=== PATIENT | female | born 1950 | race Caucasian/White ===

== ENCOUNTER 2016-02-27 16:57 | Inpatient (IN) | payer OTHER, MEDICAID ==
--- NOTE | 2016-02-27 16:53 | EDPHY ---
H & P HPI/ROS: CHIEF COMPLAINT: Arm pain. HISTORY OF PRESENT ILLNESS: The patient is a 65-year-old female with a history of Stage 4 Lymphoma and left humerus fracture 3 days ago who presents via EMS for worsening pain in her arm. After she was diagnosed on Thursday she tripped and fell, possibly reinjuring the arm (no other injuries). She visited her oncologist and had a "bone-strengthening" infusion yesterday. She visited Dr. Neff, orthopedics yesterday. She denies other complaints. EMS administered 100mcg IV Fentanyl en route. She is known to me from an emergency department visit last week. At that visit she was found to have an avulsion fracture off of the right anterior iliac spine. She presented because of right pelvic/hip pain and a large bruise involving her pelvic region. At that time she was able to walk, albeit with some difficulty. She says that that pain has persisted. That fracture, along with the left humerus fracture, has made it very difficult for her to walk or dress herself. She had a hip fracture in July of this year and after ORIF she went to [facility] for rehab. She feels that she will likely need to return to rehab setting, she is not able to adequately care for herself at home. She has been taking Percocet 10/325, 2 tablets, every 4 hours for pain. This has not provided adequate pain control. She denies new numbness or weakness. REVIEW OF SYSTEMS: A ten point review of systems was performed and is negative with the exception of the items mentioned in the HPI. Source: Patient Exam Limitations: No limitations - Medical/Surgical History PMH: 1. Stage IV lymphoma - Social History Additional Social History: She lives alone. She does not use tobacco products. She does not drink alcohol. - Physical Exam Exam: General Appearance: Alert. Vital signs reviewed. Eyes: Pupils equal and round, no conjunctival injection, no discharge. Anicteric. ENT, Mouth: Mucous membranes are moist, no oropharyngeal erythema or edema. Neck: Nontender over the cervical spine. No lymphadenopathy. Respiratory: Lungs are clear to auscultation; no wheezes, rales, or rhonchi. Cardiovascular: Regular rate and rhythm; no murmur, rub, or gallop. Gastrointestinal: Abdomen is soft and nontender, no masses or organomegaly, bowel sounds normal. Skin: Warm and dry, no rashes on exposed skin, normal color. Back: Nontender to palpation over the thoracolumbar spine. No CVAT. Extremities: Tender to palpation over the upper humerus. No lower extremity edema, no calf tenderness or swelling. Pulses: 2+ radial pulses bilaterally. Neurological: Alert and oriented. Moving both legs and her right armspontaneously. Sensation intact to light touch over all 4 extremities. Psychiatric: Normal affect. Constitutional: Initial Vital Signs Temperature (C) 36 C 02/27/16 17:10 Heart Rate 91 02/27/16 17:10 Respiratory Rate 16 02/27/16 17:10 Blood Pressure 114/81 H 02/27/16 17:10 O2 Sat (%) 95 02/27/16 17:10 O2 Delivery Mode Room Air Allergies/Adverse Reactions: melatonin Allergy (Mild, Verified 02/08/16 05:51) Other-Enter Comments gabapentin [Gabapentin] Allergy (Unknown, Verified 02/08/16 05:51) TREMORS pregabalin [Pregabalin] Allergy (Unknown, Verified 02/08/16 05:51) Rash solifenacin succinate [From Vesicare] Allergy (Unknown, Verified 02/08/16 05:51) topiramate [Topiramate] Allergy (Unknown, Verified 02/08/16 05:51) POORLY TOLERATED ziprasidone [Ziprasidone] Allergy (Unknown, Verified 02/08/16 05:51) ABNORMAL THINKING ziprasidone HCl [From Geodon] Allergy (Unknown, Verified 02/08/16 05:51) ziprasidone mesylate [From Geodon] Allergy (Unknown, Verified 02/08/16 05:51) zolpidem [Zolpidem] Allergy (Unknown, Verified 02/08/16 05:51) levofloxacin [From Levaquin] Allergy (Verified 02/08/16 05:51) Home Medications: Medication Instructions Recorded Carvedilol [Coreg (*)] 6.25 mg PO BIDMEAL 03/27/14 Levothyroxine [Synthroid 125 mcg 125 mcg PO DAILY06 03/27/14 (*)] Doxepin HCl [Sinequan 50 MG (*)] 100 mg PO HS 07/17/15 Ferrous Sulfate [Ferrous Sulf 325 150 mg PO DAILY 07/17/15 MG (*)] Acyclovir [Zovirax 400 mg (*)] 400 mg PO BID 02/08/16 Ibuprofen [Motrin (*)] 600 mg PO Q6 PRN 02/08/16 Lorazepam [Ativan 2 mg tab] 1 mg PO BID 02/08/16 Lorazepam [Ativan 2 mg tab] 2 mg PO DAILY@12 02/08/16 Multivitamins [Multivitamin (*)] 1 each PO DAILY 02/08/16 OLANZapine DISINTEGR [ZyPREXA 10 mg PO TID@05,12,17 02/08/16 ZYDIS (*)] OLANZapine DISINTEGR [ZyPREXA 20 mg PO HS 02/08/16 ZYDIS (*)] [place]-3 Fatty Acids [Fish Oil 1000 1,000 mg PO BID 02/08/16 mg (*)] Prochlorperazine Maleate 10 mg PO TID PRN 02/08/16 [Compazine 10mg (*)] Ranitidine HCl [Zantac] 300 mg PO DAILY 02/08/16 predniSONE 20 mg PO DAILY 02/08/16 rOPINIRole HCL [Requip 0.25mg (RX)] 0.25 mg PO HS 02/08/16 tiZANidine HCL [Zanaflex 2MG (*)] 2 mg PO DAILY PRN 02/08/16 traMADol [Ultram 50 mg (*)] 50 - 100 mg PO Q4-6PRN PRN 02/08/16 oxyCODONE HCL/ACETAMINOPHEN 1 - 2 each PO Q4 PRN #40 tablet 02/09/16 [Percocet 10-325 mg Tablet] Tiotropium Inhaler [Spiriva 18 mcg IH DAILY 02/27/16 Handihaler] Venlafaxine HCl [Venlafaxine HCl 450 mg PO DAILY 02/27/16 ER] Medical Decision Making - Diagnostics Imaging: Left arm x-ray. Viewed by myself in PACS system. My interpretation of the images is: displaced humeral head fracture, worse than 3 days ago. I have reviewed the radiologist's report. ED Course/Re-evaluation: Left humerus x-ray ordered. 185: Reassessed patient. Discussed results of x-rays. Today's x-ray shows 100 % displacement of her humeral head, markedly worse than the initial x-ray taken at the time of her injury. She is placed in a splint. I do not feel that she can adequately care for herself at home with this injury in conjunction with her iliac spine avulsion fracture and difficulty walking. I recommended admission and she agreed. I answered all of her questions. 1924: Consulted with Dr. Agee, hospitalist. She accepted admission. 2100: She continues with significant pain. She has received IV fentanyl. She will be given oxycodone, which is what she takes at home. She also takes Ativan will be given a dose of Ativan. Differential Diagnosis: I considered a differential diagnosis that includes but is not limited to new fracture, worsening of previous fracture, contusion, and drug-seeking. - Data Points Medications Given: Discontinued Medications Fentanyl (Sublimaze) 75 mcg IVP EDNOW ONE Stop: 02/27/16 18:35 Last Admin: 02/27/16 18:51 Dose: 75 mcg Oxycodone HCl (Oxycontin) 10 mg PO ONCE ONE Stop: 02/27/16 21:07 Last Admin: 02/27/16 21:37 Dose: 10 mg Departure - Departure Disposition: [facility] Inpatient Acute Clinical Impression: Arm fracture Qualifiers: Qualifier Code: (S42.302A) Unspecified fracture of shaft of humerus, left arm, initial encounter for closed fracture Lymphoma Qualifiers: Qualifier Code: (C85.90) Non-Hodgkin lymphoma, unspecified, unspecified site Condition: Fair Report Scribed for: Beth Riddle Report Scribed by: Vik Kirk Date of Report: 02/27/16 Time of Report: 17:17 Physician Review and Approval Statement: 02/27/16 16:53 Portions of this note were transcribed by the medical anthropologist. I, Dr. Beth Riddle, personally performed the history, physical exam, and medical decision- making; and confirmed the accuracy of the information in the transcribed note.
--- NOTE | 2016-02-27 18:14 | DX ---
Left Humerus, 2 Views on February 27, 2016 at 1752 hours Indication: Increasing pain. Comparison: February 24, 2016. Findings: Since prior examination, there is worsening alignment of the fracture of the humeral metaph ysis. The previous fracture was nondisplaced and now the fracture is significantly displaced, 100%. R emaining humerus is unremarkable. Visualized radius and ulnar are unremarkable. Impression: The previous nondisplaced humeral head fracture is now 100% displaced with no significant overlapping or alignment of the humeral head with the humeral neck fracture. Initial accurate prelim was provided by the emergency room physician.
[2016-02-27] MEDS ORDERED: fentaNYL 100 MCG/2 ML INJ IVP ONE (18:34)
[2016-02-27] MEDS ORDERED: LORazepam 1 MG TAB ONE (21:40)
[2016-02-27] MEDS ORDERED: LORazepam 1 MG TAB PO ONE (21:45)
[2016-02-27] MEDS ORDERED: HYDROmorphONE/DILAUDID 1 MG/ML SYR IVP ONE ×3 (21:54→23:28)
[2016-02-27] MEDS ORDERED: ACETAMINOPHEN 325 MG TAB ONE (22:37)
[2016-02-27] MEDS ORDERED: ACETAMINOPHEN 325 MG TAB PO ONE (22:46)
[2016-02-27 22:49] LABS: ADD DIFF? YES; ADD MORPH? NO; ATYPICAL LYMPHOCYTE FLAG 0 (0-99); FRAGMENT RBC FLAG 0 (0-99); HEMATOCRIT 27.2 % (38.0-47.0); LIPEMIA HEMOLYSIS FLAG 80 (0-99); MEAN CELL HEMOGLOBIN 26.9 pg (27.9-34.1); MEAN CELL HEMOGLOBIN CONCENTR. 33.1 g/dL (32.4-36.7); MEAN CELL VOLUME 81.4 fL (81.5-99.8); MEAN PLATELET VOLUME 7.9 fL (8.7-11.7); PLATELET CLUMPS FLAG 0 (0-99); PLATELET COUNT 162 10^3/uL (150-400); RED BLOOD CELL COUNT 3.34 10^6/uL (4.18-5.33); RED CELL DISTRIBUTION WIDTH 18.3 % (11.5-15.2)
[2016-02-27 22:55] LABS: ADD SCAN? NO; LEFT SHIFT FLG 270 (0-99)
[2016-02-27 23:00] LABS: INR 1.08 (0.83-1.16); PROTIME(PATIENT) 13.9 SEC (12.0-15.0)
[2016-02-27 23:01] LABS: APTT 33.1 SEC (23.0-38.0)
[2016-02-27 23:06] LABS: ALANINE AMINOTRANSFERASE 31 IU/L (9-52); ALBUMIN 3.2 g/dL (3.5-5.0); ALKALINE PHOSPHATASE 87 IU/L (38-126); ANION GAP 9 mEq/L (8-16); ASPARTATE AMINOTRANSFERASE 28 IU/L (14-46); BILIRUBIN,TOTAL 0.5 mg/dL (0.1-1.4); CALCIUM 7.9 mg/dL (8.5-10.4); CARBON DIOXIDE 21 mEq/l (22-31); CHLORIDE 101 mEq/L (97-110); CREATININE 0.6 mg/dL (0.6-1.0); GLOMERULAR FILTRATION RATE > 60; GLUCOSE 102 mg/dL (70-100); POTASSIUM 3.1 mEq/L (3.5-5.2); SODIUM 131 mEq/L (134-144); TOTAL PROTEIN 5.5 g/dL (6.3-8.2)
[2016-02-27] MEDS ORDERED: HYDROmorphONE/DILAUDID 1 MG/ML SYR ONE (23:31)
[2016-02-27] MEDS ORDERED: ONDANSETRON DISINTEGRATING 4 MG TAB PO PRN (23:45)
[2016-02-27] MEDS ORDERED: ONDANSETRON 4 MG/2 ML VIAL IVP PRN (23:45)
[2016-02-27] MEDS ORDERED: HYDROmorphONE/DILAUDID 1 MG/ML SYR IVP PRN (23:45)
[2016-02-27 23:52] LABS: MICROCYTES 1+; PLATELET ESTIMATE ADEQUATE (ADEQ)
[2016-02-27 23:53] LABS: LARGE PLATELETS PRESENT; TOXIC GRANULATION PRESENT; TOXIC VACUOLIZATION PRESENT
[2016-02-28] MEDS ORDERED: NALOXONE HCL 0.4 MG/ML INJ IVP PRN (00:02)
[2016-02-28] MEDS ORDERED: HYDROmorphONE/DILAUDID 6 MG/30 ML PCA IV PRN (00:02)
[2016-02-28] MEDS: NS 1,000 ML IV SCH (00:48)
[2016-02-28] MEDS: LORazepam 1 MG TAB PO SCH ×5 (00:48→16:44)
[2016-02-28] MEDS: OLANZapine DISINTEGR 10 MG TAB PO SCH ×5 (00:49→21:19)
--- NOTE | 2016-02-28 04:05 | PDGENHP ---
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 Patient was evaluated in the ED on 02/23 and was found to have a nondisplaced pathological fracture of her left proximal humerus. She was given pain control and discharged home. Patient reports after this ER visit she was home and tripped on protruding tiles in her kitchen falling forward and onto her left side. She denies head trauma or loss of consciousness, but immediately began having intense pain all over especially in her left arm. She was evaluated by her PMD office on day of presentation for routine visit and given the amount of pain she was describing she was sent to the ED for further evaluation. Patient denies any recent fevers, chills cough, cold, congestion, chest pain, shortness of breath, nausea, vomiting, diarrhea. Upon arrival to the ED patient afebrile and hemodynamically stable, but in significant amount of pain. She was given IV narcotics and imaging of left humerus was obtained. X-ray revealed 100% displaced humoral neck fracture, a significant change from her x-ray on 02/23. Patient was put in a sling and admitted to the hospitalist service for further management. Upon my evaluation patient was in still in considerable amount of pain. Orthopedics was consulted who recommended immobilization in a sling and will evaluate patient in a.m. for likely need of surgical correction. History Information - Allergies/Home Medication List Allergies/Adverse Reactions: melatonin Allergy (Mild, Verified 02/08/16 05:51) Other-Enter Comments gabapentin [Gabapentin] Allergy (Unknown, Verified 02/08/16 05:51) TREMORS pregabalin [Pregabalin] Allergy (Unknown, Verified 02/08/16 05:51) Rash solifenacin succinate [From Vesicare] Allergy (Unknown, Verified 02/08/16 05:51) topiramate [Topiramate] Allergy (Unknown, Verified 02/08/16 05:51) POORLY TOLERATED ziprasidone [Ziprasidone] Allergy (Unknown, Verified 02/08/16 05:51) ABNORMAL THINKING ziprasidone HCl [From Geodon] Allergy (Unknown, Verified 02/08/16 05:51) ziprasidone mesylate [From Geodon] Allergy (Unknown, Verified 02/08/16 05:51) zolpidem [Zolpidem] Allergy (Unknown, Verified 02/08/16 05:51) levofloxacin [From Levaquin] Allergy (Verified 02/08/16 05:51) Home Medications: Carvedilol [Coreg (*)] 6.25 mg PO BIDMEAL 03/27/14 [Last Taken 02/27/16] Levothyroxine [Synthroid 125 mcg (*)] 125 mcg PO DAILY06 03/27/14 [Last Taken ] Doxepin HCl [Sinequan 50 MG (*)] 100 mg PO HS 07/17/15 [Last Taken 02/26/16] Ferrous Sulfate [Ferrous Sulf 325 MG (*)] 150 mg PO DAILY 07/17/15 [Last Taken 02/27/16] Acyclovir [Zovirax 400 mg (*)] 400 mg PO BID 02/08/16 [Last Taken 02/27/16] Ibuprofen [Motrin (*)] 600 mg PO Q6 PRN 02/08/16 [Last Taken 02/07/16] Lorazepam [Ativan 2 mg tab] 1 mg PO BID 02/08/16 [Last Taken 02/27/16] Lorazepam [Ativan 2 mg tab] 2 mg PO DAILY@12 02/08/16 [Last Taken 02/27/16] Multivitamins [Multivitamin (*)] 1 each PO DAILY 02/08/16 [Last Taken 02/27/16] OLANZapine DISINTEGR [ZyPREXA ZYDIS (*)] 10 mg PO TID@05,12,17 02/08/16 [Last Taken 02/27/16] OLANZapine DISINTEGR [ZyPREXA ZYDIS (*)] 20 mg PO HS 02/08/16 [Last Taken ] [place]-3 Fatty Acids [Fish Oil 1000 mg (*)] 1,000 mg PO BID 02/08/16 [Last Taken 02/27/16] Prochlorperazine Maleate [Compazine 10mg (*)] 10 mg PO TID PRN 02/08/16 [Last Taken 02/07/16] Ranitidine HCl [Zantac] 300 mg PO DAILY 02/08/16 [Last Taken 02/27/16] predniSONE 20 mg PO DAILY 02/08/16 [Last Taken 02/27/16] rOPINIRole HCL [Requip 0.25mg (RX)] 0.25 mg PO HS 02/08/16 [Last Taken 02/26/16] tiZANidine HCL [Zanaflex 2MG (*)] 2 mg PO DAILY PRN 02/08/16 [Last Taken Unknown ] traMADol [Ultram 50 mg (*)] 50 - 100 mg PO Q4-6PRN PRN 02/08/16 [Last Taken 03/24] Tiotropium Inhaler [Spiriva Handihaler] 18 mcg IH DAILY 02/27/16 [Last Taken ] Venlafaxine HCl [Venlafaxine HCl ER] 225 mg PO DAILY 02/27/16 [Last Taken ] I have personally reviewed and updated: family history, medical history, social history, surgical history - Past Medical History Additional medical history: Follicular lymphoma, stage IV with bony Mets on chemotherapy via chest wall port. Bipolar disorder. Anxiety/panic disorder. Hypothyroidism. Chronic pain - Surgical History Additional surgical history: Right hip orif. Left ankle fracture repair. Rhinoplasty - Family History Additional family history: MGM: Lung cancer - Social History Smoking Status: Former smoker (Smoked 2 packs per day x 50 years, quit 3 years ago) Alcohol Use: None Drug Use: None Additional social history: Patient lives alone but has neighbors who apparently are involved in her care. 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 Review of Systems ROS: 10pt was reviewed & negative except for what was stated in HPI & below Physical Exam Temp Pulse Resp BP Pulse Ox 36.3 C 112 H 12 115/57 L 92 02/28/16 00:02 02/28/16 00:02 02/28/16 00:02 02/28/16 00:02 02/28/16 00:02 Constitutional: uncomfortable, other (In moderate to severe pain) Eyes: PERRL, anicteric sclera, EOMI Ears, Nose, Mouth, Throat: hearing normal, ears appear normal, no oral mucosal ulcers, dry mucous membranes Cardiovascular: no murmur, rub, or gallop, pulses symmetric bilaterally, tachycardia, No JVD, No edema Peripheral Pulses: 2+: dorsalis-pedis (R), dorsalis-pedis (L) Respiratory: no respiratory distress, no rales or rhonchi, clear to auscultation Gastrointestinal: normoactive bowel sounds, soft, non-tender abdomen, no palpable masses Genitourinary: no bladder fullness, no bladder tenderness Skin: warm, normal color, no rashes or abrasions, no fluctuance Musculoskeletal: full muscle strength, no muscle tenderness, joint tenderness, pain with ROM (Left shoulder) Neurologic: AAOx3, sensation intact bilaterally, CN II-XII Intact, No weakness, No numbness Psychiatric: interacting appropriately, not encephalopathic, thought process linear Lab Data & Imaging Review 02/27/16 22:40 02/27/16 22:40 WBC 1.37 10^3/uL (3.80-9.50) L 02/27/16 22:40 RBC 3.34 10^6/uL (4.18-5.33) L 02/27/16 22:40 Hgb 9.0 g/dL (12.6-16.3) L 02/27/16 22:40 Hct 27.2 % (38.0-47.0) L 02/27/16 22:40 MCV 81.4 fL (81.5-99.8) L 02/27/16 22:40 MCH 26.9 pg (27.9-34.1) L 02/27/16 22:40 MCHC 33.1 g/dL (32.4-36.7) 02/27/16 22:40 RDW 18.3 % (11.5-15.2) H 02/27/16 22:40 Plt Count 162 10^3/uL (150-400) 02/27/16 22:40 MPV 7.9 fL (8.7-11.7) L 02/27/16 22:40 Neut % (Auto) Not Reported 02/27/16 22:40 Lymph % (Auto) Not Reported 02/27/16 22:40 [place] % (Auto) Not Reported 02/27/16 22:40 Eos % (Auto) Not Reported 02/27/16 22:40 Baso % (Auto) Not Reported 02/27/16 22:40 Nucleat RBC Rel Count 0.0 % (0.0-0.2) 02/27/16 22:40 Absolute Neuts (auto) Not Reported 02/27/16 22:40 Absolute Lymphs (auto) Not Reported 02/27/16 22:40 Absolute Monos (auto) Not Reported 02/27/16 22:40 Absolute Eos (auto) Not Reported 02/27/16 22:40 Absolute Basos (auto) Not Reported 02/27/16 22:40 Absolute Nucleated RBC 0.00 10^3/uL (0-0.01) 02/27/16 22:40 Immature Gran % Not Reported 02/27/16 22:40 Seg Neutrophils % 30 % 02/27/16 22:40 Band Neutrophils % 48 % 02/27/16 22:40 Lymphocytes % 9 % 02/27/16 22:40 Monocytes % 4 % 02/27/16 22:40 Eosinophils % 6 % 02/27/16 22:40 Metamyelocytes % 3 % 02/27/16 22:40 Immature Gran # Not Reported 02/27/16 22:40 Absolute Seg Neuts 0.41 10^/uL (1.70-6.50) L 02/27/16 22:40 Absolute Band Neuts 0.66 10^3/uL (0.00-0.70) 02/27/16 22:40 Absolute Lymphocytes 0.12 10^3/uL (1.00-3.00) L 02/27/16 22:40 Absolute Monocytes 0.05 10^3/uL (0.30-0.80) L 02/27/16 22:40 Absolute Eosinophils 0.08 10^3/uL (0.03-0.40) 02/27/16 22:40 Absolute Metamyelocyte 0.04 10^3/mL (0.00-0.00) H 02/27/16 22:40 Toxic Granulation PRESENT H 02/27/16 22:40 Toxic Vacuolation PRESENT H 02/27/16 22:40 Platelet Estimate ADEQUATE (ADEQ) 02/27/16 22:40 Large Platelets PRESENT H 02/27/16 22:40 Microcytic Cells 1+ H 02/27/16 22:40 PT 13.9 SEC (12.0-15.0) 02/27/16 22:40 INR 1.08 (0.83-1.16) 02/27/16 22:40 APTT 33.1 SEC (23.0-38.0) 02/27/16 22:40 Sodium 131 mEq/L (134-144) L 02/27/16 22:40 Potassium 3.1 mEq/L (3.5-5.2) L 02/27/16 22:40 Chloride 101 mEq/L (97-110) 02/27/16 22:40 Carbon Dioxide 21 mEq/l (22-31) L 02/27/16 22:40 Anion Gap 9 mEq/L (8-16) 02/27/16 22:40 BUN 13 mg/dL (7-23) 02/27/16 22:40 Creatinine 0.6 mg/dL (0.6-1.0) 02/27/16 22:40 Estimated GFR > 60 02/27/16 22:40 Glucose 102 mg/dL (70-100) H 02/27/16 22:40 Calcium 7.9 mg/dL (8.5-10.4) L D 02/27/16 22:40 Total Bilirubin 0.5 mg/dL (0.1-1.4) 02/27/16 22:40 AST 28 IU/L (14-46) 02/27/16 22:40 ALT 31 IU/L (9-52) 02/27/16 22:40 Alkaline Phosphatase 87 IU/L (38-126) 02/27/16 22:40 Total Protein 5.5 g/dL (6.3-8.2) L 02/27/16 22:40 Albumin 3.2 g/dL (3.5-5.0) L 02/27/16 22:40 Visualized and Interpreted Chest x-ray results: Yes Chest X-Ray results: no infiltrate, normal Visualized and Interpreted imaging results: Yes Interpretation: L humerus x-ray: 100% displaced humeral head fracture Assessment & Plan Assessment: Patient is a 65-year-old female with history of bipolar disorder, hypothyroidism , stage IV follicular lymphoma with bony mets who sustained a pathological fracture of her left humerus on 02/23, subsequently fell which resulted in displacement of this fracture. Plan: # acute displaced humeral neck acute fracture Initial pathologic fracture was discovered on 02/23, then pt sustained a mechanical fall, which resulted in displacement of this pathologic fracture. Pt is in significant amount of pain, although neurovascularly intact. Orthopedics consulted and on their review of x-ray, pt may need surgical correction, will complete the full consult in AM. - pain control with dilaudid retail marketing specialist - immobilize L arm in sling - f/u ortho consult in AM # fever Pt with fever, leukopenia and no obvious source of infection. Given neutropenia , will treat as neutropenic fever. Will obtain blood cultures and start broad spectrum antibiotics. - blood and urine cultures - start cefepime 2 g q8h - start vanc 1 g q12h - consider ID consult # stage IV follicular lymphoma Diagnosed in 2014, pt unable to provide details of her treatment history/regimen , reportedly on chemotherapy. - obtain outpt onc records. # Bipolar/anxiety disorder MS stable on presentation. Will cont home med regimen. # Hypothyroidism Check TSH, cont home med. # dispo: admit to inpt service for > 2 MN stay # gen: Regular diet DVT ppx: lovenox Full code
[2016-02-28] MEDS: ACETAMINOPHEN 325 MG TAB PO PRN ×2 (04:21→11:59)
[2016-02-28] MEDS ORDERED: VANCOMYCIN 1.25 GM in D5W 250 ML IV SCH ×2 (05:00→05:30)
[2016-02-28] MEDS: CEFEPIME HCL 2 GM in D5W 100 ML IV SCH ×3 (05:19→22:20)
[2016-02-28] MEDS: LEVOTHYROXINE 125 MCG TAB PO SCH (05:20)
[2016-02-28 06:50] LABS: COLOR YELLOW; LEUKOCYTE ESTERASE,URINE NEGATIVE (NEGATIVE); NITRITE,URINE NEGATIVE (NEGATIVE)
[2016-02-28 06:56] LABS: ADD DIFF? YES; ADD MORPH? NO; ATYPICAL LYMPHOCYTE FLAG 0 (0-99); FRAGMENT RBC FLAG 0 (0-99); HEMATOCRIT 27.1 % (38.0-47.0); HEMOGLOBIN 9.1 g/dL (12.6-16.3); LIPEMIA HEMOLYSIS FLAG 80 (0-99); MEAN CELL HEMOGLOBIN 27.4 pg (27.9-34.1); MEAN CELL HEMOGLOBIN CONCENTR. 33.6 g/dL (32.4-36.7); MEAN CELL VOLUME 81.6 fL (81.5-99.8); MEAN PLATELET VOLUME 8.5 fL (8.7-11.7); PLATELET CLUMPS FLAG 10 (0-99); PLATELET COUNT 182 10^3/uL (150-400); RED BLOOD CELL COUNT 3.32 10^6/uL (4.18-5.33); RED CELL DISTRIBUTION WIDTH 18.6 % (11.5-15.2)
[2016-02-28 07:09] LABS: ADD SCAN? NO; LEFT SHIFT FLG 300 (0-99)
[2016-02-28 07:10] LABS: ANION GAP 9 mEq/L (8-16); CALCIUM 7.3 mg/dL (8.5-10.4); CARBON DIOXIDE 22 mEq/l (22-31); CHLORIDE 102 mEq/L (97-110); CREATININE 0.6 mg/dL (0.6-1.0); GLOMERULAR FILTRATION RATE > 60; GLUCOSE 121 mg/dL (70-100); MAGNESIUM 1.4 mg/dL (1.6-2.3); POTASSIUM 2.8 mEq/L (3.5-5.2); SODIUM 133 mEq/L (134-144)
[2016-02-28] MEDS: OMEGA-3 FATTY ACIDS 1,000 MG CAP PO SCH ×2 (07:34→21:17)
[2016-02-28] MEDS: VENLAFAXINE XR 75 MG CAP PO SCH (07:35)
[2016-02-28] MEDS: FAMOTIDINE 20 MG TAB PO SCH (07:36)
[2016-02-28] MEDS: FERROUS SULFATE 325 MG TAB PO SCH (07:36)
[2016-02-28] MEDS: predniSONE 20 MG TAB PO SCH (07:37)
[2016-02-28] MEDS: ACYCLOVIR 400 MG TAB PO SCH ×2 (07:37→21:19)
[2016-02-28] MEDS: MULTIVITAMINS 1 EACH TAB PO SCH (07:37)
[2016-02-28] MEDS: ENOXAPARIN 40 MG/0.4 ML SYR SC SCH (07:38)
[2016-02-28] MEDS: NICOTINE 21 MG/24 HR PATCH TD SCH (07:39)
[2016-02-28 07:53] LABS: PLATELET ESTIMATE ADEQUATE (ADEQ)
[2016-02-28] MEDS ORDERED: NS 1,000 ML IV ONE ×2 (07:54→11:53)
[2016-02-28] MEDS ORDERED: ALTEPLASE 2 MG VIAL IVP PRN (07:55)
[2016-02-28] MEDS ORDERED: PROTOCOL MAGNESIUM 1 DOSE IV PRN (07:58)
[2016-02-28] MEDS ORDERED: PROTOCOL POTASSIUM 1 DOSE MISC PRN (07:58)
[2016-02-28] MEDS ORDERED: PROTOCOL K PHOSPHATE 1 DOSE IV PRN (07:58)
[2016-02-28] MEDS ORDERED: CARVEDILOL 6.25 MG TAB PO SCH (08:00)
--- NOTE | 2016-02-28 08:14 | DX ---
PA and Lateral Chest February 28, 2016 0012 hours Clinical Indications: Sepsis. Findings: Port catheter is seen in the upper SVC. Heart size is normal. There are some very mild inc reased interstitial markings along the right heart border. A comminuted fracture of the left humeral head is noted with some subluxation. Impression: 1. Questionable mild early interstitial infiltrate in the right lower lobe. 2. There is a left humeral neck fracture. This is a known finding and was evaluated on x-rays from [facility] in the evening.
[2016-02-28] MEDS ORDERED: MAGNESIUM SULF 2 GM/WATER 50 ML IV ONE (08:50)
[2016-02-28] MEDS: TIOTROPIUM INHALER 18 MCG/DOSE 5 DOSE/MDI IH SCH (09:17)
[2016-02-28] MEDS ORDERED: morphINE PCA 30 MG/30 ML PCA IV PRN (10:28)
[2016-02-28] MEDS ORDERED: morphINE PCA 30 MG/30 ML PCA IV ONE (10:33)
[2016-02-28] MEDS: POTASSIUM Cl (KCl) 100 ML IV SCH ×4 (10:43→16:32)
[2016-02-28] MEDS ORDERED: K PHOS 10 MMOL in D5W 250 ML IV ONE (12:00)
--- NOTE | 2016-02-28 16:16 | HOSPPROG ---
Hospitalist Progress Note Assessment/Plan: 65 yo F with hx of stage 4 lymphoma with extensive bony mets and prior pathological fx presenting with acute displaced humeral neck fx and sepsis in setting of likely pna # acute displaced humeral neck fx: initial injury on 02/23 with a non displaced fx at that time, was immobilized and sent home, but on return fracture is now completely displaced with associated severe pain. Ortho consulted and recs are pending. Patient is being kept NPO in case of surgical intervention today. sling in place. # sepsis: patient with neutropenia, fever and tachycardia in setting of likely RLL PNA as next. Started on broad spectrum abx overnight and will continue for now pending culture data given immune compromised state. mildly hypotensive but fluid responsive currently. # RLL PNA: early infiltrate noted on personal review of chest xray in setting of above as well as chronic immune compromise. Abx for now include vanc/ cefepime for coverage of neutropenic fever/pna. Cultures pending. Repeat cxr in am. # stage 4 follicular lymphoma: with extensive bony mets and prior pathological fractures as above # electrolyte abnormalities: with low k, mg, phos all in need of repletion. Suspect poor nutrition at baseline. Will ask for dietary consult. # h/o anxiety/MDD/bipolar vs schizophrenia: continue op medications, behaviorally controlled # hypothyroid: with elevated tsh but ft4 wnl, recommend f/u TFT in 4-6 weeks # dispo: will need > 48 hours for evaluation and management of above Patient new to my care. Care plan reviewed with Dr. Raymundo. Subjective: fever this am, continued arm pain Objective: Vital Signs Temp Pulse Resp BP Pulse Ox 38.1 C 108 H 16 100/54 L 95 02/28/16 15:52 02/28/16 15:52 02/28/16 15:52 02/28/16 15:52 02/28/16 15:52 Laboratory Results 02/28/16 06:00 02/28/16 06:00 02/27/16 02/28/16 02/29/16 05:59 05:59 05:59 Intake Total 1350 Output Total 1200 Balance 150 PT 13.9 SEC (12.0-15.0) 02/27/16 22:40 INR 1.08 (0.83-1.16) 02/27/16 22:40 awake alert uncomfortable appearing anicteric op clear rrr tachycardic no mrg dec throughout right lower lobe rhonchi soft nt nd no cce warm dry well perfused - Time Spent With Patient Time Spent with Patient: greater than 35 minutes Time Spent with Patient: Greater than 35 minutes spent on this patients care, greater than 50% of time spent counseling, educating, and coordinating care regarding the above mentioned plan. ICD10 Worksheet Patient Problems: Problems Problem Status Diagnosed Arm fracture Acute Bipolar 1 disorder with moderate isaura Acute Lymphoma Acute Marijuana abuse Acute Altered mental status Acute Chest pain Acute Withdrawal from sedative drug Acute Bipolar disorder Chronic
[2016-02-28] MEDS ORDERED: POTASSIUM Cl (KCl) 100 ML IV ONE (16:30)
[2016-02-28 19:07] LABS: POTASSIUM 3.3 mEq/L (3.5-5.2)
[2016-02-28] MEDS: VANCOMYCIN 750 MG in D5W 150 ML IV SCH (19:51)
[2016-02-28] MEDS ORDERED: POTASSIUM CL 10 MEQ TAB PO ONE (21:01)
[2016-02-28] MEDS: DOXEPIN HCL 50 MG CAP PO SCH (21:18)
--- NOTE | 2016-02-28 21:53 | SOAPPROG ---
SOAP Progress Note Assessment/Plan: Assessment: Plan: Subjective: I saw the patient today at 10am and discussed my plan of care with the nurses on the floor. I reviewed the patient XR and NV and fracture status late last night when she was admitted during my call shift and discussed this with the ED. I examined the patient myself at 10am and found her in pain, but with no distress. NV intact and moving fingers well. She used ice over the shoulder. I explained to her that this fracture requires surgical fix. I inquired how did she move from undisplaced fracture 3 days ago to a displaced facture last night and she reported on a second fall at home after being discharged from ED with undisplaced fracture. I found out that her electrolytes are off and understood that she needs some drafting instructor care first. I made sure she will be seen by drafting instructor and asked nurse to stop NPO as surgery will not happen today. I told patient and nurse that I am now seeking the proper surgeon to do the surgery as I am not doing shoulder surgeries. I contacted several surgeons from the floor before I left but none had came back to me with a positive answer. I then left to clinic and kept on contacting local surgeons to try and get this sorted out. I managed to find a back up solution in [facility] with one of my partners for Thursday but kept on looking for a local solution as first choice. Eventually, at night, I verified with Dr Choudhary that he will be doing the surgery Thursday afternoon. Dr Miller Objective: Vital Signs Temp Pulse Resp BP Pulse Ox 38.1 C 110 H 20 94/56 L 95 02/28/16 19:16 02/28/16 19:16 02/28/16 19:16 02/28/16 19:16 02/28/16 19:16 Laboratory Results 02/28/16 06:00 02/28/16 18:40 02/27/16 02/28/16 02/29/16 05:59 05:59 05:59 Intake Total 1850 Output Total 2400 Balance -550 PT 13.9 SEC (12.0-15.0) 02/27/16 22:40 INR 1.08 (0.83-1.16) 02/27/16 22:40 ICD10 Worksheet Patient Problems: Problems Problem Status Diagnosed Arm fracture Acute Bipolar 1 disorder with moderate isaura Acute Lymphoma Acute Marijuana abuse Acute Altered mental status Acute Chest pain Acute Withdrawal from sedative drug Acute Bipolar disorder Chronic
--- NOTE | 2016-02-28 21:54 | GCON ---
[f rep st] CONSULTATION INPATIENT CONSULT REPORT DATE OF CONSULTATION: 02/28/2016 CURRENT COMPLAINT: Left arm pain. HISTORY OF PRESENT ILLNESS: This is a 65-year-old female with a history of stage IV lymphoma, with e xtensive bony metastases. She had been seen on 02/[address] Neff and noted to have an apparent nondi splaced proximal humerus fracture on the left side that was to be treated conservatively. She states that she fell again and was brought to the emergency room on 02/26 for further evaluation. X-rays a t 7 p.m., on 02/26, revealed 100% displacement of the humeral head relative to the shaft. She was th erefore admitted for pain control, for further evaluation. Orthopedics, Dr. Miller, had been called and apparently had said that she would be evaluated in the morning of 02/27. Was again called and h istory and physical was performed at 4:00 a.m., and Orthopedics was called via Dr. Raymundo, and Orth opedics again stated that they would finish a full consult in the morning. Subsequent to this, a gali iniguezt saw her later in the day on 02/27, at 4:30 in the afternoon, and noted there was no ortho co nsult. And, Dr. Herrera had been told that Dr. Choudhary would be assuming care of the patient. She, ere, called me, and it was the 1st that I heard that there was a patient who needed fracture care , that had been admitted while I was not on-call. A phone message was left while I was in the operat ing room by Dr. Miller, at 7:40 p.m., asking whether I could take care of this patient. I, therefor e, once done in the operating room, went to go see the patient for further evaluation. PHYSICAL EXAMINATION: Patient is grossly neurologically intact to the radial, median, and ulnar nerv es distally into the arm. She has swelling and the start of ecchymosis at the proximal portion of he r humerus. She has pain to any type of motion to the left upper extremity. IMAGING: X-ray exam reveals a complete fracture at the surgical neck of the left proximal humerus. ASSESSMENT AND PLAN: The patient is status post left proximal humerus fracture. Options that were d iscussed with the patient includes conservative versus operative treatment. Given the misalignment a nd the pain she is currently having, I have suggested that she consider operative treatment. She is enthusiastic about that. A special plate had to be ordered and will be available tomorrow. She will , therefore, be kept n.p.o. after midnight tonight in plans for doing open reduction, internal fixati on of the proximal humerus tomorrow. /[id number]/MODL
[2016-02-29] MEDS: NS 1,000 ML IV SCH ×2 (04:50→22:51)
[2016-02-29] MEDS: CEFEPIME HCL 2 GM in D5W 100 ML IV SCH ×2 (04:51→16:35)
[2016-02-29 05:13] LABS: ANION GAP 6 mEq/L (8-16); CALCIUM 6.1 mg/dL (8.5-10.4); CARBON DIOXIDE 20 mEq/l (22-31); CHLORIDE 104 mEq/L (97-110); CREATININE 0.5 mg/dL (0.6-1.0); GLOMERULAR FILTRATION RATE > 60; GLUCOSE 98 mg/dL (70-100); MAGNESIUM 1.8 mg/dL (1.6-2.3); POTASSIUM 3.2 mEq/L (3.5-5.2); SODIUM 130 mEq/L (134-144)
[2016-02-29] MEDS: LEVOTHYROXINE 125 MCG TAB PO SCH (05:32)
[2016-02-29] MEDS: VANCOMYCIN 750 MG in D5W 150 ML IV SCH ×3 (05:32→18:54)
[2016-02-29] MEDS: ACETAMINOPHEN 325 MG TAB PO PRN (05:32)
[2016-02-29] MEDS: OLANZapine DISINTEGR 10 MG TAB PO SCH ×4 (05:33→22:39)
[2016-02-29 06:28] LABS: ADD DIFF? YES; ADD MORPH? NO; ATYPICAL LYMPHOCYTE FLAG 50 (0-99); FRAGMENT RBC FLAG 0 (0-99); HEMATOCRIT 24.1 % (38.0-47.0); HEMOGLOBIN 8.2 g/dL (12.6-16.3); LIPEMIA HEMOLYSIS FLAG 90 (0-99); MEAN CELL HEMOGLOBIN 27.2 pg (27.9-34.1); MEAN CELL VOLUME 79.8 fL (81.5-99.8); MEAN PLATELET VOLUME 8.3 fL (8.7-11.7); PLATELET CLUMPS FLAG 10 (0-99); PLATELET COUNT 150 10^3/uL (150-400); RED BLOOD CELL COUNT 3.02 10^6/uL (4.18-5.33)
[2016-02-29 06:31] LABS: ADD SCAN? NO; LEFT SHIFT FLG 300 (0-99)
[2016-02-29] MEDS: FERROUS SULFATE 325 MG TAB PO SCH (07:21)
[2016-02-29] MEDS: ACYCLOVIR 400 MG TAB PO SCH ×2 (07:21→22:39)
[2016-02-29] MEDS: ENOXAPARIN 40 MG/0.4 ML SYR SC SCH (07:21)
[2016-02-29] MEDS: LORazepam 1 MG TAB PO SCH ×4 (07:22→22:39)
[2016-02-29] MEDS: OMEGA-3 FATTY ACIDS 1,000 MG CAP PO SCH ×2 (07:22→22:39)
[2016-02-29] MEDS: MULTIVITAMINS 1 EACH TAB PO SCH (07:22)
[2016-02-29] MEDS: NICOTINE 21 MG/24 HR PATCH TD SCH (07:23)
[2016-02-29] MEDS: predniSONE 20 MG TAB PO SCH (07:29)
[2016-02-29] MEDS: VENLAFAXINE XR 75 MG CAP PO SCH (07:29)
[2016-02-29] MEDS: FAMOTIDINE 20 MG TAB PO SCH (07:29)
[2016-02-29] MEDS ORDERED: MAGNESIUM SULF 1 GM/DEXTROSE 100 ML IV ONE (07:49)
[2016-02-29 07:52] LABS: GIANT PLATELETS PRESENT
[2016-02-29 07:53] LABS: PLATELET ESTIMATE ADEQUATE (ADEQ)
[2016-02-29] MEDS: TIOTROPIUM INHALER 18 MCG/DOSE 5 DOSE/MDI IH SCH (08:31)
[2016-02-29] MEDS: POTASSIUM Cl (KCl) 50 ML IV SCH ×2 (09:24→12:15)
--- NOTE | 2016-02-29 10:20 | GCON ---
[f rep st] CONSULTATION HEMATOLOGY-ONCOLOGY CONSULTATION. The patient is a 65-year-old female who was diagnosed with a stage IV grade 1 follicular lymphoma in the summer of 2015. She was diagnosed after she presented with a right hip fracture that was found to be pathologic. Staging showed a mediastinal mass, as well as adenopathy in the neck, left axilla, left hilum and pelvis, and a PET scan showed widespread osseous metastatic disease throughout the axial and appendicular skeleton. She was treated with 5 cycles of bendamustine and Rituxan. A followup CT scan performed 01/17/2016, showed interval resolution of the anterior superior mediastinal mass and decrease in previously noted adenopathy. Sclerosis was noted in previous areas of bone involvement. There was a pathologic fracture in the posterior right 10th rib with a soft tissue component. She recently has had issues with an avulsion fracture of the right anterior superior iliac spine and was noted to have a hairline fracture of her left proximal humerus. Unfortunately, after that was diagnosed she fell and presented again with increased left arm pain and was noted to have 100% displaced fracture of the humeral head. She has been seen by Orthopedics and is scheduled to go to surgery for an operative fixation today. She now complains of pain in her left shoulder area and right hip. PAST MEDICAL HISTORY: Includes bipolar disorder, anxiety, panic disorder, hypothyroidism, chronic pain. PAST SURGICAL HISTORY: Surgeries include ORIF of the right hip and left ankle and a rhinoplasty. She is a former smoker with 100 pack-year history, quit 3 years ago. 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 REVIEW OF SYSTEMS: A 10-point review of systems is negative except for what was discussed in the HPI. PHYSICAL EXAMINATION: GENERAL: She is a pleasant alert female. VITAL SIGNS: Stable. HEENT: She is not icteric. I detect no obvious adenopathy. CHEST: Lungs are clear. CARDIAC: Exam is unremarkable. ABDOMEN: Benign. EXTREMITIES: No edema. She has pain in her left shoulder. LABORATORY: Evaluation shows a white count of 1.26, hemoglobin of 8.2, hematocrit 24.1, and a platelet count of a 150,000. Sodium 130, potassium 3.2, calcium 6.1, phosphorus 1.4, albumin 3.2. TSH 8.2 2. IMPRESSION: 1. Pathologic fracture, left femoral neck. This is related to her underlying lymphoma. Agree with plans for surgical fixation. 2. Non-Hodgkin's lymphoma, follicular type. She has had a good response in terms of her soft tissue disease. It is less clear what is happening in terms of her bony disease, i.e., does she have progressive bony disease or are fractures just related to previous weakening. Dr. Koo has plans for an outpatient PET scan and repeat bone marrow biopsy and plans to institute Zometa. 3. Neutropenia and anemia, both are probably related to previous chemotherapy. It may also be related to bone marrow involvement. Although her neutrophils are low, I think they are adequate for upcoming surgery. She will probably require blood transfusion post surgery. 4. Electrolyte abnormalities will be addressed by the hospitalist service. 5. Hypothyroidism. Probably bears repeating down the road. I would like to thank Dr. Soto for the opportunity to see this very pleasant patient in consultation. Our service will follow with you. /[id number]/MODL MTDD
--- NOTE | 2016-02-29 13:31 | DX ---
AP and lateral chest x-ray 1233 hours. History: Possible pneumonia. Presurgical evaluation. Findings: Comparison to February 28, 2016. Heart size remains upper limits of normal. Pulmonary vasculature is mildly prominent centrally increa sed since the prior study. There are some prominent interstitial markings at the lung bases probably representing subsegmental atelectasis versus dependent edema. Consolidation/pneumonia is felt to be l ess likely. Central vascular catheter remains in place. Proximal left humeral subcapital fracture is once again noted. Impression: 1. Mild fluid overload suspected. Bibasilar infiltrate/consolidation is felt to be less likely. 2. Subcapital left proximal humeral fracture.
[2016-02-29] MEDS ORDERED: POLYMYXIN B SULFATE 500,000 UNIT/10 ML SYR IRR ONE (13:46)
--- NOTE | 2016-02-29 14:39 | HOSPPROG ---
Hospitalist Progress Note Assessment/Plan: 65 yo F with hx of stage 4 lymphoma with extensive bony mets and prior pathological fx presenting with acute displaced humeral neck fx and sepsis in setting of likely pna # acute displaced pathological humeral neck fx: initial injury on 02/23 with a non displaced fx at that time, was immobilized and sent home, but on return fracture is now completely displaced with associated severe pain. Patient to go to OR today likely. 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 Continued on vanc/cefepime for now. # RLL PNA: early infiltrate noted on personal review of chest xray in setting of above as well as chronic immune compromise.Repeat cxr more c/w volume overload on personal review, continue abx for now. # gpc bacteremia versus contaminant: 1/2 blood cultures showing gpc's with final s/s pending, likely contaminant but continue vanco for now # pancytopenia: in setting of lymphoma and chemotherapy for same, likely bone marrow involvement, counts stable # stage 4 follicular lymphoma: with extensive bony mets and prior pathological fractures as above, appreciate onc consultation # electrolyte abnormalities: with low k, mg, phos all in need of repletion. Suspect poor nutrition at baseline. Will ask for dietary consult. # h/o anxiety/MDD/bipolar vs schizophrenia: continue op medications, behaviorally controlled # hypothyroid: with elevated tsh but ft4 wnl, recommend f/u TFT in 4-6 weeks # dispo: will need > 48 hours for evaluation and management of above Subjective: patient feeling a bit better this am, excited for surgery to occur Objective: Vital Signs Temp Pulse Resp BP Pulse Ox 37.3 C 87 16 83/56 L 93 02/29/16 13:35 02/29/16 13:35 02/29/16 13:35 02/29/16 13:35 02/29/16 13:35 Laboratory Results 02/29/16 06:20 02/29/16 04:45 02/28/16 02/29/16 03/01/16 05:59 05:59 05:59 Intake Total 1850 Output Total 3300 750 Balance -1450 -750 PT 13.9 SEC (12.0-15.0) 02/27/16 22:40 INR 1.08 (0.83-1.16) 02/27/16 22:40 awake alert uncomfortable appearing anicteric op clear rrr tachycardic no mrg dec throughout right lower lobe rhonchi soft nt nd no cce warm dry well perfused - Time Spent With Patient Time Spent with Patient: greater than 35 minutes Time Spent with Patient: Greater than 35 minutes spent on this patients care, greater than 50% of time spent counseling, educating, and coordinating care regarding the above mentioned plan. ICD10 Worksheet Patient Problems: Problems Problem Status Diagnosed Arm fracture Acute Bipolar 1 disorder with moderate isaura Acute Lymphoma Acute Marijuana abuse Acute Altered mental status Acute Chest pain Acute Withdrawal from sedative drug Acute Bipolar disorder Chronic
[2016-02-29] MEDS ORDERED: KETAMINE 100 MG/10 ML SYR IVP ONE (15:05)
[2016-02-29] MEDS ORDERED: PROPOFOL/EMULSION 500 MG/50 ML BOTTLE IV ONE (15:05)
[2016-02-29] MEDS ORDERED: ROCURONIUM 100 MG/10 ML VIAL ONE (15:05)
[2016-02-29] MEDS ORDERED: morphINE *ANESTHESIA ONLY* 10 MG/ML VIAL ONE (15:05)
[2016-02-29] MEDS ORDERED: LIDOCAINE 2% 5 ML SDV ONE (15:05)
[2016-02-29] MEDS ORDERED: DEXAMETHASONE 4 MG/ML VIAL ONE (15:06)
[2016-02-29] MEDS ORDERED: ONDANSETRON 4 MG/2 ML VIAL ONE (15:06)
[2016-02-29] MEDS ORDERED: KETOROLAC 30 MG/1 ML SDV ONE (15:06)
[2016-02-29] MEDS ORDERED: BALANCED SALT IRRIG SOLN 15 ML OPHT.BTL ONE (15:41)
[2016-02-29] MEDS ORDERED: PHENYLEPHRINE HCL 100 MCG/ML SYR ONE (15:56)
[2016-02-29] MEDS ORDERED: VASOPRESSIN 20 UNIT/ML VIAL ONE (16:04)
[2016-02-29] MEDS ORDERED: NEOSTIGMINE METHYLSULFATE 5 MG/5 ML SYR ONE (17:08)
[2016-02-29] MEDS ORDERED: GLYCOPYRROLATE 0.2 MG/1 ML VIAL ONE (17:09)
--- NOTE | 2016-02-29 17:26 | POSTOPPROG ---
Post Op Note Date of Operation: 02/29/16 Surgeon: Reva Choudhary Credentialing Specialist: coltrachristina Anesthesiologist: dulce Anesthesia: LMA Pre-op Diagnosis: l prox hum pathologic/infected fx Procedure: orif left prox hum fx Inf/Abcess present in the surg proc area at time of surgery?: Yes Depth: Deep Incisional (Fascial) EBL: 100-500
[2016-02-29] MEDS ORDERED: TAPENTADOL HCL 50 MG TAB PO PRN (17:34)
[2016-02-29] MEDS: ACETAMINOPHEN 325 MG TAB PO SCH ×2 (18:29→22:43)
--- NOTE | 2016-02-29 19:37 | GOP ---
[f rep st] OPERATIVE REPORT DATE OF OPERATION: 02/29/2016 SURGEON: Reva Choudhary MD SAFETY ADMINISTRATOR: DIONISIO BrunsonA, LSA, whose presence was medically necessary. ANESTHESIA: LMA. PREOPERATIVE DIAGNOSIS: Left proximal humerus pathologic fracture. POSTOPERATIVE DIAGNOSIS: Left proximal humerus pathologic fracture with infection. PROCEDURE PERFORMED: Open reduction, internal fixation of left proximal humerus with fluoroscopy. FINDINGS: DESCRIPTION OF PROCEDURE: Patient brought to the operating room after the left side had been identif ied as the correct side by the patient, nurse and physician. Once in the operating room, she was anaid tevin under anesthesia using LMA. Once asleep, she was placed in the beach chair position with the lef t upper extremity sterilely prepped and draped in the usual fashion using GSI solution. Once prepped was draped, a linear incision was made, starting just lateral to the coracoid process and extending distally along the deltopectoral interval and along the lateral portion of the biceps. Sharp dissect ion was carried down through the skin and subcutaneous layers. The cephalic vein was carried with th e pectoralis. The deltoid was retracted. She had a great deal of soft tissue stripping due to the f racture site. She was also noted to have suspicious fluid from the area around the fracture that see med more than simple hematoma. Therefore, cultures were taken and were sent off for further evaluati on. The wound was thoroughly irrigated with antibiotic solution. Further dissection revealed that t he humeral head had twisted and was internally rotated relative to the rest of the humeral shaft. Th erefore, after the wound had been thoroughly irrigated, the bone was lined up such that the proximal end of the fracture's biceps groove was lined up with the distal fracture's biceps groove. Once the position, it was found that she had almost no bone on the medial portion of the humerus that would li ne up at all if the bone was left at its normal length. Therefore, it was decided to telescope the b one and dock the distal fracture onto the proximal fracture, maintaining the alignment of the biceps groove as a guide. Once in place, a 4-hole proximal humeral plate was put into place and pinned into place. Its position was checked under fluoroscopy and noted to be in adequate position with again a great deal of telescoping of the proximal fragment on the distal fragment. Once in place, multiple locking screws were placed into the remainder of the humeral head along with the shaft of the superio r portion of the distal fragment. Bicortical screws had been placed in the distal portion to hold th e plate in place. Once completed, fluoroscopy was used to ensure proper positioning of the screws, a dequate lengthening without violating the humeral head and cortex. Once this was ensured, another li ter of antibiotic fluid was irrigated through the wound. Once completed, the rotator cuff that had b een torn and was able to be salvaged was sewn back together along with tacking the deltopectoral inte rval back together. The wound was then closed in the subcutaneous layers with 2-0 Vicryl suture for the subcutaneous tissues. The wound was then dressed with Steri-Strips, Xeroform, 4 x 4, and Tegader m. She was completely undraped in the operating room, had a sling placed on the left upper extremity . She was then woken up, extubated, transferred onto a stretcher, and sent to recovery room in good condition. INDICATION FOR PROCEDURE: This is a 65-year-old female with stage IV metastatic lymphoma with a know n tumor to her proximal humerus. She was found to have a crack in the cortex of her proximal humerus several days ago. She subsequently fell after this, was seen emergency room, completed the fracture . It was decided to bring her to the operating room in order to fix the fracture, give her some pain relief, and also get the bones in a closer apposition. /[id number]/MODL
[2016-02-29 21:25] LABS: POTASSIUM 3.7 mEq/L (3.5-5.2)
[2016-02-29] MEDS: ceFAZolin 2 GM/DEXTROSE 100 ML IV SCH (22:34)
[2016-02-29] MEDS: DOXEPIN HCL 50 MG CAP PO SCH (22:39)
[2016-02-29] MEDS: oxyCODONE IR 5 MG TAB PO PRN (22:44)
--- NOTE | 2016-02-29 23:28 | GCON ---
[f rep st] CONSULTATION INPATIENT INFECTIOUS DISEASE CONSULTATION DATE OF CONSULTATION: 02/29/2016 REFERRING PHYSICIAN: Ruy Soto MD REASON FOR REFERRAL: Bacteremia, immunocompromised patient. HISTORY OF PRESENT ILLNESS: The patient is a 65-year-old female who was admitted to [facility] on 02/27/2016, through the emergency room secondary to left-shoulder pain. The patient has an extensive past medical history with bipolar disorder with anxiety disorder, hypothyroidism, and a stage IV follicular lymphoma with osseous metastases. The patient was initially evaluated by our tracy ency room on February 23 and found to have a nondisplaced pathologic fracture in her left proxima l humerus. The patient suffered another fall in the interim and completed that fracture, and when e came in on the , it was found to be significantly displaced. She was admitted and prepared for orthopedic reduction and fixation of that fracture surgically. The patient also presented with feve r and leukopenia. She was treated as if this was neutropenic fever, and vancomycin as well as cefepi me were begun. Blood cultures taken early in her stay are both growing Staphylococcus aureus. It ap pears to be a methicillin-sensitive Staph aureus by the plate. The patient went to [facility] today for fixation of the left humeral fracture. Of interest, intraoperatively significant infecti on and purulence was found around the displaced fracture. Samples taken of that fluid revealed gram- positive cocci at the fracture site. The patient currently is recovering in her hospital room after returning from postsurgical care. She is quite sleepy. She is difficult to arouse. PAST MEDICAL HISTORY: 1. 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 2. Bipolar disorder. 3. Anxiety/panic disorder. 4. Hypothyroidism. 5. Chronic pain. PAST SURGICAL HISTORY: 1. Status post right-hip open reduction and internal fixation. 2. Status post left-ankle fracture repair. 3. Status post rhinoplasty. ANTIBIOTICS: 1. Vancomycin. 2. Cefepime. ALLERGIES: The patient is allergic to melatonin, gabapentin, pregabalin, solifenacin succinate, topi ramate, ziprasidone, zolpidem, and Levaquin. SOCIAL HISTORY: The patient is a former smoker. She has 100-pack year history. She quit 3 years ag o. No alcohol use. No drug use. The patient lives alone and independently, but has good involvemen t from neighbors. 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 FAMILY HISTORY: Reviewed but noncontributory. REVIEW OF SYSTEMS: Unable to obtain secondary to patient's somnolence postoperatively. PHYSICAL EXAMINATION: VITAL SIGNS: Temperature maximum is 38.3, temperature current is 36.8, heart rate is 93, respiratory rate is 20, blood pressure is 103/66. GENERAL: The patient is a well-formed , well-nourished older female, in no acute distress. She is not alert. She is somnolent. Orientati on unable to be ascertained. HEENT: Normocephalic for age. Atraumatic. No scleral icterus. No or al lesion or drainage from the nares. Eyes: Lids and conjunctivae are within normal limits. Pupils are equal, round, and reactive. NECK: Supple without meningismus. LUNGS: Clear to auscultation b ilaterally with good effort. HEART: Regular rate and rhythm. No murmur, rub, or gallop noted. No significant peripheral edema. ABDOMEN: Soft, nontender. No masses noted. SKIN: Warm and dry to t he touch. No rash noted. The patient has a postoperative incision that is well dressed on the left upper extremity. No surrounding erythema or strikethrough of dressing. MUSCULOSKELETAL: No muscle belly tenderness is noted. No joint line effusion or arthritis is seen. NEURO: Cranial nerves 2-12 appear intact. Peripheral sensation seems intact in extremities as well. LABORATORY DATA: The patient has a CBC dated 02/29/2016, which shows a white blood cell count of 1.2 6, hemoglobin of 8.2, hematocrit 24.1, and a platelet count of 150. Differential shows left shift wi th 39% band forms and 41% mature segmented neutrophils. Serum chemistries on 02/29/2016, show sodium of 130, potassium of 3.2, chloride of 104, bicarbonate of 20, BUN of 9 and creatinine of 0.5. The p atient has a vancomycin trough drawn 02/29/2016, at 1750, which shows less than 5.0. MICROBIOLOGIC DATA: The patient has blood cultures dated 02/28/2016, which are growing Staph aureus in 2/2 sets. This is methicillin-sensitive Staph aureus by . The patient also has a urin e culture dated 02/28/2016, which is growing multiple bacteria, including Staphylococcus aureus as we ll as enterococcus species. The patient has an operative shoulder swab dated February 29, 2016. Gra m stain shows GPCs. ASSESSMENT: 1. Pathologic left humeral fracture. Secondarily infected with apparent staphylococci. This must c orrespond to her bacteremia. I do not believe that this is the primary site of infection, however, stacey gomezen that this was a closed fracture with no communication to the skin surface. I think instead that the patient had a coincident Staph aureus bacteremia, which secondarily infected the fracture site. We will continue with antibiotic coverage; however, we will likely amend this secondary to MSSA isol ation. 2. Staphylococcus aureus bacteremia: MSSA by . We will discontinue the vancomycin and i nstead start cefazolin 2 g IV q.8 hours, question as to primary source. I suspect that, given the daina alarcon's indwelling tunneled catheter, this is the most likely primary site of inoculation. The kali ter site in her anterior chest does not appear red or inflamed. However, the catheter itself will li lucius need to be removed, given the bacteremia that she presented with. We will discontinue cefepime, as this adds nothing to coverage of her primary infection. 3. Concern about [id number] pneumonia. Repeat x-ray earlier today is read by Radiology as hav ing much less concern for this being infiltrate. PLAN: 1. Discontinue vancomycin and cefepime. 2. Start cefazolin 2 g IV q.8 hours. 3. Query General Surgery regarding port removal. 4. Repeat blood cultures. 5. 2-D echocardiogram tomorrow to evaluate for cardiac valvular lesions. 6. Follow clinical course and temp curve. /[id number]/MODL
[2016-03-01] MEDS ORDERED: POTASSIUM CL 10 MEQ TAB PO ONE ×5 (00:27→22:06)
[2016-03-01] MEDS ORDERED: MAGNESIUM SULF 1 GM/DEXTROSE 100 ML IV ONE ×2 (01:00→07:59)
[2016-03-01] MEDS ORDERED: K PHOS 15 MMOL in D5W 250 ML IV ONE (01:00)
[2016-03-01] MEDS: ACETAMINOPHEN 325 MG TAB PO SCH ×6 (02:43→20:35)
[2016-03-01] MEDS: OLANZapine DISINTEGR 10 MG TAB PO SCH ×4 (05:35→20:24)
[2016-03-01] MEDS: LEVOTHYROXINE 125 MCG TAB PO SCH (05:35)
[2016-03-01] MEDS: ceFAZolin 2 GM/DEXTROSE 100 ML IV SCH ×3 (05:36→22:16)
[2016-03-01] MEDS: oxyCODONE IR 5 MG TAB PO PRN ×4 (06:12→20:15)
--- NOTE | 2016-03-01 07:39 | PCMIDPN ---
Assessment/Plan: Assessment/Plan: 1. Sepsis secondary to MSSA bacteremia: -source of bacteremia likely related to port and #2 - Currently on Ancef -Initial blood cx positive from 02/28/16. f/u blood cx for this AM to further evaluate --TTE ordered, pending -Will need to have surgery get involved for port removal given Staph bacteremia. Dr. Sánchez placed this initially 09/21/15. Will coordinate with hospitalist team. 2. Infected left humeral fracture: - s/p wash out and ORIF 02/29/16 -Operative note reviewed -Cultures from surgery showing 3+ GPC in both GS. Cultures are pending but will likely be MSSA -Given newly placed hardware while likely still bacteremic and active infection at humerus, will likely require life long suppression of atbx after an initial course of atbx addressing both #1, #2. 3. Leukopenia: - likely related to above sepsis. No labs available this AM as of yet. - check labs in AM. Meds Ancef 2g q8- 02/29/16 s/p vanco, cefepime. Subjective: Afebrile. Feeling better overall. Denies shortness of breath, cough, phlegm. Denies abd pain or diarrhea. Denies right hip pain. Objective: Vital Signs Temp Pulse Resp BP Pulse Ox 36.6 C 103 H 16 106/70 98 03/01/16 07:10 03/01/16 07:10 03/01/16 07:10 03/01/16 07:10 03/01/16 07:10 Microbiology 02/29/16 15:59 Gram Stain - Final Shoulder - Swab 02/29/16 15:59 Gram Stain - Final Shoulder - Swab Laboratory Results 02/29/16 06:20 02/29/16 17:50 02/29/16 03/01/16 03/02/16 05:59 05:59 05:59 Intake Total 1850 3065 Output Total 3300 2600 Balance -1450 465 - Physical Exam General Appearance: alert, no apparent distress Respiratory: lungs clear Cardiac/Chest: regular rate, rhythm, systolic murmur Extremities: other (LE in compression device) Abdomen: normal bowel sounds, non-tender, soft, No distended Skin: No erythema (left upper chest port without surrounding erythema. nontender. LUE: in post op dressing/splint) ICD10 Worksheet Patient Problems: Problems Problem Status Diagnosed Arm fracture Acute Bipolar 1 disorder with moderate isaura Acute Lymphoma Acute Marijuana abuse Acute Altered mental status Acute Chest pain Acute Withdrawal from sedative drug Acute Bipolar disorder Chronic
[2016-03-01] MEDS: LORazepam 1 MG TAB PO SCH ×3 (07:52→16:37)
[2016-03-01] MEDS: VENLAFAXINE XR 75 MG CAP PO SCH (07:53)
[2016-03-01] MEDS: FAMOTIDINE 20 MG TAB PO SCH (07:53)
[2016-03-01] MEDS: ACYCLOVIR 400 MG TAB PO SCH ×2 (07:53→20:26)
[2016-03-01] MEDS: OMEGA-3 FATTY ACIDS 1,000 MG CAP PO SCH ×2 (07:53→20:28)
[2016-03-01] MEDS: FERROUS SULFATE 325 MG TAB PO SCH (07:54)
[2016-03-01] MEDS: ENOXAPARIN 40 MG/0.4 ML SYR SC SCH (07:54)
[2016-03-01] MEDS: predniSONE 20 MG TAB PO SCH (07:54)
[2016-03-01] MEDS: MULTIVITAMINS 1 EACH TAB PO SCH (07:54)
[2016-03-01] MEDS: NICOTINE 21 MG/24 HR PATCH TD SCH (07:55)
[2016-03-01] MEDS: TIOTROPIUM INHALER 18 MCG/DOSE 5 DOSE/MDI IH SCH (10:03)
[2016-03-01] MEDS ORDERED: LORazepam 0.5 MG TAB PO PRN (10:19)
--- NOTE | 2016-03-01 10:29 | SOAPPROG ---
SOAP Progress Note Assessment/Plan: Assessment: 1.) Stage IV Grade 1 Follicular Lymphoma, having completed 5-6 cycles of Bendamustine + Rituxan chemotherapy, last cycle finishing recently. Pt. with a pattern of extensive bone involvement with additonal path. Fractures, as occurring to L humerus, despite successful response to recent Tx. 2.) Anemia/Leukopenia related to underlying disease and its Tx. 3.) Anxiety disorder 4.) Antimicrobial management Plan: Clinical course noted. Low threshold for G-CSF to treat degree of neutropenia adama. to prevent osteomyelitis . Transfuse PRBCS for Hgb less than 7.0 or for symptomatic anemia at a higher lab value. Our service will follow. 03/01/16 10:25 Subjective: Stable as of this AM, and requests her standard lorazepam home dose- 1 mg at 7 AM, 2 mg at noon and 1 mg at 5 PM. No other c/o Objective: Afebrile, VSS, HEENT- no oral lesions, no facial assymetry Neck- supple Chest clear bilaterally, CVS- RSR, no extra HS ABD- BS+, Soft, NT, no mass or HSM EXT- LE are wrapped in SCDs, warm, well perfused Vital Signs Temp Pulse Resp BP Pulse Ox 36.6 C 102 H 18 106/70 98 03/01/16 07:10 03/01/16 10:10 03/01/16 10:10 03/01/16 07:10 03/01/16 10:10 Microbiology 02/29/16 15:59 Gram Stain - Final Shoulder - Swab 02/29/16 15:59 Gram Stain - Final Shoulder - Swab Laboratory Results 03/01/16 08:20 03/01/16 08:20 02/29/16 03/01/16 03/02/16 05:59 05:59 05:59 Intake Total 1850 3065 Output Total 3300 2600 Balance -1450 465 PT 13.9 SEC (12.0-15.0) 02/27/16 22:40 INR 1.08 (0.83-1.16) 02/27/16 22:40 ICD10 Worksheet Patient Problems: Problems Problem Status Diagnosed Arm fracture Acute Bipolar 1 disorder with moderate isaura Acute Lymphoma Acute Marijuana abuse Acute Altered mental status Acute Chest pain Acute Withdrawal from sedative drug Acute Bipolar disorder Chronic
--- NOTE | 2016-03-01 10:37 | SOAPPROG ---
SOAP Progress Note Assessment/Plan: Assessment: 65 female on chemo for lymphoma/ bacteremic for staph wbc 1.26 port site looks ok but will need removal Plan: port removal today 03/01/16 10:35 Objective: Vital Signs Temp Pulse Resp BP Pulse Ox 36.6 C 102 H 18 106/70 98 03/01/16 07:10 03/01/16 10:10 03/01/16 10:10 03/01/16 07:10 03/01/16 10:10 Microbiology 02/29/16 15:59 Gram Stain - Final Shoulder - Swab 02/29/16 15:59 Gram Stain - Final Shoulder - Swab Laboratory Results 03/01/16 08:20 03/01/16 08:20 02/29/16 03/01/16 03/02/16 05:59 05:59 05:59 Intake Total 1850 3065 Output Total 3300 2600 Balance -1450 465 PT 13.9 SEC (12.0-15.0) 02/27/16 22:40 INR 1.08 (0.83-1.16) 02/27/16 22:40 ICD10 Worksheet Patient Problems: Problems Problem Status Diagnosed Arm fracture Acute Bipolar 1 disorder with moderate isaura Acute Lymphoma Acute Marijuana abuse Acute Altered mental status Acute Chest pain Acute Withdrawal from sedative drug Acute Bipolar disorder Chronic
[2016-03-01 11:15] LABS: ADD DIFF? YES; ADD MORPH? NO; ADD SCAN? YES; ATYPICAL LYMPHOCYTE FLAG 60 (0-99); FRAGMENT RBC FLAG 20 (0-99); HEMATOCRIT 24.2 % (38.0-47.0); HEMOGLOBIN 8.3 g/dL (12.6-16.3); LIPEMIA HEMOLYSIS FLAG 90 (0-99); MEAN CELL HEMOGLOBIN 27.4 pg (27.9-34.1); MEAN CELL HEMOGLOBIN CONCENTR. 34.3 g/dL (32.4-36.7); MEAN CELL VOLUME 79.9 fL (81.5-99.8); MEAN PLATELET VOLUME 8.8 fL (8.7-11.7); PLATELET CLUMPS FLAG 0 (0-99); PLATELET COUNT 189 10^3/uL (150-400); RED BLOOD CELL COUNT 3.03 10^6/uL (4.18-5.33)
[2016-03-01 11:26] LABS: LEFT SHIFT FLG 300 (0-99)
[2016-03-01] MEDS ORDERED: LIDOCAINE 1% 30 ML SDV MISC ONE (11:30)
[2016-03-01 11:46] LABS: ANION GAP 10 mEq/L (8-16); CALCIUM 6.5 mg/dL (8.5-10.4); CARBON DIOXIDE 22 mEq/l (22-31); CHLORIDE 105 mEq/L (97-110); CREATININE 0.5 mg/dL (0.6-1.0); GLOMERULAR FILTRATION RATE > 60; GLUCOSE 149 mg/dL (70-100); POTASSIUM 3.9 mEq/L (3.5-5.2); SODIUM 137 mEq/L (134-144)
[2016-03-01 12:26] LABS: MAGNESIUM 2.2 mg/dL (1.6-2.3)
[2016-03-01] MEDS: tiZANidine HCL 2 MG TAB PO PRN (13:02)
[2016-03-01 13:06] LABS: MICROCYTES 1+
[2016-03-01 13:07] LABS: ELLIPTOCYTES 1+; PLATELET ESTIMATE ADEQUATE (ADEQ); POLYCHROMASIA 1+; SCHISTOCYTES 1+; TOXIC GRANULATION PRESENT
[2016-03-01 13:08] LABS: KERATOCYTES 2+; LARGE PLATELETS PRESENT
--- NOTE | 2016-03-01 13:22 | HOSPPROG ---
Hospitalist Progress Note Assessment/Plan: 65 yo F with hx of stage 4 lymphoma with extensive bony mets and prior pathological fx presenting with acute displaced humeral neck fx and sepsis in setting of likely pna # acute displaced and infected pathological humeral neck fx: initial injury on 02/23 with a non displaced fx at that time, was immobilized and sent home, but on return fracture is now completely displaced with associated severe pain. Patient s/p surgical repair, appreciate Dr. Choudhary. Cultures from fracture site growing staph # sepsis: patient with neutropenia, fever and tachycardia 2/2 bacteremia as next # staph bacteremia: MSSA, on ancef, likely from infected humeral fracture as well as possibly from port which will be removed today, repeat cultures pending # rll pna: questionable from first cxr, now with better explanation for sepsis as above. Initially treated with vanc/cefepime now only on ancef and monitoring respiratory status. # pancytopenia: in setting of lymphoma and chemotherapy for same, likely bone marrow involvement, counts stable # stage 4 follicular lymphoma: with extensive bony mets and prior pathological fractures as above, appreciate onc consultation # electrolyte abnormalities: with low k, mg, phos all in need of repletion. Suspect poor nutrition at baseline. Will ask for dietary consult. # h/o anxiety/MDD/bipolar vs schizophrenia: continue op medications, behaviorally controlled # hypothyroid: with elevated tsh but ft4 wnl, recommend f/u TFT in 4-6 weeks # dispo: will need > 48 hours for evaluation and management of above Subjective: no significant overnight events, patient is currently improved in terms of her pain etc Objective: Vital Signs Temp Pulse Resp BP Pulse Ox 36.6 C 107 H 16 101/70 97 03/01/16 11:22 03/01/16 11:22 03/01/16 11:22 03/01/16 11:22 03/01/16 11:22 Microbiology 02/28/16 05:40 Blood Culture - Final Blood Staphylococcus Aureus 02/29/16 15:59 Gram Stain - Final Shoulder - Swab 02/29/16 15:59 Gram Stain - Final Shoulder - Swab Laboratory Results 03/01/16 11:10 03/01/16 11:10 02/29/16 03/01/16 03/02/16 05:59 05:59 05:59 Intake Total 1850 3065 Output Total 3300 2600 Balance -1450 465 PT 13.9 SEC (12.0-15.0) 02/27/16 22:40 INR 1.08 (0.83-1.16) 02/27/16 22:40 awake alert uncomfortable appearing anicteric op clear rrr tachycardic no mrg dec throughout by anterior exam soft nt nd no cce warm dry well perfused ICD10 Worksheet Patient Problems: Problems Problem Status Diagnosed Arm fracture Acute Bipolar 1 disorder with moderate isaura Acute Lymphoma Acute Marijuana abuse Acute Altered mental status Acute Chest pain Acute Withdrawal from sedative drug Acute Bipolar disorder Chronic
[2016-03-01] MEDS ORDERED: K PHOS 20 MMOL in D5W 250 ML IV ONE (14:00)
--- NOTE | 2016-03-01 14:06 | SOAPPROG ---
SOAP Progress Note Assessment/Plan: Assessment: Plan: Subjective: states she still has pain but different dressing with min serosang drainage NVI will need suppressive antibiotics for the rest of her life cont sling Objective: Vital Signs Temp Pulse Resp BP Pulse Ox 36.6 C 107 H 16 101/70 97 03/01/16 11:22 03/01/16 11:22 03/01/16 11:22 03/01/16 11:22 03/01/16 11:22 Microbiology 02/28/16 05:40 Blood Culture - Final Blood Staphylococcus Aureus 02/29/16 15:59 Gram Stain - Final Shoulder - Swab 02/29/16 15:59 Gram Stain - Final Shoulder - Swab Laboratory Results 03/01/16 11:10 03/01/16 11:10 02/29/16 03/01/16 03/02/16 05:59 05:59 05:59 Intake Total 1850 3065 Output Total 3300 2600 Balance -1450 465 PT 13.9 SEC (12.0-15.0) 02/27/16 22:40 INR 1.08 (0.83-1.16) 02/27/16 22:40 ICD10 Worksheet Patient Problems: Problems Problem Status Diagnosed Arm fracture Acute Bipolar 1 disorder with moderate isaura Acute Lymphoma Acute Marijuana abuse Acute Altered mental status Acute Chest pain Acute Withdrawal from sedative drug Acute Bipolar disorder Chronic
--- NOTE | 2016-03-01 14:41 | ECHO ---
[id number] + + [address] : : [place] [address] : : [phone] + + Adult Echocardiographic Report + -------+ :Name: BOWEN ALVAREZ MStudy Date: 03/01/2016 01:57 PM : : Hospital Admission Number: [id number] Locati on: 355: :: 1950 Gender: Female Height: 65 in : :Age: 65 yrs Race: WH Weight: 128 lb : :Reason For Study: MSSA Bacteremia : : BSA: 1.6 meter s2 : :History: No previous : + -------+ MMode/2D Measurements & Calculations IVSd: 1.1 cm LVIDd: 3.9 cm FS: 30.5 % LVOT diam: 1.9 cm LVPWd: 1.1 cm LVIDs: 2.7 cm EDV(Teich): LVOT area: 64.8 ml 2.8 cm2 ESV(Teich): 26.8 ml EF(Teich): 58.7 % LVLd ap4: 7.7 cm SV(MOD-sp4): EDV(MOD-sp4): 47.0 ml 65.0 ml LVLs ap4: 5.8 cm ESV(MOD-sp4): 18.0 ml EF(MOD-sp4): 72.3 % Normal Measurement Values: + + :LVIDd (3.5-5.7cm) IVSd (0.6-1.1cm) LVPWd (0.6-1.1cm) Aortic Root (2.0-3.7cm)Left Atrium (1.5-4.0cm): :LV Vol(d) (76-115ml) LV Vol(s) (29-48ml) Ejec Fraction (50-65%)PV Luis (0.6- 1.2m/s) TV Luis (0.4-1.0m/s) : :MV E Luis (0.8-1.0m/s)MV A Luis (0.3-1.0m/s)LVOT Luis (0.7-1.2m/s) Asc Ao Luis ( 0.9-1.8m/s) : + + Doppler Measurements & Calculations MV E max luis: MV V2 max: Ao mean PG: LV V1 mean P.3 cm/sec 122.2 cm/sec 2.4 mmHg 2.1 mmHg MV A max luis: MV max PG: Ao V2 mean: LV V1 mean: 104.6 cm/sec 6.0 mmHg 70.6 cm/sec 68.6 cm/sec MV E/A: 0.88 MV V2 mean: Ao V2 VTI: 18.9 cm LV V1 VTI: 17.6 cm MV dec time: 85.6 cm/sec JESSICA(I,D): 2.6 cm2 0.21 sec MV mean P.3 mmHg MV V2 VTI: 25.3 cm MVA(VTI): 1.9 cm2 SV(LVOT): 48.7 ml PA V2 max: TR max luis: 96.2 cm/sec 205.6 cm/sec PA max PG: TR max P.7 mmHg 16.9 mmHg RAP systole: 10.0 mmHg RVSP(TR): 26.9 mmHg Left Ventricle The left ventricle is normal in size. Left ventricular systolic function is normal. The left ventricular wall motion is normal. Right Ventricle The right ventricle is not well visualized. The right ventricular systolic function is normal. Atria The left atrial size is normal. Right atrial size is normal. Mitral Valve Mild MAC noted. No MV prolapse. Valve pretty well visualized and no obvious vegetation. There is no mitral valve stenosis. Trivial MR noted. Tricuspid Valve Mild TR noted. Aortic Valve Aortic sclerosis (mild) noted. There is no aortic stenosis. Mild AI noted. Pulmonic Valve The pulmonic valve is not well visualized. There is no pulmonic valvular regurgitation. Great Vessels The aortic root is normal size. Pericardium/Pleural There is no pericardial effusion. Conclusion A complete two-dimensional transthoracic echocardiogram was performed (2D, M-mode, Doppler and color flow Doppler). The study was technically difficult. Limited acoustic windows due to chemo port dressings. 1)Technically limited echo secondary to body habitus and port catheter. 2)Normal LV size and systolic function with a LVEF of 57% and normal wall motions. 3)Mild concentric LVH noted. 4)Aortic valve sclerosis with no . Mild AI noted. 5)Mild MAC with no MV prolapse and trivial MR. 6)Mild TR with estimated normal PA pressures. 7)The mitral valve is visaulized reasonable well and has no vegetation. The Aortic, Tricuspid and pulmonic valves are not visualized well enough to evaluate for vegetations. Consider JESUS if clinically indicated and suspect endocarditis. Final Reading Physician: Travis Li electronically signed on 03/01/2016 02:39 PM Ordering Physician: Saturnino Sagastume Performed By: Mackenzie Mccormick
--- NOTE | 2016-03-01 14:52 | POSTOPPROG ---
Post Op Note Date of Operation: 03/01/16 Surgeon: Alan Townsend Anesthesia: Local (Specify) Pre-op Diagnosis: bacterremia/ lymphoma Post-op Diagnosis: same Procedure: port removal Findings: no obvious infection Inf/Abcess present in the surg proc area at time of surgery?: Yes Depth: Superfical (Skin SQ) EBL: Minimal Complications: 0 Specimen(s): cultures
[2016-03-01] MEDS: FILGRASTIM-SNDZ 300 MCG/0.5 ML SYR SC SCH (15:27)
[2016-03-01] MEDS: DOXEPIN HCL 50 MG CAP PO SCH (20:27)
[2016-03-01 20:57] LABS: POTASSIUM 3.9 mEq/L (3.5-5.2)
[2016-03-02] MEDS: oxyCODONE IR 5 MG TAB PO PRN ×6 (00:37→21:51)
[2016-03-02] MEDS: ACETAMINOPHEN 325 MG TAB PO SCH ×6 (01:57→21:51)
[2016-03-02 04:50] LABS: ADD DIFF? YES; ADD MORPH? YES; ATYPICAL LYMPHOCYTE FLAG 0 (0-99); FRAGMENT RBC FLAG 20 (0-99); HEMATOCRIT 20.2 % (38.0-47.0); LIPEMIA HEMOLYSIS FLAG 90 (0-99); MEAN CELL HEMOGLOBIN CONCENTR. 34.2 g/dL (32.4-36.7); MEAN CELL VOLUME 78.9 fL (81.5-99.8); MEAN PLATELET VOLUME 8.7 fL (8.7-11.7); PLATELET CLUMPS FLAG 0 (0-99); PLATELET COUNT 172 10^3/uL (150-400); RED BLOOD CELL COUNT 2.56 10^6/uL (4.18-5.33); RED CELL DISTRIBUTION WIDTH 18.9 % (11.5-15.2)
[2016-03-02] MEDS: LEVOTHYROXINE 125 MCG TAB PO SCH (04:54)
[2016-03-02] MEDS: OLANZapine DISINTEGR 10 MG TAB PO SCH ×4 (04:55→20:02)
[2016-03-02] MEDS: ceFAZolin 2 GM/DEXTROSE 100 ML IV SCH ×3 (04:56→21:51)
[2016-03-02 05:08] LABS: ADD SCAN? NO; HEMOGLOBIN 6.9 g/dL (12.6-16.3); LEFT SHIFT FLG 300 (0-99)
[2016-03-02 05:18] LABS: ANION GAP 8 mEq/L (8-16); CALCIUM 6.5 mg/dL (8.5-10.4); CARBON DIOXIDE 24 mEq/l (22-31); CHLORIDE 106 mEq/L (97-110); CREATININE 0.5 mg/dL (0.6-1.0); GLOMERULAR FILTRATION RATE > 60; GLUCOSE 84 mg/dL (70-100); MAGNESIUM 2.1 mg/dL (1.6-2.3); POTASSIUM 3.6 mEq/L (3.5-5.2); SODIUM 138 mEq/L (134-144)
[2016-03-02 06:15] LABS: ELLIPTOCYTES 1+; HYPOCHROMIA 2+; PLATELET ESTIMATE ADEQUATE (ADEQ)
[2016-03-02] MEDS: LORazepam 1 MG TAB PO SCH ×3 (07:03→16:42)
[2016-03-02] MEDS: predniSONE 20 MG TAB PO SCH (09:00)
[2016-03-02] MEDS: ACYCLOVIR 400 MG TAB PO SCH ×2 (09:00→20:01)
[2016-03-02] MEDS: OMEGA-3 FATTY ACIDS 1,000 MG CAP PO SCH ×2 (09:00→20:01)
[2016-03-02] MEDS: FAMOTIDINE 20 MG TAB PO SCH (09:00)
[2016-03-02] MEDS: VENLAFAXINE XR 75 MG CAP PO SCH (09:02)
[2016-03-02] MEDS: ENOXAPARIN 40 MG/0.4 ML SYR SC SCH (09:03)
[2016-03-02] MEDS: FERROUS SULFATE 325 MG TAB PO SCH (09:05)
[2016-03-02] MEDS: NICOTINE 21 MG/24 HR PATCH TD SCH (09:05)
[2016-03-02] MEDS: MULTIVITAMINS 1 EACH TAB PO SCH (09:09)
[2016-03-02] MEDS: TIOTROPIUM INHALER 18 MCG/DOSE 5 DOSE/MDI IH SCH (09:10)
--- NOTE | 2016-03-02 09:24 | SOAPPROG ---
SOAP Progress Note Assessment/Plan: Assessment: 1.) Stage IV Grade 1 Follicular Lymphoma, having completed 5-6 cycles of Bendamustine + Rituxan chemotherapy, last cycle finishing recently. Pt. with a pattern of extensive bone involvement with additonal path. Fractures, as occurring to L humerus, despite successful response to recent Tx. 2.) Anemia/Leukopenia related to underlying disease and its Tx. 3.) Anxiety disorder 4.) Antimicrobial management Plan: Clinical course noted. Transfuse PRBCS for Hgb less than 7.0 or for symptomatic anemia at a higher lab value. Transfusion infusion this AM. Our service will follow. Will eventually need new mediport access when bacteremia cleared. D/W patient this AM. 03/02/16 09:24 Subjective: Pt in good spirits, upright in bed with visitor at bedside. No new sx. Objective: VSS, afebrile as noted here HEENT- anicteric, no oral lesions, pale Neck- supple Chest- site of mediport removal on Left chest - NT Lungs clear ant. bilat. CVS- RSR, no extra HS ABD- soft, NT, BS+, nondistended EXT- LUE in sling. SCD in place on LE, bilaterally Lab data noted. Hgb 6.9 this AM, before transfusion. WBC up to 2.23, with G- CSF started 03/01/16. PLT 172. Vital Signs Temp Pulse Resp BP Pulse Ox 37.2 C 101 H 16 93/67 L 94 03/02/16 04:13 03/02/16 04:13 03/02/16 04:13 03/02/16 04:13 03/02/16 04:13 Microbiology 02/29/16 15:59 Gram Stain - Final Shoulder - Swab 02/28/16 06:30 Urine Culture - Final Urine,Clean Catch Staphylococcus Aureus Enterococcus Faecalis Three [place] Types 03/01/16 15:40 Gram Stain - Final Chest - Other 03/01/16 15:40 Gram Stain - Final Chest - Swab 02/29/16 15:59 Gram Stain - Final Shoulder - Swab 02/28/16 05:40 Blood Culture - Final Blood Staphylococcus Aureus Laboratory Results 03/02/16 04:42 03/02/16 04:42 03/01/16 03/02/16 03/03/16 05:59 05:59 05:59 Intake Total 3065 575 Output Total 2023 9824 Balance 465 -1075 PT 13.9 SEC (12.0-15.0) 02/27/16 22:40 INR 1.08 (0.83-1.16) 02/27/16 22:40 ICD10 Worksheet Patient Problems: Problems Problem Status Diagnosed Arm fracture Acute Bipolar 1 disorder with moderate isaura Acute Lymphoma Acute Marijuana abuse Acute Altered mental status Acute Chest pain Acute Withdrawal from sedative drug Acute Bipolar disorder Chronic
[2016-03-02] MEDS ORDERED: POTASSIUM CL 10 MEQ TAB PO ONE ×2 (10:14→22:45)
--- NOTE | 2016-03-02 10:19 | PCMIDPN ---
Assessment/Plan: Assessment/Plan: 1. Sepsis secondary to MSSA bacteremia: -source of bacteremia likely related to port and #2 - Currently on Ancef -Initial blood cx positive from 02/28/16. f/u blood cx from 03/01 pending --TTE with no MV vegetations. Limited study due to presence of port. Will likely repeat in 1-2 days. -Port removed. GS no org, cultures pending. Will plan to replace once f/u blood cx negative x at least 48 hours. 2. Infected left humeral fracture: - s/p wash out and ORIF 02/29/16 -Operative note reviewed -Cultures from surgery showing 3+ GPC in both GS. Cultures with MSSA. -Given newly placed hardware while likely still bacteremic and active infection at humerus, will likely require life long suppression of atbx after an initial course of atbx addressing both #1, #2. 3. Leukopenia: - likely related to above sepsis. total wbc improved. - follow. Meds Ancef 2g q8- 02/29/16--- s/p vanco, cefepime. Subjective: Afebrile. c/o left arm pain. dressing saturated in areas. swelling. Port removed. Denies sob, abd pain or diarrhea. Eating breakfast. Objective: Vital Signs Temp Pulse Resp BP Pulse Ox 37.2 C 101 H 16 93/67 L 94 03/02/16 04:13 03/02/16 04:13 03/02/16 04:13 03/02/16 04:13 03/02/16 04:13 Microbiology 02/29/16 15:59 Gram Stain - Final Shoulder - Swab 02/28/16 06:30 Urine Culture - Final Urine,Clean Catch Staphylococcus Aureus Enterococcus Faecalis Three [place] Types 03/01/16 15:40 Gram Stain - Final Chest - Other 03/01/16 15:40 Gram Stain - Final Chest - Swab 02/29/16 15:59 Gram Stain - Final Shoulder - Swab 02/28/16 05:40 Blood Culture - Final Blood Staphylococcus Aureus Laboratory Results 03/02/16 04:42 03/02/16 04:42 03/01/16 03/02/16 03/03/16 05:59 05:59 05:59 Intake Total 3065 575 Output Total 2600 1650 850 Balance 465 -2995 -850 - Physical Exam General Appearance: alert, no apparent distress Respiratory: lungs clear Cardiac/Chest: regular rate, rhythm, systolic murmur Extremities: swelling Abdomen: normal bowel sounds, non-tender, soft, No distended Skin: erythema (mild erythema on left arm.) ICD10 Worksheet Patient Problems: Problems Problem Status Diagnosed Arm fracture Acute Bipolar 1 disorder with moderate isaura Acute Lymphoma Acute Marijuana abuse Acute Altered mental status Acute Chest pain Acute Withdrawal from sedative drug Acute Bipolar disorder Chronic
--- NOTE | 2016-03-02 10:24 | HOSPPROG ---
Hospitalist Progress Note Assessment/Plan: 65 yo F with hx of stage 4 lymphoma with extensive bony mets and prior pathological fx presenting with acute displaced humeral neck fx and sepsis in setting of likely pna # acute displaced and infected pathological humeral neck fx: initial injury on 02/23 with a non displaced fx at that time, was immobilized and sent home, but on return fracture is now completely displaced with associated severe pain. Patient s/p surgical repair, appreciate Dr. Choudhary. Cultures from fracture site growing staph # sepsis: patient with neutropenia, fever and tachycardia 2/2 bacteremia as next # staph bacteremia: MSSA, on ancef, likely from infected humeral fracture as well as possibly from port which is now removed, repeat cultures pending # rll pna: questionable from first cxr, now with better explanation for sepsis as above. Initially treated with vanc/cefepime now only on ancef and monitoring respiratory status. 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 Suspect poor nutrition at baseline and now with refeeding syndrome. # h/o anxiety/MDD/bipolar vs schizophrenia: continue op medications, behaviorally controlled # hypothyroid: with elevated tsh but ft4 wnl, recommend f/u TFT in 4-6 weeks # dispo: will need > 48 hours for evaluation and management of above Subjective: no significant overnight events, patient feeling better this am, port out Objective: Vital Signs Temp Pulse Resp BP Pulse Ox 37.2 C 101 H 16 93/67 L 94 03/02/16 04:13 03/02/16 04:13 03/02/16 04:13 03/02/16 04:13 03/02/16 04:13 Microbiology 02/29/16 15:59 Gram Stain - Final Shoulder - Swab 02/28/16 06:30 Urine Culture - Final Urine,Clean Catch Staphylococcus Aureus Enterococcus Faecalis Three [place] Types 03/01/16 15:40 Gram Stain - Final Chest - Other 03/01/16 15:40 Gram Stain - Final Chest - Swab 02/29/16 15:59 Gram Stain - Final Shoulder - Swab 02/28/16 05:40 Blood Culture - Final Blood Staphylococcus Aureus Laboratory Results 03/02/16 04:42 03/02/16 04:42 03/01/16 03/02/16 03/03/16 05:59 05:59 05:59 Intake Total 3065 575 Output Total 2600 1650 850 Balance 465 -1075 -850 PT 13.9 SEC (12.0-15.0) 02/27/16 22:40 INR 1.08 (0.83-1.16) 02/27/16 22:40 awake alert uncomfortable appearing anicteric op clear rrr tachycardic no mrg dec throughout by anterior exam soft nt nd no cce warm dry well perfused ICD10 Worksheet Patient Problems: Problems Problem Status Diagnosed Arm fracture Acute Bipolar 1 disorder with moderate isaura Acute Lymphoma Acute Marijuana abuse Acute Altered mental status Acute Chest pain Acute Withdrawal from sedative drug Acute Bipolar disorder Chronic
[2016-03-02] MEDS ORDERED: K PHOS 15 MMOL in D5W 250 ML IV ONE (12:00)
[2016-03-02] MEDS: tiZANidine HCL 2 MG TAB PO PRN (12:39)
[2016-03-02] MEDS: FILGRASTIM-SNDZ 300 MCG/0.5 ML SYR SC SCH (15:43)
[2016-03-02 18:47] LABS: POTASSIUM 3.9 mEq/L (3.5-5.2)
[2016-03-02] MEDS: DOXEPIN HCL 50 MG CAP PO SCH (20:00)
[2016-03-03] MEDS ORDERED: POTASSIUM CL 10 MEQ TAB PO ONE ×3 (02:00→20:06)
[2016-03-03] MEDS: oxyCODONE IR 5 MG TAB PO PRN ×6 (02:08→21:19)
[2016-03-03] MEDS: ACETAMINOPHEN 325 MG TAB PO SCH ×6 (02:08→21:19)
[2016-03-03] MEDS: OLANZapine DISINTEGR 10 MG TAB PO SCH ×4 (04:42→21:18)
[2016-03-03 05:11] LABS: ABSOLUTE NRBC COUNT 0.04 10^3/uL (0-0.01); ADD DIFF? YES; ADD MORPH? YES; ATYPICAL LYMPHOCYTE FLAG 0 (0-99); FRAGMENT RBC FLAG 0 (0-99); HEMATOCRIT 24.1 % (38.0-47.0); HEMOGLOBIN 8.3 g/dL (12.6-16.3); LIPEMIA HEMOLYSIS FLAG 90 (0-99); MEAN CELL HEMOGLOBIN 27.8 pg (27.9-34.1); MEAN CELL HEMOGLOBIN CONCENTR. 34.4 g/dL (32.4-36.7); MEAN CELL VOLUME 80.6 fL (81.5-99.8); PLATELET CLUMPS FLAG 0 (0-99); PLATELET COUNT 219 10^3/uL (150-400); RED BLOOD CELL COUNT 2.99 10^6/uL (4.18-5.33); RED CELL DISTRIBUTION WIDTH 18.2 % (11.5-15.2)
[2016-03-03 05:17] LABS: LEFT SHIFT FLG 300 (0-99); NRBC-AUTO% 1.3 % (0.0-0.2)
[2016-03-03 05:19] LABS: ADD SCAN? NO
[2016-03-03] MEDS: ceFAZolin 2 GM/DEXTROSE 100 ML IV SCH ×3 (05:21→21:18)
[2016-03-03] MEDS: LEVOTHYROXINE 125 MCG TAB PO SCH (05:22)
[2016-03-03 05:51] LABS: PLATELET ESTIMATE ADEQUATE (ADEQ)
[2016-03-03 05:53] LABS: HYPOCHROMIA 1+
[2016-03-03 06:10] LABS: ANION GAP 7 mEq/L (8-16); CARBON DIOXIDE 23 mEq/l (22-31); CHLORIDE 108 mEq/L (97-110); CREATININE 0.5 mg/dL (0.6-1.0); GLOMERULAR FILTRATION RATE > 60; GLUCOSE 82 mg/dL (70-100); MAGNESIUM 1.8 mg/dL (1.6-2.3); POTASSIUM 3.4 mEq/L (3.5-5.2); SODIUM 138 mEq/L (134-144)
--- NOTE | 2016-03-03 08:02 | PCMIDPN ---
Assessment/Plan: Assessment/Plan: 1. Sepsis secondary to MSSA bacteremia: -source of bacteremia likely related to port and #2 - Currently on Ancef -Initial blood cx positive from 02/28/16. f/u blood cx from 03/01 still pending --TTE with no MV vegetations. Limited study due to presence of port. Will likely repeat today. -Port removed. GS no org, cultures pending. Will plan to replace once f/u blood cx negative x at least 48 hours. f/u blood cx still pending. 2. Infected left humeral fracture: - s/p wash out and ORIF 02/29/16 -Operative note reviewed -Cultures from surgery showing 3+ GPC in both GS. Cultures with MSSA. -Given newly placed hardware while likely still bacteremic and active infection at humerus, will likely require life long suppression of atbx after an initial course of atbx addressing both #1, #2. -increased swelling of Left arm--USG pending. -care coordinated with RN. 3. Leukopenia: - likely related to above sepsis. total wbc improved. - follow. Meds Ancef 2g q8- 02/29/16--- s/p vanco, cefepime. Subjective: low grade temp this AM. c/o pain involving left arm. more swollen this Am. Denies numbness/tingling of finger tips. Denies sob, cough, abd pain or diarrhea. Objective: Vital Signs Temp Pulse Resp BP Pulse Ox 37.4 C 99 20 122/77 H 92 03/03/16 03:53 03/03/16 03:53 03/03/16 03:53 03/03/16 03:53 03/03/16 03:53 Microbiology 02/29/16 15:59 Gram Stain - Final Shoulder - Swab 02/29/16 15:59 Gram Stain - Final Shoulder - Swab 03/01/16 15:40 Gram Stain - Final Chest - Swab 03/01/16 15:40 Gram Stain - Final Chest - Other 02/28/16 06:30 Urine Culture - Final Urine,Clean Catch Staphylococcus Aureus Enterococcus Faecalis Three [place] Types Laboratory Results 03/03/16 04:55 03/03/16 06:00 03/02/16 03/03/16 03/04/16 05:59 05:59 05:59 Intake Total 575 400 100 Output Total 1650 850 300 Balance -1075 -450 -200 - Physical Exam General Appearance: alert, no apparent distress Respiratory: lungs clear Cardiac/Chest: regular rate, rhythm, systolic murmur, other (left upper chest- dressing. nontender. port out.) Extremities: swelling (left am swollen. no numbness at finger tips. peripheral pulses well appreciated. some warmth.) Abdomen: normal bowel sounds, non-tender, soft, No distended Skin: erythema (mild over left arm. left arm dressing noted. ) ICD10 Worksheet Patient Problems: Problems Problem Status Diagnosed Arm fracture Acute Bipolar 1 disorder with moderate isaura Acute Lymphoma Acute Marijuana abuse Acute Altered mental status Acute Chest pain Acute Withdrawal from sedative drug Acute Bipolar disorder Chronic
[2016-03-03] MEDS: LORazepam 1 MG TAB PO SCH ×3 (08:42→17:48)
[2016-03-03] MEDS: ACYCLOVIR 400 MG TAB PO SCH ×2 (08:44→21:18)
[2016-03-03] MEDS: FERROUS SULFATE 325 MG TAB PO SCH (08:44)
[2016-03-03] MEDS: predniSONE 20 MG TAB PO SCH (08:44)
[2016-03-03] MEDS: FAMOTIDINE 20 MG TAB PO SCH (08:44)
[2016-03-03] MEDS: VENLAFAXINE XR 75 MG CAP PO SCH (08:44)
[2016-03-03] MEDS: OMEGA-3 FATTY ACIDS 1,000 MG CAP PO SCH ×2 (08:44→21:18)
[2016-03-03] MEDS: ENOXAPARIN 40 MG/0.4 ML SYR SC SCH (08:48)
[2016-03-03] MEDS: TIOTROPIUM INHALER 18 MCG/DOSE 5 DOSE/MDI IH SCH (08:59)
[2016-03-03] MEDS ORDERED: MAGNESIUM SULF 1 GM/DEXTROSE 100 ML IV ONE (09:52)
[2016-03-03] MEDS ORDERED: MAGNESIUM SULF 2 GM/WATER 50 ML IV ONE (09:53)
[2016-03-03] MEDS: NICOTINE 21 MG/24 HR PATCH TD SCH (10:52)
[2016-03-03] MEDS ORDERED: K PHOS 15 MMOL in D5W 250 ML IV ONE (12:00)
--- NOTE | 2016-03-03 12:03 | SOAPPROG ---
SOAP Progress Note Assessment/Plan: Assessment: 65 female on chemo for lymphoma/ bacteremic for staph wbc 1.26 port site looks ok but will need removal Plan: port removal today 03/01/16 10:35 03/03/16 12:02 afebrile/ wound ok/ will need new port later this week Objective: Vital Signs Temp Pulse Resp BP Pulse Ox 37.4 C 99 20 122/77 H 92 03/03/16 03:53 03/03/16 03:53 03/03/16 03:53 03/03/16 03:53 03/03/16 03:53 Microbiology 02/29/16 15:59 Gram Stain - Final Shoulder - Swab 02/29/16 15:59 Gram Stain - Final Shoulder - Swab 03/01/16 15:40 Gram Stain - Final Chest - Swab 03/01/16 15:40 Gram Stain - Final Chest - Other 02/28/16 06:30 Urine Culture - Final Urine,Clean Catch Staphylococcus Aureus Enterococcus Faecalis Three [place] Types Laboratory Results 03/03/16 04:55 03/03/16 06:00 03/02/16 03/03/16 03/04/16 05:59 05:59 05:59 Intake Total 575 400 100 Output Total 1650 850 300 Balance -1075 -450 -200 PT 13.9 SEC (12.0-15.0) 02/27/16 22:40 INR 1.08 (0.83-1.16) 02/27/16 22:40 ICD10 Worksheet Patient Problems: Problems Problem Status Diagnosed Arm fracture Acute Bipolar 1 disorder with moderate isaura Acute Lymphoma Acute Marijuana abuse Acute Altered mental status Acute Chest pain Acute Withdrawal from sedative drug Acute Bipolar disorder Chronic
--- NOTE | 2016-03-03 12:22 | ECHO ---
[id number] + + [id number] : : [place] [address] : : [phone] + + Adult Echocardiographic Report + -------+ :Name: BOWEN ALVAREZ MStudy Date: 03/03/2016 10:50 AM : : Hospital Admission Number: [id number] Ronda on: 355: :: 1950 Gender: Female : :Age: 65 yrs Race: WH : :Reason For Study: Evaluate valves/bacteremia : + -------+ MMode/2D Measurements & Calculations LVOT diam: 1.9 cm LVOT area: 2.7 cm2 Normal Measurement Values: + + :LVIDd (3.5-5.7cm) IVSd (0.6-1.1cm) LVPWd (0.6-1.1cm) Aortic Root (2.0-3.7cm)Left Atrium (1.5-4.0cm): :LV Vol(d) (76-115ml) LV Vol(s) (29-48ml) Ejec Fraction (50-65%)PV Luis (0.6- 1.2m/s) TV Luis (0.4-1.0m/s) : :MV E Luis (0.8-1.0m/s)MV A Luis (0.3-1.0m/s)LVOT Luis (0.7-1.2m/s) Asc Ao Luis ( 0.9-1.8m/s) : + + Mitral Valve The mitral valve is normal in structure and function. There is no vegetation seen on the mitral valve. Tricuspid Valve The tricuspid valve is normal in structure and function. A tricuspid valve vegetation cannot be excluded. Aortic Valve There is mild aortic valve calcification. Cannot exclude aortic valvular vegetation. Pulmonic Valve The pulmonic valve is not well visualized. Conclusion This is a limited echo to evaluate valves after removal of chemo port. 1)Limited quality echo 2)Normal LV size and systolic function with a LVEF of 65% and normal wall motions. 3)Moderate aortic valve sclerosis 4)No MV prolapse. 5)As per echo two days ago, no vegetations noted but valves not visualized well. Consider JESUS if clinically indicated. Final Reading Physician: Travis Li electronically signed on 03/03/2016 12:22 PM Ordering Physician: Kota Peña Performed By: Mackenzie Mccormick
--- NOTE | 2016-03-03 12:58 | US ---
Left Upper Extremity Ultrasound with Duplex Doppler History: Edema and erythema. Comparison: None available. Technique: The veins of the left neck and upper extremity are assessed with grayscale and Doppler ult rasound with compression of accessible vein segments. Findings: The left internal jugular, subclavian, axillary, cephalic, basilic, and paired brachial vei ns are patent, with normal color Doppler appearance and waveforms. Accessible vein segments are compr essible. Impression: No evidence of DVT. Findings discussed with Paul Cisneros today at 316 hours.
[2016-03-03] MEDS: FILGRASTIM-SNDZ 300 MCG/0.5 ML SYR SC SCH (15:58)
--- NOTE | 2016-03-03 16:00 | HOSPPROG ---
Hospitalist Progress Note Assessment/Plan: 65 yo F with hx of stage 4 lymphoma with extensive bony mets and prior pathological fx presenting with acute displaced humeral neck fx and sepsis in setting of likely pna # acute displaced and infected pathological humeral neck fx: sp surgical repair , cultures from surgery with staph. Today, distal to surgical incision arm is more edematous and erythematous. US obtained w/o DVT. Monitoring. # sepsis: patient with neutropenia, fever and tachycardia 2/2 bacteremia as next # staph bacteremia: MSSA, on ancef, likely from infected humeral fracture as well as possibly from port which is now removed, repeat cultures pending # rll pna: questionable from first cxr, now with better explanation for sepsis as above. Initially treated with vanc/cefepime now only on ancef and monitoring respiratory status. 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 Suspect poor nutrition at baseline and now with refeeding syndrome. # h/o anxiety/MDD/bipolar vs schizophrenia: continue op medications, behaviorally controlled # hypothyroid: with elevated tsh but ft4 wnl, recommend f/u TFT in 4-6 weeks # dispo: will need > 48 hours for evaluation and management of above Subjective: no significant overnight events, patient is currently feeling well other than increased swelling in her arm that was repaired Objective: Vital Signs Temp Pulse Resp BP Pulse Ox 37.4 C 99 20 122/77 H 92 03/03/16 03:53 03/03/16 03:53 03/03/16 03:53 03/03/16 03:53 03/03/16 03:53 Microbiology 03/01/16 15:40 Gram Stain - Final Chest - Other 03/01/16 15:40 Gram Stain - Final Chest - Swab 02/29/16 15:59 Gram Stain - Final Shoulder - Swab 02/29/16 15:59 Gram Stain - Final Shoulder - Swab Laboratory Results 03/03/16 04:55 03/03/16 06:00 03/02/16 03/03/16 03/04/16 05:59 05:59 05:59 Intake Total 575 400 100 Output Total 1650 850 300 Balance -1075 -450 -200 PT 13.9 SEC (12.0-15.0) 02/27/16 22:40 INR 1.08 (0.83-1.16) 02/27/16 22:40 awake alert uncomfortable appearing anicteric op clear rrr tachycardic no mrg dec throughout by anterior exam soft nt nd no cce right arm in sling, incision cdi, distal to incision arm is erythematous/ edematous warm dry well perfused ICD10 Worksheet Patient Problems: Problems Problem Status Diagnosed Arm fracture Acute Bipolar 1 disorder with moderate isaura Acute Lymphoma Acute Marijuana abuse Acute Altered mental status Acute Chest pain Acute Withdrawal from sedative drug Acute Bipolar disorder Chronic
[2016-03-03] MEDS: MULTIVITAMINS 1 EACH TAB PO SCH (17:47)
[2016-03-03 18:35] LABS: POTASSIUM 3.8 mEq/L (3.5-5.2)
[2016-03-03] MEDS: DOXEPIN HCL 50 MG CAP PO SCH (21:18)
--- NOTE | 2016-03-03 21:30 | GOP ---
[f rep st] OPERATIVE REPORT DATE OF OPERATION: 03/01/2016 SURGEON: Alan Townsend MD PILLAR WORKER: None. ANESTHESIA: None. PREOPERATIVE DIAGNOSIS: Bacteremia, history of lymphoma on chemotherapy. POSTOPERATIVE DIAGNOSIS: Bacteremia, history of lymphoma on chemotherapy. PROCEDURE PERFORMED: Port removal. FINDINGS: There was no obvious infection, although the port tubing and port housing were sent for cu lture. INDICATIONS: The patient has positive blood cultures. She has had a pathologic fracture of her left humerus, which is infected. It is thought that her port is a possible source. DESCRIPTION OF PROCEDURE: Patient was prepped and draped in the usual sterile fashion, using 1% Xylo pili local infiltration. Incision was made through the previous old scar. Dissection extended down to the port, which was freed up from its pocket and removed. The specimen was sent sterilely for cu lture, and the pocket was packed with some iodoform gauze. She tolerated the procedure quite well. Blood loss was 0. No complications. Wound was then dressed. /[id number]/MODL
[2016-03-04] MEDS: ACETAMINOPHEN 325 MG TAB PO SCH ×6 (02:15→22:42)
[2016-03-04] MEDS: oxyCODONE IR 5 MG TAB PO PRN ×6 (02:15→22:41)
[2016-03-04 05:49] LABS: ALANINE AMINOTRANSFERASE 33 IU/L (9-52); ALBUMIN 2.5 g/dL (3.5-5.0); ALKALINE PHOSPHATASE 106 IU/L (38-126); ASPARTATE AMINOTRANSFERASE 21 IU/L (14-46); BILIRUBIN,TOTAL 0.4 mg/dL (0.1-1.4); BILIRUBIN-CONJUGATED 0.4 mg/dL (0.0-0.5); MAGNESIUM 1.7 mg/dL (1.6-2.3); POTASSIUM 3.6 mEq/L (3.5-5.2); TOTAL PROTEIN 4.8 g/dL (6.3-8.2)
[2016-03-04] MEDS: ceFAZolin 2 GM/DEXTROSE 100 ML IV SCH ×3 (06:02→21:26)
[2016-03-04] MEDS: OLANZapine DISINTEGR 10 MG TAB PO SCH ×4 (06:03→21:26)
[2016-03-04] MEDS: LORazepam 1 MG TAB PO SCH ×4 (06:03→21:27)
[2016-03-04] MEDS: LEVOTHYROXINE 125 MCG TAB PO SCH (06:03)
[2016-03-04] MEDS: ENOXAPARIN 40 MG/0.4 ML SYR SC SCH (08:03)
[2016-03-04] MEDS: predniSONE 20 MG TAB PO SCH (08:03)
[2016-03-04] MEDS: MULTIVITAMINS 1 EACH TAB PO SCH (08:03)
[2016-03-04] MEDS: ACYCLOVIR 400 MG TAB PO SCH ×2 (08:03→21:26)
[2016-03-04] MEDS: VENLAFAXINE XR 75 MG CAP PO SCH (08:04)
[2016-03-04] MEDS: FERROUS SULFATE 325 MG TAB PO SCH (08:04)
[2016-03-04] MEDS: FAMOTIDINE 20 MG TAB PO SCH (08:04)
[2016-03-04] MEDS: OMEGA-3 FATTY ACIDS 1,000 MG CAP PO SCH ×2 (08:05→21:26)
[2016-03-04] MEDS: NICOTINE 21 MG/24 HR PATCH TD SCH (08:05)
[2016-03-04 08:40] LABS: ADD DIFF? YES; ADD MORPH? YES; ADD SCAN? YES; ATYPICAL LYMPHOCYTE FLAG 0 (0-99); FRAGMENT RBC FLAG 20 (0-99); HEMATOCRIT 25.9 % (38.0-47.0); HEMOGLOBIN 8.4 g/dL (12.6-16.3); LIPEMIA HEMOLYSIS FLAG 80 (0-99); MEAN CELL HEMOGLOBIN 26.8 pg (27.9-34.1); MEAN CELL HEMOGLOBIN CONCENTR. 32.4 g/dL (32.4-36.7); MEAN CELL VOLUME 82.7 fL (81.5-99.8); MEAN PLATELET VOLUME 9.4 fL (8.7-11.7); PLATELET CLUMPS FLAG 0 (0-99); PLATELET COUNT 261 10^3/uL (150-400); RED BLOOD CELL COUNT 3.13 10^6/uL (4.18-5.33); RED CELL DISTRIBUTION WIDTH 18.7 % (11.5-15.2)
[2016-03-04 08:44] LABS: LEFT SHIFT FLG 300 (0-99); NRBC-AUTO% 1.3 % (0.0-0.2)
--- NOTE | 2016-03-04 08:44 | PCMIDPN ---
Assessment/Plan: Assessment/Plan: 1. Sepsis secondary to MSSA bacteremia: -source of bacteremia likely related to port and #2 - Currently on Ancef -Initial blood cx positive from 02/28/16. f/u blood cx from 03/01 ngtd --TTE with no MV vegetations. Limited study due to presence of port. Repeat TTE still limited. -Port removed. GS no org, cultures ngtd -Plan to place port this week now that f/u blood cx ngtd -She will need at least 6 weeks of IV ancef for #2 followed by chronic oral suppression -Given that she has been able to clear bacteremia quickly and need for prolonged course of antibotics anyways, JESUS likely would not global climate change researcher at this point. 2. Infected left humeral fracture: - s/p wash out and ORIF 02/29/16 -Operative note reviewed -Cultures from surgery showing 3+ GPC in both GS. Cultures with MSSA. -Given newly placed hardware while likely still bacteremic and active infection at humerus, will likely require life long suppression of atbx after an initial course of atbx addressing both #1, #2. -increased swelling of Left arm--USG -no DVT -await f/u by Dr. Choudhary -care coordinated with RN. 3. oral candidiasis:-new - start oral nystatin s/s. Meds Ancef 2g q8- 02/29/16--- s/p vanco, cefepime. Subjective: afebrile. swelling of left arm. denies sob, cough sputum production. denies abd pain or diarrhea. Objective: Vital Signs Temp Pulse Resp BP Pulse Ox 37.1 C 97 16 107/71 98 03/04/16 07:00 03/04/16 07:00 03/04/16 07:00 03/04/16 07:00 03/04/16 07:00 Microbiology 02/28/16 05:40 Blood Culture - Final Blood Staphylococcus Aureus 02/28/16 04:44 Blood Culture - Final Blood Staphylococcus Aureus 03/01/16 15:40 Gram Stain - Final Chest - Other 03/01/16 15:40 Gram Stain - Final Chest - Swab 02/29/16 15:59 Gram Stain - Final Shoulder - Swab 02/29/16 15:59 Gram Stain - Final Shoulder - Swab Laboratory Results 03/03/16 04:55 03/04/16 04:45 03/03/16 03/04/16 03/05/16 05:59 05:59 05:59 Intake Total 400 1550 Output Total 850 875 Balance -450 675 - Physical Exam General Appearance: alert, no apparent distress EENT: thrush Respiratory: lungs clear Cardiac/Chest: regular rate, rhythm, systolic murmur Extremities: swelling, other (no numbness on left finger tips. peripheral pulses well appreciated.) Abdomen: normal bowel sounds, non-tender, soft, No distended Skin: erythema (mild erythema of left arm. surgical site in post op dressing.) ICD10 Worksheet Patient Problems: Problems Problem Status Diagnosed Arm fracture Acute Bipolar 1 disorder with moderate isaura Acute Lymphoma Acute Marijuana abuse Acute Altered mental status Acute Chest pain Acute Withdrawal from sedative drug Acute Bipolar disorder Chronic
[2016-03-04] MEDS ORDERED: MAGNESIUM SULF 1 GM/DEXTROSE 100 ML IV ONE (08:51)
[2016-03-04] MEDS: TIOTROPIUM INHALER 18 MCG/DOSE 5 DOSE/MDI IH SCH (09:12)
[2016-03-04 09:51] LABS: HYPOCHROMIA 1+; MICROCYTES 1+; POLYCHROMASIA 1+
[2016-03-04 09:52] LABS: PLATELET ESTIMATE ADEQUATE (ADEQ)
--- NOTE | 2016-03-04 09:55 | GPROG ---
[f rep st] PROGRESS NOTE INTERVAL SUMMARY. CURRENT DIAGNOSES: 1. Acute displaced and infected humeral fracture. 2. MSSA (methicillin-susceptible Staphylococcus aureus) bacteremia. 3. Stage IV follicular lymphoma. 4. Pancytopenia. 5. Sepsis. 6. Anxiety and depression, as well as bipolar versus schizophrenia. CONSULTATIONS: Have included: 1. Orthopedic Surgery. 2. Oncology. 3. Infectious Disease. 4. General Surgery. PROCEDURES PERFORMED: Include: 1. Echocardiogram x2. 2. ORIF of left proximal humerus fracture. 3. Port removal. HOSPITAL COURSE BY PROBLEM: 1. Acute displaced humeral fracture. This was shown to be infected by cultures taken perioperatively growing MSSA. She has also had MSSA bacteremia. This was a pathological fracture in the setting of h er known lymphoma with bony metastases. 2. Staph bacteremia; again, with MSSA. Currently on Ancef. Source was thought to be either infected fracture versus possible contribution of port, which is now removed. ID following. 3. Sepsis, now resolved. 4. Pancytopenia in the setting of lymphoma, on chemotherapy. 5. Stage IV follicular lymphoma. Appreciate Oncology consult. 6. Chronic medical problems including anxiety, depression, bipolar versus schizophrenia, hypothyroid ism. DISPOSITION: This is pending. The patient's arm is more erythematous and edematous today, though ultrasound negative for DVT. This will need to be monitored. She will likely need discharge to SNF. Case management, PT, OT involved. /[id number]/MODL
[2016-03-04] MEDS ORDERED: POTASSIUM CL 10 MEQ TAB PO ONE ×3 (11:50→19:48)
[2016-03-04] MEDS ORDERED: K PHOS 10 MMOL in D5W 250 ML IV ONE (12:00)
--- NOTE | 2016-03-04 12:00 | HOSPPROG ---
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 RUE persists erythematous and edematous. U/ S neg for DVT. Will check ext CT. # sepsis due to staph bacteremia: MSSA, on ancef, likely from infected humeral fracture as well as possibly from port which is now removed, repeat cultures ngtd. # rll pna: questionable from first cxr, Initially treated with vanc/cefepime now only on ancef and monitoring respiratory status, no hypoxemia or respiratory symptoms. # pancytopenia: improving. in setting of lymphoma and chemotherapy for same, likely bone marrow involvement, s/p 1 u prbc's. 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 Suspect poor nutrition at baseline and now with refeeding syndrome. # h/o anxiety/MDD/bipolar vs schizophrenia: continue op medications, behaviorally controlled # hypothyroid: with elevated tsh but ft4 wnl, recommend f/u TFT in 4-6 weeks # dispo: will need > 48 hours for evaluation and management of above Subjective: Pt is quiet, taking some bites of apple sauce, but overall poor intake. No fevers/chills. Daughter and son at bedside. Objective: Vital Signs Temp Pulse Resp BP Pulse Ox 37.1 C 97 16 107/71 98 03/04/16 07:00 03/04/16 07:00 03/04/16 07:00 03/04/16 07:00 03/04/16 07:00 Microbiology 03/01/16 15:40 Gram Stain - Final Chest - Other 03/01/16 15:40 Gram Stain - Final Chest - Swab 02/29/16 15:59 Gram Stain - Final Shoulder - Swab 02/29/16 15:59 Gram Stain - Final Shoulder - Swab 02/28/16 05:40 Blood Culture - Final Blood Staphylococcus Aureus 02/28/16 04:44 Blood Culture - Final Blood Staphylococcus Aureus Laboratory Results 03/04/16 04:55 03/04/16 04:45 03/03/16 03/04/16 03/05/16 05:59 05:59 05:59 Intake Total 400 1550 Output Total 850 875 Balance -450 675 PT 13.9 SEC (12.0-15.0) 02/27/16 22:40 INR 1.08 (0.83-1.16) 02/27/16 22:40 - Physical Exam Constitutional: no apparent distress Eyes: PERRL Ears, Nose, Mouth, Throat: dry mucous membranes Cardiovascular: regular rate and rhythym Respiratory: no respiratory distress Gastrointestinal: normoactive bowel sounds Skin: warm Musculoskeletal: other (LUE with edema and proximal erythema) Psychiatric: poor memory ICD10 Worksheet Patient Problems: Problems Problem Status Diagnosed Arm fracture Acute Bipolar 1 disorder with moderate isaura Acute Lymphoma Acute Marijuana abuse Acute Altered mental status Acute Chest pain Acute Withdrawal from sedative drug Acute Bipolar disorder Chronic
[2016-03-04] MEDS: NYSTATIN SUSP 500000 UNIT/5 ML UDCUP PO SCH ×3 (12:12→21:26)
--- NOTE | 2016-03-04 13:06 | SOAPPROG ---
SOAP Progress Note Assessment/Plan: Assessment: Plan: 03/04/16 13:05 POD# 4 ORIF rt prox humerus with infection swelling most likely normal post op will check xray today US neg for DVT Cont IVabx per ID Subjective: not much pain in the arm just swollen Objective: post op dressing in place no drainage mild errythema distally upper and lower arm compartments swollen but soft 2+ radial pulse Vital Signs Temp Pulse Resp BP Pulse Ox 37.1 C 97 16 107/71 98 03/04/16 07:00 03/04/16 07:00 03/04/16 07:00 03/04/16 07:00 03/04/16 07:00 Microbiology 03/01/16 15:40 Gram Stain - Final Chest - Other 03/01/16 15:40 Gram Stain - Final Chest - Swab 02/29/16 15:59 Gram Stain - Final Shoulder - Swab 02/29/16 15:59 Gram Stain - Final Shoulder - Swab 02/28/16 05:40 Blood Culture - Final Blood Staphylococcus Aureus 02/28/16 04:44 Blood Culture - Final Blood Staphylococcus Aureus Laboratory Results 03/04/16 04:55 03/04/16 04:45 03/03/16 03/04/16 03/05/16 05:59 05:59 05:59 Intake Total 400 1550 Output Total 850 875 Balance -450 675 PT 13.9 SEC (12.0-15.0) 02/27/16 22:40 INR 1.08 (0.83-1.16) 02/27/16 22:40 ICD10 Worksheet Patient Problems: Problems Problem Status Diagnosed Arm fracture Acute Bipolar 1 disorder with moderate isaura Acute Lymphoma Acute Marijuana abuse Acute Altered mental status Acute Chest pain Acute Withdrawal from sedative drug Acute Bipolar disorder Chronic
--- NOTE | 2016-03-04 13:34 | SOAPPROG ---
SOAP Progress Note Assessment/Plan: Assessment: 65yo F c follicular lymphoma admitted with pathologic L humerus fracture Port suspected source of bacteremia. S/p removal by Dr. Townsend Will need new port placed when clinically improved - likely later this week Packing change daily by nurses. Change outer dressing PRN Discussed with Dr. Townsend Feeling well. No complaints overnight Sitting upright in chair, comfortable, eating breakfast No increased WOB L chest port removal dressing intact without erythema 03/04/16 13:36 Objective: Vital Signs Temp Pulse Resp BP Pulse Ox 37.1 C 97 16 107/71 98 03/04/16 07:00 03/04/16 07:00 03/04/16 07:00 03/04/16 07:00 03/04/16 07:00 Microbiology 03/01/16 15:40 Gram Stain - Final Chest - Other 03/01/16 15:40 Gram Stain - Final Chest - Swab 02/29/16 15:59 Gram Stain - Final Shoulder - Swab 02/29/16 15:59 Gram Stain - Final Shoulder - Swab 02/28/16 05:40 Blood Culture - Final Blood Staphylococcus Aureus 02/28/16 04:44 Blood Culture - Final Blood Staphylococcus Aureus Laboratory Results 03/04/16 04:55 03/04/16 04:45 03/03/16 03/04/16 03/05/16 05:59 05:59 05:59 Intake Total 400 1550 Output Total 850 875 Balance -450 675 PT 13.9 SEC (12.0-15.0) 02/27/16 22:40 INR 1.08 (0.83-1.16) 02/27/16 22:40 ICD10 Worksheet Patient Problems: Problems Problem Status Diagnosed Arm fracture Acute Bipolar 1 disorder with moderate isaura Acute Lymphoma Acute Marijuana abuse Acute Altered mental status Acute Chest pain Acute Withdrawal from sedative drug Acute Bipolar disorder Chronic
--- NOTE | 2016-03-04 14:28 | CT ---
CT Left Arm Without Contrast History: Left upper extremity swelling. Status post humeral fracture with infection. Ultrasound negat tarun for DVT. Comparison: Ultrasound March 03, 2016. Technique: 0.625 mm helical images were obtained of the left upper extremity. Multiplanar reformation was performed. Radiation dose reduction technique was utilized. Findings: Postsurgical changes are seen of open reduction internal fixation of a comminuted proximal humeral fracture with foreshortening of the fracture. No evidence for hardware fracture or lucency th rough the hardware. A couple of the proximal screws extend to the humeral articular surface. Osseous debris is seen medial to the fracture and along the proximal humeral diaphysis. Radiopaque densities are seen in the subscapularis muscle and region of the subcoracoid recess. There also appear to be ra diopaque densities in the latissimus dorsi muscle medial to the proximal diaphysis. Mild joint effusi on. There are a few foci of air in the joint effusion. There is a subacromial fluid collection with f oci of air within it. Air is seen in the deltoid muscle anteriorly and in the subcutaneous fat with s kin irregularity. Diffuse edema is seen in the subcutaneous fat and along the muscle and fascial plan es of the distal humerus and forearm. Impression: Postsurgical changes of open reduction internal fixation of a proximal humeral fracture, as above. Osseous debris and/or heterotopic ossification medial to the fracture and in the latissimus dorsi and subscapularis muscle. Osseous debris in the subcoracoid recess. Mild joint effusion with a few foci of air and a subdeltoid fluid collection with foci of air. Foci of air could be secondary t o a gas-producing organism or recent surgery. Diffuse edema or cellulitis and myositis in the left ar m.
--- NOTE | 2016-03-04 14:52 | SOAPPROG ---
SOAP Progress Note Assessment/Plan: Assessment: 1. Follicular lymphoma, s/p 5 cycles BR 2. Multiple fractures due to lytic lesions from lymphoma 3. s/p ORIF L humerus 4. S aureus bacteremia Plan: - will d/c granix as ANC>5000 - abx per ID - futher post-op care and evaluation of arm per ortho - pt due for PET-CT on 03/06 to evaluate status of lymphoma. if she is still in the hospital at that point we will reschedule for after d/c. 03/04/16 14:50 Subjective: pain in L arm. Objective: Exam; Gen NAD Lungs CTAB CV RRR no mGR Abd: +BS NT ND Ext: 3+ edema L arm. no erythema. Vital Signs Temp Pulse Resp BP Pulse Ox 37.1 C 97 16 107/71 98 03/04/16 07:00 03/04/16 07:00 03/04/16 07:00 03/04/16 07:00 03/04/16 07:00 Microbiology 03/01/16 15:40 Gram Stain - Final Chest - Swab 03/01/16 15:40 Gram Stain - Final Chest - Other 02/29/16 15:59 Gram Stain - Final Shoulder - Swab 02/29/16 15:59 Gram Stain - Final Shoulder - Swab 02/28/16 05:40 Blood Culture - Final Blood Staphylococcus Aureus 02/28/16 04:44 Blood Culture - Final Blood Staphylococcus Aureus Laboratory Results 03/04/16 04:55 03/04/16 04:45 03/03/16 03/04/16 03/05/16 05:59 05:59 05:59 Intake Total 400 1550 Output Total 850 875 Balance -450 675 PT 13.9 SEC (12.0-15.0) 02/27/16 22:40 INR 1.08 (0.83-1.16) 02/27/16 22:40 ICD10 Worksheet Patient Problems: Problems Problem Status Diagnosed Arm fracture Acute Bipolar 1 disorder with moderate isaura Acute Lymphoma Acute Marijuana abuse Acute Altered mental status Acute Chest pain Acute Withdrawal from sedative drug Acute Bipolar disorder Chronic
[2016-03-04] MEDS: FILGRASTIM-SNDZ 300 MCG/0.5 ML SYR SC SCH (16:16)
--- NOTE | 2016-03-04 16:49 | DX ---
Left Shoulder, Three Views History: Recent humeral fracture with infection. Comparison: CT upper extremity same day at 1338 hours. Humerus February 27, 2016. Findings: Plate and screw fixation of the lateral aspect of the proximal humerus is again noted, adri lar in appearance to the recent CT. Hardware is intact. Alignment at the fracture is near-anatomic. I nferior subluxation of the glenohumeral joint is likely related to fluid in the joint seen on CT. Num erous small osseous fragments are present in the region of the fracture and in the shoulder joint. S oft tissue swelling overlies the left shoulder. Impression: Stable-appearing humeral fixation with inferior subluxation likely related to a joint eff usion, with soft tissue calcifications and bone fragments adjacent to the fracture, better seen on CT .
[2016-03-04 18:12] LABS: LACTATE DEHYDROGENASE 1297 IU/L (313-618); POTASSIUM 3.8 mEq/L (3.5-5.2)
[2016-03-04] MEDS: DOXEPIN HCL 50 MG CAP PO SCH (21:27)
[2016-03-05] MEDS: OLANZapine DISINTEGR 10 MG TAB PO SCH ×4 (03:59→20:14)
[2016-03-05] MEDS: oxyCODONE IR 5 MG TAB PO PRN ×5 (03:59→20:15)
[2016-03-05] MEDS: LEVOTHYROXINE 125 MCG TAB PO SCH (05:11)
[2016-03-05] MEDS: ACETAMINOPHEN 325 MG TAB PO SCH ×4 (05:11→23:18)
[2016-03-05] MEDS: LORazepam 1 MG TAB PO SCH ×5 (05:11→20:15)
[2016-03-05] MEDS: ceFAZolin 2 GM/DEXTROSE 100 ML IV SCH ×3 (05:11→23:14)
[2016-03-05] MEDS: NYSTATIN SUSP 500000 UNIT/5 ML UDCUP PO SCH ×4 (05:12→20:13)
[2016-03-05 05:40] LABS: ABSOLUTE NRBC COUNT 0.04 10^3/uL (0-0.01); ADD DIFF? YES; ADD MORPH? NO; ATYPICAL LYMPHOCYTE FLAG 0 (0-99); FRAGMENT RBC FLAG 20 (0-99); HEMATOCRIT 26.7 % (38.0-47.0); LIPEMIA HEMOLYSIS FLAG 80 (0-99); MEAN CELL HEMOGLOBIN 27.4 pg (27.9-34.1); MEAN CELL HEMOGLOBIN CONCENTR. 33.7 g/dL (32.4-36.7); MEAN CELL VOLUME 81.4 fL (81.5-99.8); MEAN PLATELET VOLUME 9.2 fL (8.7-11.7); NRBC-AUTO% 0.5 % (0.0-0.2); PLATELET CLUMPS FLAG 0 (0-99); PLATELET COUNT 287 10^3/uL (150-400); RED BLOOD CELL COUNT 3.28 10^6/uL (4.18-5.33); RED CELL DISTRIBUTION WIDTH 18.9 % (11.5-15.2)
[2016-03-05 05:42] LABS: ADD SCAN? NO; LEFT SHIFT FLG 300 (0-99)
[2016-03-05 06:24] LABS: HYPOCHROMIA 1+; LARGE PLATELETS PRESENT; MICROCYTES 1+; PLATELET ESTIMATE ADEQUATE (ADEQ); TOXIC GRANULATION PRESENT
[2016-03-05 06:50] LABS: ANION GAP 13 mEq/L (8-16); CALCIUM 7.8 mg/dL (8.5-10.4); CARBON DIOXIDE 22 mEq/l (22-31); CHLORIDE 107 mEq/L (97-110); CREATININE 0.5 mg/dL (0.6-1.0); GLOMERULAR FILTRATION RATE > 60; GLUCOSE 95 mg/dL (70-100); MAGNESIUM 1.8 mg/dL (1.6-2.3); POTASSIUM 3.9 mEq/L (3.5-5.2); SODIUM 142 mEq/L (134-144)
[2016-03-05] MEDS ORDERED: MAGNESIUM SULF 1 GM/DEXTROSE 100 ML IV ONE (07:39)
[2016-03-05] MEDS ORDERED: POTASSIUM CL 10 MEQ TAB PO ONE (07:39)
[2016-03-05] MEDS: NICOTINE 21 MG/24 HR PATCH TD SCH (07:50)
[2016-03-05] MEDS: OMEGA-3 FATTY ACIDS 1,000 MG CAP PO SCH ×2 (07:51→20:14)
[2016-03-05] MEDS: FERROUS SULFATE 325 MG TAB PO SCH (07:52)
[2016-03-05] MEDS: predniSONE 20 MG TAB PO SCH (07:52)
[2016-03-05] MEDS: FAMOTIDINE 20 MG TAB PO SCH (07:53)
[2016-03-05] MEDS: ACYCLOVIR 400 MG TAB PO SCH ×2 (07:53→20:16)
[2016-03-05] MEDS: MULTIVITAMINS 1 EACH TAB PO SCH (07:54)
[2016-03-05] MEDS: VENLAFAXINE XR 75 MG CAP PO SCH (07:54)
[2016-03-05] MEDS: ENOXAPARIN 40 MG/0.4 ML SYR SC SCH (07:56)
--- NOTE | 2016-03-05 09:18 | SOAPPROG ---
SOAP Progress Note Assessment/Plan: Assessment: 65yo F c follicular lymphoma admitted with pathologic L humerus fracture Port suspected source of bacteremia. S/p removal by Dr. Townsend Packing change daily by nurses. Change outer dressing PRN Right port placement tomorrow or thursday if cultures remain negative. Consent signed in chart Objective: Vital Signs Temp Pulse Resp BP Pulse Ox 37.1 C 94 16 135/74 H 93 03/05/16 07:15 03/05/16 07:15 03/05/16 07:15 03/05/16 07:15 03/05/16 07:15 Microbiology 03/01/16 15:40 Gram Stain - Final Chest - Swab 03/01/16 15:40 Gram Stain - Final Chest - Other 02/29/16 15:59 Gram Stain - Final Shoulder - Swab 02/29/16 15:59 Gram Stain - Final Shoulder - Swab 02/28/16 05:40 Blood Culture - Final Blood Staphylococcus Aureus 02/28/16 04:44 Blood Culture - Final Blood Staphylococcus Aureus Laboratory Results 03/05/16 04:47 03/05/16 04:47 03/04/16 03/05/16 03/06/16 05:59 05:59 05:59 Intake Total 1550 720 Output Total 875 350 450 Balance 675 370 -450 PT 13.9 SEC (12.0-15.0) 02/27/16 22:40 INR 1.08 (0.83-1.16) 02/27/16 22:40 ICD10 Worksheet Patient Problems: Problems Problem Status Diagnosed Arm fracture Acute Bipolar 1 disorder with moderate isaura Acute Lymphoma Acute Marijuana abuse Acute Altered mental status Acute Chest pain Acute Withdrawal from sedative drug Acute Bipolar disorder Chronic
[2016-03-05] MEDS: TIOTROPIUM INHALER 18 MCG/DOSE 5 DOSE/MDI IH SCH (09:56)
[2016-03-05] MEDS ORDERED: ALTEPLASE 2 MG VIAL IVP PRN (10:54)
--- NOTE | 2016-03-05 12:29 | HOSPPROG ---
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 RUE persists erythematous and edematous, likley post-op changes. U/S neg for DVT. Ext CT neg for fluid collection, shows post-op changes. # sepsis due to staph bacteremia: MSSA, on ancef, likely from infected humeral fracture vs port which is now removed, repeat cultures ngtd. plan to replace PORT for chemo access end of the week per surgery. will place PICC today as BCx 's neg since 03/01 and her IV has infiltrated, RN unable to replace IV. discussed case with ID today. # rll pna: questionable from first cxr, Initially treated with vanc/cefepime now only on ancef and monitoring respiratory status, no hypoxemia or respiratory symptoms. # pancytopenia: improving. in setting of lymphoma and chemotherapy for same, likely bone marrow involvement, s/p 1 u prbc's. 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 # h/o anxiety/MDD/bipolar vs schizophrenia: continue op medications, behaviorally controlled # hypothyroid: with elevated tsh but ft4 wnl, recommend f/u TFT in 4-6 weeks # dvt pplx: lovenox # full code # dispo: will need > 48 hours for evaluation and management of above Subjective: Pt feels well. No pain. No fevers. Objective: Vital Signs Temp Pulse Resp BP Pulse Ox 37.1 C 80 16 135/74 H 93 03/05/16 07:15 03/05/16 10:01 03/05/16 10:01 03/05/16 07:15 03/05/16 10:01 Microbiology 03/01/16 15:40 Gram Stain - Final Chest - Other 03/01/16 15:40 Gram Stain - Final Chest - Swab 02/29/16 15:59 Gram Stain - Final Shoulder - Swab 02/29/16 15:59 Gram Stain - Final Shoulder - Swab 02/28/16 05:40 Blood Culture - Final Blood Staphylococcus Aureus 02/28/16 04:44 Blood Culture - Final Blood Staphylococcus Aureus Laboratory Results 03/05/16 04:47 03/05/16 04:47 03/04/16 03/05/16 03/06/16 05:59 05:59 05:59 Intake Total 1550 720 360 Output Total 875 350 450 Balance 675 370 -90 PT 13.9 SEC (12.0-15.0) 02/27/16 22:40 INR 1.08 (0.83-1.16) 02/27/16 22:40 - Physical Exam Constitutional: no apparent distress Eyes: PERRL Ears, Nose, Mouth, Throat: moist mucous membranes Cardiovascular: regular rate and rhythym Respiratory: no respiratory distress, clear to auscultation Gastrointestinal: normoactive bowel sounds, soft, non-tender abdomen Skin: warm Musculoskeletal: other (LUE with decreased erythema and edema) Neurologic: AAOx3 Psychiatric: interacting appropriately ICD10 Worksheet Patient Problems: Problems Problem Status Diagnosed Arm fracture Acute Bipolar 1 disorder with moderate isaura Acute Lymphoma Acute Marijuana abuse Acute Altered mental status Acute Chest pain Acute Withdrawal from sedative drug Acute Bipolar disorder Chronic
--- NOTE | 2016-03-05 16:22 | PCMIDPN ---
Assessment/Plan: Assessment: MSSA bacteremia from unclear source. Secondary seeding of pathologic left humeral fracture. Status post debridement and fixation. Patient is continuing on 6 weeks total of intravenous cefazolin. Start date at time of surgery. Given retained hardware she will likely need oral suppression following completion. Continue to monitor progress and laboratories. Plan: 1. Continue cefazolin. 2. Plan for 6 week total duration. 3. Follow clinical course and laboratory values. 03/05/16 17:15 03/05/16 17:15 Subjective: Patient resting comfortably in her hospital bed. She was on the phone during my visit. Per her nurse and aide there is no new issue. Objective: Cefazolin # 5 Vital Signs Temp Pulse Resp BP Pulse Ox 37.1 C 88 16 125/81 H 98 03/05/16 15:03 03/05/16 15:03 03/05/16 15:03 03/05/16 15:03 03/05/16 15:03 Microbiology 03/01/16 15:40 Gram Stain - Final Chest - Other 03/01/16 15:40 Gram Stain - Final Chest - Swab 02/29/16 15:59 Gram Stain - Final Shoulder - Swab 02/29/16 15:59 Gram Stain - Final Shoulder - Swab Laboratory Results 03/05/16 04:47 03/05/16 04:47 03/04/16 03/05/16 03/06/16 05:59 05:59 05:59 Intake Total 1550 720 860 Output Total 875 350 450 Balance 675 370 410 - Physical Exam General Appearance: WD/WN, alert, no apparent distress, non-toxic Extremities: non-tender, No normal inspection Neuro/Psych: alert, normal mood/affect, oriented x 3 ICD10 Worksheet Patient Problems: Problems Problem Status Diagnosed Arm fracture Acute Bipolar 1 disorder with moderate isaura Acute Lymphoma Acute Marijuana abuse Acute Altered mental status Acute Chest pain Acute Withdrawal from sedative drug Acute Bipolar disorder Chronic
--- NOTE | 2016-03-05 18:53 | IR ---
Imaging-Guided Peripherally Inserted Central Catheter History: Long-term antibiotics. Prophylactic Antibiotic: Cefazolin was not ordered and administered for antimicrobial prophylaxis be cause it was not medically necessary for this procedure. VTE Prophylaxis: There is not an order for VTE prophylaxis to be given within 24 hours after procedu re end time because it was not medically necessary for this procedure. Crosscutting Measure: Patient's current list of medications including all known prescriptions, over- the-counters, herbals, and vitamin/mineral/dietary supplements are reviewed. Medications' name, dosa ge, frequency, and route of administration are confirmed. Technique: Following informed consent, the right arm was prepped and draped in sterile fashion. 1% Xy locaine was used for local anesthetic. All elements of maximal sterile barrier technique including cap, mask, sterile gown, sterile gloves, large sterile sheet, hand hygiene, and 2% chlorhexidine for cutaneous antisepsis, followed. Ultrasound evaluation of potential access site was performed. After successfully identifying a patent vessel, ultrasound guidance was used to puncture the vein. A permanent recording was created for the patient's record. Ultrasound transducer was placed in sterile sleeve and used for real-time imaging guidance over steri le gel to enter the basilic vein. 0.018 measuring wire was passed centrally under fluoroscopic contro l. A skin noelle with scalpel blade was followed by removing the access needle. A 5 [place] peel-away sh eath was followed by a 5 [place] double-lumen central catheter, trimmed to 42 cm length. The tip of t he catheter was positioned centrally and the guidewire removed. A single fluoroscopic spot image was obtained in inspiration. The hub of the catheter was fixed to the skin using a sterile StatLock adhes tarun device, and a sterile dressing was applied. The catheter was irrigated. Findings: The tip of the central catheter terminates at the junction of the superior vena cava and th e right atrium. Fluoroscopy: 0.1 minutes, one images Impression: 5 [place] double lumen peripherally inserted central catheter is ready to use.
[2016-03-05] MEDS: DOXEPIN HCL 50 MG CAP PO SCH (20:14)
[2016-03-06] MEDS: oxyCODONE IR 5 MG TAB PO PRN ×6 (00:09→22:09)
[2016-03-06] MEDS: OLANZapine DISINTEGR 10 MG TAB PO SCH ×4 (04:58→22:10)
[2016-03-06] MEDS: ACETAMINOPHEN 325 MG TAB PO SCH ×4 (04:58→23:53)
[2016-03-06] MEDS: LEVOTHYROXINE 125 MCG TAB PO SCH (04:59)
[2016-03-06] MEDS: NYSTATIN SUSP 500000 UNIT/5 ML UDCUP PO SCH ×4 (04:59→22:08)
[2016-03-06] MEDS: LORazepam 1 MG TAB PO SCH ×4 (05:01→16:30)
[2016-03-06] MEDS: ceFAZolin 2 GM/DEXTROSE 100 ML IV SCH ×3 (05:04→22:15)
[2016-03-06 06:03] LABS: MAGNESIUM 1.6 mg/dL (1.6-2.3); POTASSIUM 3.5 mEq/L (3.5-5.2)
[2016-03-06] MEDS ORDERED: POTASSIUM CL 10 MEQ TAB PO ONE ×2 (07:47→23:51)
[2016-03-06] MEDS ORDERED: MAGNESIUM SULF 1 GM/DEXTROSE 100 ML IV ONE (07:47)
[2016-03-06] MEDS: ENOXAPARIN 40 MG/0.4 ML SYR SC SCH (07:56)
[2016-03-06] MEDS: FERROUS SULFATE 325 MG TAB PO SCH ×2 (07:56→08:22)
[2016-03-06] MEDS: VENLAFAXINE XR 75 MG CAP PO SCH (07:57)
[2016-03-06] MEDS: MULTIVITAMINS 1 EACH TAB PO SCH ×2 (07:57→08:22)
[2016-03-06] MEDS: OMEGA-3 FATTY ACIDS 1,000 MG CAP PO SCH ×2 (07:57→08:21)
[2016-03-06] MEDS: predniSONE 20 MG TAB PO SCH (07:58)
[2016-03-06] MEDS: ACYCLOVIR 400 MG TAB PO SCH ×4 (07:59→22:10)
[2016-03-06] MEDS ORDERED: POTASSIUM CL 10 MEQ TAB ONE (08:04)
[2016-03-06] MEDS: NICOTINE 21 MG/24 HR PATCH TD SCH (09:30)
[2016-03-06] MEDS: TIOTROPIUM INHALER 18 MCG/DOSE 5 DOSE/MDI IH SCH (09:34)
--- NOTE | 2016-03-06 10:55 | SOAPPROG ---
SOAP Progress Note Assessment/Plan: Assessment: Plan: on schedule for Thursday mid-morning Port Placement, NPO after midnight saw pt with Dr Townsend 03/06/16 10:54 Objective: Vital Signs Temp Pulse Resp BP Pulse Ox 36.4 C 97 18 133/85 H 96 03/06/16 07:51 03/06/16 07:51 03/06/16 07:51 03/06/16 07:51 03/06/16 07:51 Microbiology 03/01/16 15:40 Gram Stain - Final Chest - Other 03/01/16 15:40 Gram Stain - Final Chest - Swab 02/29/16 15:59 Gram Stain - Final Shoulder - Swab 02/29/16 15:59 Gram Stain - Final Shoulder - Swab Laboratory Results 03/05/16 04:47 03/06/16 05:20 03/05/16 03/06/16 03/07/16 05:59 05:59 05:59 Intake Total 720 1560 Output Total 350 450 Balance 370 1110 PT 13.9 SEC (12.0-15.0) 02/27/16 22:40 INR 1.08 (0.83-1.16) 02/27/16 22:40 ICD10 Worksheet Patient Problems: Problems Problem Status Diagnosed Arm fracture Acute Bipolar 1 disorder with moderate isaura Acute Lymphoma Acute Marijuana abuse Acute Altered mental status Acute Chest pain Acute Withdrawal from sedative drug Acute Bipolar disorder Chronic
--- NOTE | 2016-03-06 11:18 | SOAPPROG ---
SOAP Progress Note Assessment/Plan: Assessment: 1. Follicular lymphoma, s/p 5 cycles BR 2. Multiple fractures due to lytic lesions from lymphoma 3. s/p ORIF L humerus 4. S aureus bacteremia She has a history of R hip ORIF. Unclear why the pain is flaring up. Plan: - pain medication for R hip pain. consider repeat imaging if persistent. - will need BMBx (either on this admission or after discharge) plus PET-CT to evaluate the status of her lymphoma Subjective: L arm pain and swelling better, but now has R hip pain. Objective: exam: uncomfortable Lungs CTAB CV RRR no MGR Abd: +BS NT ND Ext: R hip - no deformity or erythema. Vital Signs Temp Pulse Resp BP Pulse Ox 36.4 C 97 18 133/85 H 96 03/06/16 07:51 03/06/16 07:51 03/06/16 07:51 03/06/16 07:51 03/06/16 07:51 Microbiology 03/01/16 15:40 Gram Stain - Final Chest - Other 03/01/16 15:40 Gram Stain - Final Chest - Swab 02/29/16 15:59 Gram Stain - Final Shoulder - Swab 02/29/16 15:59 Gram Stain - Final Shoulder - Swab Laboratory Results 03/05/16 04:47 03/06/16 05:20 03/05/16 03/06/16 03/07/16 05:59 05:59 05:59 Intake Total 720 1560 Output Total 350 450 Balance 370 1110 PT 13.9 SEC (12.0-15.0) 02/27/16 22:40 INR 1.08 (0.83-1.16) 02/27/16 22:40 ICD10 Worksheet Patient Problems: Problems Problem Status Diagnosed Arm fracture Acute Bipolar 1 disorder with moderate isaura Acute Lymphoma Acute Marijuana abuse Acute Altered mental status Acute Chest pain Acute Withdrawal from sedative drug Acute Bipolar disorder Chronic
[2016-03-06] MEDS: FAMOTIDINE 20 MG TAB PO SCH (12:06)
--- NOTE | 2016-03-06 17:06 | HOSPPROG ---
Hospitalist Progress Note Assessment/Plan: 65 yo F with hx of stage 4 lymphoma with extensive bony mets and prior pathological fx's presenting with acute displaced humeral neck fx and sepsis # acute displaced and infected pathological humeral neck fx: sp surgical repair , cultures from surgery grew staph. RUE persists erythematous and edematous, likley post-op changes. U/S neg for DVT. Ext CT neg for fluid collection, shows post-op changes. # sepsis due to staph bacteremia: MSSA, on ancef, likely from infected humeral fracture vs port which is now removed, repeat cultures ngtd. Currently has PICC line, plan to replace PORT tomorrow. Discussed case with ID. # right hip pain: she has h/o fracture and now with increasing pain, difficulty with ambulation. turns out she was taking 20 mg oxycodone q4h and only receiving 10 mg q4h since admission. may just need increased pain meds, but will repeat MRI given inability to ambulate and complicating factors. # rll pna: questionable from first cxr, Initially treated with vanc/cefepime now only on ancef and monitoring respiratory status, no hypoxemia or respiratory symptoms. # pancytopenia: improving. in setting of lymphoma and chemotherapy for same, likely bone marrow involvement, s/p 1 u prbc's. 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 PORT placement tomorrow. # electrolyte abnormalities: resolved with replacement, cont to monitor. # h/o anxiety/MDD/bipolar vs schizophrenia: continue op medications, behaviorally controlled # hypothyroid: with elevated tsh but ft4 wnl, recommend f/u TFT in 4-6 weeks # dvt pplx: lovenox # full code # dispo: will need > 48 hours for evaluation and management of above Subjective: Pt complains of increased right hip pain. Notes she was taking higher dose of oxycodone at home, only receiving half that dose here. She is having a difficult time ambulating. No fevers. RUE is improving, less swelling. Appetite fair. Objective: Vital Signs Temp Pulse Resp BP Pulse Ox 37.0 C 91 16 142/77 H 94 03/06/16 15:56 03/06/16 15:56 03/06/16 15:56 03/06/16 15:56 03/06/16 15:56 Microbiology 03/01/16 15:40 Gram Stain - Final Chest - Other 03/01/16 15:40 Gram Stain - Final Chest - Swab 02/29/16 15:59 Gram Stain - Final Shoulder - Swab 02/29/16 15:59 Gram Stain - Final Shoulder - Swab 03/01/16 09:00 Blood Culture - Final Blood 03/01/16 08:20 Blood Culture - Final Blood Laboratory Results 03/05/16 04:47 03/06/16 05:20 03/05/16 03/06/16 03/07/16 05:59 05:59 05:59 Intake Total 720 1560 Output Total 704 455 1989 Balance 370 1110 -1150 PT 13.9 SEC (12.0-15.0) 02/27/16 22:40 INR 1.08 (0.83-1.16) 02/27/16 22:40 - Physical Exam Constitutional: no apparent distress Eyes: PERRL Ears, Nose, Mouth, Throat: moist mucous membranes Cardiovascular: regular rate and rhythym Respiratory: no respiratory distress Gastrointestinal: normoactive bowel sounds, soft, non-tender abdomen Skin: warm Musculoskeletal: other (RUE with decreasing edema and erythema, improving every day. Right hip pain with ROM) Neurologic: AAOx3 Psychiatric: interacting appropriately ICD10 Worksheet Patient Problems: Problems Problem Status Diagnosed Arm fracture Acute Bipolar 1 disorder with moderate isaura Acute Lymphoma Acute Marijuana abuse Acute Altered mental status Acute Chest pain Acute Withdrawal from sedative drug Acute Bipolar disorder Chronic
--- NOTE | 2016-03-06 17:11 | PCMIDPN ---
Assessment/Plan: # MSSA bacteremia complicated by R humerous OM requiring ORIF . Blood cultures negative since 03/01/2016. Source of bacteremia not entirely clear. Port was removed on March 01 and cultures were negative but patient had been on antibiotics for 2 days. Still could consider a skin source from 1 of her falls recently. --planning 6 weeks of IV cefazolin followed by suppressive therapy due to laying down hardware at the site of a bone infection. # R Hip fracture s/p nail 07/2015 and also found to have an avulsion fracture of her right pelvis on 02/20/2016. Generally it is felt that these fractures are a result of metastatic bone disease from lymphoma but also a contributor could be low bone density. Pain remains very severe in this right hip and she is unable to bear weight. With known bacteremia concern that this could be another site of infection, although clearance of blood cultures is less suggestive of another nidus of infection. Discussed with Dr. Way would recommend ultrasound and aspiration of joint IF fluid present. If fluid present recommend cell count and culture. # Lymphoma status post chemotherapy. Oncology Suspects that she has had some response but awaiting bone marrow biopsy and repeat pet scan to definitively assess her response. Before communicating radiologic results that suggest metastasis would recommend discussing with Oncology before communicating with patient Time 45 minutes with greater than 50% time spent with education and counseling. Specifically discussion with Renee chiang [phone] who is acts as patient's medical coordinator. In detail discussed all above points with Renee as well as the pathogenesis of bacteremia and likely skin source as well as the type of Staphylococcus and warranted antibiotic therapy patient has. In addition coordinated care with Dr. Agee, Dr. Way and Dr. Macario Medications Cefazolin 2 g IV Q 8, # 6 Subjective: Patient reports that her left arm feels significantly improved. She reports that her right hip continues to bother her. She is constipated and without diarrhea Objective: Vital Signs Temp Pulse Resp BP Pulse Ox 37.0 C 91 16 142/77 H 94 03/06/16 15:56 03/06/16 15:56 03/06/16 15:56 03/06/16 15:56 03/06/16 15:56 Microbiology 03/01/16 15:40 Gram Stain - Final Chest - Other 03/01/16 15:40 Gram Stain - Final Chest - Swab 02/29/16 15:59 Gram Stain - Final Shoulder - Swab 02/29/16 15:59 Gram Stain - Final Shoulder - Swab 03/01/16 09:00 Blood Culture - Final Blood 03/01/16 08:20 Blood Culture - Final Blood Laboratory Results 03/05/16 04:47 03/06/16 05:20 03/05/16 03/06/16 03/07/16 05:59 05:59 05:59 Intake Total 720 1560 Output Total 696 232 9423 Balance 370 1110 -1650 C-Reactive Protein 51.9 mg/L (<10.0) H 03/06/16 05:20 - Physical Exam General Appearance: alert, no apparent distress EENT: No scleral icterus Respiratory: lungs clear Cardiac/Chest: regular rate, rhythm, systolic murmur Extremities: pedal edema, swelling (Left arm swelling and mild pinkness of the upper arm. Minimal tenderness to palpation, dressing in place over surgical site) Abdomen: non-tender, soft Skin: No rash Neuro/Psych: alert, normal mood/affect, oriented x 3 - Line/s RUE PICC Lines: No drainage, No erythema ICD10 Worksheet Patient Problems: Problems Problem Status Diagnosed Arm fracture Acute Bipolar 1 disorder with moderate isaura Acute Lymphoma Acute Marijuana abuse Acute Altered mental status Acute Chest pain Acute Withdrawal from sedative drug Acute Bipolar disorder Chronic
[2016-03-06 20:50] LABS: POTASSIUM 3.8 mEq/L (3.5-5.2)
[2016-03-06] MEDS: DOXEPIN HCL 50 MG CAP PO SCH (22:10)
[2016-03-07] MEDS: oxyCODONE IR 5 MG TAB PO PRN ×5 (04:22→21:13)
[2016-03-07] MEDS: LEVOTHYROXINE 125 MCG TAB PO SCH (05:01)
[2016-03-07] MEDS: LORazepam 1 MG TAB PO SCH ×4 (05:02→17:40)
[2016-03-07] MEDS: ceFAZolin 2 GM/DEXTROSE 100 ML IV SCH ×3 (05:05→21:03)
[2016-03-07 05:11] LABS: MAGNESIUM 1.7 mg/dL (1.6-2.3); POTASSIUM 3.8 mEq/L (3.5-5.2)
[2016-03-07] MEDS: OLANZapine DISINTEGR 10 MG TAB PO SCH ×4 (05:55→21:04)
[2016-03-07] MEDS: ACETAMINOPHEN 325 MG TAB PO SCH ×5 (06:36→23:50)
[2016-03-07] MEDS: NYSTATIN SUSP 500000 UNIT/5 ML UDCUP PO SCH ×4 (06:45→21:04)
[2016-03-07] MEDS ORDERED: POTASSIUM CL 10 MEQ TAB PO ONE (07:34)
[2016-03-07] MEDS ORDERED: SODIUM BICARBONATE 10 MEQ/10 ML SYR IVP ONE (07:42)
[2016-03-07] MEDS ORDERED: BUPIVACAINE 0.5% 30 ML SDV ONE (07:43)
[2016-03-07] MEDS ORDERED: LIDOCAINE 1% 30 ML SDV ONE ×2 (07:44→13:24)
[2016-03-07] MEDS: FAMOTIDINE 20 MG TAB PO SCH (07:52)
[2016-03-07] MEDS: OMEGA-3 FATTY ACIDS 1,000 MG CAP PO SCH ×2 (07:52→21:04)
[2016-03-07] MEDS: ACYCLOVIR 400 MG TAB PO SCH ×2 (07:56→21:03)
[2016-03-07] MEDS: predniSONE 20 MG TAB PO SCH (07:56)
[2016-03-07] MEDS: NICOTINE 21 MG/24 HR PATCH TD SCH (08:07)
[2016-03-07] MEDS: ENOXAPARIN 40 MG/0.4 ML SYR SC SCH (08:10)
[2016-03-07] MEDS: MAGNESIUM SULF 1 GM/DEXTROSE 100 ML IV ONE ×2 (08:10→12:08)
[2016-03-07] MEDS: TIOTROPIUM INHALER 18 MCG/DOSE 5 DOSE/MDI IH SCH (08:53)
[2016-03-07] MEDS ORDERED: fentaNYL 100 MCG/2 ML INJ ONE ×2 (09:36→10:35)
[2016-03-07] MEDS ORDERED: PROPOFOL 200 MG/20 ML VIAL ONE ×2 (09:36)
[2016-03-07] MEDS ORDERED: MIDAZOLAM 2 MG/2 ML VIAL ONE (09:40)
[2016-03-07] MEDS ORDERED: LIDOCAINE 2% 5 ML SDV ONE (09:52)
[2016-03-07] MEDS ORDERED: ONDANSETRON 4 MG/2 ML VIAL ONE (09:52)
--- NOTE | 2016-03-07 11:11 | DX ---
AP Upright Chest March 07, 2016 Indication: Port placement. Comparison: February 29, 2016. Findings: The left chest port has been removed. There is a new right chest port. Tip of the port is a t the SVC right atrial junction. A PICC is seen in the distal upper SVC. There has been surgical repa ir of a humeral fracture. The humeral head appears subluxed which is similar in position to prior exa minations. This is most likely related to a joint effusion. Impression: 1. No pneumothorax post right port placement. 2. Right PICC in adequate position. 3. Stable left humeral head post repair.
--- NOTE | 2016-03-07 12:01 | DX ---
Intraoperative fluoroscopy History: Port placement. Comparison: AP and lateral chest February 29, 2016 Findings: A single spot image shows placement of a right subclavian chest port Fluoro time: 16.0 seconds. Dose: 1.7 mGy. Impression: Intraoperative fluoroscopy as above.
--- NOTE | 2016-03-07 12:16 | WOCRNPDOC ---
[facility] Advanced Assessment Note - Skin Integrity Problem, Advanced Assess Sacrum Dressing Type: Allevyn Life Dressing Description: Clean/Dry, Intact Exudate Amount: None Exudate Characteristic(s): None Integumentary Issue Intervention: Dressing Applied Rosette Wound Tissue: Blanching, Scarred Rosette Wound Swelling: Mild Site Odor: None Skin Integrity Problem Comment: Darkened scar tissue noted across coccyx and sacrum. According to patient, she has a h/o wounds to her coccyx/sacrum as the result of sitting for prolonged periods of time, and sits on a "donut" pillow at home. Presently, this discoloration does not appear to be the result of an active pressure injury, but given her history I advise application of a padded, protective dressing, along with applying an air pump to her Accu-max mattress. Right Medial Buttock Dressing Type: Open to Air Exudate Amount: None Exudate Characteristic(s): None Integumentary Issue Intervention: Dressing Applied Rosette Wound Tissue: Blanching Rosette Wound Swelling: None Wound Bed Color: Red Site Odor Comment: [id number] Skin Integrity Problem Comment: Small area of blanching erythema noted to R medial buttock. Patient reports mild tenderness when site is palpated. She has a history of pressure injuries to her sacrum/coccyx, so dressing was placed prophylactically.
--- NOTE | 2016-03-07 12:26 | POSTOPPROG ---
Post Op Note Date of Operation: 03/07/16 Surgeon: Alan Townsend Anesthesiologist: KAROL Anesthesia: GET(General Endotracheal) Pre-op Diagnosis: LYMPHOMA Post-op Diagnosis: SAME Indication: CHEMO Procedure: RT SUBCLAVIAN PORT WITH FLOURO Findings: GOOD POSITION AND FLOW Inf/Abcess present in the surg proc area at time of surgery?: No Depth: Organ Space EBL: Minimal Complications: 0
--- NOTE | 2016-03-07 13:00 | GOP ---
[f rep st] OPERATIVE REPORT DATE OF OPERATION: 03/07/2016 SURGEON: Alan Townsend MD PREOPERATIVE DIAGNOSIS: Lymphoma. POSTOPERATIVE DIAGNOSIS: Lymphoma. PROCEDURE PERFORMED: Right subclavian port placement with fluoroscopic guidance. FINDINGS: Good flow and position DESCRIPTION OF PROCEDURE: The patient was taken to the operating room, where she received satisfactory general endotracheal anesthesia by Dr. Brooks. She was placed in supine position, prepped and draped in usual sterile fashion. She was then placed in Trendelenburg. A single stick was made in the left subclavian vein. A guidewire was introduced. Position confirmed with fluoroscopy. A subcu pocket was made in the 2nd intercostal space. Port tubing was passed from that pocket to the subclavian insertion site, trimmed to the appropriate length using fluoroscopic guidance, and introduced through the introducer sheath and dilator system into the right atrium. Good backflow was achieved. The catheter was flushed with heparin and saline. The port was secured to the fascia with 3-0 Vicryl. The pocket was closed with 3 Vicryl for the subcu, and 4-0 Prolene subcuticular stitch for the skin. The entrance site was closed with a Prolene mattress suture. The wounds were dressed. She tolerated procedure well and taken to recovery room in good condition. No complications. Copy requested to: Sadaf Montiel NP /[id number]/MODL MTDD
--- NOTE | 2016-03-07 13:13 | HOSPPROG ---
Hospitalist Progress Note Assessment/Plan: 65 yo F with hx of stage 4 lymphoma with extensive bony mets and prior pathological fx's presenting with acute displaced humeral neck fx and sepsis # acute displaced and infected pathological humeral neck fx: sp surgical repair , cultures from surgery grew staph. RUE erythema and edema much improved. U/S neg for DVT. Ext CT neg for fluid collection, shows post-op changes. # sepsis due to staph bacteremia: MSSA, on ancef, likely from infected humeral fracture vs port which is now removed, repeat cultures ngtd. New PORT placed this am. # right hip pain: she has h/o avulsion fracture 02/22/2016 and now with increasing pain, difficulty with ambulation. turns out she was taking 20 mg oxycodone q4h and only receiving 10 mg q4h since admission. have increased oxy dose. ID discussed with ortho and u/s with aspiration if fluid present was recommended. pt receiving u/s now. If fluid collection identified, will go to IR for aspiration. Cell count and GS/Cx ordered. # rll pna: questionable from first cxr, Initially treated with vanc/cefepime now only on ancef and monitoring respiratory status, no hypoxemia or respiratory symptoms. # pancytopenia: improving. in setting of lymphoma and chemotherapy, likely bone marrow involvement, s/p 1 u prbc's. 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 PORT placed today. # electrolyte abnormalities: resolved with replacement, cont to monitor. # h/o anxiety/MDD/bipolar vs schizophrenia: continue op medications, behaviorally controlled # hypothyroid: with elevated tsh but ft4 wnl, recommend f/u TFT in 4-6 weeks # dvt pplx: lovenox # full code # dispo: will need > 48 hours for evaluation and management of above updated AUSTIN Mcbride, who feels pt cannot consent to any procedures herself due to her use of pain medication. Rae would like to be notified of any changes or any possible interventions / procedures before they occur. Rae consents to hip joint aspiration if present. She has requested hip u/s report be email' d to her at [email or web address]. in addition, ethics consult requested to determine decisional capacity. if patient is deemed decisional, then she may make her own decisions. DPOA would be decision maker if patient loses decisional capacity. Subjective: Pt doing ok. STill having quite a bit of hip pain. Does not complain of arm pain today, swelling improved. No fevers. Objective: Vital Signs Temp Pulse Resp BP Pulse Ox 36.9 C 103 H 18 112/80 99 03/07/16 10:56 03/07/16 12:32 03/07/16 12:32 03/07/16 12:32 03/07/16 12:32 Microbiology 03/01/16 15:40 Gram Stain - Final Chest - Other 03/01/16 15:40 Gram Stain - Final Chest - Swab 02/29/16 15:59 Gram Stain - Final Shoulder - Swab 02/29/16 15:59 Gram Stain - Final Shoulder - Swab 03/01/16 09:00 Blood Culture - Final Blood 03/01/16 08:20 Blood Culture - Final Blood Laboratory Results 03/05/16 04:47 03/07/16 04:30 03/06/16 03/07/16 03/08/16 05:59 05:59 05:59 Intake Total 1560 800 Output Total 450 1650 5 Balance 1110 -1650 795 PT 13.9 SEC (12.0-15.0) 02/27/16 22:40 INR 1.08 (0.83-1.16) 02/27/16 22:40 - Physical Exam Constitutional: no apparent distress Eyes: PERRL Ears, Nose, Mouth, Throat: moist mucous membranes Cardiovascular: regular rate and rhythym Respiratory: no respiratory distress Skin: warm Neurologic: AAOx3 Psychiatric: interacting appropriately ICD10 Worksheet Patient Problems: Problems Problem Status Diagnosed Arm fracture Acute Bipolar 1 disorder with moderate isaura Acute Lymphoma Acute Marijuana abuse Acute Altered mental status Acute Chest pain Acute Withdrawal from sedative drug Acute Bipolar disorder Chronic
[2016-03-07] MEDS ORDERED: NA BICARBONATE 50 MEQ/50 ML VIAL ONE (13:24)
[2016-03-07] MEDS ORDERED: IOPAMIDOL (ISOVUE 370) 100 ML BTL IV ONE (13:24)
[2016-03-07] MEDS: VENLAFAXINE XR 75 MG CAP PO SCH (14:54)
--- NOTE | 2016-03-07 15:20 | PCMIDPN ---
Assessment/Plan: Assessment: MSSA bacteremia from unclear source. Secondary seeding of pathologic left humeral fracture. Status post debridement and fixation. Possible secondary site of infection at the right hip as well. S/P aspiration today. Patient is continuing on 6 weeks total of intravenous cefazolin. Start date at time of surgery. Given retained hardware she will likely need oral suppression following completion. Continue to monitor progress and laboratories. Plan: 1. Continue cefazolin. 2. Plan for 6 week total duration. May extend if further infected sites are found. 3. Follow clinical course and laboratory values. Subjective: Patient is sittin gup in bed. Complains of weakness and pain when she attempts to stand or ambulate. No fevers. Complains mostly of R hip pain. s/p aspiration. Objective: cefazolin #7 Vital Signs Temp Pulse Resp BP Pulse Ox 36.9 C 103 H 18 112/80 99 03/07/16 10:56 03/07/16 12:32 03/07/16 12:32 03/07/16 12:32 03/07/16 12:32 Microbiology 03/01/16 15:40 Gram Stain - Final Chest - Other 03/01/16 15:40 Gram Stain - Final Chest - Swab 02/29/16 15:59 Gram Stain - Final Shoulder - Swab 02/29/16 15:59 Gram Stain - Final Shoulder - Swab 03/01/16 09:00 Blood Culture - Final Blood 03/01/16 08:20 Blood Culture - Final Blood Laboratory Results 03/05/16 04:47 03/07/16 04:30 03/06/16 03/07/16 03/08/16 05:59 05:59 05:59 Intake Total 1560 800 Output Total 450 1650 5 Balance 1110 -1650 795 C-Reactive Protein 51.9 mg/L (<10.0) H 03/06/16 05:20 - Physical Exam General Appearance: WD/WN, alert, no apparent distress, non-toxic Respiratory: lungs clear, normal breath sounds, No respiratory distress Cardiac/Chest: regular rate, rhythm, No tachycardia Extremities: non-tender, normal inspection Abdomen: non-tender, soft Skin: normal color, warm/dry, No rash Neuro/Psych: alert, normal mood/affect, oriented x 3 ICD10 Worksheet Patient Problems: Problems Problem Status Diagnosed Arm fracture Acute Bipolar 1 disorder with moderate isaura Acute Lymphoma Acute Marijuana abuse Acute Altered mental status Acute Chest pain Acute Withdrawal from sedative drug Acute Bipolar disorder Chronic
--- NOTE | 2016-03-07 16:30 | PDCONSULT ---
[facility] [employer] Note: Decisional Capacity Evaluation ETHICS CONSULTATION Reason for consult: an Ethics Consultation was ordered for Michelle Sanchez by hospitalist Manju Agee for assistance with determining decisional capacity. Patient's MDPOA, long-time friend Rae, has apparently asserted that Michelle lacks capacity to consent for proposed procedures including R hip aspiration because she is on chronic opioid use (OxyCodone 20 mg Q 4 hrs PRN). Additionally, patient has a mental health history including bipolar disorder vs. major depressive disorder vs. schizophrenia which may affect her decision making capacity. Recommendation: Michelle was able to demonstrate intact decisional capacity and has already consented to R hip aspiration which occurred earlier this afternoon. Her consent was appropriate and she would be expected to maintain decisional capacity for future decisions occurring during this hospitalization even though she continues to take daily opioids which were recently increased back to her prior home dose (dosing had been reduced to OxyCodone 10 mg Q 4 hrs PRN, then OxyCodone 20 mg Q 4 hrs PRN resumed yesterday). The patient should be consulted regarding the future plan of care and if she wants to then share that information with her MDPOA, she may certainly do so. Patient's MDPOA need not be consulted to speak on the patient's behalf unless she (Michelle) were to become incapacitated. Summary of Assessment: Met with patient and her personal Dry Mill Operator, Devin, who has been working closely with Michelle since October 2015. Michelle remained alert and articulate during my interview. She appeared "put together" with styled hair and apparent make-up ( was not disheveled). Patient's Dry Mill Operator noted Michelle is routinely put together. Michelle conveyed her understanding of why she's in the hospital, recent procedures which have occurred and why (that she has both a PICC line and a port as one is for chemotherapy and one is for IV antibiotics which she will receive over the next 6 weeks for an infection in her bone). She reasoned that her long-time friend and MDPOA, Rae was likely worried about her being confused and/or over-medicated because if Rae took the same amount of OxyCodone, she (Rae) would be clouded, but that she (Michelle) has been on this dose for a long time and is quite use to it. When asked what it would look like is she (Michelle) were over-medicated with opioids, she offered that she would likely be slurring her words, falling asleep, and not making sense. Michelle explained she has panic attacks, not schizophrenia and that her psychiatrist has said she has bi-polar disorder. She takes Zyprexa, Effexor, doxepin and lorazepam (which is correct). She feels the Effexor has really controlled her panic attacks and that her mental health issues are currently well controlled. I then asked Michelle about her lymphoma and how she has been tolerating chemotherapy. This came up because she mentioned she was dying. She said that she was being "treated" but that there was no cure. I asked her to explain this and she said, she could stay the way she is, but that she is going to from this condition. I asked her how she would know when it's time to not have further treatment and she said when the treatment is causing her pain and suffering, then it would be time to stop. There are four elements related to decisional capacity first described by Pedrito and Bailee in a landmark article in the NEJM in 1987:3 a. The ability to communicate a choice. b. The ability to understand the relevant information. c. The ability to appreciate a situation and its consequences. d. The ability to reason rationally. Michelle conveyed these abilities during our assessment and thus demonstrates decision capacity. Follow up: spoke with requesting hospitalist, Manju Agee, by phone to clarify the above recommendation of the Ethics Consultation service. We appreciate the opportunity to participate in the care of this patient. Please do not hesitate to contact us with questions or for further assistance.
[2016-03-07 16:33] LABS: WBC, SYNOVIAL FLUID 821 /mm3 (0-150)
--- NOTE | 2016-03-07 17:25 | SOAPPROG ---
[facility] Progress Note Assessment/Plan: Assessment: Plan: 03/04/16 13:05 POD# 4 ORIF rt prox humerus with infection swelling most likely normal post op will check xray today US neg for DVT Cont IVabx per ID 03/07/16 17:24 S/p ORIF RT prox humeral fx with infection s/p IMN RT hip for path fx aspiration 800 WBC infection unlikely Cont Abx per ID Subjective: Feeling better Today a little less hip pain aspirated hip Today left arm about the same Objective: still with redness distal to incision FA swollen compartmens soft moving fingers RT hip withourt warmth or redness minimal discomfort with PROM Vital Signs Temp Pulse Resp BP Pulse Ox 37.4 C 104 H 18 118/67 91 L 03/07/16 16:00 03/07/16 16:00 03/07/16 16:00 03/07/16 16:00 03/07/16 16:00 Microbiology 03/01/16 15:40 Gram Stain - Final Chest - Other 03/01/16 15:40 Gram Stain - Final Chest - Swab 02/29/16 15:59 Gram Stain - Final Shoulder - Swab 02/29/16 15:59 Gram Stain - Final Shoulder - Swab 03/01/16 09:00 Blood Culture - Final Blood 03/01/16 08:20 Blood Culture - Final Blood Laboratory Results 03/05/16 04:47 03/07/16 04:30 03/06/16 03/07/16 03/08/16 05:59 05:59 05:59 Intake Total 1560 800 Output Total 450 1650 5 Balance 1110 -1650 795 PT 13.9 SEC (12.0-15.0) 02/27/16 22:40 INR 1.08 (0.83-1.16) 02/27/16 22:40 ICD10 Worksheet Patient Problems: Problems Problem Status Diagnosed Arm fracture Acute Bipolar 1 disorder with moderate isaura Acute Lymphoma Acute Marijuana abuse Acute Altered mental status Acute Chest pain Acute Withdrawal from sedative drug Acute Bipolar disorder Chronic
[2016-03-07 18:00] LABS: ADD DIFF? YES; ADD MORPH? NO; ATYPICAL LYMPHOCYTE FLAG 20 (0-99); FRAGMENT RBC FLAG 20 (0-99); HEMATOCRIT 27.7 % (38.0-47.0); HEMOGLOBIN 8.9 g/dL (12.6-16.3); LIPEMIA HEMOLYSIS FLAG 80 (0-99); MEAN CELL HEMOGLOBIN 26.7 pg (27.9-34.1); MEAN CELL HEMOGLOBIN CONCENTR. 32.1 g/dL (32.4-36.7); MEAN CELL VOLUME 83.2 fL (81.5-99.8); MEAN PLATELET VOLUME 8.8 fL (8.7-11.7); PLATELET CLUMPS FLAG 0 (0-99); PLATELET COUNT 275 10^3/uL (150-400); RED BLOOD CELL COUNT 3.33 10^6/uL (4.18-5.33); RED CELL DISTRIBUTION WIDTH 19.2 % (11.5-15.2)
[2016-03-07 18:03] LABS: ADD SCAN? NO; LEFT SHIFT FLG 170 (0-99)
--- NOTE | 2016-03-07 18:06 | US ---
Ultrasound Lower Extremity, Right Hip History: Right hip pain. Evaluate for effusion. Technique: Ultrasound was performed of the right hip. Findings: There is a moderate to large right hip joint effusion, with synovial proliferation. Impression: Moderate right hip joint effusion, with synovial proliferation.
[2016-03-07 18:11] LABS: ANION GAP 10 mEq/L (8-16); CALCIUM 7.5 mg/dL (8.5-10.4); CARBON DIOXIDE 27 mEq/l (22-31); CHLORIDE 101 mEq/L (97-110); CREATININE 0.5 mg/dL (0.6-1.0); GLOMERULAR FILTRATION RATE > 60; GLUCOSE 153 mg/dL (70-100); POTASSIUM 3.7 mEq/L (3.5-5.2); SODIUM 138 mEq/L (134-144)
[2016-03-07 18:43] LABS: PLATELET ESTIMATE ADEQUATE (ADEQ)
[2016-03-07 18:44] LABS: HYPOCHROMIA 1+; MACROCYTES 1+; MICROCYTES 1+; POLYCHROMASIA 1+
--- NOTE | 2016-03-07 19:14 | DX ---
Right Hip Fluoroscopic-Guided Aspiration History: Right hip joint effusion. Pain. Fluoroscopy time: 0.2 minutes. Accumulative dose: 1 mGy. Crosscutting measure #226, nonsmoker. Informed consent: Informed written and oral consent was obtained. Technique: After the usual sterile preparation and local anesthesia with lidocaine, 1%, a 22-gauge s charlie needle was directed toward the right hip joint using an anterior approach, with fluoroscopic gu idance. The fluoroscopic images demonstrated an intertrochanteric fracture fixated with an intramedu llary beth and nail. Intraarticular placement of the needle tip was confirmed with 1 mL of iodinated contrast. The hip was then aspirated with straw-colored fluid of 4 to 5 mL. This was sent to the la b for analysis, as requested. The needle was removed and the patient tolerated the procedure well. Impression: Successful uneventful right hip aspiration.
[2016-03-07] MEDS: DOXEPIN HCL 50 MG CAP PO SCH (21:03)
[2016-03-08] MEDS ORDERED: POTASSIUM CL 10 MEQ TAB PO ONE (00:01)
[2016-03-08] MEDS: ACETAMINOPHEN 325 MG TAB PO SCH ×3 (01:47→19:13)
[2016-03-08] MEDS: oxyCODONE IR 5 MG TAB PO PRN ×5 (01:58→21:37)
[2016-03-08 05:17] LABS: MAGNESIUM 1.9 mg/dL (1.6-2.3)
[2016-03-08] MEDS: NYSTATIN SUSP 500000 UNIT/5 ML UDCUP PO SCH ×4 (05:59→21:28)
[2016-03-08] MEDS: LEVOTHYROXINE 125 MCG TAB PO SCH (05:59)
[2016-03-08] MEDS: LORazepam 1 MG TAB PO SCH ×3 (05:59→16:49)
[2016-03-08] MEDS: ceFAZolin 2 GM/DEXTROSE 100 ML IV SCH ×3 (05:59→21:27)
[2016-03-08] MEDS: OLANZapine DISINTEGR 10 MG TAB PO SCH ×5 (06:00→21:28)
[2016-03-08] MEDS: VENLAFAXINE XR 75 MG CAP PO SCH (08:21)
[2016-03-08] MEDS: OMEGA-3 FATTY ACIDS 1,000 MG CAP PO SCH ×2 (08:22→21:31)
[2016-03-08] MEDS: predniSONE 20 MG TAB PO SCH (08:22)
[2016-03-08] MEDS: FAMOTIDINE 20 MG TAB PO SCH (08:22)
[2016-03-08] MEDS: ACYCLOVIR 400 MG TAB PO SCH ×2 (08:22→21:27)
[2016-03-08] MEDS: MULTIVITAMINS 1 EACH TAB PO SCH (08:23)
[2016-03-08] MEDS: FERROUS SULFATE 325 MG TAB PO SCH (08:23)
[2016-03-08] MEDS: ENOXAPARIN 40 MG/0.4 ML SYR SC SCH (08:28)
[2016-03-08] MEDS: NICOTINE 21 MG/24 HR PATCH TD SCH (08:41)
[2016-03-08] MEDS: TIOTROPIUM INHALER 18 MCG/DOSE 5 DOSE/MDI IH SCH (08:45)
--- NOTE | 2016-03-08 14:41 | SOAPPROG ---
SO[facility] Progress Note Assessment/Plan: Assessment: 1. Follicular lymphoma, s/p 5 cycles BR 2. Multiple fractures due to lytic lesions from lymphoma 3. s/p ORIF L humerus 4. S aureus bacteremia She has a history of R hip ORIF. Unclear why the pain is flaring up. Plan: - pain medication for R hip pain. consider repeat imaging if persistent. - will need BMBx (either on this admission or after discharge) plus PET-CT to evaluate the status of her lymphoma Plan: 03/08/16 14:41 Objective: Vital Signs Temp Pulse Resp BP Pulse Ox 37.2 C 105 H 12 132/75 H 95 03/08/16 08:02 03/08/16 08:48 03/08/16 08:48 03/08/16 08:02 03/08/16 08:48 Microbiology 03/07/16 14:25 Gram Stain - Final Hip - Aspirate 03/01/16 15:40 Gram Stain - Final Chest - Other 03/01/16 15:40 Gram Stain - Final Chest - Swab 02/29/16 15:59 Gram Stain - Final Shoulder - Swab 02/29/16 15:59 Gram Stain - Final Shoulder - Swab Laboratory Results 03/07/16 17:55 03/08/16 04:40 03/07/16 03/08/16 03/09/16 05:59 05:59 05:59 Intake Total 1825 Output Total 0751 109 8485 Balance -1650 1120 -1650 PT 13.9 SEC (12.0-15.0) 02/27/16 22:40 INR 1.08 (0.83-1.16) 02/27/16 22:40 ICD10 Worksheet Patient Problems: Problems Problem Status Diagnosed Arm fracture Acute Bipolar 1 disorder with moderate isaura Acute Lymphoma Acute Marijuana abuse Acute Altered mental status Acute Chest pain Acute Withdrawal from sedative drug Acute Bipolar disorder Chronic
--- NOTE | 2016-03-08 14:50 | SOAPPROG ---
SOAP Progress Note Assessment/Plan: Assessment: 1. Follicular lymphoma, s/p 5 cycles BR 2. Multiple fractures due to lytic lesions from lymphoma 3. s/p ORIF L humerus 4. S aureus bacteremia 5. R hip pain with joint effusion. S/P joint replacement The question is whether she has an infection in the right hip. Plan: - pain medication for R hip pain. consider repeat imaging if persistent. - will need BMBx (either on this admission or after discharge) plus PET-CT to evaluate the status of her lymphoma. PET is set up for next . 03/08/16 14:41 03/08/16 14:47 Subjective: Maryellen is a 65 yo woman with a G1 follicular lymphoma with pathologic bone fractures in a CA on BR. Objective: Vital Signs Temp Pulse Resp BP Pulse Ox 37.2 C 105 H 12 132/75 H 95 03/08/16 08:02 03/08/16 08:48 03/08/16 08:48 03/08/16 08:02 03/08/16 08:48 Microbiology 03/07/16 14:25 Gram Stain - Final Hip - Aspirate 03/01/16 15:40 Gram Stain - Final Chest - Other 03/01/16 15:40 Gram Stain - Final Chest - Swab 02/29/16 15:59 Gram Stain - Final Shoulder - Swab 02/29/16 15:59 Gram Stain - Final Shoulder - Swab Laboratory Results 03/07/16 17:55 03/08/16 04:40 03/07/16 03/08/16 03/09/16 05:59 05:59 05:59 Intake Total 1825 Output Total 5753 586 3571 Balance -1650 1120 -1650 PT 13.9 SEC (12.0-15.0) 02/27/16 22:40 INR 1.08 (0.83-1.16) 02/27/16 22:40 Alert. Non septic Lungs clear CVS no Murmur - Time Spent With Patient Time Spent With Patient: 20 min ICD10 Worksheet Patient Problems: Problems Problem Status Diagnosed Arm fracture Acute Bipolar 1 disorder with moderate isaura Acute Lymphoma Acute Marijuana abuse Acute Altered mental status Acute Chest pain Acute Withdrawal from sedative drug Acute Bipolar disorder Chronic
--- NOTE | 2016-03-08 14:58 | PCMIDPN ---
Assessment/Plan: Assessment: MSSA bacteremia from unclear source. Secondary seeding of pathologic left humeral fracture. Status post debridement and fixation. Possible secondary site of infection at the right hip/inguinal area as well. S/P aspiration yesterday-the cell count values reflect a small degree of inflammation. However this inflammation is not neutrophil predominant. Patient is continuing on 6 weeks total of intravenous cefazolin. Start date at time of surgery. Given retained hardware she will likely need oral suppression following completion. Discussed case with Dr. Manju riggs. We will pursue imaging of the right hip and inguinal area. Continue to monitor progress and laboratories. Plan: 1. Continue cefazolin. 2. Plan for 6 week total duration. May extend if further infected sites are found. 3. Follow clinical course and laboratory values. 03/08/16 14:56 Subjective: Patient is sitting up in her chair in the hospital room. She denies any new complaint. Pain is still 6/10 when she is sitting or lying down. She states she is unable to bear any weight on her right foot. She reiterates that she was walking 3 weeks prior to admission. Objective: Cefazolin #8 Vital Signs Temp Pulse Resp BP Pulse Ox 37.2 C 105 H 12 132/75 H 95 03/08/16 08:02 03/08/16 08:48 03/08/16 08:48 03/08/16 08:02 03/08/16 08:48 Microbiology 03/07/16 14:25 Gram Stain - Final Hip - Aspirate 03/01/16 15:40 Gram Stain - Final Chest - Other 03/01/16 15:40 Gram Stain - Final Chest - Swab 02/29/16 15:59 Gram Stain - Final Shoulder - Swab 02/29/16 15:59 Gram Stain - Final Shoulder - Swab Laboratory Results 03/07/16 17:55 03/08/16 04:40 03/07/16 03/08/16 03/09/16 05:59 05:59 05:59 Intake Total 1825 Output Total 5697 091 1956 Balance -1650 1120 -1650 C-Reactive Protein 51.9 mg/L (<10.0) H 03/06/16 05:20 - Physical Exam General Appearance: WD/WN, alert, no apparent distress, non-toxic Respiratory: lungs clear, normal breath sounds Cardiac/Chest: regular rate, rhythm, No tachycardia Extremities: non-tender, No normal inspection Skin: normal color, warm/dry, No rash Neuro/Psych: alert, normal mood/affect, oriented x 3 ICD10 Worksheet Patient Problems: Problems Problem Status Diagnosed Arm fracture Acute Bipolar 1 disorder with moderate isaura Acute Lymphoma Acute Marijuana abuse Acute Altered mental status Acute Chest pain Acute Withdrawal from sedative drug Acute Bipolar disorder Chronic
--- NOTE | 2016-03-08 15:22 | HOSPPROG ---
Hospitalist Progress Note Assessment/Plan: 65 yo F with hx of stage 4 lymphoma with extensive bony mets and prior pathological fx's presenting with acute displaced humeral neck fx and sepsis # acute displaced and infected pathological humeral neck fx: sp surgical repair , cultures from surgery grew staph. RUE erythema and edema much improved. U/S neg for DVT. Ext CT neg for fluid collection, shows post-op changes. # sepsis due to MSSA bacteremia: Sepsis physiology resolved. Source presumed from infected humeral fracture vs port which is now removed, repeat cultures ngtd. New PORT placed 03/07. Continue Ancef for total of 6 week DOT per ID. # right hip pain: she has h/o avulsion fracture 02/22/2016 and now with increasing pain, difficulty with ambulation. turns out she was taking 20 mg oxycodone q4h and only receiving 10 mg q4h since admission. have increased oxy dose. U/S with aspiration done yesterday, fluid not convincing for infection. Still concerned about occult fracture, will check MRI. # rll pna: questionable from first cxr, Initially treated with vanc/cefepime now only on ancef and monitoring respiratory status, no hypoxemia or respiratory symptoms. # pancytopenia: improving. in setting of lymphoma and chemotherapy, likely bone marrow involvement, s/p 1 u prbc's. # stage 4 follicular lymphoma: with extensive bony mets and prio pathological fractures as above, appreciate onc consultation. PORT placed yesterday. # electrolyte abnormalities: resolved with replacement, cont to monitor. # h/o anxiety/MDD/bipolar vs schizophrenia: continue op medications, behaviorally controlled # hypothyroid: with elevated tsh but ft4 wnl, f/u TFT in 4-6 weeks # dvt pplx: lovenox # full code # dispo: will need > 48 hours for evaluation and management of above. Plan for SNF rehab when ready for dc. Regarding health care decision making - ethics consult obtained yesterday and pt deemed decisional. In addition, pt wishes to make her own health care decisions and will be her own point person. She can update DPOA as needed, but DPOA does not need to be primary decision maker for each and every event that occurs during the hospitalization. DPOA is Veronica, in [place], and will become primary decision maker if Michelle's condition changes and she is no longer able to make decisions for herself. Veronica's phone # is [phone]. I spoke with Veronica again by phone today and she agrees with above. Subjective: Pt continues to complain of right hip pain. Unable to ambulate. Pain is mostly in groin region. No fevers/chills. Objective: Vital Signs Temp Pulse Resp BP Pulse Ox 37.2 C 105 H 12 132/75 H 95 03/08/16 08:02 03/08/16 08:48 03/08/16 08:48 03/08/16 08:02 03/08/16 08:48 Microbiology 03/07/16 14:25 Gram Stain - Final Hip - Aspirate 03/01/16 15:40 Gram Stain - Final Chest - Other 03/01/16 15:40 Gram Stain - Final Chest - Swab 02/29/16 15:59 Gram Stain - Final Shoulder - Swab 02/29/16 15:59 Gram Stain - Final Shoulder - Swab Laboratory Results 03/07/16 17:55 03/08/16 04:40 03/07/16 03/08/16 03/09/16 05:59 05:59 05:59 Intake Total 1825 Output Total 9946 341 5822 Balance -1650 1120 -1650 PT 13.9 SEC (12.0-15.0) 02/27/16 22:40 INR 1.08 (0.83-1.16) 02/27/16 22:40 - Physical Exam Constitutional: no apparent distress Eyes: PERRL Ears, Nose, Mouth, Throat: moist mucous membranes Cardiovascular: regular rate and rhythym Respiratory: no respiratory distress Skin: warm Neurologic: AAOx3 Psychiatric: interacting appropriately ICD10 Worksheet Patient Problems: Problems Problem Status Diagnosed Arm fracture Acute Bipolar 1 disorder with moderate isaura Acute Lymphoma Acute Marijuana abuse Acute Altered mental status Acute Chest pain Acute Withdrawal from sedative drug Acute Bipolar disorder Chronic
[2016-03-08 16:33] LABS: LACTATE DEHYDROGENASE 2345 IU/L (313-618)
[2016-03-08 17:55] LABS: POTASSIUM 4.2 mEq/L (3.5-5.2)
[2016-03-08] MEDS: DOXEPIN HCL 50 MG CAP PO SCH (21:27)
--- NOTE | 2016-03-08 21:37 | HOSPPROG ---
Hospitalist Progress Note Assessment/Plan: called by dr baugh (radiology) regarding R hip MRI- diffuse metastatic bony disease and possible phlegmon just above screw. apparently this was the region sampled by IR and that was negative. await final read Objective: Vital Signs Temp Pulse Resp BP Pulse Ox 36.6 C 101 H 16 112/69 96 03/08/16 16:22 03/08/16 16:22 03/08/16 16:22 03/08/16 16:22 03/08/16 16:22 Microbiology 03/07/16 14:25 Gram Stain - Final Hip - Aspirate Laboratory Results 03/07/16 17:55 03/08/16 17:30 03/07/16 03/08/16 03/09/16 05:59 05:59 05:59 Intake Total 1825 300 Output Total 7019 073 6946 Balance -1650 1120 -3450 PT 13.9 SEC (12.0-15.0) 02/27/16 22:40 INR 1.08 (0.83-1.16) 02/27/16 22:40 ICD10 Worksheet Patient Problems: Problems Problem Status Diagnosed Arm fracture Acute Bipolar 1 disorder with moderate isaura Acute Lymphoma Acute Marijuana abuse Acute Altered mental status Acute Chest pain Acute Withdrawal from sedative drug Acute Bipolar disorder Chronic
[2016-03-09] MEDS: ACETAMINOPHEN 325 MG TAB PO SCH ×4 (00:24→17:40)
[2016-03-09] MEDS: oxyCODONE IR 5 MG TAB PO PRN ×6 (01:23→21:47)
[2016-03-09 04:59] LABS: MAGNESIUM 1.9 mg/dL (1.6-2.3); POTASSIUM 3.7 mEq/L (3.5-5.2)
[2016-03-09] MEDS: NYSTATIN SUSP 500000 UNIT/5 ML UDCUP PO SCH ×4 (05:34→21:44)
[2016-03-09] MEDS: ceFAZolin 2 GM/DEXTROSE 100 ML IV SCH ×3 (05:34→21:43)
[2016-03-09] MEDS: LORazepam 1 MG TAB PO SCH ×4 (05:34→17:39)
[2016-03-09] MEDS: LEVOTHYROXINE 125 MCG TAB PO SCH (05:34)
[2016-03-09] MEDS: OLANZapine DISINTEGR 10 MG TAB PO SCH ×4 (05:35→21:44)
[2016-03-09] MEDS ORDERED: POTASSIUM CL 10 MEQ TAB PO ONE (07:42)
[2016-03-09] MEDS: TIOTROPIUM INHALER 18 MCG/DOSE 5 DOSE/MDI IH SCH ×2 (08:20→14:14)
[2016-03-09] MEDS: VENLAFAXINE XR 75 MG CAP PO SCH (09:02)
[2016-03-09] MEDS: OMEGA-3 FATTY ACIDS 1,000 MG CAP PO SCH ×2 (09:02→21:44)
[2016-03-09] MEDS: FERROUS SULFATE 325 MG TAB PO SCH (09:03)
[2016-03-09] MEDS: predniSONE 20 MG TAB PO SCH (09:03)
[2016-03-09] MEDS: NICOTINE 21 MG/24 HR PATCH TD SCH (09:04)
[2016-03-09] MEDS: FAMOTIDINE 20 MG TAB PO SCH (09:04)
[2016-03-09] MEDS: ACYCLOVIR 400 MG TAB PO SCH ×2 (09:04→21:43)
[2016-03-09] MEDS: ENOXAPARIN 40 MG/0.4 ML SYR SC SCH (09:06)
[2016-03-09] MEDS: MULTIVITAMINS 1 EACH TAB PO SCH (09:11)
--- NOTE | 2016-03-09 11:57 | PCMIDPN ---
Assessment/Plan: Assessment: MSSA bacteremia from unclear source. Secondary seeding of pathologic left humeral fracture. Status post debridement and fixation. MRI from yesterday reviewed -- concerning amount of fluid and edema of the tissue surrounding the pinning of the avulsion fracture. I am concerned that this may not only be infected with MSSA, but may be the primary source of the bacteremia. Discussed case with Dr. Manju Agee. Continue to monitor progress and laboratories. Plan: 1. Continue cefazolin. 2. Plan for 6 week total duration. May extend if further infected sites are found. 3. Follow clinical course and laboratory values. 4. Discuss with orthopedic surgery about the fluid surrounding the R hip pinning. 03/08/16 14:56 03/09/16 21:27 Subjective: Patient remains in good spirits and is resting in bed. Pain level is 6/10 and steady as long as she does not try to move or put weight on the R foot. No fevers. Objective: cefazolin #9 Vital Signs Temp Pulse Resp BP Pulse Ox 36.9 C 103 H 14 114/78 90 L 03/09/16 07:10 03/09/16 07:10 03/09/16 07:10 03/09/16 07:10 03/09/16 07:10 Microbiology 03/07/16 14:25 Gram Stain - Final Hip - Aspirate Laboratory Results 03/07/16 17:55 03/09/16 04:35 03/08/16 03/09/16 03/10/16 05:59 05:59 05:59 Intake Total 1825 800 Output Total 705 5900 Balance 1120 -5100 C-Reactive Protein 51.9 mg/L (<10.0) H 03/06/16 05:20 - Physical Exam General Appearance: WD/WN, alert, no apparent distress, non-toxic Respiratory: lungs clear, normal breath sounds, No respiratory distress Cardiac/Chest: regular rate, rhythm, No tachycardia Extremities: normal inspection, No non-tender Skin: normal color, warm/dry, No rash Neuro/Psych: alert, normal mood/affect, oriented x 3 ICD10 Worksheet Patient Problems: Problems Problem Status Diagnosed Arm fracture Acute Bipolar 1 disorder with moderate isaura Acute Lymphoma Acute Marijuana abuse Acute Altered mental status Acute Chest pain Acute Withdrawal from sedative drug Acute Bipolar disorder Chronic
--- NOTE | 2016-03-09 13:55 | SOAPPROG ---
[facility] Progress Note Assessment/Plan: Assessment: 1. Follicular lymphoma, s/p 5 cycles BR 2. Multiple fractures due to lytic lesions from lymphoma 3. s/p ORIF L humerus 4. S aureus bacteremia 5. R hip pain with joint effusion. S/P joint replacement The question is whether she has an infection in the right hip. Cultures are neg. MR is pending. Plan: - pain medication for R hip pain. - will need BMBx (either on this admission or after discharge) plus PET-CT to evaluate the status of her lymphoma. PET is set up for next . 03/08/16 14:41 03/08/16 14:47 03/09/16 14:13 Subjective: Maryellen is a 65 yo woman with a G1 follicular lymphoma with pathologic bone fractures in a [place] on BR. Objective: Vital Signs Temp Pulse Resp BP Pulse Ox 36.9 C 103 H 14 114/78 90 L 03/09/16 07:10 03/09/16 07:10 03/09/16 07:10 03/09/16 07:10 03/09/16 07:10 Microbiology 03/07/16 14:25 Gram Stain - Final Hip - Aspirate 03/01/16 15:40 Gram Stain - Final Chest - Other Anaerobic Culture - Final 03/01/16 15:40 Gram Stain - Final Chest - Swab Anaerobic Culture - Final 02/29/16 15:59 Gram Stain - Final Shoulder - Swab 02/29/16 15:59 Gram Stain - Final Shoulder - Swab Laboratory Results 03/07/16 17:55 03/09/16 04:35 03/08/16 03/09/16 03/10/16 05:59 05:59 05:59 Intake Total 1825 800 500 Output Total 705 5900 200 Balance 1120 -5100 300 PT 13.9 SEC (12.0-15.0) 02/27/16 22:40 INR 1.08 (0.83-1.16) 02/27/16 22:40 ICD10 Worksheet Patient Problems: Problems Problem Status Diagnosed Arm fracture Acute Bipolar 1 disorder with moderate isaura Acute Lymphoma Acute Marijuana abuse Acute Altered mental status Acute Chest pain Acute Withdrawal from sedative drug Acute Bipolar disorder Chronic
[2016-03-09] MEDS ORDERED: LACTULOSE 20 GM/30 ML UDCUP PO PRN (15:40)
[2016-03-09] MEDS ORDERED: BISACODYL 10 MG SUPP PR PRN (15:40)
[2016-03-09] MEDS ORDERED: MAGNESIUM HYDROXIDE 30 ML UDCUP PO PRN (15:40)
[2016-03-09] MEDS ORDERED: POLYETHYLENE GLYCOL 3350 17 GM PKT PO PRN (15:40)
--- NOTE | 2016-03-09 15:44 | HOSPPROG ---
Hospitalist Progress Note Assessment/Plan: * Humeral neck pathological fracture s/p ORIF * Follicular lymphoma with lytic bony mets and pathological fractures -outpatient BMBx and PET-CT post discharge -prednisone * MSSA bacteremia with sepsis -humeral fracture seeded, secondary infection -port changed by Dr. Townsend -IV ancef x 6 weeks * Right hip pain r/o infection -phlegmon at hardware from previous fracture -will need chronic suppressive oral abx when IV complete * Bipolar -Zyprexa, scheduled Ativan -patient has decisional capacity Subjective: Still with leg pain unchanged Objective: Vital Signs Temp Pulse Resp BP Pulse Ox 36.9 C 103 H 14 114/78 90 L 03/09/16 07:10 03/09/16 07:10 03/09/16 07:10 03/09/16 07:10 03/09/16 07:10 Microbiology 03/07/16 14:25 Gram Stain - Final Hip - Aspirate 03/01/16 15:40 Gram Stain - Final Chest - Other Anaerobic Culture - Final 03/01/16 15:40 Gram Stain - Final Chest - Swab Anaerobic Culture - Final 02/29/16 15:59 Gram Stain - Final Shoulder - Swab 02/29/16 15:59 Gram Stain - Final Shoulder - Swab Laboratory Results 03/07/16 17:55 03/09/16 04:35 03/08/16 03/09/16 03/10/16 05:59 05:59 05:59 Intake Total 1825 800 500 Output Total 705 5900 200 Balance 1120 -5100 300 PT 13.9 SEC (12.0-15.0) 02/27/16 22:40 INR 1.08 (0.83-1.16) 02/27/16 22:40 - Physical Exam Constitutional: no apparent distress, appears nourished, not in pain Cardiovascular: regular rate and rhythym, no murmur, rub, or gallop Respiratory: no respiratory distress, no rales or rhonchi, clear to auscultation Gastrointestinal: normoactive bowel sounds, soft, non-tender abdomen, no palpable masses Skin: no rashes or abrasions, no fluctuance, no induration Neurologic: AAOx3, sensation intact bilaterally Psychiatric: interacting appropriately, not anxious, not encephalopathic, thought process linear ICD10 Worksheet Patient Problems: Problems Problem Status Diagnosed Arm fracture Acute Bipolar 1 disorder with moderate isaura Acute Lymphoma Acute Marijuana abuse Acute Altered mental status Acute Chest pain Acute Withdrawal from sedative drug Acute Bipolar disorder Chronic
[2016-03-09 20:44] LABS: POTASSIUM 4.6 mEq/L (3.5-5.2)
[2016-03-09] MEDS: DOXEPIN HCL 50 MG CAP PO SCH (21:43)
[2016-03-09] MEDS: SENNOSIDES/DOCUSATE SODIUM TAB PO SCH (21:45)
[2016-03-10] MEDS: ACETAMINOPHEN 325 MG TAB PO SCH ×5 (01:58→23:29)
[2016-03-10] MEDS: oxyCODONE IR 5 MG TAB PO PRN ×5 (04:08→20:37)
[2016-03-10 05:05] LABS: ADD DIFF? YES; ADD MORPH? NO; ADD SCAN? NO; ATYPICAL LYMPHOCYTE FLAG 20 (0-99); FRAGMENT RBC FLAG 20 (0-99); HEMATOCRIT 26.3 % (38.0-47.0); HEMOGLOBIN 8.4 g/dL (12.6-16.3); LEFT SHIFT FLG 80 (0-99); LIPEMIA HEMOLYSIS FLAG 80 (0-99); MEAN CELL HEMOGLOBIN 26.8 pg (27.9-34.1); MEAN CELL HEMOGLOBIN CONCENTR. 31.9 g/dL (32.4-36.7); MEAN CELL VOLUME 83.8 fL (81.5-99.8); MEAN PLATELET VOLUME 9.4 fL (8.7-11.7); PLATELET CLUMPS FLAG 0 (0-99); PLATELET COUNT 321 10^3/uL (150-400); RED BLOOD CELL COUNT 3.14 10^6/uL (4.18-5.33); RED CELL DISTRIBUTION WIDTH 18.4 % (11.5-15.2)
[2016-03-10] MEDS: LEVOTHYROXINE 125 MCG TAB PO SCH (05:12)
[2016-03-10] MEDS: ceFAZolin 2 GM/DEXTROSE 100 ML IV SCH ×3 (05:12→23:29)
[2016-03-10] MEDS: LORazepam 1 MG TAB PO SCH ×4 (05:13→16:08)
[2016-03-10] MEDS: OLANZapine DISINTEGR 10 MG TAB PO SCH ×4 (05:13→20:37)
[2016-03-10] MEDS: NYSTATIN SUSP 500000 UNIT/5 ML UDCUP PO SCH ×4 (05:13→20:37)
[2016-03-10 05:14] LABS: ANION GAP 11 mEq/L (8-16); CALCIUM 8.3 mg/dL (8.5-10.4); CARBON DIOXIDE 28 mEq/l (22-31); CHLORIDE 102 mEq/L (97-110); CREATININE 0.5 mg/dL (0.6-1.0); GLOMERULAR FILTRATION RATE > 60; GLUCOSE 89 mg/dL (70-100); SODIUM 141 mEq/L (134-144)
[2016-03-10 05:59] LABS: MICROCYTES 1+; PLATELET ESTIMATE ADEQUATE (ADEQ)
[2016-03-10 06:00] LABS: HYPOCHROMIA 1+; KERATOCYTES 1+; LARGE PLATELETS PRESENT; POLYCHROMASIA 1+
[2016-03-10] MEDS: TIOTROPIUM INHALER 18 MCG/DOSE 5 DOSE/MDI IH SCH (08:56)
--- NOTE | 2016-03-10 09:13 | MR ---
MRI Right Hip Without Contrast History: Right hip pain. Fracture fixation with worsening pain. Inability to ambulate. Right hip join t effusion with hip aspiration 07 March 2016. Comparison: 07 March 2016 and radiograph 20 February 2016. Technique: MRI was performed of the pelvis and right hip using a 1.5 [employer] MRI system. Large field-of -view axial and coronal imaging was obtained of the pelvis. Small [id number] oblique coronal and s agittal imaging was obtained of the right hip. Imaging sequences were optimized to help diminish meta l susceptibility artifact. Findings: Diffuse bone marrow abnormality is seen indicating diffuse osseous metastatic disease. [place] l susceptibility artifact is seen from hardware of open reduction internal fixation of an intertrocha nteric fracture of the right hip. Moderate right hip joint effusion. Displaced avulsion fracture is s een at the right iliac crest adjacent to the anterior superior iliac spine with adjacent edema in the gluteus muscle. An irregular 3 x 3.5 cm fluid collection is seen posterior lateral aspect of the gre ater trochanter adjacent to the intramedullary beth. Just superior to this is a smooth oval fluid matteo ection measuring 2.5 x 5.5 cm with a smooth wall. This is in the subcutaneous fat just lateral to the gluteus musculature. Edema is seen in the gluteus musculature and in the subcutaneous fat of the rig ht buttocks region and proximal thigh. Milder edema is seen in the subcutaneous fat on the left. Dege nerative disk and degenerative joint disease is seen in the lumbar spine. Impression: 1. Diffuse osseous metastatic disease. Status post open reduction internal fixation of an intertrocha nteric fracture of the right femur. Avulsion fracture of the iliac spine as above. 2. Moderate joint effusion of the right hip. This was aspirated 07 March 2016, please see those la b results. There is another nonspecific irregular fluid collection posterior lateral to the greater t rochanter on the right. Another smooth oval fluid collection is seen in the subcutaneous fat which co uld represent postoperative hematoma or seroma with the smooth encapsulated margins. Results discussed with Dr. Eliot Haider by Dr. You Payne on 08 March 2016 at 1915 hours.
[2016-03-10] MEDS: VENLAFAXINE XR 75 MG CAP PO SCH (09:17)
[2016-03-10] MEDS: ENOXAPARIN 40 MG/0.4 ML SYR SC SCH (09:18)
[2016-03-10] MEDS: FAMOTIDINE 20 MG TAB PO SCH (09:19)
[2016-03-10] MEDS: MULTIVITAMINS 1 EACH TAB PO SCH (09:19)
[2016-03-10] MEDS: ACYCLOVIR 400 MG TAB PO SCH ×2 (09:19→20:37)
[2016-03-10] MEDS: FERROUS SULFATE 325 MG TAB PO SCH (09:19)
[2016-03-10] MEDS: NICOTINE 21 MG/24 HR PATCH TD SCH (09:23)
--- NOTE | 2016-03-10 09:25 | PCMIDPN ---
Assessment/Plan: Assessment/Plan: 1. Sepsis secondary to MSSA bacteremia: -source of bacteremia not entirely clear - Currently on Ancef -Initial blood cx positive from 02/28/16. f/u blood cx from 03/01 ngtd --TTE with no MV vegetations. Limited study due to presence of port. Repeat TTE still limited. -Port removed. GS no org, cultures ngtd -She will need at least 6 weeks of IV ancef for #2 followed by chronic oral suppression -Given that she has been able to clear bacteremia quickly and need for prolonged course of antibiotics any ways, JESUS likely would not spinning frame changer at this point. 2. Infected left humeral fracture: - s/p wash out and ORIF 02/29/16 -Operative note reviewed -Cultures from surgery showing 3+ GPC in both GS. Cultures with MSSA. -Given newly placed hardware while likely still bacteremic and active infection at humerus, will likely require life long suppression of atbx after an initial course of atbx addressing both #1, #2. -increased swelling of Left arm--USG -no DVT -care coordinated with RN. 3. oral candidiasis: - start oral nystatin s/s. 4. Right hip pain: - Hx of recent avulsion fracture. -MRI done. awaiting official report. Prelim suggests fluid collection - Awaiting Ortho input. If significant fluid collection then given above, patient would likely benefit with wash out prior to discharge. -If no washout planned for then will help work on prolonged antibiotics orders etc. Meds Ancef 2g q8- 02/29/16--- s/p vanco, cefepime. Subjective: Afebrile. Denies sob, abd pain or diarrhea. Able to stand and pivot but apparently difficulty with walking. Less arm swelling but having some forearm swelling on left. Objective: Vital Signs Temp Pulse Resp BP Pulse Ox 36.6 C 107 H 16 105/69 92 03/10/16 07:23 03/10/16 07:23 03/10/16 07:23 03/10/16 07:23 03/10/16 07:23 Microbiology 03/07/16 14:25 Gram Stain - Final Hip - Aspirate 03/01/16 15:40 Gram Stain - Final Chest - Other Anaerobic Culture - Final 03/01/16 15:40 Gram Stain - Final Chest - Swab Anaerobic Culture - Final 02/29/16 15:59 Gram Stain - Final Shoulder - Swab 02/29/16 15:59 Gram Stain - Final Shoulder - Swab Laboratory Results 03/10/16 04:50 03/10/16 04:50 03/09/16 03/10/16 03/11/16 05:59 05:59 05:59 Intake Total 800 2925 Output Total 5900 3375 Balance -5100 -450 C-Reactive Protein 51.9 mg/L (<10.0) H 03/06/16 05:20 - Physical Exam General Appearance: alert, no apparent distress Respiratory: lungs clear Cardiac/Chest: regular rate, rhythm, systolic murmur, other (right chest sc port ) Extremities: swelling (left forearm and arm), other (peripheral pulses on left well appreciated. ) Abdomen: normal bowel sounds, non-tender, soft, No distended Skin: No erythema Neuro/Psych: No sensory deficit ICD10 Worksheet Patient Problems: Problems Problem Status Diagnosed Arm fracture Acute Bipolar 1 disorder with moderate isaura Acute Lymphoma Acute Marijuana abuse Acute Altered mental status Acute Chest pain Acute Withdrawal from sedative drug Acute Bipolar disorder Chronic
[2016-03-10] MEDS: OMEGA-3 FATTY ACIDS 1,000 MG CAP PO SCH ×2 (09:26→20:37)
[2016-03-10] MEDS: SENNOSIDES/DOCUSATE SODIUM TAB PO SCH ×2 (09:26→20:37)
[2016-03-10] MEDS: predniSONE 20 MG TAB PO SCH (09:26)
--- NOTE | 2016-03-10 13:52 | SOAPPROG ---
[facility] Progress Note Assessment/Plan: Assessment: 1. Follicular lymphoma, s/p 5 cycles BR 2. Multiple fractures due to lytic lesions from lymphoma 3. s/p ORIF L humerus 4. S aureus bacteremia 5. R hip pain with joint effusion. S/P joint replacement The MR of the RLE reveals diffuse metastatic disease. The issues are whether to rebx with a BM to see if the disease has evolved. One big problem is to find a safe disposition. Plan: - pain medication for R hip pain. - will need BMBx (either on this admission or after discharge) plus PET-CT to evaluate the status of her lymphoma. PET is set up for next . 03/08/16 14:41 03/08/16 14:47 03/09/16 14:13 03/10/16 13:58 Subjective: Maryellen is a 65 yo woman with a G1 follicular lymphoma with pathologic bone fractures in a [place] on BR. She is still in quite a bit of pain in the RLE Objective: Vital Signs Temp Pulse Resp BP Pulse Ox 36.6 C 107 H 16 105/69 92 03/10/16 07:23 03/10/16 08:30 03/10/16 07:23 03/10/16 07:23 03/10/16 08:30 Microbiology 03/07/16 14:25 Gram Stain - Final Hip - Aspirate 02/29/16 15:59 Gram Stain - Final Shoulder - Swab 02/29/16 15:59 Gram Stain - Final Shoulder - Swab 03/01/16 15:40 Gram Stain - Final Chest - Other Anaerobic Culture - Final 03/01/16 15:40 Gram Stain - Final Chest - Swab Anaerobic Culture - Final Laboratory Results 03/10/16 04:50 03/10/16 04:50 03/09/16 03/10/16 03/11/16 05:59 05:59 05:59 Intake Total 800 2925 Output Total 0168 2493 750 Balance -5100 -450 -750 PT 13.9 SEC (12.0-15.0) 02/27/16 22:40 INR 1.08 (0.83-1.16) 02/27/16 22:40 ICD10 Worksheet Patient Problems: Problems Problem Status Diagnosed Arm fracture Acute Bipolar 1 disorder with moderate isaura Acute Lymphoma Acute Marijuana abuse Acute Altered mental status Acute Chest pain Acute Withdrawal from sedative drug Acute Bipolar disorder Chronic
--- NOTE | 2016-03-10 15:19 | HOSPPROG ---
Hospitalist Progress Note Assessment/Plan: * Humeral neck pathological fracture s/p ORIF * Follicular lymphoma with lytic bony mets and pathological fractures -outpatient BMBx and PET-CT post discharge -prednisone * MSSA bacteremia with sepsis -humeral fracture seeded, secondary infection -port changed by Dr. Townsend -IV ancef x 6 weeks, then chronic suppressive PO abx * Right hip pain r/o infection -joint effusion s/p tap - culture negative to date -phlegmon/fluid at hardware from previous fracture - will need chronic PO abx -await ortho opinion regarding possible wash-out vs. abx alone * Bipolar -Zyprexa, scheduled Ativan -patient has decisional capacity Subjective: No new complaints. Objective: Vital Signs Temp Pulse Resp BP Pulse Ox 36.6 C 107 H 16 105/69 92 03/10/16 07:23 03/10/16 08:30 03/10/16 07:23 03/10/16 07:23 03/10/16 08:30 Microbiology 03/07/16 14:25 Gram Stain - Final Hip - Aspirate 02/29/16 15:59 Gram Stain - Final Shoulder - Swab 02/29/16 15:59 Gram Stain - Final Shoulder - Swab 03/01/16 15:40 Gram Stain - Final Chest - Other Anaerobic Culture - Final 03/01/16 15:40 Gram Stain - Final Chest - Swab Anaerobic Culture - Final Laboratory Results 03/10/16 04:50 03/10/16 04:50 03/09/16 03/10/16 03/11/16 05:59 05:59 05:59 Intake Total 800 2925 Output Total 5900 3375 750 Balance -5100 -450 -750 PT 13.9 SEC (12.0-15.0) 02/27/16 22:40 INR 1.08 (0.83-1.16) 02/27/16 22:40 - Physical Exam Constitutional: no apparent distress, appears nourished, not in pain Cardiovascular: regular rate and rhythym, no murmur, rub, or gallop Respiratory: no respiratory distress, no rales or rhonchi, clear to auscultation Gastrointestinal: normoactive bowel sounds, soft, non-tender abdomen, no palpable masses Skin: no rashes or abrasions, no fluctuance, no induration Neurologic: AAOx3, sensation intact bilaterally Psychiatric: interacting appropriately, not anxious, not encephalopathic, thought process linear ICD10 Worksheet Patient Problems: Problems Problem Status Diagnosed Arm fracture Acute Bipolar 1 disorder with moderate isaura Acute Lymphoma Acute Marijuana abuse Acute Altered mental status Acute Chest pain Acute Withdrawal from sedative drug Acute Bipolar disorder Chronic
[2016-03-10] MEDS: DOXEPIN HCL 50 MG CAP PO SCH (20:37)
[2016-03-11] MEDS: oxyCODONE IR 5 MG TAB PO PRN ×5 (01:41→22:57)
[2016-03-11] MEDS: NYSTATIN SUSP 500000 UNIT/5 ML UDCUP PO SCH ×4 (05:39→22:47)
[2016-03-11] MEDS: ceFAZolin 2 GM/DEXTROSE 100 ML IV SCH ×3 (05:39→22:48)
[2016-03-11] MEDS: ACETAMINOPHEN 325 MG TAB PO SCH ×4 (05:40→22:57)
[2016-03-11] MEDS: LEVOTHYROXINE 125 MCG TAB PO SCH (05:40)
[2016-03-11] MEDS: OLANZapine DISINTEGR 10 MG TAB PO SCH ×4 (05:40→22:47)
[2016-03-11] MEDS: LORazepam 1 MG TAB PO SCH ×4 (05:40→17:18)
[2016-03-11] MEDS: TIOTROPIUM INHALER 18 MCG/DOSE 5 DOSE/MDI IH SCH (08:51)
[2016-03-11] MEDS: ENOXAPARIN 40 MG/0.4 ML SYR SC SCH (09:24)
[2016-03-11] MEDS: FERROUS SULFATE 325 MG TAB PO SCH (09:25)
[2016-03-11] MEDS: NICOTINE 21 MG/24 HR PATCH TD SCH (09:25)
[2016-03-11] MEDS: MULTIVITAMINS 1 EACH TAB PO SCH (09:26)
[2016-03-11] MEDS: ACYCLOVIR 400 MG TAB PO SCH ×2 (09:26→22:47)
[2016-03-11] MEDS: FAMOTIDINE 20 MG TAB PO SCH (09:26)
[2016-03-11] MEDS: VENLAFAXINE XR 75 MG CAP PO SCH (09:26)
[2016-03-11] MEDS: OMEGA-3 FATTY ACIDS 1,000 MG CAP PO SCH ×2 (09:42→22:47)
[2016-03-11] MEDS: predniSONE 20 MG TAB PO SCH (09:42)
[2016-03-11] MEDS: SENNOSIDES/DOCUSATE SODIUM TAB PO SCH ×2 (09:42→22:48)
[2016-03-11] MEDS ORDERED: traMADol 50 MG TAB PO PRN (10:09)
[2016-03-11] MEDS ORDERED: IBUPROFEN 600 MG TAB PO PRN (10:09)
--- NOTE | 2016-03-11 10:16 | PCMIDPN ---
Assessment/Plan: Assessment/Plan: 1. Sepsis secondary to MSSA bacteremia: -source of bacteremia not entirely clear - Currently on Ancef -Initial blood cx positive from 02/28/16. f/u blood cx from 03/01 ngtd --TTE with no MV vegetations. Limited study due to presence of port. Repeat TTE still limited. -Port removed. GS no org, cultures ngtd -She will need at least 6 weeks of IV ancef for #2 followed by chronic oral suppression -Given that she has been able to clear bacteremia quickly and need for prolonged course of antibiotics any ways, JESUS likely would not change control specialist at this point. -Tentative transfer summary completed with follow up to help with discharge planning. 2. Infected left humeral fracture: - s/p wash out and ORIF 02/29/16 -Operative note reviewed -Cultures from surgery showing 3+ GPC in both GS. Cultures with MSSA. -Given newly placed hardware while likely still bacteremic and active infection at humerus, will likely require life long suppression of atbx after an initial course of atbx addressing both #1, #2. -increased swelling of Left arm--USG -no DVT -care coordinated with RN. 3. oral candidiasis: - on oral nystatin s/s. -improving but still present 4. Right hip pain: - Hx of recent avulsion fracture. -MRI done. two fluid collections noted that per report appear more like post op hematomas or seromas. MOderate joint effusion noted. - Awaiting Ortho input. I left a message for Dr. Way. -If no washout planned for then will help work on prolonged antibiotics orders etc. Meds Ancef 2g q8- 02/29/16--- s/p vanco, cefepime. Subjective: Afebrile. c/o more pain involving her left arm today. Some pain in her right thigh. Denies sob, abd pain or diarrhea. still with thrush. Objective: Vital Signs Temp Pulse Resp BP Pulse Ox 36.9 C 85 12 123/70 H 97 03/11/16 07:22 03/11/16 08:54 03/11/16 08:54 03/11/16 07:22 03/11/16 08:54 Microbiology 03/07/16 14:25 Gram Stain - Final Hip - Aspirate 02/29/16 15:59 Gram Stain - Final Shoulder - Swab 02/29/16 15:59 Gram Stain - Final Shoulder - Swab Laboratory Results 03/10/16 04:50 03/10/16 04:50 03/10/16 03/11/16 03/12/16 05:59 05:59 05:59 Intake Total 2925 1270 Output Total 8041 8880 Balance -450 -780 C-Reactive Protein 51.9 mg/L (<10.0) H 03/06/16 05:20 - Physical Exam General Appearance: alert, other (some discomfort due to pain) EENT: thrush (improved from last week but still present involving buccal mucosa. ) Respiratory: lungs clear Cardiac/Chest: regular rate, rhythm, other (right chest sc port) Extremities: swelling (left arm/forearm.) Abdomen: normal bowel sounds, non-tender, soft, No distended ICD10 Worksheet Patient Problems: Problems Problem Status Diagnosed Arm fracture Acute Bipolar 1 disorder with moderate isaura Acute Lymphoma Acute Marijuana abuse Acute Altered mental status Acute Chest pain Acute Withdrawal from sedative drug Acute Bipolar disorder Chronic
--- NOTE | 2016-03-11 10:19 | PDIAF ---
- Diagnosis Diagnosis: mssa bacteremia with infected left humeral fracture s/p ORIF Code Status: Full Code - Medication Management Discharge Medications: Medications to Continue on Transfer Carvedilol [Coreg (*)] 6.25 mg PO BIDMEAL 03/27/14 [Last Taken 02/27/16] Levothyroxine [Synthroid 125 mcg (*)] 125 mcg PO DAILY06 03/27/14 [Last Taken ] Doxepin HCl [[place] 50 MG (*)] 100 mg PO HS 07/17/15 [Last Taken 02/26/16] Ferrous Sulfate [Ferrous Sulf 325 MG (*)] 150 mg PO DAILY 07/17/15 [Last Taken 02/27/16] Acyclovir [Zovirax 400 mg (*)] 400 mg PO BID 02/08/16 [Last Taken 02/27/16] Ibuprofen [Motrin (*)] 600 mg PO Q6 PRN 02/08/16 [Last Taken 02/07/16] Lorazepam [Ativan 2 mg tab] 1 mg PO BID 02/08/16 [Last Taken 02/27/16] Lorazepam [Ativan 2 mg tab] 2 mg PO DAILY@12 02/08/16 [Last Taken 02/27/16] Multivitamins [Multivitamin (*)] 1 each PO DAILY 02/08/16 [Last Taken 02/27/16] OLANZapine DISINTEGR [ZyPREXA ZYDIS (*)] 10 mg PO TID@05,12,17 02/08/16 [Last Taken 02/27/16] OLANZapine DISINTEGR [ZyPREXA ZYDIS (*)] 20 mg PO HS 02/08/16 [Last Taken ] [place]-3 Fatty Acids [Fish Oil 1000 mg (*)] 1,000 mg PO BID 02/08/16 [Last Taken 02/27/16] Prochlorperazine Maleate [Compazine 10mg (*)] 10 mg PO TID PRN 02/08/16 [Last Taken 02/07/16] Ranitidine HCl [Zantac] 300 mg PO DAILY 02/08/16 [Last Taken 02/27/16] predniSONE 20 mg PO DAILY 02/08/16 [Last Taken 02/27/16] rOPINIRole HCL [Requip 0.25mg (RX)] 0.25 mg PO HS 02/08/16 [Last Taken 02/26/16] tiZANidine HCL [Zanaflex 2MG (*)] 2 mg PO DAILY PRN 02/08/16 [Last Taken Unknown ] traMADol [Ultram 50 mg (*)] 50 - 100 mg PO Q4-6PRN PRN 02/08/16 [Last Taken 03/24] oxyCODONE HCL/ACETAMINOPHEN [Percocet 10-325 mg Tablet] 1 - 2 each PO Q4 PRN # 40 tablet 02/09/16 [Last Taken Unknown] Tiotropium Inhaler [Spiriva Handihaler] 18 mcg IH DAILY 02/27/16 [Last Taken ] Venlafaxine HCl [Venlafaxine HCl ER] 225 mg PO DAILY 02/27/16 [Last Taken ] Detention Antibiotics: ancef 2g iV q8 Detention Antibiotic Stop Date: 04/16/16 Discharge Medications: Refer to the Discharge Home Medication list for PRN reason. PICC Care - Routine: Yes - Labs/Radiology CBC Date: 03/17/16 (q mondays) CMP Date: 03/17/16 (q mondays) CRP Date: 03/17/16 (q mondays) Call or Fax Lab and Imaging Results to: Dr. Peña- [phone] - Follow Up Care Current Providers and Referrals: Patient,NotPresent [Unknown] - As per Instructions Kota Peña MD [Medical Doctor] - 03/19/16 10:30 am (f/u DR. Peña, infectiious disease. CHeck in time is at 10:10AM. )
--- NOTE | 2016-03-11 13:28 | HOSPPROG ---
Hospitalist Progress Note Assessment/Plan: * Humeral neck pathological fracture s/p ORIF * Follicular lymphoma with lytic bony mets and pathological fractures -outpatient BMBx and PET-CT post discharge -prednisone * MSSA bacteremia with sepsis -humeral fracture seeded, secondary infection -port changed by Dr. Townsend -IV ancef x 6 weeks, then chronic suppressive PO abx * Right hip pain r/o infection -joint effusion s/p tap - culture negative to date -phlegmon/fluid at hardware from previous fracture - will need chronic PO abx -await ortho opinion regarding possible wash-out vs. abx alone * Bipolar -Zyprexa, scheduled Ativan -patient has decisional capacity Subjective: Pain poorly controlled. 3 hours after oxycodone dose pain is back and last hour is miserable Objective: Vital Signs Temp Pulse Resp BP Pulse Ox 36.9 C 85 12 123/70 H 97 03/11/16 07:22 03/11/16 08:54 03/11/16 08:54 03/11/16 07:22 03/11/16 08:54 Microbiology 02/29/16 15:59 Gram Stain - Final Shoulder - Swab 03/07/16 14:25 Gram Stain - Final Hip - Aspirate 02/29/16 15:59 Gram Stain - Final Shoulder - Swab Laboratory Results 03/10/16 04:50 03/10/16 04:50 03/10/16 03/11/16 03/12/16 05:59 05:59 05:59 Intake Total 2925 1270 Output Total 3375 2050 Balance -450 -780 PT 13.9 SEC (12.0-15.0) 02/27/16 22:40 INR 1.08 (0.83-1.16) 02/27/16 22:40 - Physical Exam Constitutional: no apparent distress, appears nourished, not in pain Cardiovascular: regular rate and rhythym, no murmur, rub, or gallop Respiratory: no respiratory distress, no rales or rhonchi, clear to auscultation Gastrointestinal: normoactive bowel sounds, soft, non-tender abdomen, no palpable masses Skin: no rashes or abrasions, no fluctuance, no induration Neurologic: AAOx3, sensation intact bilaterally Psychiatric: interacting appropriately, not anxious, not encephalopathic, thought process linear ICD10 Worksheet Patient Problems: Problems Problem Status Diagnosed Arm fracture Acute Bipolar 1 disorder with moderate isaura Acute Lymphoma Acute Marijuana abuse Acute Altered mental status Acute Chest pain Acute Withdrawal from sedative drug Acute Bipolar disorder Chronic
--- NOTE | 2016-03-11 15:53 | SOAPPROG ---
[facility] Progress Note Assessment/Plan: E&M for lymphoma * Follicular NHL s/p BR x5: Good response with regard to lymph nodes but I am concerned about skeletal findings, fractures, and high LDH. Plan is once discharged and stable to get bone marrow biopsy and PET/CT. If she gets PET this week, will review prior to scheduling bone marrow. * Humeral neck pathological fracture s/p ORIF * MSSA bacteremia and humeral fracture seeding: port changed by Dr. Townsend. IV ancef x 6 weeks, then chronic suppressive PO abx per ID * Chronic Right hip pain s/p joint replacement 08/22: no infection found Subjective: Pain better controlled with adding oxycontin. Hoping to go to [facility] tomorrow for rehab. She reports she is scheduled for PET this . Objective: Vital Signs Temp Pulse Resp BP Pulse Ox 36.9 C 85 12 123/70 H 97 03/11/16 07:22 03/11/16 08:54 03/11/16 08:54 03/11/16 07:22 03/11/16 08:54 Microbiology 02/29/16 15:59 Gram Stain - Final Shoulder - Swab 03/07/16 14:25 Gram Stain - Final Hip - Aspirate 02/29/16 15:59 Gram Stain - Final Shoulder - Swab Laboratory Results 03/10/16 04:50 03/10/16 04:50 03/10/16 03/11/16 03/12/16 05:59 05:59 05:59 Intake Total 2925 1270 Output Total 3375 2050 Balance -450 -780 PT 13.9 SEC (12.0-15.0) 02/27/16 22:40 INR 1.08 (0.83-1.16) 02/27/16 22:40 Physical Exam - Physical Exam General Appearance: no apparent distress Respiratory: lungs clear Cardiac/Chest: regular rate, rhythm ICD10 Worksheet Patient Problems: Problems Problem Status Diagnosed Arm fracture Acute Bipolar 1 disorder with moderate isaura Acute Lymphoma Acute Marijuana abuse Acute Altered mental status Acute Chest pain Acute Withdrawal from sedative drug Acute Bipolar disorder Chronic
[2016-03-11 18:56] LABS: POTASSIUM 4.2 mEq/L (3.5-5.2)
[2016-03-11] MEDS: DOXEPIN HCL 50 MG CAP PO SCH (22:47)
[2016-03-12 04:43] LABS: % IMMATURE GRANULYOCYTES 2.6 % (0.0-1.1); ABSOLUTE IMMATURE GRANULOCYTES 0.19 10^3/uL (0.00-0.10); ADD DIFF? NO; ADD MORPH? NO; ADD SCAN? NO; ATYPICAL LYMPHOCYTE FLAG 20 (0-99); FRAGMENT RBC FLAG 0 (0-99); HEMATOCRIT 22.9 % (38.0-47.0); HEMOGLOBIN 7.4 g/dL (12.6-16.3); LEFT SHIFT FLG 20 (0-99); LIPEMIA HEMOLYSIS FLAG 80 (0-99); MEAN CELL HEMOGLOBIN 27.2 pg (27.9-34.1); MEAN CELL HEMOGLOBIN CONCENTR. 32.3 g/dL (32.4-36.7); MEAN CELL VOLUME 84.2 fL (81.5-99.8); MEAN PLATELET VOLUME 8.4 fL (8.7-11.7); PLATELET CLUMPS FLAG 0 (0-99); PLATELET COUNT 290 10^3/uL (150-400); RED BLOOD CELL COUNT 2.72 10^6/uL (4.18-5.33); RED CELL DISTRIBUTION WIDTH 18.2 % (11.5-15.2)
[2016-03-12] MEDS: OLANZapine DISINTEGR 10 MG TAB PO SCH ×4 (04:56→21:37)
[2016-03-12] MEDS: LORazepam 1 MG TAB PO SCH ×4 (04:58→17:17)
[2016-03-12] MEDS: LEVOTHYROXINE 125 MCG TAB PO SCH (04:59)
[2016-03-12] MEDS: ACETAMINOPHEN 325 MG TAB PO SCH ×3 (04:59→17:16)
[2016-03-12] MEDS: NYSTATIN SUSP 500000 UNIT/5 ML UDCUP PO SCH ×4 (05:00→21:38)
[2016-03-12] MEDS: oxyCODONE IR 5 MG TAB PO PRN ×5 (05:01→21:35)
[2016-03-12] MEDS: ceFAZolin 2 GM/DEXTROSE 100 ML IV SCH ×3 (05:03→21:39)
[2016-03-12] MEDS: ACYCLOVIR 400 MG TAB PO SCH ×2 (08:23→21:38)
[2016-03-12] MEDS: predniSONE 20 MG TAB PO SCH (08:23)
[2016-03-12] MEDS: FERROUS SULFATE 325 MG TAB PO SCH (08:23)
[2016-03-12] MEDS: SENNOSIDES/DOCUSATE SODIUM TAB PO SCH ×2 (08:24→21:38)
[2016-03-12] MEDS: VENLAFAXINE XR 75 MG CAP PO SCH (08:28)
[2016-03-12] MEDS: MULTIVITAMINS 1 EACH TAB PO SCH (08:28)
[2016-03-12] MEDS: NICOTINE 21 MG/24 HR PATCH TD SCH (08:29)
[2016-03-12] MEDS: OMEGA-3 FATTY ACIDS 1,000 MG CAP PO SCH ×2 (08:29→21:37)
[2016-03-12] MEDS: FAMOTIDINE 20 MG TAB PO SCH (08:29)
[2016-03-12] MEDS: ENOXAPARIN 40 MG/0.4 ML SYR SC SCH (08:30)
[2016-03-12] MEDS: TIOTROPIUM INHALER 18 MCG/DOSE 5 DOSE/MDI IH SCH (08:52)
--- NOTE | 2016-03-12 14:44 | SOAPPROG ---
[facility] Progress Note Assessment/Plan: E&M for lymphoma * Follicular NHL s/p BR x5: Good response with regard to lymph nodes but skeletal findings, fractures, and high LDH are concerning. She is scheduled for PET tomorrow, which I canceled until she can be d/c to [facility]. Will review PET prior to scheduling bone marrow. * Humeral neck pathological fracture s/p ORIF * MSSA bacteremia and humeral fracture seeding: port changed by Dr. Townsend. IV ancef x 6 weeks, then chronic suppressive PO abx per ID * Chronic Right hip pain s/p joint replacement 08/22: no infection found Subjective: Pain is under much better control with oxycontin. Objective: Vital Signs Temp Pulse Resp BP Pulse Ox 36.4 C 103 H 12 118/73 94 03/12/16 07:33 03/12/16 08:53 03/12/16 08:53 03/12/16 07:33 03/12/16 08:53 Microbiology 03/07/16 14:25 Gram Stain - Final Hip - Aspirate 02/29/16 15:59 Gram Stain - Final Shoulder - Swab 02/29/16 15:59 Gram Stain - Final Shoulder - Swab Laboratory Results 03/12/16 04:30 03/11/16 18:25 03/11/16 03/12/16 03/13/16 05:59 05:59 05:59 Intake Total 1270 1324 Output Total 2050 Balance -780 1324 PT 13.9 SEC (12.0-15.0) 02/27/16 22:40 INR 1.08 (0.83-1.16) 02/27/16 22:40 Physical Exam - Physical Exam General Appearance: no apparent distress Respiratory: lungs clear Cardiac/Chest: regular rate, rhythm, systolic murmur Abdomen: non-tender, soft ICD10 Worksheet Patient Problems: Problems Problem Status Diagnosed Arm fracture Acute Bipolar 1 disorder with moderate isaura Acute Lymphoma Acute Marijuana abuse Acute Altered mental status Acute Chest pain Acute Withdrawal from sedative drug Acute Bipolar disorder Chronic
--- NOTE | 2016-03-12 15:07 | HOSPPROG ---
Hospitalist Progress Note Assessment/Plan: * Humeral neck pathological fracture s/p ORIF * Follicular lymphoma with lytic bony mets and pathological fractures -outpatient BMBx and PET-CT post discharge -prednisone * MSSA bacteremia with sepsis, humeral fracture seeded -port changed by Dr. Townsend -IV ancef x 6 weeks, then chronic suppressive PO abx (hardware involved) * Right hip effusion -joint previously tapped - but not into area of fluid collection seen on MRI -ortho recommends repeat tap of hip -back to OR for washout if appears infected * Bipolar -Zyprexa, scheduled Ativan -patient has decisional capacity Subjective: Pain with better control after increase in meds yesterday Objective: Vital Signs Temp Pulse Resp BP Pulse Ox 36.4 C 103 H 12 118/73 94 03/12/16 07:33 03/12/16 08:53 03/12/16 08:53 03/12/16 07:33 03/12/16 08:53 Microbiology 03/07/16 14:25 Gram Stain - Final Hip - Aspirate 02/29/16 15:59 Gram Stain - Final Shoulder - Swab 02/29/16 15:59 Gram Stain - Final Shoulder - Swab Laboratory Results 03/12/16 04:30 03/11/16 18:25 03/11/16 03/12/16 03/13/16 05:59 05:59 05:59 Intake Total 1270 1324 Output Total 2050 Balance -780 1324 PT 13.9 SEC (12.0-15.0) 02/27/16 22:40 INR 1.08 (0.83-1.16) 02/27/16 22:40 - Physical Exam Constitutional: no apparent distress, appears nourished, not in pain Cardiovascular: regular rate and rhythym, no murmur, rub, or gallop Respiratory: no respiratory distress, no rales or rhonchi, clear to auscultation Gastrointestinal: normoactive bowel sounds, soft, non-tender abdomen, no palpable masses Skin: no rashes or abrasions, no fluctuance, no induration Neurologic: AAOx3, sensation intact bilaterally Psychiatric: interacting appropriately, not anxious, not encephalopathic, thought process linear ICD10 Worksheet Patient Problems: Problems Problem Status Diagnosed Arm fracture Acute Bipolar 1 disorder with moderate isaura Acute Lymphoma Acute Marijuana abuse Acute Altered mental status Acute Chest pain Acute Withdrawal from sedative drug Acute Bipolar disorder Chronic
--- NOTE | 2016-03-12 18:07 | PCMIDPN ---
Assessment/Plan: Assessment: MSSA bacteremia from unclear source. Secondary seeding of pathologic left humeral fracture. Status post debridement and fixation. MRI reviewed and is concerning for the amount of fluid and edema of the tissue surrounding the pinning of the avulsion fracture. I am concerned that this may not only be infected with MSSA, but may be the primary source of the bacteremia. Discussed case with Dr. Manju Agee. Will try to have interventional Radiology access the fluid collection seen on MRI closer to the neck of the femur. Plan: 1. Continue cefazolin. 2. Plan for 6 week total duration. May extend if further infected sites are found. 3. Follow clinical course and laboratory values. 4. Follow up with interventional Radiology about the fluid surrounding the R hip pinning. Subjective: Patient is resting comfortably in her hospital bed. She notes no new complaints. Denies fevers or chills. Tolerating Ancef without problem. Still notes right hip pain. Objective: Cefazolin # 12 Vital Signs Temp Pulse Resp BP Pulse Ox 37.0 C 98 16 134/78 H 90 L 03/12/16 16:00 03/12/16 16:00 03/12/16 16:00 03/12/16 16:00 03/12/16 16:00 Microbiology 03/07/16 14:25 Gram Stain - Final Hip - Aspirate 02/29/16 15:59 Gram Stain - Final Shoulder - Swab 02/29/16 15:59 Gram Stain - Final Shoulder - Swab Laboratory Results 03/12/16 04:30 03/11/16 18:25 03/11/16 03/12/16 03/13/16 05:59 05:59 05:59 Intake Total 1270 1324 750 Output Total 2050 950 Balance -780 1324 -200 C-Reactive Protein 51.9 mg/L (<10.0) H 03/06/16 05:20 - Physical Exam General Appearance: WD/WN, alert, no apparent distress, non-toxic Respiratory: lungs clear, normal breath sounds, No respiratory distress Cardiac/Chest: regular rate, rhythm, No tachycardia Skin: normal color, warm/dry, No rash Neuro/Psych: alert, normal mood/affect, oriented x 3 ICD10 Worksheet Patient Problems: Problems Problem Status Diagnosed Arm fracture Acute Bipolar 1 disorder with moderate isaura Acute Lymphoma Acute Marijuana abuse Acute Altered mental status Acute Chest pain Acute Withdrawal from sedative drug Acute Bipolar disorder Chronic
[2016-03-12] MEDS: DOXEPIN HCL 50 MG CAP PO SCH (21:37)
[2016-03-13] MEDS: ACETAMINOPHEN 325 MG TAB PO SCH ×4 (01:11→16:52)
[2016-03-13] MEDS: oxyCODONE IR 5 MG TAB PO PRN ×5 (01:11→20:27)
[2016-03-13 03:29] LABS: ANION GAP 8 mEq/L (8-16); CALCIUM 8.1 mg/dL (8.5-10.4); CARBON DIOXIDE 29 mEq/l (22-31); CHLORIDE 102 mEq/L (97-110); CREATININE 0.4 mg/dL (0.6-1.0); GLOMERULAR FILTRATION RATE > 60; GLUCOSE 85 mg/dL (70-100); POTASSIUM 3.6 mEq/L (3.5-5.2); SODIUM 139 mEq/L (134-144)
[2016-03-13 03:37] LABS: ADD DIFF? YES; ADD MORPH? NO; ADD SCAN? NO; ATYPICAL LYMPHOCYTE FLAG 0 (0-99); FRAGMENT RBC FLAG 0 (0-99); HEMATOCRIT 22.7 % (38.0-47.0); LEFT SHIFT FLG 20 (0-99); LIPEMIA HEMOLYSIS FLAG 80 (0-99); MEAN CELL HEMOGLOBIN 26.5 pg (27.9-34.1); MEAN CELL HEMOGLOBIN CONCENTR. 30.8 g/dL (32.4-36.7); MEAN PLATELET VOLUME 8.7 fL (8.7-11.7); PLATELET CLUMPS FLAG 10 (0-99); PLATELET COUNT 308 10^3/uL (150-400); RED BLOOD CELL COUNT 2.64 10^6/uL (4.18-5.33); RED CELL DISTRIBUTION WIDTH 17.9 % (11.5-15.2)
[2016-03-13 04:55] LABS: HYPOCHROMIA 1+; MACROCYTES 1+; MICROCYTES 2+; PLATELET ESTIMATE ADEQUATE (ADEQ); POLYCHROMASIA 1+
[2016-03-13] MEDS: ceFAZolin 2 GM/DEXTROSE 100 ML IV SCH ×3 (05:04→21:12)
[2016-03-13] MEDS: OLANZapine DISINTEGR 10 MG TAB PO SCH ×4 (05:04→20:26)
[2016-03-13] MEDS: NYSTATIN SUSP 500000 UNIT/5 ML UDCUP PO SCH ×4 (05:04→20:26)
[2016-03-13] MEDS: LORazepam 1 MG TAB PO SCH ×4 (05:05→16:51)
[2016-03-13] MEDS: LEVOTHYROXINE 125 MCG TAB PO SCH (05:05)
[2016-03-13] MEDS: FERROUS SULFATE 325 MG TAB PO SCH (08:08)
[2016-03-13] MEDS: VENLAFAXINE XR 75 MG CAP PO SCH (08:08)
[2016-03-13] MEDS: MULTIVITAMINS 1 EACH TAB PO SCH (08:08)
[2016-03-13] MEDS: NICOTINE 21 MG/24 HR PATCH TD SCH (08:08)
[2016-03-13] MEDS: ACYCLOVIR 400 MG TAB PO SCH ×2 (08:08→20:27)
[2016-03-13] MEDS: OMEGA-3 FATTY ACIDS 1,000 MG CAP PO SCH ×2 (08:09→20:27)
[2016-03-13] MEDS: FAMOTIDINE 20 MG TAB PO SCH (08:09)
[2016-03-13] MEDS: predniSONE 20 MG TAB PO SCH (08:14)
[2016-03-13] MEDS: SENNOSIDES/DOCUSATE SODIUM TAB PO SCH ×2 (08:14→20:26)
[2016-03-13] MEDS ORDERED: fentaNYL 100 MCG/2 ML INJ ONE (08:50)
[2016-03-13 08:58] LABS: INR 1.15 (0.83-1.16); PROTIME(PATIENT) 14.6 SEC (12.0-15.0)
[2016-03-13 08:59] LABS: APTT 36.5 SEC (23.0-38.0)
[2016-03-13] MEDS: TIOTROPIUM INHALER 18 MCG/DOSE 5 DOSE/MDI IH SCH (09:25)
--- NOTE | 2016-03-13 11:09 | CT ---
CT-Guided Abscess Drainage Clinical Indication: Periarticular fluid collection in right hip. Music Journalist: Zeke Sultana M.D., [facility]. Procedures performed: 1. CT localization of the hip based on the prior MRI. Dose reduction technique was performed. 2. The overlying skin was prepped and draped. 3. 1% lidocaine local field block with a CT to check the lidocaine needle approach. 4. An 18-gauge needle was advanced into the periarticular fluid collection. 5. 3 mL of yellow, slightly cloudy fluid were aspirated. 6. Post procedural scanning after needle removal. Medications: 1. 1% lidocaine local field block. 2. Fentanyl 150 mcg. Informed consent: Obtained from the patient. Risks and benefits were discussed. Crosscutting Measure: Patient's current list of medications including all known prescriptions, over- the-counters, herbals, and vitamin/mineral/dietary supplements are reviewed. Medications' name, dosa ge, frequency, and route of administration are confirmed. Prophylactic Antibiotic: Cefazolin was not ordered and administered for antimicrobial prophylaxis be cause it was not medically necessary. VTE Prophylaxis: There is not an order for VTE prophylaxis to be given within 24 hours of the proced ure end time. VTE prophylaxis was not given because it was not medically necessary. Technique: Patient is placed in supine position. A "timeout" procedure was performed to identify th e correct patient and the correct procedure. 1% Xylocaine was used for local anesthetic. All eleme nts of maximal sterile barrier technique including cap, mask, sterile gown, sterile gloves, large gogo rile sheet, hand hygiene, and 2% chlorhexidine for cutaneous antisepsis, followed. Operative Report: After obtaining informed consent and performing a formal timeout, CT was used to l ocalize the area of fluid. Dose reduction technique was performed. The overlying skin was prepped and draped. 1% lidocaine local field block was achieved. The lidocaine needle approach was checked under CT guidance. This was exchanged for an 18-gauge needle which was advanced into the fluid collection. 3 mL of yellow, slightly cloudy fluid was aspirated. It did not appear frankly infected, but was sen t to the lab for Gram stain and culture. The needle was removed. Completion imaging was performed. Radiographic Impression: Uncomplicated aspiration of a periarticular fluid collection of the right hi p. 3 mL of yellow, slightly cloudy fluid was sent to the Laboratory for Gram stain and culture. It di d not appear frankly infected. Zeke Sultana M.D., [facility] Vascular [facility] Interventional Radiology [facility]
--- NOTE | 2016-03-13 13:44 | HOSPPROG ---
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 and pathologic fractures - port removed and replaced - prednisone - outpatient PET-CT and bone marrow biopsy # anemia - no transfusion today # sepsis due to bacteremia - resolved # bipolar/anxiety/depr - has decisional capacity - zyprexa, ativan # FCFT # lovenox SUBJECTIVE: Feels well, no complaints OBJECTIVE: Vitals reviewed Comfortable, no acute distress Regular rate and rhythm, II/ systolic murmur, no rubs or gallops No respiratory distress, lungs clear to auscultation bilaterally; no wheezes rales or rhonchi Abdomen with normal bowel sounds, soft, nontender, nondistended Left arm in sling LABORATORY DATA: Hemoglobin 7 IMAGING: CT scans reviewed MICROBIOLOGY: MSSA bacteremia Chart reviewed Objective: Vital Signs Temp Pulse Resp BP Pulse Ox 36.4 C 104 H 16 111/61 93 03/13/16 10:19 03/13/16 10:19 03/13/16 10:19 03/13/16 10:19 03/13/16 10:19 Microbiology 03/07/16 14:25 Gram Stain - Final Hip - Aspirate 02/29/16 15:59 Gram Stain - Final Shoulder - Swab 02/29/16 15:59 Gram Stain - Final Shoulder - Swab Laboratory Results 03/13/16 03:00 03/13/16 03:00 03/12/16 03/13/16 03/14/16 05:59 05:59 05:59 Intake Total 1324 1495 Output Total 1450 Balance 1324 45 PT 14.6 SEC (12.0-15.0) 03/13/16 08:30 INR 1.15 (0.83-1.16) 03/13/16 08:30 ICD10 Worksheet Patient Problems: Problems Problem Status Diagnosed Arm fracture Acute Bipolar 1 disorder with moderate isaura Acute Lymphoma Acute Marijuana abuse Acute Altered mental status Acute Chest pain Acute Withdrawal from sedative drug Acute Bipolar disorder Chronic
--- NOTE | 2016-03-13 13:52 | SOAPPROG ---
SOAP Progress Note Assessment/Plan: E&M for lymphoma * Follicular NHL s/p BR x5: Good response with regard to lymph nodes but skeletal findings, fractures, and high LDH are concerning. She is scheduled for PET tomorrow, which I canceled until she can be d/c to [facility]. Will review PET prior to scheduling bone marrow. Prednisone was started only as an anti-inflammatory. Will start to taper off with dropping to 10mg daily. Would like her off over the next couple of weeks. * Pathological Humeral neck fracture s/p ORIF * MSSA bacteremia and humeral fracture seeding: port changed by Dr. Townsend. IV ancef x 6 weeks (minimum), then chronic suppressive PO abx per ID * Chronic Right hip pain s/p joint replacement 08/22: fluid aspirated today again ; ortho and ID following Subjective: Up and walking with PT. Had aspiration of fluid this am without trouble. Objective: Vital Signs Temp Pulse Resp BP Pulse Ox 36.4 C 104 H 16 111/61 93 03/13/16 10:19 03/13/16 10:19 03/13/16 10:19 03/13/16 10:19 03/13/16 10:19 Microbiology 03/07/16 14:25 Gram Stain - Final Hip - Aspirate 02/29/16 15:59 Gram Stain - Final Shoulder - Swab 02/29/16 15:59 Gram Stain - Final Shoulder - Swab Laboratory Results 03/13/16 03:00 03/13/16 03:00 03/12/16 03/13/16 03/14/16 05:59 05:59 05:59 Intake Total 1324 1495 Output Total 1450 Balance 1324 45 PT 14.6 SEC (12.0-15.0) 03/13/16 08:30 INR 1.15 (0.83-1.16) 03/13/16 08:30 Physical Exam - Physical Exam General Appearance: no apparent distress EENT: pharynx normal Respiratory: lungs clear Cardiac/Chest: regular rate, rhythm ICD10 Worksheet Patient Problems: Problems Problem Status Diagnosed Arm fracture Acute Bipolar 1 disorder with moderate isaura Acute Lymphoma Acute Marijuana abuse Acute Altered mental status Acute Chest pain Acute Withdrawal from sedative drug Acute Bipolar disorder Chronic
--- NOTE | 2016-03-13 14:57 | PCMIDPN ---
Assessment/Plan: Assessment: MSSA bacteremia from unclear source. Secondary seeding of pathologic left humeral fracture. Status post debridement and fixation. Femoral neck fluid collection on the right side aspirated by interventional Radiology. Only 3 cc of thin yellow fluid obtained. Will await Gram stain and culture although the fact that this is not purulent is reassuring. Plan: 1. Continue cefazolin. 2. Plan for 6 week total duration. May extend if further infected sites are found. 3. Follow clinical course and laboratory values. 03/13/16 14:52 Subjective: Patient is sitting up comfortably in her hospital room. She denies any new complaint. Notes that the interventional radiology was able to get a few mL of fluid from her right hip area earlier this morning. She has no fevers or chills. Tolerating cefazolin without problem. Objective: Cefazolin # 13 Vital Signs Temp Pulse Resp BP Pulse Ox 36.4 C 104 H 16 111/61 93 03/13/16 10:19 03/13/16 10:19 03/13/16 10:19 03/13/16 10:19 03/13/16 10:19 Microbiology 03/07/16 14:25 Gram Stain - Final Hip - Aspirate 02/29/16 15:59 Gram Stain - Final Shoulder - Swab 02/29/16 15:59 Gram Stain - Final Shoulder - Swab Laboratory Results 03/13/16 03:00 03/13/16 03:00 03/12/16 03/13/16 03/14/16 05:59 05:59 05:59 Intake Total 1324 1495 Output Total 1450 Balance 1324 45 C-Reactive Protein 51.9 mg/L (<10.0) H 03/06/16 05:20 - Physical Exam General Appearance: WD/WN, alert, no apparent distress, non-toxic EENT: poor dentition Respiratory: lungs clear, normal breath sounds, No respiratory distress Cardiac/Chest: regular rate, rhythm, No tachycardia Extremities: non-tender, normal inspection Skin: normal color, warm/dry, rash Neuro/Psych: alert, normal mood/affect, oriented x 3 ICD10 Worksheet Patient Problems: Problems Problem Status Diagnosed Arm fracture Acute Bipolar 1 disorder with moderate isaura Acute Lymphoma Acute Marijuana abuse Acute Altered mental status Acute Chest pain Acute Withdrawal from sedative drug Acute Bipolar disorder Chronic
[2016-03-13] MEDS: DOXEPIN HCL 50 MG CAP PO SCH (20:26)
[2016-03-14] MEDS: ACETAMINOPHEN 325 MG TAB PO SCH ×4 (00:29→18:39)
[2016-03-14] MEDS: oxyCODONE IR 5 MG TAB PO PRN ×5 (00:29→22:35)
[2016-03-14] MEDS: NYSTATIN SUSP 500000 UNIT/5 ML UDCUP PO SCH ×4 (05:01→20:46)
[2016-03-14] MEDS: LEVOTHYROXINE 125 MCG TAB PO SCH (05:01)
[2016-03-14] MEDS: ceFAZolin 2 GM/DEXTROSE 100 ML IV SCH ×3 (05:02→22:30)
[2016-03-14] MEDS: OLANZapine DISINTEGR 10 MG TAB PO SCH ×4 (05:02→20:47)
[2016-03-14] MEDS: LORazepam 1 MG TAB PO SCH ×4 (05:02→18:39)
[2016-03-14 05:31] LABS: ADD DIFF? YES; ADD MORPH? NO; ADD SCAN? NO; ATYPICAL LYMPHOCYTE FLAG 0 (0-99); FRAGMENT RBC FLAG 20 (0-99); HEMATOCRIT 25.9 % (38.0-47.0); HEMOGLOBIN 8.2 g/dL (12.6-16.3); LEFT SHIFT FLG 20 (0-99); LIPEMIA HEMOLYSIS FLAG 80 (0-99); MEAN CELL HEMOGLOBIN 26.9 pg (27.9-34.1); MEAN CELL HEMOGLOBIN CONCENTR. 31.7 g/dL (32.4-36.7); MEAN CELL VOLUME 84.9 fL (81.5-99.8); MEAN PLATELET VOLUME 8.5 fL (8.7-11.7); PLATELET CLUMPS FLAG 0 (0-99); PLATELET COUNT 352 10^3/uL (150-400); RED BLOOD CELL COUNT 3.05 10^6/uL (4.18-5.33); RED CELL DISTRIBUTION WIDTH 17.6 % (11.5-15.2)
[2016-03-14 06:45] LABS: LARGE PLATELETS PRESENT; MICROCYTES 2+; PLATELET ESTIMATE ADEQUATE (ADEQ); POLYCHROMASIA 1+
[2016-03-14 06:47] LABS: TOXIC GRANULATION PRESENT
[2016-03-14] MEDS: TIOTROPIUM INHALER 18 MCG/DOSE 5 DOSE/MDI IH SCH (08:57)
[2016-03-14] MEDS: FERROUS SULFATE 325 MG TAB PO SCH (09:42)
[2016-03-14] MEDS: FAMOTIDINE 20 MG TAB PO SCH (09:42)
[2016-03-14] MEDS: OMEGA-3 FATTY ACIDS 1,000 MG CAP PO SCH ×2 (09:42→20:48)
[2016-03-14] MEDS: ACYCLOVIR 400 MG TAB PO SCH ×2 (09:42→20:46)
[2016-03-14] MEDS: predniSONE 10 MG TAB PO SCH (09:42)
[2016-03-14] MEDS: MULTIVITAMINS 1 EACH TAB PO SCH (09:42)
[2016-03-14] MEDS: ENOXAPARIN 40 MG/0.4 ML SYR SC SCH (09:42)
[2016-03-14] MEDS: NICOTINE 21 MG/24 HR PATCH TD SCH (09:43)
[2016-03-14] MEDS: VENLAFAXINE XR 75 MG CAP PO SCH (09:45)
[2016-03-14] MEDS: SENNOSIDES/DOCUSATE SODIUM TAB PO SCH ×2 (09:45→20:47)
--- NOTE | 2016-03-14 10:11 | PCMIDPN ---
Assessment/Plan: # MSSA bacteremia complicated by R humerus OM requiring ORIF . Blood cultures negative since 03/01/2016. --planning 6 weeks of IV cefazolin , stop date 04/16/16 --suppressive tx after IV abx with retained hardware --increasing pain left arm, plan x-ray # R Hip fracture s/p nail 07/2015 and also found to have an avulsion fracture of her right pelvis on 02/20/2016. So far no clear evidence of infection based on : 1) Femoral neck fluid collection on the right side aspirated by interventional Radiology on 03/13 with 3 cc of thin yellow fluid obtained and Gram stain was negative. 2) 03/07 right hip aspirate also no growth to date. Low joint fluid WBC = 800s # Lymphoma status post chemotherapy. awaiting PET/Bone marrow Medications Cefazolin 2 g IV Q 8, # 14 Subjective: Patient still has significant hesitation about returning to [facility]. Pain of right hip is improved. Pain in left upper arm slightly increased starting approximately 2 days ago when she felt a crunch Objective: Vital Signs Temp Pulse Resp BP Pulse Ox 37 C 101 H 16 130/70 H 90 L 03/14/16 07:59 03/14/16 07:59 03/14/16 07:59 03/14/16 07:59 03/14/16 07:59 Microbiology 03/13/16 09:50 Gram Stain - Final Hip - Aspirate 03/07/16 14:25 Gram Stain - Final Hip - Aspirate 02/29/16 15:59 Gram Stain - Final Shoulder - Swab 02/29/16 15:59 Gram Stain - Final Shoulder - Swab Laboratory Results 03/14/16 05:15 03/13/16 03:00 03/13/16 03/14/16 03/15/16 05:59 05:59 05:59 Intake Total 1495 2660 Output Total 1450 350 Balance 45 2310 C-Reactive Protein 51.9 mg/L (<10.0) H 03/06/16 05:20 - Physical Exam General Appearance: alert, no apparent distress EENT: No scleral icterus Respiratory: lungs clear Cardiac/Chest: regular rate, rhythm Extremities: swelling (Left upper extremity, mild associated tenderness) Skin: No rash Neuro/Psych: alert, normal mood/affect, oriented x 3 ICD10 Worksheet Patient Problems: Problems Problem Status Diagnosed Arm fracture Acute Bipolar 1 disorder with moderate isaura Acute Lymphoma Acute Marijuana abuse Acute Altered mental status Acute Chest pain Acute Withdrawal from sedative drug Acute Bipolar disorder Chronic
[2016-03-14] MEDS ORDERED: DIAZEPAM 5 MG TAB PO ONE (12:41)
--- NOTE | 2016-03-14 14:37 | SOAPPROG ---
SOAP Progress Note Assessment/Plan: E&M for lymphoma * Follicular NHL s/p BR x5: Good response with regard to lymph nodes but skeletal findings, fractures, and high LDH are concerning. She is scheduled for PET tomorrow, which I canceled until [facility] Will review PET prior to scheduling bone marrow. Prednisone was started only as an anti-inflammatory. Will start to taper off with dropping to 10mg daily. Would like her off over the next couple of weeks. * Pathological Humeral neck fracture s/p ORIF: pain may be due to decreasing prednisone. continue oxycontin with breakthrough prn * MSSA bacteremia and humeral fracture seeding: port changed by Dr. Townsend. IV ancef x 6 weeks (minimum), then chronic suppressive PO abx per ID * Chronic Right hip pain s/p joint replacement 08/22: fluid aspirate showed no malignant cells; ortho and ID following Subjective: Having a little more pain adama. in left arm but right hip is better. Objective: Vital Signs Temp Pulse Resp BP Pulse Ox 37 C 101 H 16 130/70 H 90 L 03/14/16 07:59 03/14/16 07:59 03/14/16 07:59 03/14/16 07:59 03/14/16 07:59 Microbiology 03/07/16 14:25 Gram Stain - Final Hip - Aspirate 02/29/16 15:59 Gram Stain - Final Shoulder - Swab Anaerobic Culture - Final Staphylococcus Aureus 02/29/16 15:59 Gram Stain - Final Shoulder - Swab Anaerobic Culture - Final Staphylococcus Aureus 03/13/16 09:50 Gram Stain - Final Hip - Aspirate Laboratory Results 03/14/16 05:15 03/13/16 03:00 03/13/16 03/14/16 03/15/16 05:59 05:59 05:59 Intake Total 1495 2660 Output Total 1450 350 500 Balance 45 2310 -500 PT 14.6 SEC (12.0-15.0) 03/13/16 08:30 INR 1.15 (0.83-1.16) 03/13/16 08:30 Laboratory Tests 03/12/16 03/13/16 03/14/16 04:30 03:00 05:15 WBC 7.17 5.31 5.33 Hgb 7.4 L 7.0 L 8.2 L Plt Count 290 Physical Exam - Physical Exam General Appearance: no apparent distress Cardiac/Chest: regular rate, rhythm Extremities: other (non-tender over left humerus) ICD10 Worksheet Patient Problems: Problems Problem Status Diagnosed Arm fracture Acute Bipolar 1 disorder with moderate isaura Acute Lymphoma Acute Marijuana abuse Acute Altered mental status Acute Chest pain Acute Withdrawal from sedative drug Acute Bipolar disorder Chronic
--- NOTE | 2016-03-14 15:29 | HOSPPROG ---
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 and pathologic fractures - port removed and replaced - prednisone - outpatient PET-CT and bone marrow biopsy # anemia - no transfusion today # sepsis due to bacteremia - resolved # bipolar/anxiety/depr - has decisional capacity - zyprexa, ativan # FCFT # lovenox SUBJECTIVE: turned on L shoulder, felt/heard a crunch, then had worsening pain OBJECTIVE: Vitals reviewed Comfortable, no acute distress Regular rate and rhythm, II/ systolic murmur, no rubs or gallops No respiratory distress, lungs clear to auscultation bilaterally; no wheezes rales or rhonchi Abdomen with normal bowel sounds, soft, nontender, nondistended Left arm in sling, gauze over shoulder CDI LABORATORY DATA: Hemoglobin 8.2 IMAGING: CT scans reviewed MICROBIOLOGY: MSSA bacteremia Objective: Vital Signs Temp Pulse Resp BP Pulse Ox 36.9 C 102 H 16 144/89 H 93 03/14/16 15:24 03/14/16 15:24 03/14/16 15:24 03/14/16 15:24 03/14/16 15:24 Microbiology 03/07/16 14:25 Gram Stain - Final Hip - Aspirate 02/29/16 15:59 Gram Stain - Final Shoulder - Swab Anaerobic Culture - Final Staphylococcus Aureus 02/29/16 15:59 Gram Stain - Final Shoulder - Swab Anaerobic Culture - Final Staphylococcus Aureus 03/13/16 09:50 Gram Stain - Final Hip - Aspirate Laboratory Results 03/14/16 05:15 03/13/16 03:00 03/13/16 03/14/16 03/15/16 05:59 05:59 05:59 Intake Total 1495 2660 1000 Output Total 7144 923 8039 Balance 45 2310 -100 PT 14.6 SEC (12.0-15.0) 03/13/16 08:30 INR 1.15 (0.83-1.16) 03/13/16 08:30 ICD10 Worksheet Patient Problems: Problems Problem Status Diagnosed Arm fracture Acute Bipolar 1 disorder with moderate isaura Acute Lymphoma Acute Marijuana abuse Acute Altered mental status Acute Chest pain Acute Withdrawal from sedative drug Acute Bipolar disorder Chronic
--- NOTE | 2016-03-14 16:45 | DX ---
Left shoulder series 2 views 1556 hours. History: Increased pain to previous fracture with ORIF. Findings: Comparison to March 04, 2016. Internal fixation plate is once again seen associated with complex proximal left humeral fracture. Th ere are fracture fragments once again seen adjacent to the humeral neck. The humeral head is subluxed along the anterior/inferior aspect of the glenoid fossa. Soft tissue swelling is suspected about the humerus. There is no gas in the soft tissues appreciated. The visualized left hemithorax appears to be normal. Impression: 1. Anterior/inferior subluxation of the left humeral head with respect to the glenoid fossa. Of note, on the prior x-ray study from March 04, 2015 the humeral head is subluxed inferiorly at that time . CT performed just prior to prior study showed the humeral head to be in good position. Shoulder jules nt effusion is suspected. The left humeral head may sublux easily. 2. Stable ORIF proximal left humeral fracture with fracture fragments evident. A secured text was sent to Dr. Paul Cisneros regarding this study.
--- NOTE | 2016-03-14 17:33 | SOAPPROG ---
SOAP Progress Note Assessment/Plan: Assessment: Plan: Subjective: states she has increased pain in left shoulder remains NVI but pain to torsion xray with well-placed HW - head will tend to sublux inferiorly because of decreased muscle tension associated with shortening the bone to gain fixation cont to limit use of LUE encourage calcium intake Objective: Vital Signs Temp Pulse Resp BP Pulse Ox 36.9 C 102 H 16 144/89 H 93 03/14/16 15:24 03/14/16 15:24 03/14/16 15:24 03/14/16 15:24 03/14/16 15:24 Microbiology 03/07/16 14:25 Gram Stain - Final Hip - Aspirate 02/29/16 15:59 Gram Stain - Final Shoulder - Swab Anaerobic Culture - Final Staphylococcus Aureus 02/29/16 15:59 Gram Stain - Final Shoulder - Swab Anaerobic Culture - Final Staphylococcus Aureus 03/13/16 09:50 Gram Stain - Final Hip - Aspirate Laboratory Results 03/14/16 05:15 03/13/16 03:00 03/13/16 03/14/16 03/15/16 05:59 05:59 05:59 Intake Total 1495 2660 1000 Output Total 0793 394 6203 Balance 45 2310 -100 PT 14.6 SEC (12.0-15.0) 03/13/16 08:30 INR 1.15 (0.83-1.16) 03/13/16 08:30 ICD10 Worksheet Patient Problems: Problems Problem Status Diagnosed Arm fracture Acute Bipolar 1 disorder with moderate isaura Acute Lymphoma Acute Marijuana abuse Acute Altered mental status Acute Chest pain Acute Withdrawal from sedative drug Acute Bipolar disorder Chronic
[2016-03-14] MEDS: DOXEPIN HCL 50 MG CAP PO SCH (20:47)
[2016-03-15] MEDS: ACETAMINOPHEN 325 MG TAB PO SCH ×3 (00:39→12:07)
[2016-03-15] MEDS: oxyCODONE IR 5 MG TAB PO PRN ×4 (02:54→14:45)
[2016-03-15 04:20] VITALS: TEMP 98.5
[2016-03-15] MEDS: OLANZapine DISINTEGR 10 MG TAB PO SCH ×2 (05:14→12:07)
[2016-03-15] MEDS: LEVOTHYROXINE 125 MCG TAB PO SCH (05:14)
[2016-03-15] MEDS: LORazepam 1 MG TAB PO SCH ×3 (05:14→13:04)
[2016-03-15] MEDS: ceFAZolin 2 GM/DEXTROSE 100 ML IV SCH ×2 (05:14→14:01)
[2016-03-15] MEDS: NYSTATIN SUSP 500000 UNIT/5 ML UDCUP PO SCH ×2 (05:26→12:08)
[2016-03-15 08:10] VITALS: BP 106/83; PULSE 105; RESP 16; O2SAT 90
[2016-03-15] MEDS: predniSONE 10 MG TAB PO SCH (09:08)
[2016-03-15] MEDS: MULTIVITAMINS 1 EACH TAB PO SCH (09:10)
[2016-03-15] MEDS: FERROUS SULFATE 325 MG TAB PO SCH (09:10)
[2016-03-15] MEDS: ACYCLOVIR 400 MG TAB PO SCH (09:10)
[2016-03-15] MEDS: VENLAFAXINE XR 75 MG CAP PO SCH (09:10)
[2016-03-15] MEDS: FAMOTIDINE 20 MG TAB PO SCH (09:11)
[2016-03-15] MEDS: OMEGA-3 FATTY ACIDS 1,000 MG CAP PO SCH (09:11)
[2016-03-15] MEDS: SENNOSIDES/DOCUSATE SODIUM TAB PO SCH (09:11)
[2016-03-15] MEDS: TIOTROPIUM INHALER 18 MCG/DOSE 5 DOSE/MDI IH SCH (09:21)
[2016-03-15] MEDS: NICOTINE 21 MG/24 HR PATCH TD SCH (09:24)
[2016-03-15] MEDS: ENOXAPARIN 40 MG/0.4 ML SYR SC SCH (09:31)
--- NOTE | 2016-03-15 10:51 | PDIAF ---
- Diagnosis Diagnosis: mssa bacteremia with infected left humeral fracture s/p ORIF Code Status: Full Code - Medication Management Discharge Medications: Medications to Continue on Transfer Levothyroxine [Synthroid 125 mcg (*)] 125 mcg PO DAILY06 03/27/14 [Last Taken ] Doxepin HCl [Sinequan 50 MG (*)] 100 mg PO HS 07/17/15 [Last Taken 02/26/16] Ferrous Sulfate [Ferrous Sulf 325 MG (*)] 150 mg PO DAILY 07/17/15 [Last Taken 02/27/16] Acyclovir [Zovirax 400 mg (*)] 400 mg PO BID 02/08/16 [Last Taken 02/27/16] Ibuprofen [Motrin (*)] 600 mg PO Q6 PRN 02/08/16 [Last Taken 02/07/16] Multivitamins [Multivitamin (*)] 1 each PO DAILY 02/08/16 [Last Taken 02/27/16] OLANZapine DISINTEGR [ZyPREXA ZYDIS (*)] 10 mg PO TID@05,12,17 02/08/16 [Last Taken 02/27/16] OLANZapine DISINTEGR [ZyPREXA ZYDIS (*)] 20 mg PO HS 02/08/16 [Last Taken ] [place]-3 Fatty Acids [Fish Oil 1000 mg (*)] 1,000 mg PO BID 02/08/16 [Last Taken 02/27/16] Prochlorperazine Maleate [Compazine 10mg (*)] 10 mg PO TID PRN 02/08/16 [Last Taken 02/07/16] Ranitidine HCl [Zantac] 300 mg PO DAILY 02/08/16 [Last Taken 02/27/16] rOPINIRole HCL [Requip 0.25mg (RX)] 0.25 mg PO HS 02/08/16 [Last Taken 02/26/16] tiZANidine HCL [Zanaflex 2MG (*)] 2 mg PO DAILY PRN 02/08/16 [Last Taken Unknown ] traMADol [Ultram 50 mg (*)] 50 - 100 mg PO Q4-6PRN PRN 02/08/16 [Last Taken 03/24] Tiotropium Inhaler [Spiriva Handihaler] 18 mcg IH DAILY 02/27/16 [Last Taken ] Venlafaxine HCl [Venlafaxine HCl ER] 225 mg PO DAILY 02/27/16 [Last Taken ] Alteplase [Cathflo Activase 2 mg (*)] 2 mg IVP PRN PRN #0 vial 03/15/16 [Last Taken Unknown] LORazepam [Ativan (*)] 1 mg PO 0500,0900,1300,1700 #0 tab 03/15/16 [Last Taken Unknown] Polyethylene Glycol 3350 [Miralax 17 gm (*)] 17 gm PO DAILY PRN #0 pkt 03/15/16 [Last Taken Unknown] ceFAZolin 2 GM/DEXTROSE [Ancef 2 gm (Premix)] 100 ml IV Q8HRS #0 bag 03/15/16 [ Last Taken Unknown] fentaNYL [Duragesic 12 MCG Patch (*)] 12 mcg TD Q72H #0 patch 03/15/16 [Last Taken Unknown] oxyCODONE CR [Oxycontin] 20 mg PO BID #0 tab 03/15/16 [Last Taken Unknown] oxyCODONE IR [Oxycodone Ir (*)] 10 - 20 mg PO Q4HRS PRN #0 tab 03/15/16 [Last Taken Unknown] predniSONE 10 mg PO DAILY #0 tab 03/15/16 [Last Taken Unknown] Nursing Home Antibiotics: ancef 2g iV q8 Choreography Director Antibiotic Stop Date: 04/16/16 Discharge Medications: Refer to the Discharge Home Medication list for PRN reason. PICC Care - Routine: Yes - Orders Services needed: Registered Nurse, Certified Alcohol Still Operator, Physical Therapy, Occupational Therapy Activity/Weight Bearing Restrictions: -May take arm out of sling to bend/ straighten elbow. -If in Abduction Pillow, keep arm in position of abduction. - Labs/Radiology CBC Date: 03/17/16 (q mondays) CMP Date: 03/17/16 (q mondays) CRP Date: 03/17/16 (q mondays) Call or Fax Lab and Imaging Results to: Dr. Peña- [phone] - Follow Up Care Current Providers and Referrals: Patient,NotPresent [Unknown] - As per Instructions Kota Peña MD [Medical Doctor] - 03/19/16 10:30 am (f/u DR. Peña, infectiious disease. CHeck in time is at 10:10AM. )
--- NOTE | 2016-03-15 11:14 | GDS ---
[f rep st] DISCHARGE SUMMARY ALL DIAGNOSES: 1. Methicillin-sensitive Staphylococcus aureus bacteremia. 2. Left humeral head fracture with secondary infection. 3. Right hip effusion, likely due to osteoarthritis; status post aspiration times 2. 4. 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 5. Anemia. 6. Sepsis due to bacteremia. 7. Bipolar. 8. Anxiety. 9. Depression. ALL PROCEDURES PERFORMED: 1. ORIF of left proximal humerus fracture by Dr. Choudhary on 02/29/2016. 2. Port removal by Dr. Townsend on 03/01/2016. 3. Right subclavian port placement by Dr. Townsend on 03/07/2016. HOSPITAL COURSE: This is a 65-year-old female who was admitted through the emergency department with left shoulder pain. She had previously been evaluated on 02/23 and found to have a nondisplaced pat hologic fracture. She was discharged after that. She then had a subsequent fall causing a displaced fracture. This was fixed operatively by Dr. Choudhary. Intraoperatively, he noted that the fracture jose eared infected. Notably, blood cultures grew out Staph aureus, MSSA. Swab from her shoulder intraop eratively also grew out MSSA. She has seen been seen by Infectious Disease. Likely, this started as a line infection from her port, causing the subsequent bacteremia with seeding of her left shoulder fracture. True etiology of her bacteremia is not 100% certain, however. Regardless, her port was re moved and then replaced after repeat cultures were no growth to date. They have been negative. Plan is to treat her with IV Ancef until 04/16/2016. She has followup as written with Infectious Disease . She has stage IV follicular lymphoma. She has pain from pathologic fractures. She has been given pa in meds. She has been started on fentanyl patch the day of discharge. She is getting prednisone for pain, this has been titrated down. She is currently getting 10 mg p.o. daily. Plan would be to hav e her completely off prednisone in about 2-3 weeks. She additionally had a right hip effusion and fluid pocket, which were tapped 2 times. Cell count fr om this showed 821 white cells, not consistent with a septic joint. Cultures did not grow; however, she had been on antibiotics at the time. It is felt that she did not need further I and D. In terms of her right humeral head fracture, she should follow up with Dr. Choudhary in 2-3 weeks. Extrem ity restrictions are written in her discharge orders. BILLING: I spent more than 30 minutes on the day of discharge coordinating care. /[id number]/MODL
[2016-03-15] MEDS ORDERED: fentaNYL 12 MCG PATCH TD SCH (12:30)
[2016-03-18] MEDS ORDERED: predniSONE 10 MG TAB PO SCH (09:00)
== END 2016-03-15 15:35 | DRG 981 ==
LOC: EDUNIT# → F3N 23:05
PROVIDERS: ADMIT Hospitalist; ATTEND Hospitalist
PROC: 0PSD04Z Reposition Left Humeral Head with Internal Fixation Device, Open Approach (ICD-10-PCS; principal; 2016-02-29 12:30)
PROC: 02PY33Z Removal of Infusion Device from Great Vessel, Percutaneous Approach (ICD-10-PCS; 2016-03-01)
PROC: 30233N1 Transfusion of Nonautologous Red Blood Cells into Peripheral Vein, Percutaneous Approach (ICD-10-PCS; 2016-03-02)
PROC: 02HV33Z Insertion of Infusion Device into Superior Vena Cava, Percutaneous Approach (ICD-10-PCS; 2016-03-05)
PROC: 0S993ZX Drainage of Right Hip Joint, Percutaneous Approach, Diagnostic (ICD-10-PCS; 2016-03-07)
PROC: 02HV33Z Insertion of Infusion Device into Superior Vena Cava, Percutaneous Approach (ICD-10-PCS; 2016-03-07)
PROC: 0S993ZX Drainage of Right Hip Joint, Percutaneous Approach, Diagnostic (ICD-10-PCS; 2016-03-13)
DX: T82.7XXA Infection and inflammatory reaction due to other cardiac and vascular devices, implants and grafts, initial encounter (principal); A41.01 Sepsis due to Methicillin susceptible Staphylococcus aureus; M84.422A Pathological fracture, left humerus, initial encounter for fracture; C79.51 Secondary malignant neoplasm of bone; M86.9 Osteomyelitis, unspecified; B95.61 Methicillin susceptible Staphylococcus aureus infection as the cause of diseases classified elsewhere; C82.08 Follicular lymphoma grade I, lymph nodes of multiple sites; D61.818 Other pancytopenia; B37.0 Candidal stomatitis; D64.9 Anemia, unspecified; F31.9 Bipolar disorder, unspecified; F41.9 Anxiety disorder, unspecified; E03.9 Hypothyroidism, unspecified; G89.29 Other chronic pain; Z87.891 Personal history of nicotine dependence; S32.9XXD Fracture of unspecified parts of lumbosacral spine and pelvis, subsequent encounter for fracture with routine healing; M16.11 Unilateral primary osteoarthritis, right hip; M25.451 Effusion, right hip
CPT/HCPCS: 96374; 97003-GO; 97110-GO; 97110-GP; 97116-GP; 97162-GP; 97530-GO; 97530-GP; 97535-GO; A4565; C1713; C1751; C1769; C1788; G8978-GP-CJ; G8979-GP-CI; G8987-GO-CL; G8987-GO-CM; G8988-GO-CI; J0690; J0692; J1100; J1170; J1650; J1885; J2250; J2270; J2370; J2405; J2704; J2710; J2997; J3010; J3370; J3475; P9016; Q5101-ZA; Q9967

== ENCOUNTER 2016-03-22 02:45 | Emergency (ER) | payer OTHER, MEDICAID ==
--- NOTE | 2016-03-22 03:18 | EDPHY ---
H & P Stated Complaint: PICC line accidentally DC'd, needs to be replaced Source: Patient, EMS - Personal History Current Tetanus/Diphtheria Vaccine: Yes Tetanus Vaccine Date: 2009 - Medical/Surgical History Hx Asthma: No Hx Chronic Respiratory Disease: Yes Hx Diabetes: No Hx Cardiac Disease: No Hx Renal Disease: No Hx Cirrhosis: No Hx Alcoholism: Yes Hx HIV/AIDS: No Hx Splenectomy or Spleen Trauma: No Other PMH: PMHx: chronic pain, hypothyroid, depression, anxiety, degenerative disc disease, COPD, sleep apnea, angina, bipolar, stage 4 NH lymphona. PSHx: L femur fx repair - Social History Smoking Status: Former smoker Time Seen by Provider: 03/22/16 03:08 HPI/ROS: HPI The patient presents brought in by ambulance after her PICC line fell out this morning. She was sleeping with many blankets and an iPad hooked up to ear buds and the blankets or the cord caught her PICC line and caused it to come out completely. She resides currently at [facility]. The PICC line is in place because she is receiving Ancef IV for MSSA a related to pathologic fracture. She was admitted to the hospital earlier this month. She does not have any fevers or chills currently. REVIEW OF SYSTEMS Constitutional: No fever, no chills. Eyes: No discharge. ENT: No sore throat. Cardiovascular: No chest pain, no palpitations. Respiratory: No cough, no shortness of breath. Gastrointestinal: No abdominal pain, no vomiting. Genitourinary: No hematuria. Musculoskeletal: No back pain. Skin: No rashes. Neurological: No headache. PHYSICAL General Appearance: Alert, no distress Eyes: Pupils equal and round no pallor or injection ENT, Mouth: Mucous membranes moist Respiratory: There are no retractions, lungs are clear to auscultation Cardiovascular: Regular rate and rhythm Gastrointestinal: Abdomen is soft and non-tender, no masses, bowel sounds normal Neurological: A&O, moves all extremities Skin: Warm and dry, no rashes Musculoskeletal: Neck is supple non tender Extremities: symmetrical, full range of motion Psychiatric: Patient is oriented X 3, there is no agitation (Riguzzi,Selene) Constitutional: Initial Vital Signs Temperature (C) 38 C 03/22/16 02:47 Heart Rate 97 03/22/16 02:47 Respiratory Rate 16 03/22/16 02:47 Blood Pressure 107/68 03/22/16 02:47 O2 Sat (%) 97 03/22/16 02:47 O2 Delivery Mode Room Air O2 (L/minute) 2 Allergies/Adverse Reactions: melatonin Allergy (Mild, Verified 02/08/16 05:51) Other-Enter Comments gabapentin [Gabapentin] Allergy (Unknown, Verified 02/08/16 05:51) TREMORS pregabalin [Pregabalin] Allergy (Unknown, Verified 02/08/16 05:51) Rash solifenacin succinate [From Vesicare] Allergy (Unknown, Verified 02/08/16 05:51) topiramate [Topiramate] Allergy (Unknown, Verified 02/08/16 05:51) POORLY TOLERATED ziprasidone [Ziprasidone] Allergy (Unknown, Verified 02/08/16 05:51) ABNORMAL THINKING ziprasidone HCl [From Geodon] Allergy (Unknown, Verified 02/08/16 05:51) ziprasidone mesylate [From Geodon] Allergy (Unknown, Verified 02/08/16 05:51) zolpidem [Zolpidem] Allergy (Unknown, Verified 02/08/16 05:51) levofloxacin [From Levaquin] Allergy (Verified 02/08/16 05:51) Home Medications: Medication Instructions Recorded Levothyroxine [Synthroid 125 mcg 125 mcg PO DAILY06 03/27/14 (*)] Doxepin HCl [Sinequan 50 MG (*)] 100 mg PO HS 07/17/15 Ferrous Sulfate [Ferrous Sulf 325 150 mg PO DAILY 07/17/15 MG (*)] Acyclovir [Zovirax 400 mg (*)] 400 mg PO BID 02/08/16 Ibuprofen [Motrin (*)] 600 mg PO Q6 PRN 02/08/16 Multivitamins [Multivitamin (*)] 1 each PO DAILY 02/08/16 OLANZapine DISINTEGR [ZyPREXA 10 mg PO TID@,,02/08/16 ZYDIS (*)] OLANZapine DISINTEGR [ZyPREXA 20 mg PO HS 02/08/16 ZYDIS (*)] [place]-3 Fatty Acids [Fish Oil 1000 1,000 mg PO BID 02/08/16 mg (*)] Prochlorperazine Maleate 10 mg PO TID PRN 02/08/16 [Compazine 10mg (*)] Ranitidine HCl [Zantac] 300 mg PO DAILY 02/08/16 rOPINIRole HCL [Requip 0.25mg (RX)] 0.25 mg PO HS 02/08/16 tiZANidine HCL [Zanaflex 2MG (*)] 2 mg PO DAILY PRN 02/08/16 traMADol [Ultram 50 mg (*)] 50 - 100 mg PO Q4-6PRN PRN 02/08/16 Tiotropium Inhaler [Spiriva 18 mcg IH DAILY 02/27/16 Handihaler] Venlafaxine HCl [Venlafaxine HCl 225 mg PO DAILY 02/27/16 ER] Alteplase [Cathflo Activase 2 mg 2 mg IVP PRN PRN #0 vial 03/15/16 (*)] LORazepam [Ativan (*)] 1 mg PO 0500,0900,1300,1700 #0 tab 03/15/16 Polyethylene Glycol 3350 [Miralax 17 gm PO DAILY PRN #0 pkt 03/15/16 17 gm (*)] ceFAZolin 2 GM/DEXTROSE [Ancef 2 100 ml IV Q8HRS #0 bag 03/15/16 gm (Premix)] fentaNYL [Duragesic 12 MCG Patch 12 mcg TD Q72H #0 patch 03/15/16 (*)] oxyCODONE CR [Oxycontin] 20 mg PO BID #0 tab 03/15/16 oxyCODONE IR [Oxycodone Ir (*)] 10 - 20 mg PO Q4HRS PRN #0 tab 03/15/16 predniSONE 10 mg PO DAILY #0 tab 03/15/16 Medical Decision Making ED Course/Re-evaluation: Patient had a PICC line placed and was discharged back to her living facility. I did not personally examine her or participate directly in her care. (Fabricio Gunn) Differential Diagnosis: This is a 65-year-old female with past medical history of lymphoma, currently receiving Ancef for MSSA bacteremia discovered on recent admission. Here today because her PICC line has come out and she does not have IV access. Plan to replace PICC line in the morning VIR. (Selene Weller) - Data Points Medications Given: Discontinued Medications Lorazepam (Ativan) 1 mg PO EDNOW ONE Stop: 03/22/16 04:29 Last Admin: 03/22/16 04:56 Dose: 1 mg Lorazepam (Ativan) 1 mg PO EDNOW ONE Stop: 03/22/16 09:16 Last Admin: 03/22/16 09:16 Dose: 1 mg Oxycodone HCl (Oxycontin) 20 mg PO EDNOW ONE Stop: 03/22/16 04:29 Last Admin: 03/22/16 04:57 Dose: 20 mg Oxycodone HCl (Oxycodone Ir) 20 mg PO EDNOW ONE Stop: 03/22/16 08:53 Last Admin: 03/22/16 09:48 Dose: 20 mg Departure - Departure Disposition: Home, Routine, Self-Care Clinical Impression: S/P PICC central line placement Condition: Good Instructions: Peripherally Inserted Central Catheters and Midline Catheters (ED ) Referrals: ARDEN QUINN [Primary Care Provider] - As per Instructions
[2016-03-22] MEDS ORDERED: LORazepam 1 MG TAB PO ONE ×2 (04:28→09:15)
[2016-03-22 06:23] VITALS: O2SAT 92
[2016-03-22] MEDS ORDERED: ALTEPLASE 2 MG VIAL IVP PRN (06:27)
[2016-03-22] MEDS ORDERED: oxyCODONE IR 5 MG TAB PO ONE (08:52)
[2016-03-22] MEDS ORDERED: LORazepam 1 MG TAB ONE (09:13)
--- NOTE | 2016-03-22 10:01 | IR ---
PICC March 22, 2016 0855 Clinical Indication: Bacteremia Procedures Performed: 1. Ultrasound-guided puncture of the basilic vein. 2. Microwire was passed under fluoroscopic guidance and serially exchanged for the peel-away. 3. Measuring wire was used to estimate the length of the PICC, and it was trimmed at the 38 cm edwardo. 4. The PICC was advanced to the SVC/right atrial junction over the measuring wire. The measuring wire and dilator were removed. EBL less than 10 mL. Specimens: None. Fluoroscopy Time: 0.2 minutes. 1.9 mGy Operative Report: After obtaining informed consent and performing a formal timeout, the right arm was prepped and draped. 1% lidocaine local field block was achieved. The basilic vein was punctured unde r direct ultrasound visualization after deeming the vessel patent. Microwire was passed under fluoros copic guidance and serially exchanged for the peel-away dilator. The measuring wire was used to estim ate the length of the PICC. The PICC was trimmed to 38 cm. The PICC was advanced over the measuring w benson to the SVC/right atrial junction. The measuring wire and peel-away were removed. The PICC was sec ured and dressed with sterile gauze dressing. Plan: Double lumen PICC ready for use. Informed consent: Obtained from the patient. Risks and benefits were discussed. Crosscutting Measure: Patient's current list of medications including all known prescriptions, over- the-counters, herbals, and vitamin/mineral/dietary supplements are reviewed. Medications' name, dosa ge, frequency, and route of administration are confirmed. Prophylactic Antibiotic: Cefazolin was not ordered and administered for antimicrobial prophylaxis be cause it was not medically necessary. VTE Prophylaxis: There is not an order for VTE prophylaxis to be given within 24 hours of the proced ure end time. VTE prophylaxis was not given because it was not medically necessary. Technique: Patient is placed in supine position. A "timeout" procedure was performed to identify th e correct patient and the correct procedure. 1% Xylocaine was used for local anesthetic. All eleme nts of maximal sterile barrier technique including cap, mask, sterile gown, sterile gloves, large gogo rile sheet, hand hygiene, and 2% chlorhexidine for cutaneous antisepsis, followed. Ultrasound evaluation of potential access site was performed. After successfully identifying a patent vessel, ultrasound guidance was used to puncture the vein. A permanent recording was created for the patient's record. When ultrasound is used, sterile gel and probe covers are used. Zeke Sultana M.D., [facility], [facility].
[2016-03-22 10:10] VITALS: BP 98/72; PULSE 96; RESP 14; TEMP 98.6
== END 2016-03-22 10:28 | disposition home or self-care (01) ==
LOC: EDUNIT#
PROC: 05HB33Z Insertion of Infusion Device into Right Basilic Vein, Percutaneous Approach (ICD-10-PCS; principal; 2016-03-22)
DX: Z45.2 Encounter for adjustment and management of vascular access device (principal); J44.9 Chronic obstructive pulmonary disease, unspecified; Z87.891 Personal history of nicotine dependence
CPT/HCPCS: 36569; 77001; 99283; C1751

== ENCOUNTER 2016-03-28 09:17 | Inpatient (IN) | payer OTHER, MEDICAID ==
--- NOTE | 2016-03-28 09:48 | EDPHY ---
H & P Stated Complaint: possible infection L shoulder, known fracture 2.5 weeks [employer] - Personal History Current Tetanus/Diphtheria Vaccine: Yes Current Tetanus Diphtheria and Acellular Pertussis (TDAP): Yes Tetanus Vaccine Date: 2009 - Medical/Surgical History Hx Asthma: No Hx Chronic Respiratory Disease: Yes Hx Diabetes: No Hx Cardiac Disease: No Hx Renal Disease: No Hx Cirrhosis: No Hx Alcoholism: Yes Hx HIV/AIDS: No Hx Splenectomy or Spleen Trauma: No Other PMH: PMHx: chronic pain, hypothyroid, depression, anxiety, degenerative disc disease, COPD, sleep apnea, angina, bipolar, stage 4 non hodgkins lymphona , L humrus surgical neck fracture,. PSHx: L femur fx repair - Social History Smoking Status: Former smoker Time Seen by Provider: 03/28/16 09:18 HPI/ROS: CHIEF COMPLAINT: possible infection left humerus HISTORY OF PRESENT ILLNESS: 65-year-old female history of lymphoma, bony metastases, history of pathologic fracture to the left humerus in late February 2016 which point she had ORIF by Dr. Reva Choudhary. She also had MSSA bacteremia and was started on Ancef which she continues take at her assisted facility. She comes from a assisted facility via ambulance as nursing staff have noted erythema in the incision site, pain to the proximal humerus at her incision site. She also has ongoing anemia. The patient states that she is feeling well. She denies: Fever, chills, nausea, vomiting, chest pain, back pain, abdominal pain. REVIEW OF SYSTEMS: A ten point review of systems was performed and is negative with the exception of the items mentioned in the HPI PAST MEDICAL & SURGICAL HISTORY: Left humerus ORIF 02/29/2016 Dr. Reva Choudhary. Lymphoma. Metastases SOCIAL HISTORY: nonsmoker lives at a assisted facility PHYSICAL EXAM (Prior to examination, patient consented to physical exam, hands were washed and my usual and customary physical exam procedures followed) 1) GENERAL: Well-developed, well-nourished, alert and oriented. Appears to be in no acute distress. 2) HEAD: Normocephalic, atraumatic 3) HEENT: Pupils equal, round, reactive to light bilaterally. Sclera anicteric. 4) NECK: Full range of motion, no meningeal signs. 5) LUNGS: Clear auscultation bilaterally, no wheezes, no rhonchi, no retractions. 6) HEART: Regular rate and rhythm, no murmur, no heave, no gallop. 7) ABDOMEN: No guarding, no rebound, no focal tenderness,, 8) MUSCULOSKELETAL:left upper extremity: Surgical incision with no dehiscence. The distal portion incision is edematous, tender with associated erythema and induration. She has reproducible pain at same location with range of motion of the shoulder. Distal neurovascular status is normal. 9) BACK: No CVA tenderness. 10) SKIN: No rash, no petechiae. 11) Psychiatric: Patient is oriented X 3, there is no agitation. DIFFERENTIAL DIAGNOSIS: in no particular include but not limited to septic arthritis, infection of orthopedic hardware, cellulitis (Jadyn,Bonny Diane) Constitutional: Initial Vital Signs Temperature (C) 37 C 03/28/16 09:25 Heart Rate 109 H 03/28/16 09:25 Respiratory Rate 17 03/28/16 09:25 Blood Pressure 137/76 H 03/28/16 09:25 O2 Sat (%) 90 L 03/28/16 09:25 O2 Delivery Mode Room Air Allergies/Adverse Reactions: melatonin Allergy (Mild, Verified 03/28/16 09:25) Other-Enter Comments gabapentin [Gabapentin] Allergy (Unknown, Verified 03/28/16:25) TREMORS pregabalin [Pregabalin] Allergy (Unknown, Verified 03/28/16 09:25) Rash solifenacin succinate [From Vesicare] Allergy (Unknown, Verified 03/28/16:25) topiramate [Topiramate] Allergy (Unknown, Verified 03/28/16:25) POORLY TOLERATED ziprasidone [Ziprasidone] Allergy (Unknown, Verified 03/28/16:25) ABNORMAL THINKING ziprasidone HCl [From Geodon] Allergy (Unknown, Verified 03/28/16:25) ziprasidone mesylate [From Geodon] Allergy (Unknown, Verified 03/28/16:25) zolpidem [Zolpidem] Allergy (Unknown, Verified 03/28/16 09:25) levofloxacin [From Levaquin] Allergy (Verified 03/28/16:25) Home Medications: Medication Instructions Recorded Levothyroxine [Synthroid 125 mcg 125 mcg PO DAILY06 03/27/14 (*)] Doxepin HCl [Sinequan 50 MG (*)] 100 mg PO HS 07/17/15 Ferrous Sulfate [Ferrous Sulf 325 325 mg PO DAILY 07/17/15 MG (*)] Acyclovir [Zovirax 400 mg (*)] 400 mg PO BID 02/08/16 Ibuprofen [Motrin (*)] 600 mg PO Q6 PRN 02/08/16 Multivitamins [Multivitamin (*)] 1 each PO DAILY 02/08/16 OLANZapine DISINTEGR [ZyPREXA 10 mg PO TID@,,17 02/08/16 ZYDIS (*)] OLANZapine DISINTEGR [ZyPREXA 20 mg PO HS 02/08/16 ZYDIS (*)] [place]-3 Fatty Acids [Fish Oil 1000 1,000 mg PO BID 02/08/16 mg (*)] Prochlorperazine Maleate 10 mg PO TID PRN 02/08/16 [Compazine 10mg (*)] Ranitidine HCl [Zantac] 300 mg PO DAILY 02/08/16 rOPINIRole HCL [Requip 0.25mg (RX)] 0.25 mg PO HS 02/08/16 tiZANidine HCL [Zanaflex 2MG (*)] 2 mg PO DAILY PRN 02/08/16 traMADol [Ultram 50 mg (*)] 50 mg PO Q4 PRN 02/08/16 Tiotropium Inhaler [Spiriva 18 mcg IH DAILY 02/27/16 Handihaler] Venlafaxine HCl [Venlafaxine HCl 225 mg PO DAILY 02/27/16 ER] LORazepam [Ativan (*)] 1 mg PO 0500,0900,1300,1700 #0 tab 03/15/16 Polyethylene Glycol 3350 [Miralax 17 gm PO DAILY PRN #0 pkt 03/15/16 17 gm (*)] ceFAZolin 2 GM/DEXTROSE [Ancef 2 100 ml IV Q8HRS #0 bag 03/15/16 gm (Premix)] oxyCODONE CR [Oxycontin] 20 mg PO BID #0 tab 03/15/16 predniSONE 10 mg PO DAILY #0 tab 03/15/16 Heparin Sodium,Porcine/Pf [Heparin 30 unit IV Q8 03/28/16 100 Unit/10 ml (10/ml)] Nystatin Susp [Mycostatin Oral 4 ml PO Q6 03/28/16 Liquid] Oxycodone HCl 20 mg PO Q4 PRN 03/28/16 fentaNYL [Duragesic 25 MCG Patch 25 mcg TD Q72H 03/28/16 (*)] oxyCODONE IR [Oxycodone Ir (*)] 10 mg PO Q4HRS PRN 03/28/16 traMADol [Ultram 50 mg (*)] 100 mg PO Q6 PRN 03/28/16 Medical Decision Making - Diagnostics Imaging: Left Shoulder, Two Views HISTORY: History of left shoulder surgery. Pain. COMPARISON: MARCH 14, 2016. FINDINGS: Postsurgical changes are seen of open reduction internal fixation of a comminuted proximal left humerus fracture with stable alignment. No evidence for hardware fracture. No new fracture is visualized. There is inferior subluxation of the humeral head in relation to the glenoid slightly improved from the prior examination. This could be secondary to glenohumeral joint effusion. No other significant interval change. IMPRESSION: Stable postsurgical changes of open reduction internal fixation of a comminuted proximal left humerus fracture. Probable glenohumeral joint effusion. Dictated By: Anthony Cosby MD Images reviewed by myself (Bonny Salamanca) ED Course/Re-evaluation: 9:53 a.m.: Patient was also seen exam by Dr. Fabricio Gunn in the ER. Phone consultation with Dr. Terrell Felipe who will come to the ER to evaluate patient 10:30 a.m.: Dr. Terrell Felipe recommends patient be admitted for evaluation of possible orthopedic hardware infection. Dr. Terrell Felipe has left a voice mail for consultation with Dr. Reva Choudhary. Recommends continue Ancef 10:38 a.m.: Phone consultation with hospitalist, admit to Dr. Lara 11:40 a.m.: Courtesy consultation with Dr. Michelle Sánchez's [facility] to advise her of the patient's admission status 12:01 p.m.: Courtesy consultation with the patient's oncologist Dr. Koo to alert him of the patient's admission status (Bonny Salamanca) Other Provider: PHYSICIAN DOCUMENTATION: The patient was evaluated and managed by the Physician [employer] and myself. I have reviewed the chart and agree with the findings and plan of care as documented. In addition, I examined the patient myself at 1129. History confirmed as long history of left upper extremity infection currently on antibiotics through PICC line, has persistent redness today. Physical findings as follows: Incision does not show evidence of dehiscence. The inferior portion is red and mildly indurated, extends distally towards the elbow; tender to palpation. There is no lymphangitis or drainage or blisters or eschar or crepitus. 1cm area fluctuance inferiorly at incision site. Skin flaking and desquamation present, mild. PMH also includes COPD and bipolar. Discussed with Dr. Terrell Felipe at 10:30 a.m. who personally examined the patient in the ED; he recommends admission with orthopedic consultation, no change in ED in current IV antibiotic therapy. Hemoglobin and hematocrit reviewed which are low but stable compared to previous values. Dr. Choudhary orthopedics was contacted by Dr. Felipe personally. I am the secondary supervising physician. (Fabricio Gunn) - Data Points Laboratory Results: Laboratory Results 03/28/16 09:50 03/28/16 09:50 03/28/16 09:50 WBC 7.06 10^3/uL (3.80-9.50) RBC 2.84 L 10^6/uL (4.18-5.33) Hgb 7.4 L g/dL (12.6-16.3) Hct 24.1 L % (38.0-47.0) MCV 84.9 fL (81.5-99.8) MCH 26.1 L pg (27.9-34.1) MCHC 30.7 L g/dL (32.4-36.7) RDW 16.3 H % (11.5-15.2) Plt Count 310 10^3/uL (150-400) MPV 8.4 L fL (8.7-11.7) Neut % (Auto) 84.6 H % (39.3-74.2) Lymph % (Auto) 4.1 L % (15.0-45.0) [place] % (Auto) 5.8 % (4.5-13.0) Eos % (Auto) 2.7 % (0.6-7.6) Baso % (Auto) 0.7 % (0.3-1.7) Nucleat RBC Rel Count 0.0 % (0.0-0.2) Absolute Neuts (auto) 5.97 10^3/uL (1.70-6.50) Absolute Lymphs (auto) 0.29 L 10^3/uL (1.00-3.00) Absolute Monos (auto) 0.41 10^3/uL (0.30-0.80) Absolute Eos (auto) 0.19 10^3/uL (0.03-0.40) Absolute Basos (auto) 0.05 10^3/uL (0.02-0.10) Absolute Nucleated RBC 0.00 10^3/uL (0-0.01) Immature Gran % 2.1 H % (0.0-1.1) Immature Gran # 0.15 H 10^3/uL (0.00-0.10) ESR 99 H MM/HR (0-30) Sodium 138 mEq/L (134-144) Potassium 3.3 L mEq/L (3.5-5.2) Chloride 99 mEq/L (97-110) Carbon Dioxide 28 mEq/l (22-31) Anion Gap 11 mEq/L (8-16) BUN 3 L mg/dL (7-23) Creatinine 0.5 L mg/dL (0.6-1.0) Estimated GFR > 60 Glucose 117 H mg/dL (70-100) Calcium 8.2 L mg/dL (8.5-10.4) C-Reactive Protein 86.4 H mg/L (<10.0) Medications Given: Discontinued Medications Furosemide (Lasix Injection) 20 mg IVP ONCE ONE Stop: 03/28/16 13:22 Last Admin: 03/28/16 14:07 Dose: 20 mg Hydromorphone HCl (Dilaudid) 1 mg IVP EDNOW ONE Stop: 03/28/16 10:09 Last Admin: 03/28/16 10:15 Dose: 1 mg Potassium Chloride (Klor-Con) 30 meq PO ONCE ONE PRN Reason: Protocol Stop: 03/28/16 13:58 Last Admin: 03/28/16 14:12 Dose: 30 meq Departure - Departure Disposition: [facility] Clinical Impression: Left arm cellulitis Condition: Fair
[2016-03-28 10:04] LABS: % IMMATURE GRANULYOCYTES 2.1 % (0.0-1.1); ABSOLUTE IMMATURE GRANULOCYTES 0.15 10^3/uL (0.00-0.10); ADD DIFF? NO; ADD MORPH? NO; ADD SCAN? NO; ATYPICAL LYMPHOCYTE FLAG 10 (0-99); FRAGMENT RBC FLAG 0 (0-99); HEMATOCRIT 24.1 % (38.0-47.0); HEMOGLOBIN 7.4 g/dL (12.6-16.3); LEFT SHIFT FLG 20 (0-99); LIPEMIA HEMOLYSIS FLAG 80 (0-99); MEAN CELL HEMOGLOBIN 26.1 pg (27.9-34.1); MEAN CELL HEMOGLOBIN CONCENTR. 30.7 g/dL (32.4-36.7); MEAN CELL VOLUME 84.9 fL (81.5-99.8); MEAN PLATELET VOLUME 8.4 fL (8.7-11.7); PLATELET CLUMPS FLAG 0 (0-99); PLATELET COUNT 310 10^3/uL (150-400); RED BLOOD CELL COUNT 2.84 10^6/uL (4.18-5.33); RED CELL DISTRIBUTION WIDTH 16.3 % (11.5-15.2)
[2016-03-28] MEDS ORDERED: HYDROmorphONE/DILAUDID 1 MG/ML SYR IVP ONE (10:08)
[2016-03-28 10:21] LABS: ANION GAP 11 mEq/L (8-16); C-REACTIVE PROTEIN 86.4 mg/L (<10.0); CALCIUM 8.2 mg/dL (8.5-10.4); CARBON DIOXIDE 28 mEq/l (22-31); CHLORIDE 99 mEq/L (97-110); CREATININE 0.5 mg/dL (0.6-1.0); GLOMERULAR FILTRATION RATE > 60; GLUCOSE 117 mg/dL (70-100); POTASSIUM 3.3 mEq/L (3.5-5.2); SODIUM 138 mEq/L (134-144)
[2016-03-28 10:24] LABS: SEDIMENTATION RATE 99 MM/HR (0-30)
--- NOTE | 2016-03-28 11:12 | DX ---
Left Shoulder, Two Views HISTORY: History of left shoulder surgery. Pain. COMPARISON: MARCH 14, 2016. FINDINGS: Postsurgical changes are seen of open reduction internal fixation of a comminuted proximal left humerus fracture with stable alignment. No evidence for hardware fracture. No new fracture is vi sualized. There is inferior subluxation of the humeral head in relation to the glenoid slightly impro maycol from the prior examination. This could be secondary to glenohumeral joint effusion. No other sign ificant interval change. IMPRESSION: Stable postsurgical changes of open reduction internal fixation of a comminuted proximal left humerus fracture. Probable glenohumeral joint effusion.
--- NOTE | 2016-03-28 12:07 | PCMIDPN ---
Assessment/Plan: Assessment/Plan: * Left upper extremity erythema with ongoing low-grade temperatures status post ORIF of left humeral fracture with MSSA infection of fracture at time of ORIF undergoing 6 weeks of IV cefazolin: Persistent erythema with low-grade temperatures, elevated inflammatory markers and small fluctuant area along incision line all concerning for persistent infection of humeral fracture as patient was bacteremic with active infection noted intraoperatively at time of hardware placement. Initial plans included 6 weeks of IV antibiotics with plans for lifelong suppression. Given active inflammatory findings, have concern will require repeat incision and drainage in order to reduce bacterial burden. Do not think this represents a failure of antibiotics but more likely is natural history of her disease process; therefore, will continue cefazolin. Call placed to orthopedic surgery to further review. Will obtain plain films as nasal radiographic evaluation although may need more advanced imaging to further define. * History of MSSA bacteremia: Currently under therapy with cefazolin. Will repeat blood cultures to ensure no evidence of recurrent bacteremia although suspect this should be unlikely. Time spent, 40 minutes, of which greater than half was spent in education/ counseling and coordination of care related to MSSA bacteremia and infected pathologic fracture. 03/28/16 12:03 03/28/16 12:09 Subjective: Patient sent to emergency department by snf facility with concerns of persistent cellulitis around left humeral surgical site. Hospitalization in February reviewed and notable for MSSA bacteremia as well as infected pathologic fracture of left humerus with MSSA. Stabilization of fracture was necessary by ORIF while active infection was present. Patient has been receiving IV cefazolin with plans for 6 week course followed by lifelong suppression given above findings. She notes she has low-grade temperatures in the 100 degree range every other day. No associated chills. Prior hip pain has resolved. She continues to have pain in the left humeral region. I was contacted by the emergency department to evaluate for infectious diseases. Please see initial consult by Dr. Sagastume on 02/29/2016 and infectious disease progress note by Dr. Hernandez on 03/14/2016 for full details. Objective: Vital Signs Temp Pulse Resp BP Pulse Ox 37.4 C 67 17 106/66 94 03/28/16 11:12 03/28/16 11:12 03/28/16 11:12 03/28/16 11:12 03/28/16 11:12 03/27/16 03/28/16 03/29/16 05:59 05:59 05:59 Intake Total 20 Balance 20 ESR 99 MM/HR (0-30) H 03/28/16 09:50 C-Reactive Protein 86.4 mg/L (<10.0) H 03/28/16 09:50 Cefazolin 1 g IV q.8 hours with anticipated stop date of 04/16/2016 Laboratory Tests 03/28/16 09:50 WBC 7.06 Neut % (Auto) 84.6 H Creatinine 0.5 L - Physical Exam General Appearance: alert, no apparent distress EENT: pharynx normal, No conjunctival petechiae Respiratory: lungs clear, No respiratory distress Cardiac/Chest: regular rate, rhythm, systolic murmur (2/6 throughout) Extremities: inflammation (Left medial upper extremity along incision line with erythema, warmth and mild edema +tenderness for several cm around incision; small fluctuant area at inferior portion of incision along incision line; some desquamation of skin present) Abdomen: non-tender, No distended Skin: No embolic lesions - Line/s RUE PICC Lines: No drainage, No erythema ICD10 Worksheet Patient Problems: Problems Problem Status Diagnosed Bipolar 1 disorder with moderate isaura Acute Marijuana abuse Acute Altered mental status Acute Arm fracture Acute Chest pain Acute Lymphoma Acute Withdrawal from sedative drug Acute Bipolar disorder Chronic
[2016-03-28] MEDS: LORazepam 1 MG TAB PO SCH ×2 (12:49→17:15)
[2016-03-28] MEDS ORDERED: PROCHLORPERAZINE MALEATE 10 MG TAB PO PRN (13:01)
[2016-03-28] MEDS ORDERED: POLYETHYLENE GLYCOL 3350 17 GM PKT PO PRN (13:01)
[2016-03-28] MEDS ORDERED: traMADol 50 MG TAB PO PRN ×2 (13:01)
[2016-03-28] MEDS ORDERED: NON-FORMULARY NEW DRUG (Oxycodone Hcl [Oxycodone Hcl] 20 MG) PO PRN (13:01)
[2016-03-28] MEDS ORDERED: PROTOCOL POTASSIUM 1 DOSE MISC PRN (13:17)
[2016-03-28] MEDS ORDERED: FUROSEMIDE 20 MG/2 ML VIAL IVP ONE (13:21)
--- NOTE | 2016-03-28 13:54 | CPEKG ---
Heart Rate: 93 RR Interval: 645 P-R Interval: 160 QRSD Interval: 78 QT Interval: 364 QTC Interval: 453 P [place]: 70 QRS [place]: 61 T Wave [place]: -11 EKG Severity - BORDERLINE ECG - EKG Impression: SINUS RHYTHM EKG Impression: BORDERLINE T ABNORMALITIES, INFERIOR LEADS Electronically Signed By: Fabricio Gunn 28-Mar-2016 14:53:44
[2016-03-28] MEDS ORDERED: POTASSIUM CL 10 MEQ TAB PO ONE ×2 (13:57→19:51)
[2016-03-28] MEDS ORDERED: [UNRECOGNIZED DRUG - REMARK] IVP SCH (14:00)
[2016-03-28] MEDS: ceFAZolin 2 GM/DEXTROSE 100 ML IV SCH ×2 (14:06→20:20)
[2016-03-28] MEDS: HYDROmorphONE/DILAUDID 1 MG/ML SYR IVP PRN ×3 (14:07→18:29)
--- NOTE | 2016-03-28 14:45 | GHP ---
[f rep st] HISTORY AND PHYSICAL DATE OF ADMISSION: 03/28/2016 CHIEF COMPLAINT: Left shoulder pain. HISTORY: Michelle Sanchez is a 65-year-old female with a history of metastatic follicular lymphoma, wi th extensive bony metastases and pathological fractures. She was just discharged from [facility] 2 weeks ago and during that admission, she had a pathological fracture of the left shoul chaim with a coinciding methicillin sensitive Staph aureus bacteremia from her port. Unfortunately, t he left shoulder became superinfected with the staff with intraoperative cultures becoming positive. The hardware for the ORIF was put into the infected shoulder, therefore it was aware that long-term infection control would be difficult. 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 She discharged to [facility]. She now re-presents to the emergency room with 3 days of increasing left shoulder pain and erythema. She is having low-grade fevers to 100.0. She has severe, intense pain with any movement of the left shoulder. She previously did also complain of right hip pain which was tapped and was concern for p ossible infection, however, right hip pain has completely resolved. She did not notice her lower ext remity edema until they put on the Yellow socks here and she noticed their indentation. She denies any chest pain or shortness of breath. PAST MEDICAL HISTORY: 1. Stage IV follicular lymphoma, with extensive bony metastases and pathological fractures. 2. Bipolar disorder. 3. COPD. PAST SURGICAL HISTORY: Right hip ORIF, left ankle fracture. MEDICATIONS: Please see computer record for full detailed list. ALLERGIES: Are extensive please refer to Bday. BODY AFTER ALLERGIES: SOCIAL HISTORY: She smoked 2 packs per day for 50 years. She quit 3 years ago. No alcohol. She li ves alone with support of some neighbors. She has been at [facility], [facility], Since her last hospital discharge. 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 REVIEW OF SYSTEMS: Complete review of systems obtained. Review of systems negative on constitutiona l, HEENT, GI, pulmonary, cardiovascular, , hematology, skin, musculoskeletal, endocrine, psych exce pt for positives which were listed as in HPI. FAMILY HISTORY: Reviewed, noncontributory to presenting complaint. PHYSICAL EXAMINATION: GENERAL: Well-developed, well-nourished female in no acute distress. VITAL S IGNS: Temperature is 37.2, pulse 98, blood pressure 133/65, saturating 91% on room air. EYES: Barb l conjunctiva, pupils reactive to light. ENT: Normal ears and nose. Hearing intact. Normal teeth. Oropharynx moist. NECK: Trachea midline. No thyromegaly. CHEST: Normal effort. LUNGS: Clear to auscultation and percussion bilaterally. CARDIOVASCULAR: Regular rate and rhythm. Positive syst olic murmur heard best at the right upper sternal border. EXTREMITIES: 1 TO 2+ bilateral lower extr emity edema. ABDOMEN: Soft, nontender. No hepatosplenomegaly. SKIN: Warm, dry, intact. No rash except for left upper extremity which shows extensive erythema extending from the lower part of her p revious incision. It is extremely tender to any type of palpation, it is warm, but the overlying sk in is dry and scaling. MUSCULOSKELETAL: No cyanosis or clubbing. Strength 5/5 in upper and lower ex tremities. NEUROLOGIC: Cranial nerves intact. Normal sensation to light touch. PSYCH: Alert and oriented x3. Normal affect. Normal judgment and insight. Normal memory. LABS: White count 7.06, hematocrit 24.1, platelets 310. Sodium 138, potassium 3.3, chloride 99, bica rb 28. BUN 3, creatinine 0.5, glucose 117. ESR is 99, CRP is 86.4. Medical records have been reviewed. She was just discharged from here 2 weeks ago. Summary is as di scussed above. Plan was IV Ancef through April 16 with long-term chronic suppressive antibiotics . ASSESSMENT/PLAN: 1. Left upper extremity cellulitis. Overlying an infected pathological fracture. Unfortunately, he r ORIF was done with hardware placement while she was having an active infection of this pathological fracture, and is therefore known to be a high risk situation and Infectious Disease does not feel th at there is a failure of IV Ancef, but that more surgical local control of infection is required. Or thopedic Surgery has been consulted, Dr. Choudhary. We will keep her n.p.o. until we hear from them wheth er or not surgery may be today. She is having severe pain and we will prescribe IV Dilaudid. 2. Methicillin sensitive Staph aureus bacteremia. The plan was initially IV Ancef through April 16, but this will need to be reconsidered now that we have a complication. 3. Stage IV follicular lymphoma, with extensive bony metastases and pathological fractures. She is on prednisone per Oncology, she requires long-acting narcotics, currently OxyContin, for pain control . Oncology has been consulted and will see her here in the hospital. 4. Lower extremity edema. This is new, will check bilateral lower extremity ultrasounds for DVT iss ues, very high risk given her extensive malignancy. We will give a dose of Lasix x 1. We will check a BNP and urinalysis for protein. She does have a significant murmur on her echo, however, reviewed o ld chart, and it appears that a systolic murmur has been present in the past with echo showing aortic sclerosis. We will check an EKG and a chest x-ray. 5. Chronic obstructive pulmonary disease. This appears stable, we will continue her Spiriva. 6. Bipolar disorder. We will continue her usual psychiatric medications, including her chronic Ativ an. 7. Anemia of chronic disease. This will be followed. CODE STATUS: She requests full. ADMISSION STATUS: 1. Will admit to inpatient as she is medically complex, anticipate greater than 2 midnights required . 2. DVT prophylaxis. She should get subcu Lovenox initiated after surgical procedure. /[id number]/MODL
[2016-03-28 15:27] LABS: COLOR PALE YELLOW; LEUKOCYTE ESTERASE,URINE NEGATIVE (NEGATIVE); NITRITE,URINE NEGATIVE (NEGATIVE)
[2016-03-28] MEDS: tiZANidine HCL 2 MG TAB PO PRN (16:28)
--- NOTE | 2016-03-28 16:43 | DX ---
Chest, PA and Lateral March 28, 2016 HISTORY: Edema. COMPARISON: February 2016. FINDINGS: The heart size is within normal limits. The pulmonary vascularity is minimally prominent. Mild atelectasis is seen at both lung bases. Minimal bilateral pleural effusion seen at the psychologist personnel ior sulcus. Mild degenerative change is seen in the thoracic spine. Postsurgical changes are seen o f open reduction internal fixation of a proximal left humerus fracture. A right PIC line is seen in good position as well as a right [id number] catheter. IMPRESSION: Question minimal pulmonary vascular congestion. Mild atelectasis at both lung bases.
[2016-03-28] MEDS: NYSTATIN SUSP 500000 UNIT/5 ML UDCUP PO SCH (17:16)
[2016-03-28] MEDS: OLANZapine DISINTEGR 10 MG TAB PO SCH ×2 (17:16→20:14)
[2016-03-28] MEDS ORDERED: NYSTATIN PO SCH (18:00)
--- NOTE | 2016-03-28 18:37 | US ---
Bilateral Lower Extremity Venous Doppler INDICATION: Bilateral edema. TECHNIQUE: Bilateral lower extremity Doppler evaluation is performed. FINDINGS: The visualized deep and superficial veins are compressible, with normal color flow. No ul trasound evidence for slow flow. There is bilateral subcutaneous edema. IMPRESSION: No DVT or superficial thrombophlebitis on either side. Leg swelling.
[2016-03-28 18:45] LABS: POTASSIUM 3.4 mEq/L (3.5-5.2)
[2016-03-28] MEDS: ACYCLOVIR 400 MG TAB PO SCH (20:13)
[2016-03-28] MEDS: oxyCODONE IR 5 MG TAB PO PRN (20:13)
[2016-03-28] MEDS: DOXEPIN HCL 50 MG CAP PO SCH (20:14)
[2016-03-28] MEDS: IBUPROFEN 600 MG TAB PO PRN (20:14)
--- NOTE | 2016-03-28 23:31 | GCON ---
[f rep st] CONSULTATION MEDICAL ONCOLOGY FOLLOWUP CONSULTATION. REFERRING PHYSICIAN: Argentina Lara MD REASON FOR CONSULTATION: Ongoing management of pain and possible Nelson transformation of her low-g rade lymphoma. RECOMMENDATIONS: 1. I agree with surgical consultation with Dr. Choudhary for possible revision of her left shoulder. She has continued pain in the area. There is a fluctuant area in the distal portion of her left shoulder incision and overlying erythema. She has had methicillin-resistant Staph bacteremia. She is currently on long-term antibiotics for this. According to Infectious Disease consultation, she may require rev ision, however. 2. There is concern the patient's follicular lymphoma is transformed to a more aggressive lymphoma. Her PET scan has shown marked increased activity in her right cervical axillary area as well as right groin and in her bones, which is progressive since September of 2015. She also has an elevated LDH at jose roximately 2000. These findings are concerning for transformation to a more aggressive lymphoma, such as large cell lymphoma. Her right groin lymph node is quite tender and this would likely be a good p lace to go for possible biopsy. I think at the priority is going to be her left shoulder revision but hopefully during this hospitalization, we will be able to get that lymph node biopsied. Dr. Michelle mireles has already been contacted regarding this. 3. Patient has bipolar disorder and anxiety and will remain on her current medications for that. ASSESSMENT: This 65-year-old white female was diagnosed with follicular non-Hodgkin's lymphoma in Ju ly of 2015. She has been treated with Bendamustine and Rituxan but unfortunately has recently shown i ncreasing LDH and increasing activity on PET CT scan, which is atypical for follicular lymphomas. The concern is that she has progressed. She had a fracture of her left shoulder recently and unfortunate ly, this was repaired while she had an infection going on. She is at high risk for seeding her surgic al site and this is currently being addressed by antibiotics and Orthopedic consultation as well as [facility] Infectious Disease. Her right groin lymph node, which is hot on PET scan, is also very tender. This, I think, will likely be a good place to go for biopsy to try to determine whether she has progressive lymphoma or transfo rmed lymphoma at this time. Dr. Sánchez has been contacted. PAST MEDICAL HISTORY: Remarkable for bipolar disorder, alopecia, chronic pain, chronic anxiety with panic attacks, COPD, obstructive sleep apnea, hypothyroidism, hypercholesterolemia, and a history of alcoholism although she has been dry now for approximately 9 years. PAST SURGICAL HISTORY: Includes surgery on her left shoulder, right hip repair, and an ankle fractur e in 1971. SOCIAL HISTORY: She had been a heavy alcohol user in the past but none recently. FAMILY HISTORY: Unremarkable for malignancy. REVIEW OF SYSTEMS: Remarkable for right groin pain, which is somewhat improved; left shoulder pain, which is still present; low-grade fevers; and bone pain. PHYSICAL EXAMINATION: HEENT: Shows alopecia. The patient is wearing a wig. Her sclerae show no icte osvaldo. LUNGS: Clear to auscultation. CARDIAC: Shows a regular rhythm. ABDOMEN: At this time shows n ormal bowel sounds. EXTREMITIES: Her lower extremities show 1+ edema. LYMPH NODES: Show an exquisit flor tender lymph node in the right groin, which is approximately 2 x 4 cm clinically, although the si ze on PET CT scan from approximately 2 weeks ago was 1.8 x 1.7 cm. SKIN: Shows erythema and desquama tion of the skin on her left humerus at the distal aspect. There is fluid accumulation under the skin incision. It is currently not draining. LABORATORY: Her laboratory exam today shows a white count of 7.06 with a hemoglobin of 7.4 and a anaid telet count of 310,000. Chemistries show potassium of 3.3 and a creatinine of 0.5. Urinalysis was unr emarkable. Thank you very much for allowing us to participate in this pleasant woman's hematologic and oncologic care while she is in the hospital. We will continue to follow her as an outpatient. /[id number]/MODL
[2016-03-29] MEDS: oxyCODONE IR 5 MG TAB PO PRN ×5 (00:14→16:48)
[2016-03-29] MEDS: NYSTATIN SUSP 500000 UNIT/5 ML UDCUP PO SCH ×4 (00:18→18:43)
--- NOTE | 2016-03-29 03:18 | GCON ---
[f rep st] CONSULTATION INPATIENT CONSULT. DATE OF CONSULTATION: 03/28/2016 CHIEF COMPLAINT: Left arm pain. HISTORY OF PRESENT ILLNESS: This is a 65-year-old female, who previously had undergone a left proxim al humerus ORIF for a pathologic fracture associated with osteomyelitis. She has been on long-term a ntibiotics since that time. She has been readmitted today secondary to concerns about worsening of h er cancer. She is a scheduled to undergo a lymph node biopsy in the next several days in order to gr brady her cancer again. I have been asked to see the patient for further evaluation of the left arm an d see if debridement would be appropriate. PHYSICAL EXAMINATION: The patient remains grossly neurologically intact to the musculocutaneous, rad ial, median, and ulnar nerve. She has no pain to gentle range of motion passively to the shoulder, b ut she has significant weakness to abduction across the shoulder using the abductors and forward flex ion. Her skin is very well healed in the upper half of the incision, which is significantly improved from her preop situation. Her inferior half appears to be indurated and somewhat red, but is nonten chaim in the areas of induration. She has of bulging area of the inferior portion of her scar, which i s not very fluctuant and not tender. Nor is the inferior arm warm. DIAGNOSTIC DATA: X-ray exam reveals well placed hardware with no evidence of lysis, loosening, or re fracture. ASSESSMENT AND PLAN: Patient is status post left proximal humerus open reduction, internal fixation with possible recurrence of infection. Given that she has a low white count, but a high sedimentatio n rate and C-reactive protein, would suggest she continues to have an infectious process somewhere w ithin her, and it may indeed be the inferior portion of the scar. I have spoken with Dr. Sánchez and Bonyn Townsend regarding timing for her upcoming lymph node biopsy. If she is going to be going to the ope rating room soon, I would like to coordinate the time to be able to debride the area. If she is not going to undergo biopsy at all, I would wait and see if the inferior portion of the wound would decla re itself. However, in order to save her from going through 2 separate anesthetics, if she is going to undergo the lymph node biopsy, I would be happy to do debridement at the same time while she is in the operating room. We will try and coordinate schedules with either Dr. Townsend or Dr. Sánchez. /[id number]/MODL
--- NOTE | 2016-03-29 03:18 | GCON ---
[f rep st] CONSULTATION HISTORY OF PRESENT ILLNESS: This is a pleasant 65-year-old woman with history of follicular lymphoma , with extensive bony metastases and pathological fracture. She was recently admitted at [facility] for a pathological fracture of the left shoulder with bacteremia from her port. During that admission, her port was removed and a new port was placed. She underwent ORIF of the left shou lder and was discharged with IV antibiotics. She presents today with worsening shoulder pain and inf ection. She was scheduled as an outpatient for a lymph node biopsy with Dr. Michelle Sánchez per the requ est of Dr. Koo. PAST MEDICAL HISTORY: Stage IV follicular lymphoma, extensive bony metastases, pathological fracture , bipolar disorder, COPD. PAST SURGICAL HISTORY: Right hip ORIF, left ankle fracture, left shoulder surgery as above. ALLERGIES: Please refer to [facility]. SOCIAL HISTORY: She smoked 2 packs per day for 50 years. She quit 3 years ago. She denies alcohol use. She was discharged from [facility] to [facility] during her last hospital stay . REVIEW OF SYSTEMS: Negative aside from HPI. PHYSICAL EXAMINATION: GENERAL: Well-developed, well-nourished, woman in no acute distress. HEENT: Normocephalic, atraumatic. No hearing deficits. Pupils equal and round. No scleral icterus. Muco us membranes moist. NECK: Trachea midline. RESPIRATORY: No increased work of breathing. Clear to auscultation bilaterally. CARDIOVASCULAR: Regular rate and rhythm. CHEST: The left port removal site clean, dry and intact. Right port incision clean, dry and intact without evidence of any infect ion. SKIN: Warm and dry. IMPRESSION AND PLAN: The patient is a pleasant 65-year-old woman admitted with left upper extremity cellulitis status post open reduction internal fixation. We will proceed with lymph node biopsy beth torres this admission after her current infection is stabilized. We will plan for surgery early next aylin trevino. We will continue to follow during this hospital stay. Appreciate Orthopedics, ID and hospitalist . /[id number]/MODL
[2016-03-29] MEDS: HYDROmorphONE/DILAUDID 1 MG/ML SYR IVP PRN ×2 (03:46→09:04)
[2016-03-29 04:03] LABS: ADD DIFF? YES; ADD SCAN? NO; ATYPICAL LYMPHOCYTE FLAG 30 (0-99); FRAGMENT RBC FLAG 20 (0-99); HEMATOCRIT 22.1 % (38.0-47.0); LEFT SHIFT FLG 30 (0-99); LIPEMIA HEMOLYSIS FLAG 80 (0-99); MEAN CELL HEMOGLOBIN 26.3 pg (27.9-34.1); MEAN CELL HEMOGLOBIN CONCENTR. 30.8 g/dL (32.4-36.7); MEAN CELL VOLUME 85.3 fL (81.5-99.8); MEAN PLATELET VOLUME 8.9 fL (8.7-11.7); PLATELET CLUMPS FLAG 0 (0-99); PLATELET COUNT 287 10^3/uL (150-400); RED BLOOD CELL COUNT 2.59 10^6/uL (4.18-5.33); RED CELL DISTRIBUTION WIDTH 16.4 % (11.5-15.2)
[2016-03-29 04:06] LABS: HEMOGLOBIN 6.8 g/dL (12.6-16.3)
[2016-03-29 04:10] LABS: ADD MORPH? NO
[2016-03-29 04:26] LABS: ALANINE AMINOTRANSFERASE 24 IU/L (9-52); ALBUMIN 2.6 g/dL (3.5-5.0); ALKALINE PHOSPHATASE 98 IU/L (38-126); ANION GAP 10 mEq/L (8-16); ASPARTATE AMINOTRANSFERASE 30 IU/L (14-46); BILIRUBIN,TOTAL 0.3 mg/dL (0.1-1.4); BILIRUBIN-CONJUGATED 0.2 mg/dL (0.0-0.5); BILIRUBIN-UNCONJUGATED 0.1 mg/dL (0.0-1.1); CALCIUM 8.1 mg/dL (8.5-10.4); CARBON DIOXIDE 29 mEq/l (22-31); CHLORIDE 103 mEq/L (97-110); CREATININE 0.5 mg/dL (0.6-1.0); GLOMERULAR FILTRATION RATE > 60; GLUCOSE 93 mg/dL (70-100); POTASSIUM 3.6 mEq/L (3.5-5.2); SODIUM 142 mEq/L (134-144); TOTAL PROTEIN 5.5 g/dL (6.3-8.2)
[2016-03-29 04:50] LABS: GIANT PLATELETS PRESENT; HYPOCHROMIA 1+; PLATELET ESTIMATE ADEQUATE (ADEQ); POLYCHROMASIA 1+
[2016-03-29] MEDS: LORazepam 1 MG TAB PO SCH ×4 (04:58→16:48)
[2016-03-29] MEDS: LEVOTHYROXINE 125 MCG TAB PO SCH (04:59)
[2016-03-29] MEDS: OLANZapine DISINTEGR 10 MG TAB PO SCH ×4 (04:59→21:30)
[2016-03-29] MEDS: ceFAZolin 2 GM/DEXTROSE 100 ML IV SCH ×3 (05:00→21:24)
[2016-03-29] MEDS: TIOTROPIUM INHALER 18 MCG/DOSE 5 DOSE/MDI IH SCH (08:38)
[2016-03-29] MEDS ORDERED: NON-FORMULARY NEW DRUG (Ranitidine Hcl [Zantac] 300 MG) PO SCH (09:00)
[2016-03-29] MEDS ORDERED: VENLAFAXINE XR 150 MG CAP PO SCH (09:00)
[2016-03-29] MEDS ORDERED: ENOXAPARIN 40 MG/0.4 ML SYR SC SCH (09:00)
[2016-03-29] MEDS: ACYCLOVIR 400 MG TAB PO SCH ×2 (09:26→21:28)
[2016-03-29] MEDS: FERROUS SULFATE 325 MG TAB PO SCH (09:26)
[2016-03-29] MEDS: FAMOTIDINE 20 MG TAB PO SCH (09:27)
[2016-03-29] MEDS: predniSONE 10 MG TAB PO SCH (09:27)
[2016-03-29] MEDS: tiZANidine HCL 2 MG TAB PO PRN (09:32)
[2016-03-29] MEDS: VENLAFAXINE XR 75 MG CAP PO SCH (09:38)
--- NOTE | 2016-03-29 11:04 | PCMIDPN ---
Assessment/Plan: Assessment/Plan: * Left upper extremity erythema with ongoing low-grade temperatures status post ORIF of left humeral fracture with MSSA infection of fracture at time of ORIF undergoing 6 weeks of IV cefazolin: Appreciate Dr. Choudhary' consultation. Plans underway to coordinate debridement with lymph node biopsy so that only has to undergo anesthesia once. Fluctuant area at inferior incision similar to that yesterday. Suspect clinical findings are due to persistent MSSA infection. Continue cefazolin. * History of MSSA bacteremia: Currently under therapy with cefazolin. Repeat blood cultures are pending to ensure no recurrent bacteremia present. 03/29/16 11:00 Subjective: Patient complains of left upper extremity pain. Objective: Vital Signs Temp Pulse Resp BP Pulse Ox 37.1 C 91 12 110/63 95 03/29/16 07:43 03/29/16 08:42 03/29/16 08:42 03/29/16 07:43 03/29/16 08:42 Laboratory Results 03/29/16 03:50 03/29/16 04:00 03/28/16 03/29/16 03/30/16 05:59 05:59 05:59 Intake Total 730 Output Total 2600 Balance -1870 ESR 99 MM/HR (0-30) H 03/28/16 09:50 C-Reactive Protein 86.4 mg/L (<10.0) H 03/28/16 09:50 Cefazolin 2 g Q 8 Blood cultures no growth to date - Physical Exam General Appearance: alert, no apparent distress EENT: pharynx normal, No conjunctival petechiae Respiratory: lungs clear, No respiratory distress Cardiac/Chest: regular rate, rhythm, systolic murmur (2/6 throughout) Extremities: inflammation (Left upper extremity with faint erythema, warmth and tenderness along the incision line; fluctuant area at inferior margin of incision line without significant change) Abdomen: non-tender, No distended Skin: No embolic lesions ICD10 Worksheet Patient Problems: Problems Problem Status Diagnosed Bipolar 1 disorder with moderate isaura Acute Left arm cellulitis Acute Marijuana abuse Acute Altered mental status Acute Arm fracture Acute Chest pain Acute Lymphoma Acute Withdrawal from sedative drug Acute Bipolar disorder Chronic
--- NOTE | 2016-03-29 11:50 | HOSPPROG ---
Hospitalist Progress Note Assessment/Plan: LUE cellulitis - To OR tomorrow for debridement. Cont Ancef. ID following. S/P Left humeral fracture requiring ORIF while bacteremic, now cellulitis - OR in AM per Dr. Choudhary. MSSA bacteremia - Cont Ancef Stage IV follicular lymphoma - some concern she has developed a more aggressive lymphoma. Plan for biopsy of groin node tomorrow per gen surg. Onc following. LE edema - s/p Lasix yesterday, some improvement. US neg for DVT. COPD - stable, cont outpt meds Bipolar - stable, cont outpt med Hypothyroid - cont Levothyroxine DVT PPLX - Lovenox Full code Dispo - cont inpt Subjective: PT reports 8/10 shoulder pain. No fevers. No CP or SOB. No N/V/ D. Tolerating po. Objective: Vital Signs Temp Pulse Resp BP Pulse Ox 36.9 C 94 15 104/72 97 03/29/16 11:31 03/29/16 11:31 03/29/16 11:31 03/29/16 11:31 03/29/16 11:31 Laboratory Results 03/29/16 03:50 03/29/16 04:00 03/28/16 03/29/16 03/30/16 05:59 05:59 05:59 Intake Total 730 Output Total 2600 Balance -1870 - Physical Exam Constitutional: no apparent distress Eyes: PERRL Ears, Nose, Mouth, Throat: moist mucous membranes Cardiovascular: regular rate and rhythym Respiratory: no respiratory distress, clear to auscultation Gastrointestinal: normoactive bowel sounds, soft, non-tender abdomen Musculoskeletal: other (LUE with erythema of anterior humeral region surrounding prior scar) Neurologic: AAOx3 Psychiatric: interacting appropriately ICD10 Worksheet Patient Problems: Problems Problem Status Diagnosed Bipolar 1 disorder with moderate isaura Acute Left arm cellulitis Acute Marijuana abuse Acute Altered mental status Acute Arm fracture Acute Chest pain Acute Lymphoma Acute Withdrawal from sedative drug Acute Bipolar disorder Chronic
--- NOTE | 2016-03-29 12:01 | SOAPPROG ---
SOAP Progress Note Assessment/Plan: Assessment: Plan: Subjective: states her arm isn't that painful no change in scar plan for I&D tomorrow Objective: Vital Signs Temp Pulse Resp BP Pulse Ox 36.9 C 94 15 104/72 97 03/29/16 11:31 03/29/16 11:31 03/29/16 11:31 03/29/16 11:31 03/29/16 11:31 Laboratory Results 03/29/16 03:50 03/29/16 04:00 03/28/16 03/29/16 03/30/16 05:59 05:59 05:59 Intake Total 730 Output Total 2600 Balance -1870 ICD10 Worksheet Patient Problems: Problems Problem Status Diagnosed Bipolar 1 disorder with moderate isaura Acute Left arm cellulitis Acute Marijuana abuse Acute Altered mental status Acute Arm fracture Acute Chest pain Acute Lymphoma Acute Withdrawal from sedative drug Acute Bipolar disorder Chronic
[2016-03-29] MEDS ORDERED: METHOCARBAMOL 750 MG TAB ONE (12:33)
[2016-03-29] MEDS: METHOCARBAMOL 750 MG TAB PO SCH ×2 (12:36→21:28)
[2016-03-29] MEDS ORDERED: POTASSIUM CL 10 MEQ TAB PO ONE (13:49)
[2016-03-29] MEDS ORDERED: POTASSIUM CL 20 MEQ TAB ONE (13:53)
--- NOTE | 2016-03-29 14:48 | SOAPPROG ---
SOAP Progress Note Assessment/Plan: Assessment: 65 female on rx for lymphoma needs bx for path reeval risks and options fully discussed 2.5 cm rt neck mass likely sebaceous cyst/ 4cm node rt groin/ firm rib mass rt axilla Plan: rt groin node bx in am 03/29/16 14:46 Objective: Vital Signs Temp Pulse Resp BP Pulse Ox 36.9 C 94 15 104/72 97 03/29/16 11:31 03/29/16 11:31 03/29/16 11:31 03/29/16 11:31 03/29/16 11:31 Laboratory Results 03/29/16 03:50 03/29/16 04:00 03/28/16 03/29/16 03/30/16 05:59 05:59 05:59 Intake Total 730 Output Total 2600 Balance -1870 ICD10 Worksheet Patient Problems: Problems Problem Status Diagnosed Bipolar 1 disorder with moderate isaura Acute Left arm cellulitis Acute Marijuana abuse Acute Altered mental status Acute Arm fracture Acute Chest pain Acute Lymphoma Acute Withdrawal from sedative drug Acute Bipolar disorder Chronic
--- NOTE | 2016-03-29 15:52 | SOAPPROG ---
[facility]AL[facility] Progress Note Assessment/Plan: Assessment: 1) H/O follicular lymphoma (s/p Rituxan / Bendamustine 2016) 2) New diffuse FDG avid lymphadenopathy concerning for recurrence 3) Recent Left shoulder fx s/p ORIF with MRSA 4) Anemia secondary to #2 Plan: Concern for recurrent lymphoma discussed with patient. Plan orthopedic debridement of prior Left shoulder surgical site and concurrent Right groin lymph node biopsy tomorrow. Further recommendations once pathology is known. PRBC transfusion ordered for today (discussed with Dr. Agee) Patient's questions answered. 03/29/16 15:48 03/29/16 15:52 03/29/16 15:53 Subjective: Patient to have surgical debridement Left shoulder and Right groin LN biopsy tomorrow Objective: Vital Signs Temp Pulse Resp BP Pulse Ox 37.3 C 79 16 99/65 L 94 03/29/16 15:38 03/29/16 15:38 03/29/16 15:38 03/29/16 15:38 03/29/16 15:38 Laboratory Results 03/29/16 03:50 03/29/16 04:00 03/28/16 03/29/16 03/30/16 05:59 05:59 05:59 Intake Total 730 1440 Output Total 2600 250 Balance -1870 1190 - Time Spent With Patient Time Spent With Patient: 20 minutes ICD10 Worksheet Patient Problems: Problems Problem Status Diagnosed Bipolar 1 disorder with moderate isaura Acute Left arm cellulitis Acute Marijuana abuse Acute Altered mental status Acute Arm fracture Acute Chest pain Acute Lymphoma Acute Withdrawal from sedative drug Acute Bipolar disorder Chronic
[2016-03-29 19:00] LABS: POTASSIUM 4.7 mEq/L (3.5-5.2)
[2016-03-29] MEDS: DOXEPIN HCL 50 MG CAP PO SCH (21:27)
[2016-03-30] MEDS: NYSTATIN SUSP 500000 UNIT/5 ML UDCUP PO SCH ×4 (00:14→18:07)
[2016-03-30] MEDS: oxyCODONE IR 5 MG TAB PO PRN ×5 (00:16→20:15)
[2016-03-30] MEDS: OLANZapine DISINTEGR 10 MG TAB PO SCH ×4 (04:35→20:15)
[2016-03-30] MEDS: ceFAZolin 2 GM/DEXTROSE 100 ML IV SCH ×3 (04:35→22:02)
[2016-03-30] MEDS: LORazepam 1 MG TAB PO SCH ×4 (04:38→18:08)
[2016-03-30] MEDS: LEVOTHYROXINE 125 MCG TAB PO SCH (04:39)
[2016-03-30 05:36] LABS: ADD DIFF? YES; ADD MORPH? NO; ADD SCAN? NO; ATYPICAL LYMPHOCYTE FLAG 30 (0-99); FRAGMENT RBC FLAG 0 (0-99); HEMATOCRIT 27.7 % (38.0-47.0); HEMOGLOBIN 8.5 g/dL (12.6-16.3); LEFT SHIFT FLG 30 (0-99); LIPEMIA HEMOLYSIS FLAG 80 (0-99); MEAN CELL HEMOGLOBIN 26.2 pg (27.9-34.1); MEAN CELL HEMOGLOBIN CONCENTR. 30.7 g/dL (32.4-36.7); MEAN CELL VOLUME 85.5 fL (81.5-99.8); PLATELET CLUMPS FLAG 10 (0-99); PLATELET COUNT 323 10^3/uL (150-400); RED BLOOD CELL COUNT 3.24 10^6/uL (4.18-5.33); RED CELL DISTRIBUTION WIDTH 16.1 % (11.5-15.2)
[2016-03-30 05:48] LABS: ANION GAP 9 mEq/L (8-16); CALCIUM 8.5 mg/dL (8.5-10.4); CARBON DIOXIDE 27 mEq/l (22-31); CHLORIDE 105 mEq/L (97-110); CREATININE 0.5 mg/dL (0.6-1.0); GLOMERULAR FILTRATION RATE > 60; GLUCOSE 88 mg/dL (70-100); POTASSIUM 4.1 mEq/L (3.5-5.2); SODIUM 141 mEq/L (134-144)
[2016-03-30 07:38] LABS: HYPOCHROMIA 1+; MACROCYTES 1+; MICROCYTES 1+; POLYCHROMASIA 2+
[2016-03-30 07:39] LABS: PLATELET ESTIMATE ADEQUATE (ADEQ)
[2016-03-30] MEDS ORDERED: PROPOFOL 200 MG/20 ML VIAL ONE ×2 (07:59→09:06)
[2016-03-30] MEDS ORDERED: fentaNYL 250 MCG/5 ML INJ ONE (08:00)
--- NOTE | 2016-03-30 08:02 | SOAPPROG ---
SOAP Progress Note Assessment/Plan: Assessment: 65 female on rx for lymphoma needs bx for path reeval risks and options fully discussed 2.5 cm rt neck mass likely sebaceous cyst/ 4cm node rt groin/ firm rib mass rt axilla Plan: rt groin node bx in am 03/29/16 14:46 03/30/16 07:59 SURGICAL RISKS AND OPTIONS AGAIN FULLY DISCUSSED/ PLAN RT GROIN NODE BX AND RT NECK CYST REMOVAL Objective: Vital Signs Temp Pulse Resp BP Pulse Ox 37.2 C 96 16 140/83 H 99 03/30/16 07:17 03/30/16 07:17 03/30/16 07:17 03/30/16 07:17 03/30/16 07:17 Laboratory Results 03/30/16 05:00 03/30/16 05:00 03/29/16 03/30/16 03/31/16 05:59 05:59 05:59 Intake Total 730 2065 Output Total 2600 1775 300 Balance -1870 290 -300 ICD10 Worksheet Patient Problems: Problems Problem Status Diagnosed Bipolar 1 disorder with moderate isaura Acute Left arm cellulitis Acute Marijuana abuse Acute Altered mental status Acute Arm fracture Acute Chest pain Acute Lymphoma Acute Withdrawal from sedative drug Acute Bipolar disorder Chronic
[2016-03-30] MEDS ORDERED: MIDAZOLAM 2 MG/2 ML VIAL ONE (08:05)
[2016-03-30] MEDS ORDERED: ROCURONIUM 100 MG/10 ML VIAL ONE (08:05)
[2016-03-30] MEDS ORDERED: LIDOCAINE 2% 5 ML SDV ONE (08:05)
[2016-03-30] MEDS ORDERED: POLYMYXIN B SULFATE 500,000 UNIT/10 ML SYR IRR ONE (08:32)
[2016-03-30] MEDS ORDERED: BACITRACIN 50,000 UNITS/10 ML SYR IRR ONE (08:32)
[2016-03-30] MEDS ORDERED: BUPIVACAINE 0.5% 30 ML SDV ONE (08:54)
[2016-03-30] MEDS: TIOTROPIUM INHALER 18 MCG/DOSE 5 DOSE/MDI IH SCH (09:01)
[2016-03-30] MEDS ORDERED: DEXAMETHASONE 4 MG/ML VIAL ONE (09:04)
[2016-03-30] MEDS ORDERED: ONDANSETRON 4 MG/2 ML VIAL ONE ×2 (09:04)
[2016-03-30] MEDS ORDERED: SUGAMMADEX SODIUM 200 MG/2 ML VIAL IVP ONE (09:09)
[2016-03-30] MEDS ORDERED: fentaNYL 100 MCG/2 ML INJ ONE ×2 (09:10→09:38)
--- NOTE | 2016-03-30 09:37 | POSTOPPROG ---
Post Op Note Date of Operation: 03/30/16 Surgeon: Alan Townsend Anesthesiologist: ALIA Anesthesia: GET(General Endotracheal) Pre-op Diagnosis: LYMPHOMA Post-op Diagnosis: SAME Indication: ENLARGING ADENOPATHY Procedure: RT GROIN LYMPH NODE EXCISION/ RT NECK MASS EXCISION Findings: 4CM GROIN NODE CONSISTENT WITH LYMPHOMA/ 3CM NECK MASS CONSISTENT WITH LYM Inf/Abcess present in the surg proc area at time of surgery?: No Depth: Deep Incisional (Fascial) EBL: Minimal Complications: 0 Specimen(s): 2 MASSES TO PATH
[2016-03-30] MEDS ORDERED: HYDROmorphONE/DILAUDID 1 MG/ML SYR ONE (09:57)
--- NOTE | 2016-03-30 10:21 | GOP ---
[f rep st] OPERATIVE REPORT DATE OF OPERATION: 03/30/2016 SURGEON: Reva Choudhary MD ANESTHESIA: LMA. PREOPERATIVE DIAGNOSIS: Left upper arm infection. POSTOPERATIVE DIAGNOSIS: Left upper arm infection. PROCEDURE PERFORMED: Left arm incision and debridement. FINDINGS: INDICATIONS: This is a 65-year-old female who had previously undergone a left proximal humerus ORIF in the face of known infection. She has done reasonably well with no pain in the area, however, she has developed erythema at the distal portion of the incision. She would like surgery in order to res olve the problem, and we coordinated this with a lymph node biopsy that she was undergoing at the [facility] time. DESCRIPTION OF PROCEDURE: The patient was brought to the operating room. After the left arm had bee n identified as the correct arm by the patient, nurse, and physician. Once in the operating room, e was placed under anesthesia using LMA. Once asleep, the left arm was sterilely prepped and draped in the usual fashion using a chlorhexidine solution. Once prepped and draped, the inferior portion o f the scar was excised. She was noted to have watery, purulent tissue that was cultured. Once cultu res had been taken, a curette was used to remove any tissue from inside the cavity, that was small in nature. There was some fibrinous tissue that was able to be removed. Once an adequate debridement had been done with a curette, 1 L of antibiotic fluid was irrigated through the cavity using a bulb s yringe. Once completed, 2 Alden drains were placed, 1 superiorly and 1 inferiorly, and the wound w as then closed in 2 areas using 0 nylon suture in a vertical mattress type stitch in order to maintai n closure but allow the Sandy drains to be advanced as time went on. The wound was then dressed wi th 4 x 4's, Kerlix, wrapped in an Atif wrap. The drape was left in place while the lymph node biopsy continued. /[id number]/MODL
[2016-03-30] MEDS: METHOCARBAMOL 750 MG TAB PO SCH ×2 (11:01→19:14)
[2016-03-30] MEDS: predniSONE 10 MG TAB PO SCH (11:02)
[2016-03-30] MEDS: VENLAFAXINE XR 75 MG CAP PO SCH (11:02)
[2016-03-30] MEDS: ACYCLOVIR 400 MG TAB PO SCH ×2 (11:03→20:15)
[2016-03-30] MEDS: FAMOTIDINE 20 MG TAB PO SCH (11:04)
[2016-03-30] MEDS: FERROUS SULFATE 325 MG TAB PO SCH (11:04)
[2016-03-30] MEDS: HYDROmorphONE/DILAUDID 1 MG/ML SYR IVP PRN (14:00)
--- NOTE | 2016-03-30 15:38 | PCMIDPN ---
Assessment/Plan: Assessment/Plan: * Left upper extremity erythema with ongoing low-grade temperatures status post ORIF of left humeral fracture with MSSA infection of fracture at time of ORIF undergoing 6 weeks of IV cefazolin: Status post repeat debridement today with purulent findings appearing to be relatively localized around incision line. Await operative cultures. Suspect still related to MSSA. Continue cefazolin. * History of MSSA bacteremia: Currently under therapy with cefazolin. Repeat blood cultures are no growth. 03/30/16 15:34 Subjective: Status post repeat incision and drainage of left upper extremity today as well as lymph node biopsy. Operative findings noted. Objective: Vital Signs Temp Pulse Resp BP Pulse Ox 36.7 C 89 16 113/70 93 03/30/16 14:00 03/30/16 14:00 03/30/16 14:00 03/30/16 14:00 03/30/16 14:00 Microbiology 03/30/16 08:42 Gram Stain - Final Arm - Eswab Laboratory Results 03/30/16 05:00 03/30/16 05:00 03/29/16 03/30/16 03/31/16 05:59 05:59 05:59 Intake Total 730 2065 1000 Output Total 2600 1775 1260 Balance -1870 290 -260 ESR 99 MM/HR (0-30) H 03/28/16 09:50 C-Reactive Protein 86.4 mg/L (<10.0) H 03/28/16 09:50 Cefazolin # 30 Blood cultures x2 no growth Operative Gram stain 1+ white blood cells, no organism - Physical Exam General Appearance: alert, no apparent distress EENT: pharynx normal, No conjunctival petechiae Respiratory: lungs clear, No respiratory distress Cardiac/Chest: regular rate, rhythm, systolic murmur (2/6 left and right upper sternal borders) Extremities: inflammation (Left upper extremity dressed postoperatively) Abdomen: non-tender, No distended Skin: No embolic lesions ICD10 Worksheet Patient Problems: Problems Problem Status Diagnosed Bipolar 1 disorder with moderate isaura Acute Left arm cellulitis Acute Marijuana abuse Acute Altered mental status Acute Arm fracture Acute Chest pain Acute Lymphoma Acute Withdrawal from sedative drug Acute Bipolar disorder Chronic
--- NOTE | 2016-03-30 17:48 | HOSPPROG ---
Hospitalist Progress Note Assessment/Plan: LUE cellulitis - I&D in OR today with purulent matter around incision. S/P Left humeral fracture requiring ORIF while bacteremic, now cellulitic - s/p I&D, cont Ancef, ID following. MSSA bacteremia - Cont Ancef Stage IV follicular lymphoma - some concern she has developed a more aggressive lymphoma. Biopsy of LN performed today, await path, oncology following. LE edema - some improvement with lasix. US neg for DVT. COPD - stable, cont outpt meds Bipolar - stable, cont outpt med Hypothyroid - cont Levothyroxine DVT PPLX - Lovenox Full code Dispo - cont inpt Subjective: Pt feels well, no pain, no complaints. Objective: Vital Signs Temp Pulse Resp BP Pulse Ox 36.3 C 92 17 141/70 H 95 03/30/16 16:00 03/30/16 16:00 03/30/16 16:00 03/30/16 16:00 03/30/16 16:00 Microbiology 03/30/16 08:42 Gram Stain - Final Arm - Eswab Laboratory Results 03/30/16 05:00 03/30/16 05:00 03/29/16 03/30/16 03/31/16 05:59 05:59 05:59 Intake Total 730 2065 1210 Output Total 2600 1775 1260 Balance -1870 290 -50 - Physical Exam Constitutional: no apparent distress Eyes: PERRL Ears, Nose, Mouth, Throat: moist mucous membranes Cardiovascular: regular rate and rhythym Respiratory: no respiratory distress, clear to auscultation Gastrointestinal: normoactive bowel sounds, soft, non-tender abdomen Skin: warm Musculoskeletal: other (LUE dressing c/d/i, ext warm, well perfused) Neurologic: AAOx3 Psychiatric: interacting appropriately ICD10 Worksheet Patient Problems: Problems Problem Status Diagnosed Bipolar 1 disorder with moderate isaura Acute Left arm cellulitis Acute Marijuana abuse Acute Altered mental status Acute Arm fracture Acute Chest pain Acute Lymphoma Acute Withdrawal from sedative drug Acute Bipolar disorder Chronic
[2016-03-30 18:35] LABS: POTASSIUM 4.4 mEq/L (3.5-5.2)
--- NOTE | 2016-03-30 19:04 | WOCRNPDOC ---
WOCRN Advanced Assessment Note - Skin Integrity Problem, Advanced Assess Left Chest Invasive Line Site Dressing Type: Allevyn Life Dressing Description: Intact (moist) Exudate Amount: Scant Exudate Color: Clear Exudate Characteristic(s): Clear Integumentary Issue Intervention: Dressing Changed (Hydrofera Blue tunnel dressing in opening; Allevyn to cover.), Dressing Initialed & Dated, Steri Strips Applied (to secure Hydrofera Blue tunnel dressing in place) Rosette Wound Tissue: Intact Rosette Wound Swelling: None Wound Bed Color: [place] Wound Bed Constitution: Smooth Tissue Wound Edges: Well Defined Site Odor: None Site Measurement - Head-to-Toe Length X Width X Depth (cm): 0.5 x 2.5 x 0.4 Skin Integrity Problem Comment: Clean, smooth tissue at base. Filled opening with small segment of Hydrofera Blue tunnel dressing, moistened w/sterile NS, wrung out, to provide antimicrobial contact w/base of wound. Provided supplies and demo/verbal dressing change education to HARSH Kyle and patient. Bilateral Perianal Dermatitis Dressing Type: Open to Air Exudate Amount: None Integumentary Issue Intervention: Barrier Cream Applied (Calazime) Rosette Wound Swelling: None Wound Edges: Irregular Site Odor: None Site Measurement - Head-to-Toe Length X Width X Depth (cm): 4 x 6 x 0.2 Skin Integrity Problem Comment: Site is in sacral/buttock region, difficult to maintain dressing. Margins consist of peeling epidermis; base resembles new skin exposed after peeling back of sunburned epidermis. Assisted by HARSH Kyle, cleaned with rosette wipes, applied Calazime, and turned patient to L side. Verbal patient teaching provided about importance of turns to promote healing.
[2016-03-30] MEDS: DOXEPIN HCL 50 MG CAP PO SCH (20:15)
--- NOTE | 2016-03-30 21:53 | GOP ---
[f rep st] OPERATIVE REPORT DATE OF OPERATION: 03/30/2016 SURGEON: Alan Townsend MD PREOPERATIVE DIAGNOSIS: Progressive lymphoma. POSTOPERATIVE DIAGNOSIS: Progressive lymphoma. PROCEDURE PERFORMED: 1. Right femoral mass excision. 2. Right cervical mass excision. FINDINGS: 1. The patient was found to have a 4 cm mass in the femoral/inguinal area which was consis tent with a probable lymphoma. Final path is pending. 2. The right neck node was thought at first to preoperatively be a possible cyst. However, it appear s to be a solid lymphoma metastasis as well. Final path is pending. INDICATIONS: The patient has lymphoma under treatment which has been progressive and unresponsive. These were thought to be possible lymph nodes for further evaluation. DESCRIPTION OF PROCEDURE: The patient was taken to the operating room where she received satisfactor y general endotracheal anesthesia by Dr. Flores, placed in the supine position, prepped and draped in usual sterile fashion. In the groin, a transverse incision was made. Dissection was carried thr ough subcutaneous tissue and through the superficial fascia. A large mass was dissected free from th e inguinal area. Hemostasis was obtained with hemoclips and electrocautery and the mass was removed intact. It appeared to be consistent with a lymphoma replaced to the lymph node. The specimen was s ent to Pathology. The wound was infiltrated with 0.5% Marcaine. Hemostasis was assured and it was c losed in layers using 3-0 Vicryl for the subcu, a 4-0 Monocryl subcuticular stitch for the skin. Attention was turned to the neck lesion. It appeared to have a transverse scar over it from a possib le previous excisional biopsy, or lower other procedure. An elliptical skin incision was made to inc lude what was thought to be a pore involving a possible cyst. However, the skin flaps were elevated above and below this, and the mass was dissected free from the underlying muscle. It appeared to be a solid tumor mass approximately 3 cm in size. This was completely excised. Hemostasis was assured. The wound was closed in layers using 3-0 Vicryl for the subcutaneous tissue in interrupted fashion and a 4-0 Monocryl subcuticular stitch for the skin. All layers were infiltrated with 0.5% Marcaine. She tolerated the procedure quite well, taken to the recovery room in good condition. No complicatio ns. Copy requested to: RENE Whitfield /[id number]/MODL
[2016-03-30] MEDS ORDERED: ALTEPLASE 2 MG VIAL IVP PRN (22:09)
[2016-03-31] MEDS: NYSTATIN SUSP 500000 UNIT/5 ML UDCUP PO SCH ×5 (00:24→23:37)
[2016-03-31] MEDS: METHOCARBAMOL 750 MG TAB PO SCH ×4 (00:24→23:36)
[2016-03-31] MEDS: oxyCODONE IR 5 MG TAB PO PRN ×6 (02:30→23:37)
[2016-03-31] MEDS: OLANZapine DISINTEGR 10 MG TAB PO SCH ×4 (05:58→20:17)
[2016-03-31] MEDS: LEVOTHYROXINE 125 MCG TAB PO SCH (05:58)
[2016-03-31] MEDS: LORazepam 1 MG TAB PO SCH ×4 (05:58→17:34)
[2016-03-31] MEDS: ceFAZolin 2 GM/DEXTROSE 100 ML IV SCH ×3 (05:58→23:36)
[2016-03-31 06:35] LABS: POTASSIUM 3.5 mEq/L (3.5-5.2)
[2016-03-31] MEDS ORDERED: POTASSIUM CL 10 MEQ TAB PO ONE (07:34)
[2016-03-31] MEDS: FAMOTIDINE 20 MG TAB PO SCH (08:04)
[2016-03-31] MEDS: VENLAFAXINE XR 75 MG CAP PO SCH (08:04)
[2016-03-31] MEDS: FERROUS SULFATE 325 MG TAB PO SCH (08:04)
[2016-03-31] MEDS: ACYCLOVIR 400 MG TAB PO SCH ×2 (08:04→20:17)
[2016-03-31] MEDS: predniSONE 10 MG TAB PO SCH (08:08)
[2016-03-31] MEDS: TIOTROPIUM INHALER 18 MCG/DOSE 5 DOSE/MDI IH SCH (08:26)
--- NOTE | 2016-03-31 09:22 | SOAPPROG ---
SOAP Progress Note Assessment/Plan: Assessment: 65yo F admitted with LUE cellulitis, h/o lymphoma POD#1 s/p lymph node biopsy R neck and R groin - path pending Incisions CDI L port site removal dressing intact - HFB changed q3d Appreciate ortho and hospitalists S: feels like she has a mouth abscess. otherwise no complaints O: laying in bed, comfortable, NAD No increased WOB No masses, erythema or purulence of buccal mucosa or gingiva L chest port removal site dressing intact. R port CDI R neck incision CDI without eo infection R groin incision CDI without eo infection Objective: Vital Signs Temp Pulse Resp BP Pulse Ox 36.5 C 89 16 118/71 92 03/31/16 07:37 03/31/16 08:27 03/31/16 08:27 03/31/16 07:37 03/31/16 08:27 Microbiology 03/30/16 08:42 Gram Stain - Final Arm - Eswab Laboratory Results 03/30/16 05:00 03/31/16 05:55 03/30/16 03/31/16 04/01/16 05:59 05:59 05:59 Intake Total 2065 1710 640 Output Total 1771 2560 Balance 290 -850 640 ICD10 Worksheet Patient Problems: Problems Problem Status Diagnosed Bipolar 1 disorder with moderate isaura Acute Left arm cellulitis Acute Marijuana abuse Acute Altered mental status Acute Arm fracture Acute Chest pain Acute Lymphoma Acute Withdrawal from sedative drug Acute Bipolar disorder Chronic
[2016-03-31] MEDS: HYDROmorphONE/DILAUDID 1 MG/ML SYR IVP PRN ×3 (10:06→17:39)
--- NOTE | 2016-03-31 10:15 | HOSPPROG ---
Hospitalist Progress Note Assessment/Plan: LUE cellulitis - I&D in OR yesterday with purulent matter around incision. Oral pain - this began after right cervical mass excision, query referred pain. No palpable fluctuance, ?fit problem with dentures if new swelling post-op. Discussed with ID, defer imaging for now. S/P Left humeral fracture requiring ORIF while bacteremic, now cellulitic - s/p I&D, cont Ancef, ID following. MSSA bacteremia - Cont Ancef Stage IV follicular lymphoma - some concern she has developed a more aggressive lymphoma. Biopsy of LN performed yesterday, await path, oncology following. LE edema - some improvement with lasix. US neg for DVT. COPD - stable, cont outpt meds Bipolar - stable, cont outpt med Hypothyroid - cont Levothyroxine DVT PPLX - Lovenox Full code Dispo - cont inpt Subjective: Pt c/o right shoulder pain. Also reports lower right jaw pain, worries she has a tooth abscess (edentulous). No fevers/chills. Tolerating po. Good uop. Objective: Vital Signs Temp Pulse Resp BP Pulse Ox 36.5 C 89 16 118/71 92 03/31/16 07:37 03/31/16 08:27 03/31/16 08:27 03/31/16 07:37 03/31/16 08:27 Microbiology 03/30/16 08:42 Gram Stain - Final Arm - Eswab Laboratory Results 03/30/16 05:00 03/31/16 05:55 03/30/16 03/31/16 04/01/16 05:59 05:59 05:59 Intake Total 2065 1710 640 Output Total 1775 2560 Balance 290 -850 640 - Physical Exam Constitutional: no apparent distress Eyes: PERRL Ears, Nose, Mouth, Throat: moist mucous membranes, other (no palpable abscess in right lower jaw) Cardiovascular: regular rate and rhythym Respiratory: no respiratory distress Gastrointestinal: normoactive bowel sounds, soft, non-tender abdomen Skin: warm Musculoskeletal: other (RUE dressing c/d/i) Neurologic: AAOx3 Psychiatric: interacting appropriately ICD10 Worksheet Patient Problems: Problems Problem Status Diagnosed Bipolar 1 disorder with moderate isaura Acute Left arm cellulitis Acute Marijuana abuse Acute Altered mental status Acute Arm fracture Acute Chest pain Acute Lymphoma Acute Withdrawal from sedative drug Acute Bipolar disorder Chronic
[2016-03-31 14:15] LABS: HEMATOCRIT 28.1 % (38.0-47.0); HEMOGLOBIN 8.9 g/dL (12.6-16.3); MEAN CELL HEMOGLOBIN 27.4 pg (27.9-34.1); MEAN CELL HEMOGLOBIN CONCENTR. 31.7 g/dL (32.4-36.7); MEAN CELL VOLUME 86.5 fL (81.5-99.8); RED BLOOD CELL COUNT 3.25 10^6/uL (4.18-5.33); RED CELL DISTRIBUTION WIDTH 16.1 % (11.5-15.2)
[2016-03-31] MEDS: ENOXAPARIN 40 MG/0.4 ML SYR SC SCH (15:05)
--- NOTE | 2016-03-31 15:16 | SOAPPROG ---
SOAP Progress Note Assessment/Plan: Assessment: SOAP Progress Note Assessment/Plan: Assessment: 1) H/O follicular lymphoma (s/p Rituxan / Bendamustine 2016) 2) New diffuse FDG avid lymphadenopathy concerning for recurrence-s/p excisional biopsy of right femoral and right cervical lymph node 3) Recent Left shoulder fx s/p ORIF with MRSA-s/p I and D of left arm infection yesterday 4) Anemia secondary to #2 Plan: 1) Follow up on path 03/31/16 15:20 Objective: Vital Signs Temp Pulse Resp BP Pulse Ox 36.8 C 112 H 16 140/77 H 95 03/31/16 11:02 03/31/16 11:02 03/31/16 11:02 03/31/16 11:02 03/31/16 11:02 Microbiology 03/30/16 08:42 Gram Stain - Final Arm - Eswab Laboratory Results 03/31/16 14:00 03/31/16 05:55 03/30/16 03/31/16 04/01/16 05:59 05:59 05:59 Intake Total 6801 1710 640 Output Total 8548 8605 Balance 290 -970 640 ICD10 Worksheet Patient Problems: Problems Problem Status Diagnosed Bipolar 1 disorder with moderate isaura Acute Left arm cellulitis Acute Marijuana abuse Acute Altered mental status Acute Arm fracture Acute Chest pain Acute Lymphoma Acute Withdrawal from sedative drug Acute Bipolar disorder Chronic
--- NOTE | 2016-03-31 17:09 | PCMIDPN ---
Assessment/Plan: Assessment: L arm wound I and D --- in setting of MSSA infection in the humeral fracture. In midst of 6 weeks of IV cefazolin directed at the MSSA osteomyelitis when the recurrent inflammation presented. Cultures of fluid found superficially thus far NGTD. Will continue her prior cefazolin therapy. Await results of LN biopsy. Plan: 1) COntinue the cefazolin IV therapy. 2) Follow operative culture. 03/31/16 22:09 03/31/16 22:11 03/31/16 22:12 Subjective: Patient is resting in her hospital room. Admits to LUE pain at site of surgery. No other new complaint. Denies fevers and chills. Objective: cefazolin #31 Vital Signs Temp Pulse Resp BP Pulse Ox 36.9 C 86 16 121/75 H 98 03/31/16 16:00 03/31/16 16:00 03/31/16 16:00 03/31/16 16:00 03/31/16 16:00 Microbiology 03/30/16 08:42 Gram Stain - Final Arm - Eswab Laboratory Results 03/31/16 14:00 03/31/16 05:55 03/30/16 03/31/16 04/01/16 05:59 05:59 05:59 Intake Total 2065 1710 640 Output Total 1775 2560 Balance 290 -850 640 ESR 99 MM/HR (0-30) H 03/28/16 09:50 C-Reactive Protein 86.4 mg/L (<10.0) H 03/28/16 09:50 - Physical Exam General Appearance: WD/WN, alert, no apparent distress, non-toxic Respiratory: lungs clear, normal breath sounds, No respiratory distress Cardiac/Chest: regular rate, rhythm, No tachycardia Skin: normal color, warm/dry, No rash Neuro/Psych: alert, normal mood/affect, oriented x 3 ICD10 Worksheet Patient Problems: Problems Problem Status Diagnosed Bipolar 1 disorder with moderate isaura Acute Left arm cellulitis Acute Marijuana abuse Acute Altered mental status Acute Arm fracture Acute Chest pain Acute Lymphoma Acute Withdrawal from sedative drug Acute Bipolar disorder Chronic
[2016-03-31 20:13] LABS: POTASSIUM 4.2 mEq/L (3.5-5.2)
[2016-03-31] MEDS: DOXEPIN HCL 50 MG CAP PO SCH (20:17)
[2016-04-01] MEDS: oxyCODONE IR 5 MG TAB PO PRN ×5 (03:55→21:27)
[2016-04-01] MEDS: OLANZapine DISINTEGR 10 MG TAB PO SCH ×4 (03:55→21:26)
[2016-04-01] MEDS: LORazepam 1 MG TAB PO SCH ×4 (03:55→16:51)
[2016-04-01] MEDS: NYSTATIN SUSP 500000 UNIT/5 ML UDCUP PO SCH ×4 (03:56→23:08)
[2016-04-01] MEDS: LEVOTHYROXINE 125 MCG TAB PO SCH (03:57)
[2016-04-01] MEDS: ceFAZolin 2 GM/DEXTROSE 100 ML IV SCH ×3 (06:05→21:26)
[2016-04-01] MEDS: HYDROmorphONE/DILAUDID 1 MG/ML SYR IVP PRN ×3 (06:06→18:46)
[2016-04-01 06:52] LABS: POTASSIUM 3.9 mEq/L (3.5-5.2)
[2016-04-01] MEDS ORDERED: POTASSIUM CL 10 MEQ TAB PO ONE ×2 (07:03→21:33)
[2016-04-01] MEDS: VENLAFAXINE XR 75 MG CAP PO SCH (08:20)
[2016-04-01] MEDS: predniSONE 10 MG TAB PO SCH (08:21)
[2016-04-01] MEDS: FERROUS SULFATE 325 MG TAB PO SCH (08:22)
[2016-04-01] MEDS: FAMOTIDINE 20 MG TAB PO SCH (08:22)
[2016-04-01] MEDS: METHOCARBAMOL 750 MG TAB PO SCH ×3 (08:22→21:26)
[2016-04-01] MEDS: ACYCLOVIR 400 MG TAB PO SCH ×2 (08:22→21:27)
[2016-04-01] MEDS: ENOXAPARIN 40 MG/0.4 ML SYR SC SCH (08:22)
--- NOTE | 2016-04-01 09:12 | PCMIDPN ---
Assessment/Plan: Assessment/Plan: 1. LUE abscess in setting of MSSA sepsis/bacteremia/ left humeral infected fracture/abscess with osteomyelitis: - s/p I &d of this new collection. GS with no org, and cx thus far ngtd -Currently remains on directive therapy with Ancef. Currently in the midst of therapy for previously documented infection, for 6 weeks with a tentative end date of 04/16/16 and then chronic suppressive antibiotics for life thereafter. -admission xray noted with glenohumeral effusion. will review with radiology. if significant may need to be addressed further while here. -may consider extending therapy in light of above . meds ancef 2g q8- D#. Subjective: afebrile. c/o left arm pain today. denies sob, abd pain or diarrhea. Less right knee pain today compared to two weeks ago. still has some pain when weight bearing. Objective: Vital Signs Temp Pulse Resp BP Pulse Ox 36.9 C 94 16 127/71 H 93 04/01/16 08:00 04/01/16 08:00 04/01/16 08:00 04/01/16 08:00 04/01/16 08:00 Microbiology 03/30/16 08:42 Gram Stain - Final Arm - Eswab Laboratory Results 03/31/16 14:00 04/01/16 06:05 03/31/16 04/01/16 04/02/16 05:59 05:59 05:59 Intake Total 1710 1190 400 Output Total 2560 850 Balance -850 340 400 ESR 99 MM/HR (0-30) H 03/28/16 09:50 C-Reactive Protein 86.4 mg/L (<10.0) H 03/28/16 09:50 - Physical Exam General Appearance: alert, no apparent distress Respiratory: lungs clear Cardiac/Chest: regular rate, rhythm Extremities: other (RUE picc line: ), No swelling Abdomen: normal bowel sounds, non-tender, soft, No distended Skin: erythema (mild involving LUE. overall less swelling compared to before. op dressing ) ICD10 Worksheet Patient Problems: Problems Problem Status Diagnosed Bipolar 1 disorder with moderate isaura Acute Left arm cellulitis Acute Marijuana abuse Acute Altered mental status Acute Arm fracture Acute Chest pain Acute Lymphoma Acute Withdrawal from sedative drug Acute Bipolar disorder Chronic
--- NOTE | 2016-04-01 11:47 | SOAPPROG ---
SOAP Progress Note Assessment/Plan: Assessment: Plan: Subjective: states she has pain dressing changed and jackie drains advanced await culture results Objective: Vital Signs Temp Pulse Resp BP Pulse Ox 36.9 C 94 16 127/71 H 93 04/01/16 08:00 04/01/16 08:30 04/01/16 08:00 04/01/16 08:00 04/01/16 08:30 Microbiology 03/30/16 08:42 Gram Stain - Final Arm - Eswab Laboratory Results 03/31/16 14:00 04/01/16 06:05 03/31/16 04/01/16 04/02/16 05:59 05:59 05:59 Intake Total 1710 1190 400 Output Total 2560 850 Balance -850 340 400 ICD10 Worksheet Patient Problems: Problems Problem Status Diagnosed Bipolar 1 disorder with moderate isaura Acute Left arm cellulitis Acute Marijuana abuse Acute Altered mental status Acute Arm fracture Acute Chest pain Acute Lymphoma Acute Withdrawal from sedative drug Acute Bipolar disorder Chronic
[2016-04-01] MEDS: TIOTROPIUM INHALER 18 MCG/DOSE 5 DOSE/MDI IH SCH (12:07)
--- NOTE | 2016-04-01 14:50 | HOSPPROG ---
Hospitalist Progress Note Assessment/Plan: LUE cellulitis - I&D in OR, POD #2, with purulent matter around incision. Wound Cx NGTD. Oral pain - this began after right cervical mass excision, query referred pain. No palpable fluctuance, ?fit problem with dentures if new swelling post-op. Discussed with ID, defer imaging for now. S/P Left humeral fracture requiring ORIF while bacteremic, now cellulitic - s/p I&D, cont Ancef, ID following. MSSA bacteremia - Cont Ancef Stage IV follicular lymphoma - some concern she has developed a more aggressive lymphoma. Biopsy of LN's performed in OR, await path, oncology following. LE edema - some improvement with lasix. US neg for DVT. COPD - stable, cont outpt meds Bipolar - stable, cont outpt med Hypothyroid - cont Levothyroxine DVT PPLX - Lovenox Full code Dispo - cont inpt Subjective: Pt resting comfortably, no complaints, pain controlled. Afebrile. Taking po. Objective: Vital Signs Temp Pulse Resp BP Pulse Ox 36.9 C 94 16 127/71 H 93 04/01/16 08:00 04/01/16 08:30 04/01/16 08:00 04/01/16 08:00 04/01/16 08:30 Microbiology 03/30/16 08:42 Gram Stain - Final Arm - Eswab Laboratory Results 03/31/16 14:00 04/01/16 06:05 03/31/16 04/01/16 04/02/16 05:59 05:59 05:59 Intake Total 1710 1190 400 Output Total 2560 850 Balance -850 340 400 - Physical Exam Constitutional: no apparent distress Eyes: PERRL Ears, Nose, Mouth, Throat: moist mucous membranes Cardiovascular: regular rate and rhythym Respiratory: no respiratory distress Gastrointestinal: normoactive bowel sounds, soft, non-tender abdomen Skin: warm Musculoskeletal: other (LUE dressing c/d/i) Neurologic: AAOx3 Psychiatric: interacting appropriately ICD10 Worksheet Patient Problems: Problems Problem Status Diagnosed Bipolar 1 disorder with moderate isaura Acute Left arm cellulitis Acute Marijuana abuse Acute Altered mental status Acute Arm fracture Acute Chest pain Acute Lymphoma Acute Withdrawal from sedative drug Acute Bipolar disorder Chronic
[2016-04-01 20:13] LABS: POTASSIUM 3.7 mEq/L (3.5-5.2)
[2016-04-01] MEDS: DOXEPIN HCL 50 MG CAP PO SCH (21:26)
[2016-04-02] MEDS: HYDROmorphONE/DILAUDID 1 MG/ML SYR IVP PRN ×3 (03:00→17:59)
[2016-04-02] MEDS: ceFAZolin 2 GM in D5W 100 ML IV SCH ×3 (05:15→21:45)
[2016-04-02] MEDS: NYSTATIN SUSP 500000 UNIT/5 ML UDCUP PO SCH ×3 (05:31→17:30)
[2016-04-02] MEDS: OLANZapine DISINTEGR 10 MG TAB PO SCH ×4 (05:32→21:47)
[2016-04-02] MEDS: oxyCODONE IR 5 MG TAB PO PRN ×3 (05:32→15:31)
[2016-04-02] MEDS: LORazepam 1 MG TAB PO SCH ×4 (05:32→17:28)
[2016-04-02] MEDS: LEVOTHYROXINE 125 MCG TAB PO SCH (05:32)
[2016-04-02 05:41] LABS: POTASSIUM 3.9 mEq/L (3.5-5.2)
[2016-04-02] MEDS: TIOTROPIUM INHALER 18 MCG/DOSE 5 DOSE/MDI IH SCH (09:54)
[2016-04-02] MEDS: FAMOTIDINE 20 MG TAB PO SCH (10:16)
[2016-04-02] MEDS: METHOCARBAMOL 750 MG TAB PO SCH ×3 (10:16→21:43)
[2016-04-02] MEDS: FERROUS SULFATE 325 MG TAB PO SCH (10:16)
[2016-04-02] MEDS: VENLAFAXINE XR 75 MG CAP PO SCH (10:16)
[2016-04-02] MEDS: predniSONE 10 MG TAB PO SCH (10:16)
[2016-04-02] MEDS: ENOXAPARIN 40 MG/0.4 ML SYR SC SCH (10:17)
[2016-04-02] MEDS: ACYCLOVIR 400 MG TAB PO SCH ×2 (10:17→21:43)
[2016-04-02] MEDS ORDERED: POTASSIUM CL 10 MEQ TAB PO ONE ×2 (10:20→13:00)
--- NOTE | 2016-04-02 11:47 | PCMIDPN ---
Assessment/Plan: Assessment/Plan: * Left upper extremity erythema with ongoing low-grade temperatures status post ORIF of left humeral fracture with MSSA infection of fracture at time of ORIF undergoing 6 weeks of IV cefazolin: Status post repeat debridement with cultures no growth to date which may be related to ongoing antibiotic therapy. Operative findings reviewed with Dr. Choudhary and clinically did track deeper. Will plan 6 weeks of cefazolin post this debridement. * History of MSSA bacteremia: Currently under therapy with cefazolin. Repeat blood cultures are no growth. 04/02/16 11:43 Subjective: Patient complains of left arm pain which is localized over incision. Objective: Vital Signs Temp Pulse Resp BP Pulse Ox 36.5 C 70 14 134/81 H 94 04/02/16 07:14 04/02/16 07:14 04/02/16 07:14 04/02/16 07:14 04/02/16 07:14 Microbiology 03/30/16 08:42 Gram Stain - Final Arm - Eswab Laboratory Results 03/31/16 14:00 04/02/16 05:20 04/01/16 04/02/16 04/03/16 05:59 05:59 05:59 Intake Total 1190 950 900 Output Total 656 005 8736 Balance 340 600 -300 ESR 99 MM/HR (0-30) H 03/28/16 09:50 C-Reactive Protein 86.4 mg/L (<10.0) H 03/28/16 09:50 Cefazolin # 33 Blood cultures x2 no growth Operative culture no growth - Physical Exam General Appearance: alert, no apparent distress EENT: No thrush, No conjunctival petechiae Respiratory: lungs clear, No respiratory distress Cardiac/Chest: regular rate, rhythm Extremities: inflammation (Left humeral region with 1 Sandy out on dressing; other Sandy remains in place; erythema and edema decreased with tenderness to palpation present; no tenderness over shoulder joint with some residual bruising present) ICD10 Worksheet Patient Problems: Problems Problem Status Diagnosed Bipolar 1 disorder with moderate isaura Acute Left arm cellulitis Acute Marijuana abuse Acute Altered mental status Acute Arm fracture Acute Chest pain Acute Lymphoma Acute Withdrawal from sedative drug Acute Bipolar disorder Chronic
[2016-04-02 12:45] LABS: FINAL DIAGNOSIS See Comments (()); MICROSCOPIC DESCRIPTION See Comments (())
[2016-04-02 12:46] LABS: FINAL DIAGNOSIS See Comments (()); MICROSCOPIC DESCRIPTION See Comments (())
--- NOTE | 2016-04-02 14:06 | HOSPPROG ---
Hospitalist Progress Note Assessment/Plan: LUE cellulitis - I&D in OR, POD #3, with purulent matter around incision. Wound Cx NGTD. On Ancef. Will need lifelong suppressive therapy. Oral pain - this began after right cervical mass excision, query referred pain. No palpable fluctuance, ?fit problem with dentures if new swelling post-op. Discussed with ID, defer imaging for now. S/P Left humeral fracture requiring ORIF while bacteremic, now cellulitic - s/p I&D, cont Ancef, ID following. MSSA bacteremia - Cont Ancef Stage IV follicular lymphoma - some concern she has developed a more aggressive lymphoma. Biopsy of LN's performed in OR, await path, oncology following. LE edema - Lasix PRN. US neg for DVT. COPD - stable, cont outpt meds Bipolar - stable, cont outpt med Hypothyroid - cont Levothyroxine DVT PPLX - Lovenox Full code Dispo - cont inpt Subjective: c/o left arm pain. otherwise no complaints Objective: VSS - Physical Exam Constitutional: no apparent distress Eyes: PERRL Ears, Nose, Mouth, Throat: moist mucous membranes Cardiovascular: regular rate and rhythym Respiratory: no respiratory distress Gastrointestinal: normoactive bowel sounds, soft, non-tender abdomen Skin: warm Musculoskeletal: other (LUE dressing c/d/i) Neurologic: AAOx3 Psychiatric: interacting appropriately Objective: Vital Signs Temp Pulse Resp BP Pulse Ox 36.5 C 70 14 134/81 H 94 04/02/16 07:14 04/02/16 07:14 04/02/16 07:14 04/02/16 07:14 04/02/16 07:14 Microbiology 03/30/16 08:42 Gram Stain - Final Arm - Eswab Laboratory Results 03/31/16 14:00 04/02/16 05:20 04/01/16 04/02/16 04/03/16 05:59 05:59 05:59 Intake Total 8946 140 8117 Output Total 327 172 9037 Balance 340 600 -50 ICD10 Worksheet Patient Problems: Problems Problem Status Diagnosed Bipolar 1 disorder with moderate isaura Acute Left arm cellulitis Acute Marijuana abuse Acute Altered mental status Acute Arm fracture Acute Chest pain Acute Lymphoma Acute Withdrawal from sedative drug Acute Bipolar disorder Chronic
--- NOTE | 2016-04-02 15:05 | WOCRNPDOC ---
WOCRN Advanced Assessment Note - Skin Integrity Problem, Advanced Assess Left Chest Invasive Line Site Dressing Type: Allevyn Life, Hydrofera Blue (tunnel dressing) Dressing Description: Clean/Dry, Intact Closure Description: Steri Strips Exudate Amount: Scant Exudate Color: Clear Exudate Characteristic(s): Clear Integumentary Issue Intervention: Visualized Under Dressing Rosette Wound Tissue: Intact Rosette Wound Swelling: None Wound Bed Color: Red Wound Bed Constitution: Granulation Tissue, Smooth Tissue Skin Integrity Problem Comment: Wound with mixed smooth and granulating tissues noted. No apparent necrosis or purulence observed. Rosette-wound skin is intact w/ no erythema present. Continue w/ existing dressing of Hydrofera Blue tunnel packing and Allevyn. Patient has sufficient wound care supplies in her room.
--- NOTE | 2016-04-02 19:22 | SOAPPROG ---
SOAP Progress Note Assessment/Plan: Assessment: 65 female on rx for lymphoma needs bx for path reeval risks and options fully discussed 2.5 cm rt neck mass likely sebaceous cyst/ 4cm node rt groin/ firm rib mass rt axilla Plan: rt groin node bx in am 03/29/16 14:46 03/30/16 07:59 SURGICAL RISKS AND OPTIONS AGAIN FULLY DISCUSSED/ PLAN RT GROIN NODE BX AND RT NECK CYST REMOVAL 04/02/16 19:21 NECK AND GROIN WOUNDS HEALING WELL / PRIMARY COMPLAINT IS LEFT ARM PAIN FROM HER FRACTURE SITE Objective: Vital Signs Temp Pulse Resp BP Pulse Ox 36.3 C 90 16 107/67 97 04/02/16 17:47 04/02/16 17:47 04/02/16 17:47 04/02/16 17:47 04/02/16 17:47 Microbiology 03/30/16 08:42 Gram Stain - Final Arm - Eswab Laboratory Results 03/31/16 14:00 04/01/16 04/02/16 04/03/16 05:59 05:59 05:59 Intake Total 3774 961 2931 Output Total 478 814 5863 Balance 340 600 300 ICD10 Worksheet Patient Problems: Problems Problem Status Diagnosed Bipolar 1 disorder with moderate isaura Acute Left arm cellulitis Acute Marijuana abuse Acute Altered mental status Acute Arm fracture Acute Chest pain Acute Lymphoma Acute Withdrawal from sedative drug Acute Bipolar disorder Chronic
[2016-04-02 19:31] LABS: POTASSIUM 4.1 mEq/L (3.5-5.2)
--- NOTE | 2016-04-02 19:44 | SOAPPROG ---
SOAP Progress Note Assessment/Plan: A/P: * H/O follicular lymphoma (s/p Rituxan/Bendamustine 2016) * New diffuse FDG avid lymphadenopathy, along with elevated LDH, concerning for recurrence. s/p excisional biopsy of right femoral and right cervical lymph node - await path * Recent Left shoulder fx s/p ORIF with MRSA-s/p I and D of left arm infection yesterday * Anemia secondary to #2 04/02/16 19:42 Subjective: S: No new concerns. Feels pain control adequate. O: VS reviewed. Gen: up in chair. NAD. MSK: LUE in sling. Objective: Vital Signs Temp Pulse Resp BP Pulse Ox 36.6 C 85 17 136/89 H 95 04/02/16 19:21 04/02/16 19:21 04/02/16 19:21 04/02/16 19:21 04/02/16 19:21 Microbiology 03/30/16 08:42 Gram Stain - Final Arm - Eswab Laboratory Results 03/31/16 14:00 04/02/16 18:55 04/01/16 04/02/16 04/03/16 05:59 05:59 05:59 Intake Total 4649 571 4405 Output Total 195 368 1740 Balance 340 600 300 ICD10 Worksheet Patient Problems: Problems Problem Status Diagnosed Bipolar 1 disorder with moderate isaura Acute Left arm cellulitis Acute Marijuana abuse Acute Altered mental status Acute Arm fracture Acute Chest pain Acute Lymphoma Acute Withdrawal from sedative drug Acute Bipolar disorder Chronic
[2016-04-02] MEDS: DOXEPIN HCL 50 MG CAP PO SCH (21:42)
[2016-04-03] MEDS: NYSTATIN SUSP 500000 UNIT/5 ML UDCUP PO SCH ×4 (00:25→17:38)
[2016-04-03] MEDS: oxyCODONE IR 5 MG TAB PO PRN ×5 (04:26→21:52)
[2016-04-03] MEDS: LORazepam 1 MG TAB PO SCH ×4 (04:27→17:37)
[2016-04-03] MEDS: OLANZapine DISINTEGR 10 MG TAB PO SCH ×4 (04:27→21:50)
[2016-04-03] MEDS: ceFAZolin 2 GM in D5W 100 ML IV SCH ×3 (05:12→21:49)
[2016-04-03] MEDS: LEVOTHYROXINE 125 MCG TAB PO SCH (05:12)
[2016-04-03 05:13] LABS: POTASSIUM 3.8 mEq/L (3.5-5.2)
[2016-04-03] MEDS: HYDROmorphONE/DILAUDID 1 MG/ML SYR IVP PRN (08:11)
[2016-04-03] MEDS: VENLAFAXINE XR 75 MG CAP PO SCH (08:17)
[2016-04-03] MEDS: FAMOTIDINE 20 MG TAB PO SCH (08:17)
[2016-04-03] MEDS: predniSONE 10 MG TAB PO SCH (08:18)
[2016-04-03] MEDS: METHOCARBAMOL 750 MG TAB PO SCH ×3 (08:18→21:50)
[2016-04-03] MEDS: ACYCLOVIR 400 MG TAB PO SCH ×2 (08:18→21:50)
[2016-04-03] MEDS: FERROUS SULFATE 325 MG TAB PO SCH (08:18)
[2016-04-03] MEDS: IBUPROFEN 600 MG TAB PO PRN (08:18)
[2016-04-03] MEDS: ENOXAPARIN 40 MG/0.4 ML SYR SC SCH (08:19)
[2016-04-03] MEDS: TIOTROPIUM INHALER 18 MCG/DOSE 5 DOSE/MDI IH SCH (08:44)
--- NOTE | 2016-04-03 09:52 | HOSPPROG ---
Hospitalist Progress Note Assessment/Plan: LUE cellulitis - I&D in OR, POD #4, with purulent matter around incision. Wound Cx NGTD. On Ancef. Will need lifelong suppressive therapy after planned 6 week therapy. Oral pain - this began after right cervical mass excision, query referred pain. No palpable fluctuance, ?fit problem with dentures if new swelling post-op. Discussed with ID, defer imaging for now. S/P Left humeral fracture requiring ORIF while bacteremic, now cellulitic - s/p I&D, cont Ancef, ID following. -She has significant arm pain today -Post Op care per Ortho MSSA bacteremia - Cont Ancef. see above for abx duration Stage IV follicular lymphoma - some concern she has developed a more aggressive lymphoma. Biopsy of LN's performed in OR, await path, oncology following. LE edema - Lasix PRN. US neg for DVT. COPD - stable, cont outpt meds Bipolar - stable, cont outpt med Hypothyroid - cont Levothyroxine DVT PPLX - Lovenox Full code Dispo - cont inpt. Cont Abx. Await Path. Post Op Care. Subjective: Lots of left arm pain. otherwise no complaints. Afebrile Objective: VSS - Physical Exam Constitutional: no apparent distress Eyes: PERRL Ears, Nose, Mouth, Throat: moist mucous membranes Cardiovascular: regular rate and rhythym Respiratory: no respiratory distress Gastrointestinal: normoactive bowel sounds, soft, non-tender abdomen Skin: warm Musculoskeletal: other (LUE dressing c/d/i) Neurologic: AAOx3 Psychiatric: interacting appropriately Objective: Vital Signs Temp Pulse Resp BP Pulse Ox 36.7 C 100 16 131/88 H 100 04/03/16 09:09 04/03/16 09:09 04/03/16 09:09 04/03/16 09:09 04/03/16 09:09 Microbiology 03/28/16 12:40 Blood Culture - Final Blood 03/28/16 12:35 Blood Culture - Final Blood 03/30/16 08:42 Gram Stain - Final Arm - Eswab Laboratory Results 03/31/16 14:00 04/03/16 04:35 04/02/16 04/03/16 04/04/16 05:59 05:59 05:59 Intake Total 950 1500 Output Total 350 1200 Balance 600 300 ICD10 Worksheet Patient Problems: Problems Problem Status Diagnosed Bipolar 1 disorder with moderate isaura Acute Left arm cellulitis Acute Marijuana abuse Acute Altered mental status Acute Arm fracture Acute Chest pain Acute Lymphoma Acute Withdrawal from sedative drug Acute Bipolar disorder Chronic
[2016-04-03] MEDS ORDERED: HYDROmorphONE/DILAUDID 2 MG TAB PO PRN (10:22)
[2016-04-03] MEDS ORDERED: POTASSIUM CL 10 MEQ TAB PO ONE (10:46)
[2016-04-03] MEDS: NICOTINE 14 MG/24 HR PATCH TD SCH (10:51)
--- NOTE | 2016-04-03 12:15 | SOAPPROG ---
SOAP Progress Note Assessment/Plan: Assessment: SOAP Progress Note Assessment/Plan: Assessment: 1) H/O follicular lymphoma (s/p Rituxan / Bendamustine 2016)-lymph node biopsy is consistent with transformation to a more aggressive lymphoma (Diffuse large B cell versus grade III follicular). Path has been sent to [place] for review and molecular analysis. Bone marrow biopsy 2 weeks ago did not show lymphoma, despite multiple pathologic fractures. 2) Recent Left shoulder fx s/p ORIF with MRSA-s/p I and D of left arm infection. On fci antibiotics 3) Anemia secondary to #2 Plan: Ideally, treatment with chemotherapy would start soon for transformed lymphoma. These are generally more aggressive and resistant to therapies compared to de monster aggressive lymphomas. Will need to discuss with ID, timing of chemo, anticipating myelosuppression in the setting of MSSA. Given clinical situation, I think it's most appropriate to hold treatment for a few weeks as she gains strength, rehab, etc. Path has been sent to [place] for further molecular analysis. Treatment will likely be R-CHOP, but if molecular studies show ' double hit', consideration would be given for R-EPOCH. Will get baseline ECHO, anticipating anthracycline Discussed with patient 04/03/16 12:16 Subjective: Sitting in a chair, walked in the whaley today with assist Objective: Vital Signs Temp Pulse Resp BP Pulse Ox 36.7 C 100 16 131/88 H 100 04/03/16 09:09 04/03/16 09:09 04/03/16 09:09 04/03/16 09:09 04/03/16 09:09 Microbiology 03/28/16 12:40 Blood Culture - Final Blood 03/28/16 12:35 Blood Culture - Final Blood 03/30/16 08:42 Gram Stain - Final Arm - Eswab Laboratory Results 03/31/16 14:00 04/03/16 04:35 04/02/16 04/03/16 04/04/16 05:59 05:59 05:59 Intake Total 950 1500 Output Total 350 1200 Balance 600 300 Physical Exam - Physical Exam General Appearance: alert, no apparent distress Extremities: other (left arm bandaged) Neuro/Psych: alert ICD10 Worksheet Patient Problems: Problems Problem Status Diagnosed Bipolar 1 disorder with moderate isaura Acute Left arm cellulitis Acute Marijuana abuse Acute Altered mental status Acute Arm fracture Acute Chest pain Acute Lymphoma Acute Withdrawal from sedative drug Acute Bipolar disorder Chronic
--- NOTE | 2016-04-03 16:45 | PCMIDPN ---
Assessment/Plan: Assessment/Plan: * Left upper extremity erythema with ongoing low-grade temperatures status post ORIF of left humeral fracture with MSSA infection of fracture at time of ORIF undergoing 6 weeks of IV cefazolin: Operative cultures and blood cultures are no growth. Plan 6 weeks of cefazolin post repeat incision and drainage with new end date of 05/10/2016. Discussed with patient pathophysiology of persistent infection in the setting of hardware. Will discuss with Dr. Lin timing of chemotherapy for lymphoma. * History of MSSA bacteremia: Currently under therapy with cefazolin. Repeat blood cultures remain no growth. Duration of therapy as outlined above. 04/03/16 16:42 Subjective: Patient complains of left arm pain. Oncology notes reviewed regarding lymphoma and need for cytotoxic chemotherapy over time. Objective: Vital Signs Temp Pulse Resp BP Pulse Ox 36.7 C 100 16 131/88 H 100 04/03/16 09:09 04/03/16 09:09 04/03/16 09:09 04/03/16 09:09 04/03/16 09:09 Microbiology 03/30/16 08:42 Gram Stain - Final Arm - Eswab 03/28/16 12:40 Blood Culture - Final Blood 03/28/16 12:35 Blood Culture - Final Blood Laboratory Results 03/31/16 14:00 04/03/16 04:35 04/02/16 04/03/16 04/04/16 05:59 05:59 05:59 Intake Total 950 1500 Output Total 350 1200 Balance 600 300 ESR 99 MM/HR (0-30) H 03/28/16 09:50 C-Reactive Protein 86.4 mg/L (<10.0) H 03/28/16 09:50 Cefazolin # 34 Blood cultures x2 no growth Operative cultures no growth - Physical Exam General Appearance: alert, no apparent distress EENT: pharynx normal, No conjunctival petechiae Cardiac/Chest: regular rate, rhythm, other (Prior port site without inflammatory findings; Hydrofera in place) Extremities: inflammation (Left upper extremity with significant decrease in erythema and edema; [place] x1 in place; no active drainage present; tender to palpation over incision line but does not extend to shoulder) ICD10 Worksheet Patient Problems: Problems Problem Status Diagnosed Bipolar 1 disorder with moderate isaura Acute Left arm cellulitis Acute Marijuana abuse Acute Altered mental status Acute Arm fracture Acute Chest pain Acute Lymphoma Acute Withdrawal from sedative drug Acute Bipolar disorder Chronic
--- NOTE | 2016-04-03 17:09 | ECHO ---
[id number] + + [address] : : [place] [address] : : [phone] + + Adult Echocardiographic Report + -------+ :Name: BOWEN ALVAREZ MStudy Date: 04/03/2016 03:29 PM : : Hospital Admission Number: [id number] Locati on: 375: :: 1950 Gender: Female Height: 64 in : :Age: 65 yrs Race: WH Weight: 135 lb : :Reason For Study: Baseline echo prior to anthracycline : : BSA: 1.7 meter s2 : :History: Recurrent lymphoma : + -------+ Left Ventricle Ejection Fraction = 60-65%. Conclusion Limited 2-D echo. Technically difficult study - pt flat L shoulder post op. 1. This is a limited echocardiogram to evaluate LVEF prior to chemotherapy. 2. The left ventricle is normal in size. The left ventricular Ejection Fraction = 60-65%. Final Reading Physician: Raudel Pittman MD electronically signed on 04/03/2016 05:08 PM Ordering Physician: Argentina Lara Performed By: Marietta Lara RDCS
[2016-04-03] MEDS: DOXEPIN HCL 50 MG CAP PO SCH (21:50)
[2016-04-04] MEDS: HYDROmorphONE/DILAUDID 1 MG/ML SYR IVP PRN ×3 (00:41→15:08)
[2016-04-04] MEDS: oxyCODONE IR 5 MG TAB PO PRN ×5 (02:47→23:09)
[2016-04-04] MEDS: NYSTATIN SUSP 500000 UNIT/5 ML UDCUP PO SCH ×5 (03:10→22:44)
[2016-04-04] MEDS: ceFAZolin 2 GM in D5W 100 ML IV SCH (05:17)
[2016-04-04] MEDS: OLANZapine DISINTEGR 10 MG TAB PO SCH ×4 (05:17→19:31)
[2016-04-04] MEDS: LEVOTHYROXINE 125 MCG TAB PO SCH (05:17)
[2016-04-04] MEDS: LORazepam 1 MG TAB PO SCH ×4 (05:17→17:21)
[2016-04-04 05:36] LABS: % IMMATURE GRANULYOCYTES 1.7 % (0.0-1.1); ABSOLUTE IMMATURE GRANULOCYTES 0.09 10^3/uL (0.00-0.10); ADD DIFF? NO; ADD MORPH? NO; ADD SCAN? NO; ATYPICAL LYMPHOCYTE FLAG 10 (0-99); FRAGMENT RBC FLAG 0 (0-99); HEMATOCRIT 28.9 % (38.0-47.0); HEMOGLOBIN 9.2 g/dL (12.6-16.3); LEFT SHIFT FLG 10 (0-99); LIPEMIA HEMOLYSIS FLAG 80 (0-99); MEAN CELL HEMOGLOBIN 26.7 pg (27.9-34.1); MEAN CELL HEMOGLOBIN CONCENTR. 31.8 g/dL (32.4-36.7); MEAN PLATELET VOLUME 8.6 fL (8.7-11.7); PLATELET CLUMPS FLAG 20 (0-99); PLATELET COUNT 289 10^3/uL (150-400); RED BLOOD CELL COUNT 3.44 10^6/uL (4.18-5.33); RED CELL DISTRIBUTION WIDTH 16.5 % (11.5-15.2)
[2016-04-04 06:21] LABS: ANION GAP 8 mEq/L (8-16); CARBON DIOXIDE 26 mEq/l (22-31); CHLORIDE 106 mEq/L (97-110); CREATININE 0.5 mg/dL (0.6-1.0); GLOMERULAR FILTRATION RATE > 60; GLUCOSE 84 mg/dL (70-100); SODIUM 140 mEq/L (134-144)
[2016-04-04 06:22] LABS: ALANINE AMINOTRANSFERASE 19 IU/L (9-52); ALBUMIN 2.7 g/dL (3.5-5.0); ALKALINE PHOSPHATASE 118 IU/L (38-126); ASPARTATE AMINOTRANSFERASE 20 IU/L (14-46); BILIRUBIN,TOTAL 0.5 mg/dL (0.1-1.4); CALCIUM 8.5 mg/dL (8.5-10.4); MAGNESIUM 1.7 mg/dL (1.6-2.3); TOTAL PROTEIN 5.5 g/dL (6.3-8.2); URIC ACID 2.2 mg/dL (2.5-6.8)
[2016-04-04 06:36] LABS: LACTATE DEHYDROGENASE 2537 IU/L (313-618)
[2016-04-04] MEDS: ENOXAPARIN 40 MG/0.4 ML SYR SC SCH (08:25)
[2016-04-04] MEDS: ACYCLOVIR 400 MG TAB PO SCH ×2 (08:26→19:29)
[2016-04-04] MEDS: predniSONE 10 MG TAB PO SCH (08:27)
[2016-04-04] MEDS: METHOCARBAMOL 750 MG TAB PO SCH ×3 (08:27→22:44)
[2016-04-04] MEDS: VENLAFAXINE XR 75 MG CAP PO SCH (08:27)
[2016-04-04] MEDS: FAMOTIDINE 20 MG TAB PO SCH (08:27)
[2016-04-04] MEDS: FERROUS SULFATE 325 MG TAB PO SCH (08:28)
[2016-04-04] MEDS: NICOTINE 14 MG/24 HR PATCH TD SCH (09:20)
[2016-04-04] MEDS: TIOTROPIUM INHALER 18 MCG/DOSE 5 DOSE/MDI IH SCH (10:16)
--- NOTE | 2016-04-04 10:45 | HOSPPROG ---
Hospitalist Progress Note Assessment/Plan: LUE cellulitis - I&D in OR, POD #5, with purulent matter around incision. Wound Cx NGTD. On Ancef. Will need lifelong suppressive therapy after planned 6 week therapy (end date: 05/10/16) Oral pain likely due to trauma from dentures- She has swelling and small laceration which appears healing on the bottom right side of her mouth. She reports dentures are not fitting well. She will need to have f/u with her Dentist on discharge. No interventions needed now. No signs of infection S/P Left humeral fracture requiring ORIF while bacteremic, now cellulitic - s/p I&D, cont Ancef, ID following. -Post Op care per Ortho MSSA bacteremia - Cont Ancef. see above for abx duration Stage IV follicular lymphoma - LN biopsy c/w Diffuse large B-Cell vs Grade II follicular Lymphoma. -Onc following. They will likely hold off on therapy for a few weeks to allow further treatment of the infection LE edema - Lasix PRN, none today. US neg for DVT. COPD - stable, cont outpt meds Bipolar - stable, cont outpt med Hypothyroid - cont Levothyroxine DVT PPLX - Lovenox Full code Dispo - continue inpatient, cont abx. ID/Onc to determine chemo start date. Will need to f/u final path sent to [place] Subjective: Left arm pain is better c/o right sided mouth pain reports dentures don't fit right for quite some time Objective: VSS - Physical Exam Constitutional: no apparent distress Eyes: PERRL Ears, Nose, Mouth, Throat: moist mucous membranes. Right lower side of mouth: swelling and small laceration Cardiovascular: regular rate and rhythym Respiratory: no respiratory distress Gastrointestinal: normoactive bowel sounds, soft, non-tender abdomen Skin: warm Musculoskeletal: other (LUE dressing c/d/i) Neurologic: AAOx3 Psychiatric: interacting appropriately Objective: Vital Signs Temp Pulse Resp BP Pulse Ox 36.9 C 99 14 98/69 L 100 04/04/16 07:27 04/04/16 07:27 04/04/16 07:27 04/04/16 07:27 04/04/16 07:27 Microbiology 03/30/16 08:42 Gram Stain - Final Arm - Eswab 03/28/16 12:40 Blood Culture - Final Blood 03/28/16 12:35 Blood Culture - Final Blood Laboratory Results 04/04/16 05:25 04/04/16 05:25 04/03/16 04/04/16 04/05/16 05:59 05:59 05:59 Intake Total 1500 125 Output Total 1200 Balance 300 125 ICD10 Worksheet Patient Problems: Problems Problem Status Diagnosed Bipolar 1 disorder with moderate isaura Acute Left arm cellulitis Acute Marijuana abuse Acute Altered mental status Acute Arm fracture Acute Chest pain Acute Lymphoma Acute Withdrawal from sedative drug Acute Bipolar disorder Chronic
--- NOTE | 2016-04-04 12:59 | PCMIDPN ---
Assessment/Plan: Assessment: L arm wound I and D --- in setting of MSSA infection in the humeral fracture. In midst of 6 weeks of IV cefazolin directed at the MSSA osteomyelitis when the recurrent inflammation presented. Cultures of fluid found superficially thus far NGTD. Will continue her prior cefazolin therapy with new end date of 6 weeks past her most recent incision and drainage. New diagnosis of recurrent lymphoma from her cervical lymph nodes. Oncology planning on cytotoxic chemotherapy regimen upcoming. Awaiting results are [facility]. Plan: 1) Continue the cefazolin IV therapy. 2) Follow clinical course. Subjective: Patient is resting comfortably in her hospital bed. Still complains of left upper arm pain. No fevers or chills. No rash. Objective: Cefazolin #35 Vital Signs Temp Pulse Resp BP Pulse Ox 36.9 C 99 14 98/69 L 100 04/04/16 07:27 04/04/16 07:27 04/04/16 07:27 04/04/16 07:27 04/04/16 07:27 Microbiology 03/30/16 08:42 Gram Stain - Final Arm - Eswab 03/28/16 12:40 Blood Culture - Final Blood 03/28/16 12:35 Blood Culture - Final Blood Laboratory Results 04/04/16 05:25 04/04/16 05:25 04/03/16 04/04/16 04/05/16 05:59 05:59 05:59 Intake Total 1500 125 Output Total 1200 Balance 300 125 ESR 99 MM/HR (0-30) H 03/28/16 09:50 C-Reactive Protein 86.4 mg/L (<10.0) H 03/28/16 09:50 - Physical Exam General Appearance: WD/WN, alert, no apparent distress, non-toxic Respiratory: lungs clear, normal breath sounds, No respiratory distress Cardiac/Chest: regular rate, rhythm, No tachycardia Extremities: No non-tender, No normal inspection Skin: normal color, warm/dry, No rash Neuro/Psych: alert, normal mood/affect, oriented x 3 ICD10 Worksheet Patient Problems: Problems Problem Status Diagnosed Bipolar 1 disorder with moderate isaura Acute Left arm cellulitis Acute Marijuana abuse Acute Altered mental status Acute Arm fracture Acute Chest pain Acute Lymphoma Acute Withdrawal from sedative drug Acute Bipolar disorder Chronic
--- NOTE | 2016-04-04 14:33 | SOAPPROG ---
SOAP Progress Note Assessment/Plan: Assessment: * Prior follicular lymphoma (s/p Rituxan / Bendamustine 2016), now with transformation to a more aggressive lymphoma (Diffuse large B cell versus grade III follicular). Path has been sent to [place] for review and molecular analysis. Bone marrow biopsy 2 weeks ago did not show lymphoma, despite multiple pathologic fractures. * Recent Left shoulder fx s/p ORIF with MRSA-s/p I and D of left arm infection. On skilled nursing antibiotics * Anemia. Plan: Reviewed that she will need chemotherapy but the type will depend on pending studies. She needs further recovery from her surgeries, infection, etc. prior to starting. Recommend she continue her abx course and return to rehab. She should see Dr. Koo in a couple weeks to review plan, timing etc. Eventual bisphosphonate therapy would be appropriate. 04/04/16 14:30 Subjective: S: Wonders when she can go back to [facility]. O: VS reviewed. Gen: NAD, A&O. Path - LCL vs. FL gr 3, [facility] studies pending. Objective: Vital Signs Temp Pulse Resp BP Pulse Ox 36.9 C 99 14 98/69 L 100 04/04/16 07:27 04/04/16 07:27 04/04/16 07:27 04/04/16 07:27 04/04/16 07:27 Microbiology 03/30/16 08:42 Gram Stain - Final Arm - Eswab Laboratory Results 04/04/16 05:25 04/04/16 05:25 04/03/16 04/04/16 04/05/16 05:59 05:59 05:59 Intake Total 1500 125 Output Total 1200 Balance 300 125 ICD10 Worksheet Patient Problems: Problems Problem Status Diagnosed Bipolar 1 disorder with moderate isaura Acute Left arm cellulitis Acute Marijuana abuse Acute Altered mental status Acute Arm fracture Acute Chest pain Acute Lymphoma Acute Withdrawal from sedative drug Acute Bipolar disorder Chronic
[2016-04-04] MEDS: ceFAZolin 2 GM/DEXTROSE 100 ML IV SCH ×2 (15:08→22:44)
[2016-04-04 19:12] VITALS: RESP 14
[2016-04-04] MEDS: DOXEPIN HCL 50 MG CAP PO SCH (19:29)
[2016-04-05] MEDS: ceFAZolin 2 GM/DEXTROSE 100 ML IV SCH ×2 (06:07→14:03)
[2016-04-05] MEDS: LEVOTHYROXINE 125 MCG TAB PO SCH (06:15)
[2016-04-05] MEDS: OLANZapine DISINTEGR 10 MG TAB PO SCH ×2 (06:15→12:25)
[2016-04-05] MEDS: LORazepam 1 MG TAB PO SCH ×3 (06:15→12:26)
[2016-04-05] MEDS: oxyCODONE IR 5 MG TAB PO PRN ×2 (06:15→12:32)
[2016-04-05] MEDS: NYSTATIN SUSP 500000 UNIT/5 ML UDCUP PO SCH ×2 (06:16→12:26)
[2016-04-05 07:31] LABS: POTASSIUM 3.9 mEq/L (3.5-5.2)
--- NOTE | 2016-04-05 08:18 | PCMIDPN ---
Assessment/Plan: 1. Left upper extremity erythema status post ORIF for left humeral fracture with MSSA infection of the fracture at the time of ORIF: Continue Ancef as is, with end date as outlined by Dr. Felipe, May 10. No other new recommendations. 2. History of MSSA bacteremia: Repeat blood cultures sterile. On treatment in the form of Ancef. Subjective: Smiling. No complaints. Denies diarrhea, nausea vomiting or other. Objective: Ancef 2 g IV q.8 hours, end date May 10 T-max 37 .4 Vital Signs Temp Pulse Resp BP Pulse Ox 36.8 C 94 14 125/63 H 96 04/04/16 19:08 04/04/16 19:08 04/04/16 19:08 04/04/16 19:08 04/04/16 19:08 Microbiology 03/30/16 08:42 Gram Stain - Final Arm - Eswab Laboratory Results 04/04/16 05:25 04/05/16 06:20 04/04/16 04/05/16 04/06/16 05:59 05:59 05:59 Intake Total 125 120 110 Output Total 1000 Balance 125 120 -890 ESR 99 MM/HR (0-30) H 03/28/16 09:50 C-Reactive Protein 86.4 mg/L (<10.0) H 03/28/16 09:50 No new microbiology - Physical Exam General Appearance: alert, no apparent distress EENT: other (False teeth. No thrush.) Respiratory: lungs clear Extremities: other (Left arm in a sling. I did not take this off. Right arm PICC line looks fine. No erythema or swelling or tenderness.) Skin: No rash ICD10 Worksheet Patient Problems: Problems Problem Status Diagnosed Bipolar 1 disorder with moderate isaura Acute Left arm cellulitis Acute Marijuana abuse Acute Altered mental status Acute Arm fracture Acute Chest pain Acute Lymphoma Acute Withdrawal from sedative drug Acute Bipolar disorder Chronic
[2016-04-05] MEDS: METHOCARBAMOL 750 MG TAB PO SCH ×2 (08:37→15:51)
[2016-04-05] MEDS: VENLAFAXINE XR 75 MG CAP PO SCH (08:37)
[2016-04-05] MEDS: ACYCLOVIR 400 MG TAB PO SCH (08:37)
[2016-04-05] MEDS: FAMOTIDINE 20 MG TAB PO SCH (08:37)
[2016-04-05] MEDS: ENOXAPARIN 40 MG/0.4 ML SYR SC SCH (08:39)
[2016-04-05] MEDS: NICOTINE 14 MG/24 HR PATCH TD SCH (08:39)
[2016-04-05] MEDS: predniSONE 10 MG TAB PO SCH (08:39)
[2016-04-05 08:42] VITALS: BP 114/80; PULSE 107; TEMP 99.2; O2SAT 95
[2016-04-05] MEDS: FERROUS SULFATE 325 MG TAB PO SCH (08:42)
[2016-04-05] MEDS: TIOTROPIUM INHALER 18 MCG/DOSE 5 DOSE/MDI IH SCH ×2 (09:39→11:12)
--- NOTE | 2016-04-05 11:07 | PDIAF ---
- Diagnosis Diagnosis: MSSA soft tissue infection Code Status: Full Code - Medication Management Discharge Medications: Medications to Continue on Transfer Levothyroxine [Synthroid 125 mcg (*)] 125 mcg PO DAILY06 03/27/14 [Last Taken ] Doxepin HCl [Sinequan 50 MG (*)] 100 mg PO HS 07/17/15 [Last Taken 02/26/16] Ferrous Sulfate [Ferrous Sulf 325 MG (*)] 325 mg PO DAILY 07/17/15 [Last Taken 02/27/16] Acyclovir [Zovirax 400 mg (*)] 400 mg PO BID 02/08/16 [Last Taken 02/27/16] Ibuprofen [Motrin (*)] 600 mg PO Q6 PRN 02/08/16 [Last Taken 02/07/16] Multivitamins [Multivitamin (*)] 1 each PO DAILY 02/08/16 [Last Taken 02/27/16] OLANZapine DISINTEGR [ZyPREXA ZYDIS (*)] 10 mg PO TID@05,12,17 02/08/16 [Last Taken 02/27/16] OLANZapine DISINTEGR [ZyPREXA ZYDIS (*)] 20 mg PO HS 02/08/16 [Last Taken ] [place]-3 Fatty Acids [Fish Oil 1000 mg (*)] 1,000 mg PO BID 02/08/16 [Last Taken 02/27/16] Prochlorperazine Maleate [Compazine 10mg (*)] 10 mg PO TID PRN 02/08/16 [Last Taken 02/07/16] Ranitidine HCl [Zantac] 300 mg PO DAILY 02/08/16 [Last Taken 02/27/16] rOPINIRole HCL [Requip 0.25mg (RX)] 0.25 mg PO HS 02/08/16 [Last Taken 02/26/16] tiZANidine HCL [Zanaflex 2MG (*)] 2 mg PO DAILY PRN 02/08/16 [Last Taken Unknown ] traMADol [Ultram 50 mg (*)] 50 mg PO Q4 PRN 02/08/16 [Last Taken 02/07/16] Tiotropium Inhaler [Spiriva Handihaler] 18 mcg IH DAILY 02/27/16 [Last Taken ] Venlafaxine HCl [Venlafaxine HCl ER] 225 mg PO DAILY 02/27/16 [Last Taken ] LORazepam [Ativan (*)] 1 mg PO 0500,0900,1300,1700 #0 tab 03/15/16 [Last Taken Unknown] Polyethylene Glycol 3350 [Miralax 17 gm (*)] 17 gm PO DAILY PRN #0 pkt 03/15/16 [Last Taken Unknown] oxyCODONE CR [Oxycontin] 20 mg PO BID #0 tab 03/15/16 [Last Taken Unknown] predniSONE 10 mg PO DAILY #0 tab 03/15/16 [Last Taken Unknown] Heparin Sodium,Porcine/Pf [Heparin 100 Unit/10 ml (10/ml)] 30 unit IV Q8 [Last Taken Unknown] Nystatin Susp [Mycostatin Oral Liquid] 4 ml PO Q6 03/28/16 [Last Taken Unknown] Oxycodone HCl 20 mg PO Q4 PRN 03/28/16 [Last Taken Unknown] fentaNYL [Duragesic 25 MCG Patch (*)] 25 mcg TD Q72H 03/28/16 [Last Taken 08:30] traMADol [Ultram 50 mg (*)] 100 mg PO Q6 PRN 03/28/16 [Last Taken Unknown] Nicotine [Nicoderm Cq 14 mg (*)] 14 mg TD DAILY patch 04/05/16 [Last Taken Unknown] ceFAZolin 2 GM/DEXTROSE [Ancef 2 gm (Premix)] 100 ml IV Q8HRS #108 dose [Last Taken Unknown] Mcfp Antibiotics: Ancef 2g IV q8hrs Malt Roaster Antibiotic Stop Date: 05/09/16 Discharge Medications: Refer to the Discharge Home Medication list for PRN reason. PICC Care - Routine: Yes - Orders Services needed: Registered Nurse, Physical Therapy, Occupational Therapy Diet Recommendation: no restrictions on diet Tan: Not applicable Wound Care Instructions: LUE w/ routine bandaging, keep dry/clean - Labs/Radiology BMP Date: 04/11/16 (weekly) CBC Date: 04/11/16 (weekly) Call or Fax Lab and Imaging Results to: Dr. Terrell Felipe - Follow Up Care Current Providers and Referrals: Sarah William MD [Primary Care Provider] - Carissa Koo MD [Medical Doctor] - follow up in 2 weeks Terrell Felipe MD [Medical Doctor] - (follow-up before stop date of 05/10/16) Reva Choudhary MD [Medical Doctor] - 3-5 days
[2016-04-05] MEDS ORDERED: POTASSIUM CL 10 MEQ TAB PO ONE (11:14)
--- NOTE | 2016-04-05 11:23 | PDDCSUM ---
Discharge Summary Discharge Summary: DISCHARGE SUMMARY FOLLOW-UP ITEMS: Discharge, to be followed by Dr. Koo DATE OF ADMISSION: 03/28/2016 DATE OF DISCHARGE: 04/05/2016 DISCHARGE DIAGNOSES: 1. Left upper extremity cellulitis secondary to MSSA 2. Left upper extremity pain 3. Chronic pain with continuous opiate 4. Stage IV follicular lymphoma 5. Bipolar disease type 1 6. COPD CONSULTATIONS: Orthopedics by Dr. Choudhary, ID, Hematology Oncology PROCEDURES / IMAGIN03/30/2016 incision and drainage by Dr. Choudhary CHIEF COMPLAINT: Acute arm pain SUBJECTIVE: Patient is going pain located in the left upper, treated with oral pain medications PHYSICAL EXAM ON DISCHARGE: Systolic blood pressure while on room air, there is no erythema or fluctuance or induration located in the left upper extremity, left elbow with full range of motion and no effusion LABS ON DISCHARGE: Hemoglobin 9.2, white blood cell count, LDH 2,500, creatinine 0.5 HOSPITAL COURSE BY PROBLEM: 1. Left upper extremity cellulitis. Located at the LUE site w/ purulent matter around prior incision, s/p I&D by Dr. Choudhary on 03/30, cultures growing MSSA. Continued on Ancef per ID, will modify stop date to 05/10 and have outpatient reassessment by Dr. Choudhary this week, ID appt to follow. Area appears well healing at time of DC. 2. LUE pain. 2/2 cellulitis, recent ORIF, and low pain threshold. Continue on PRN oxycodone at home dose. 3. Chronic pain w/ continuous opiate dependency. Continue oxy SR w/ PRN IR for breakthrough. 4. Bipolar disease type I. Cont on home medications. 5. Stage IV follicular lymphoma. S/p biopsy on right neck, either DLBCL vs. Grade II follicular lymphoma. She will f/u w/ Dr. Koo, and not initiate chemo until MSSA infection resolved. 6. COPD. Stable, cont home Rx. DISCHARGE MEDICATIONS: Please see official discharge medication reconciliation sheet in chart , Ancef 2g q8hr through 05/10/16. DISCHARGE INSTRUCTIONS: Follow w/ Dr. Choudhary next week, follow-up with Dr. Koo in 2 weeks, follow-up with Dr. Felipe prior to 05/10/16. TIME SPENT: Greater than 30 minutes were spent on direct patient care, as well as discharge planning and preparation.
[2016-04-05 15:14] LABS: HEPATITIS Bs Ab QUANT <5.0 mIU/mL (())
== END 2016-04-05 16:03 | DRG 571 ==
LOC: EDUNIT# → F3N 11:52 → F3E 04-02 17:01
PROVIDERS: ADMIT Internal Medicine; ATTEND Internal Medicine
PROC: 30233N1 Transfusion of Nonautologous Red Blood Cells into Peripheral Vein, Percutaneous Approach (ICD-10-PCS; 2016-03-29)
PROC: 07BH0ZX Excision of Right Inguinal Lymphatic, Open Approach, Diagnostic (ICD-10-PCS; principal; 2016-03-30 08:09)
PROC: 0HBCXZZ Excision of Left Upper Arm Skin, External Approach (ICD-10-PCS; principal; 2016-03-30 08:09)
PROC: 07B10ZX Excision of Right Neck Lymphatic, Open Approach, Diagnostic (ICD-10-PCS; principal; 2016-03-30 08:09)
DX: L03.114 Cellulitis of left upper limb (principal); B95.61 Methicillin susceptible Staphylococcus aureus infection as the cause of diseases classified elsewhere; C83.31 Diffuse large B-cell lymphoma, lymph nodes of head, face, and neck; C83.35 Diffuse large B-cell lymphoma, lymph nodes of inguinal region and lower limb; M84.622 Pathological fracture in other disease, left humerus; F11.20 Opioid dependence, uncomplicated; G89.29 Other chronic pain; D63.8 Anemia in other chronic diseases classified elsewhere; J44.9 Chronic obstructive pulmonary disease, unspecified; E03.9 Hypothyroidism, unspecified; F31.9 Bipolar disorder, unspecified
CPT/HCPCS: 88184-90; 88185-91; 96374; 97110-GO; 97116-GP; 97162-GP; 97166-GO; 97530-GP; 97535-GO; G8978-GP-CJ; G8979-GP-CI; G8987-GO-CK; G8988-GO-CJ; J0690; J1100; J1170; J1650; J2250; J2405; J2704; J2997; J3010; P9016

== ENCOUNTER 2016-05-05 11:20 | Emergency (ER) | payer OTHER, MEDICAID ==
[2016-05-05 11:51] VITALS: RESP 16; TEMP 97.5
[2016-05-05] MEDS ORDERED: oxyCODONE IR 5 MG TAB PO ONE (13:42)
[2016-05-05] MEDS ORDERED: LORazepam 1 MG TAB PO ONE (13:42)
[2016-05-05 14:14] LABS: ABSOLUTE NRBC COUNT 0.02 10^3/uL (0-0.01); ADD DIFF? YES; ADD MORPH? NO; ADD SCAN? NO; ATYPICAL LYMPHOCYTE FLAG 10 (0-99); FRAGMENT RBC FLAG 20 (0-99); HEMATOCRIT 30.4 % (38.0-47.0); HEMOGLOBIN 9.6 g/dL (12.6-16.3); LEFT SHIFT FLG 30 (0-99); LIPEMIA HEMOLYSIS FLAG 80 (0-99); MEAN CELL HEMOGLOBIN 26.8 pg (27.9-34.1); MEAN CELL HEMOGLOBIN CONCENTR. 31.6 g/dL (32.4-36.7); MEAN CELL VOLUME 84.9 fL (81.5-99.8); NRBC-AUTO% 0.2 % (0.0-0.2); PLATELET CLUMPS FLAG 0 (0-99); PLATELET COUNT 301 10^3/uL (150-400); RED BLOOD CELL COUNT 3.58 10^6/uL (4.18-5.33); RED CELL DISTRIBUTION WIDTH 19.2 % (11.5-15.2)
[2016-05-05 14:49] LABS: PLATELET ESTIMATE ADEQUATE (ADEQ)
[2016-05-05 14:50] LABS: ELLIPTOCYTES 1+
--- NOTE | 2016-05-05 14:53 | EDPHY ---
H & P Stated Complaint: osteomyelitis following l shoulder surg/ivabx not better/sent by dr olmedo Time Seen by Provider: 05/05/16 13:06 HPI/ROS: CHIEF COMPLAINT: left arm cellulitis HISTORY OF PRESENT ILLNESS: 65-year-old female presents emergency department from [facility] for evaluation a left upper arm cellulitis. Patient has a significant past medical history for a left shoulder osteomyelitis status post ORIF after a fracture. She was in the hospital about 6 weeks ago and has a PICC line in place. Patient is followed at [place]. She saw Dr. Peña 6 days ago who ordered labs, blood cultures and an ultrasound. Blood cultures were negative, patient had a mildly elevated WBC but also had recently received steroids. Ultrasound report called to Dr. Peña as normal. Dr. Olmedo is the doctor at [facility] saw the redness of her left upper arm and had her come to the emergency department. Patient denies fevers or chills, she reports she does not feel ill, no increased pain in this left arm. Erythema extended minimally beyond border drawn 3 days ago. Patient is receiving 2 g of Ancef every 8 hours. REVIEW OF SYSTEMS: A comprehensive 10 point review of systems is otherwise negative aside from elements mentioned in the history of present illness. Source: Patient, [facility] records Exam Limitations: No limitations - Personal History Current Tetanus/Diphtheria Vaccine: Yes Tetanus Vaccine Date: 2009 - Medical/Surgical History Hx Asthma: No Hx Chronic Respiratory Disease: Yes Hx Diabetes: No Hx Cardiac Disease: No Hx Renal Disease: No Hx Cirrhosis: No Hx Alcoholism: Yes Hx HIV/AIDS: No Hx Splenectomy or Spleen Trauma: No Other PMH: PMHx: chronic pain, hypothyroid, depression, anxiety, degenerative disc disease, COPD, sleep apnea, angina, bipolar, stage 4 non hodgkins lymphona , L humrus surgical neck fracture,. PSHx: L femur fx repair - Social History Smoking Status: Former smoker - Physical Exam Exam: Physical Exam Gen: Alert and Oriented, NAD HEENT: PERRL, moist mucous membranes NECK: no meningismus CV: regular rate and regular rhythm PULM: CTAB, no wheezes ABDOMEN: soft, non tender to palpation, BS present BACK: No CVA tenderness NEURO: Neurologically grossly intact EXTREMITIES: PICC line in place to right upper arm, no surrounding erythema. Left inside upper arm with 12 cm x 6 cm area of erythema that is outlined, no fluctuance, no warmth, no tenderness. SKIN: no break in skin on exposed skin PSYCH: answers questions appropriately. Constitutional: Initial Vital Signs Temperature (C) 36.4 C 05/05/16 11:49 Heart Rate 92 05/05/16 11:49 Respiratory Rate 16 05/05/16 11:49 Blood Pressure 123/77 H 05/05/16 11:49 O2 Sat (%) 98 05/05/16 11:49 O2 Delivery Mode Room Air Allergies/Adverse Reactions: melatonin Allergy (Mild, Verified 05/05/16 11:48) Other-Enter Comments gabapentin [Gabapentin] Allergy (Unknown, Verified 05/05/16 11:48) TREMORS pregabalin [Pregabalin] Allergy (Unknown, Verified 05/05/16 11:48) Rash solifenacin succinate [From Vesicare] Allergy (Unknown, Verified 05/05/16 11:48) topiramate [Topiramate] Allergy (Unknown, Verified 05/05/16 11:48) POORLY TOLERATED ziprasidone [Ziprasidone] Allergy (Unknown, Verified 05/05/16 11:48) ABNORMAL THINKING ziprasidone HCl [From Geodon] Allergy (Unknown, Verified 05/05/16 11:48) ziprasidone mesylate [From Geodon] Allergy (Unknown, Verified 05/05/16 11:48) zolpidem [Zolpidem] Allergy (Unknown, Verified 05/05/16 11:48) levofloxacin [From Levaquin] Allergy (Verified 05/05/16 11:48) Home Medications: Medication Instructions Recorded Levothyroxine [Synthroid 125 mcg 125 mcg PO DAILY06 03/27/14 (*)] Doxepin HCl [Sinequan 50 MG (*)] 100 mg PO HS 07/17/15 Ferrous Sulfate [Ferrous Sulf 325 325 mg PO DAILY 07/17/15 MG (*)] Acyclovir [Zovirax 400 mg (*)] 400 mg PO BID 02/08/16 Ibuprofen [Motrin (*)] 600 mg PO Q6 PRN 02/08/16 Multivitamins [Multivitamin (*)] 1 each PO DAILY 02/08/16 OLANZapine DISINTEGR [ZyPREXA 10 mg PO TID@05,12,17 02/08/16 ZYDIS (*)] OLANZapine DISINTEGR [ZyPREXA 20 mg PO HS 02/08/16 ZYDIS (*)] [place]-3 Fatty Acids [Fish Oil 1000 1,000 mg PO BID 02/08/16 mg (*)] Prochlorperazine Maleate 10 mg PO TID PRN 02/08/16 [Compazine 10mg (*)] Ranitidine HCl [Zantac] 300 mg PO DAILY 02/08/16 rOPINIRole HCL [Requip 0.25mg (RX)] 0.25 mg PO HS 02/08/16 tiZANidine HCL [Zanaflex 2MG (*)] 2 mg PO DAILY PRN 02/08/16 traMADol [Ultram 50 mg (*)] 50 mg PO Q4 PRN 02/08/16 Tiotropium Inhaler [Spiriva 18 mcg IH DAILY 02/27/16 Handihaler] Venlafaxine HCl [Venlafaxine HCl 225 mg PO DAILY 02/27/16 ER] LORazepam [Ativan (*)] 1 mg PO 0500,0900,1300,1700 #0 tab 03/15/16 Polyethylene Glycol 3350 [Miralax 17 gm PO DAILY PRN #0 pkt 03/15/16 17 gm (*)] oxyCODONE CR [Oxycontin] 20 mg PO BID #0 tab 03/15/16 predniSONE 10 mg PO DAILY #0 tab 03/15/16 Heparin Sodium,Porcine/Pf [Heparin 30 unit IV Q8 03/28/16 100 Unit/10 ml (10/ml)] Nystatin Susp [Mycostatin Oral 4 ml PO Q6 03/28/16 Liquid] Oxycodone HCl 20 mg PO Q4 PRN 03/28/16 fentaNYL [Duragesic 25 MCG Patch 25 mcg TD Q72H 03/28/16 (*)] traMADol [Ultram 50 mg (*)] 100 mg PO Q6 PRN 03/28/16 Nicotine [Nicoderm Cq 14 mg (*)] 14 mg TD DAILY patch 04/05/16 ceFAZolin 2 GM/DEXTROSE [Ancef 2 100 ml IV Q8HRS #108 dose 04/05/16 gm (Premix)] Medical Decision Making - Diagnostics Imaging: Left shoulder x-ray independently reviewed by me- Impression: Stable left shoulder radiographs post ORIF comminuted left humeral neck fracture. Dictated By: Tobias Foster MD Left upper extremity ultrasound soft tissue and vessels revealed no DVT, no fluid collection or abscess ED Course/Re-evaluation: 2pm- I spoke with Dr. Peña with Infectious Disease who knows this patient well. She is recommending getting a CBC, ultrasound and x-ray of the left upper extremity. 420pm-CBC is unremarkable with a WBC of 9, x-ray of her left shoulder is normal with no effusion that was seen on her x-ray 1 month ago. Ultrasound of her left upper extremity shows no fluid collection, abscess or DVT. The patient is afebrile, nontoxic-appearing, she will be discharged home to follow up with Dr. Peña in office. Dr. Peña is comfortable with this plan. The patient is to continue her antibiotics. She is given return precautions for worsening symptoms. - Data Points Laboratory Results: Laboratory Results 05/05/16 14:05 05/05/16 14:05 WBC 8.77 10^3/uL 10^3/uL (3.80-9.50) RBC 3.58 10^6/uL L 10^6/uL (4.18-5.33) Hgb 9.6 g/dL L g/dL (12.6-16.3) Hct 30.4 % L % (38.0-47.0) MCV 84.9 fL fL (81.5-99.8) MCH 26.8 pg L pg (27.9-34.1) MCHC 31.6 g/dL L g/dL (32.4-36.7) RDW 19.2 % H % (11.5-15.2) Plt Count 301 10^3/uL 10^3/uL (150-400) MPV 9.0 fL fL (8.7-11.7) Neut % (Auto) Not Reported Lymph % (Auto) Not Reported [place] % (Auto) Not Reported Eos % (Auto) Not Reported Baso % (Auto) Not Reported Nucleat RBC Rel Count 0.2 % % (0.0-0.2) Absolute Neuts (auto) Not Reported Absolute Lymphs (auto) Not Reported Absolute Monos (auto) Not Reported Absolute Eos (auto) Not Reported Absolute Basos (auto) Not Reported Absolute Nucleated RBC 0.02 10^3/uL H 10^3/uL (0-0.01) Immature Gran % Not Reported Seg Neutrophils % 77 % % Band Neutrophils % 4 % % Lymphocytes % 12 % % Monocytes % 7 % % Immature Gran # Not Reported Absolute Seg Neuts 6.75 10^/uL H 10^/uL (1.70-6.50) Absolute Band Neuts 0.35 10^3/uL 10^3/uL (0.00-0.70) Absolute Lymphocytes 1.05 10^3/uL 10^3/uL (1.00-3.00) Absolute Monocytes 0.61 10^3/uL 10^3/uL (0.30-0.80) Platelet Estimate ADEQUATE (ADEQ) Elliptocytes 1+ H Medications Given: Discontinued Medications Lorazepam (Ativan) 1 mg PO EDNOW ONE Stop: 05/05/16 13:43 Last Admin: 05/05/16 14:05 Dose: 1 mg Oxycodone HCl (Oxycodone Ir) 20 mg PO EDNOW ONE Stop: 05/05/16 13:43 Last Admin: 05/05/16 14:05 Dose: 20 mg Departure - Departure Disposition: Home, Routine, Self-Care Clinical Impression: Left arm cellulitis Condition: Good Instructions: Cellulitis (ED) Additional Instructions: Continue your medication as prescribed. Warm compresses to your left upper arm 5 times per day for 10 minutes. Follow up with Dr. Peña this week. Return to the ED for worsening symptoms. Referrals: Kota Peña MD [Medical Doctor] - As per Instructions
[2016-05-05 15:40] VITALS: PULSE 81
[2016-05-05 16:39] VITALS: BP 135/76; O2SAT 98
== END 2016-05-05 17:12 | disposition home or self-care (01) ==
DX: L03.114 Cellulitis of left upper limb (principal); J44.9 Chronic obstructive pulmonary disease, unspecified; Z87.891 Personal history of nicotine dependence

== ENCOUNTER 2016-06-24 17:21 | Emergency (ER) | payer OTHER, MEDICAID ==
[2016-06-24 17:28] VITALS: RESP 20
--- NOTE | 2016-06-24 17:43 | EDPHY ---
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 The patient has been undergoing chemotherapy every 3 weeks since August 2015. Her last treatment was . The patient saw her PCP at [facility] today for a routine check up. She was found to be febrile at 101 there and was referred to the ED. The patient's only complaint is sore throat. She had a negative strep culture at her PCP's office today. She denies headache, neck pain, shortness of breath, cough, chest pain, vomiting, diarrhea, abdominal pain, or urinary complaints. No change in her longstanding lower extremity swelling. REVIEW OF SYSTEMS: A ten point review of systems was performed and is negative with the exception of the items mentioned in the HPI. Patient states the new chemotherapy she is receiving makes her nauseous, gives her heart burn and hair loss. Source: Patient - Personal History Current Tetanus/Diphtheria Vaccine: Yes Tetanus Vaccine Date: 2009 - Medical/Surgical History Hx Asthma: No Hx Chronic Respiratory Disease: Yes Hx Diabetes: No Hx Cardiac Disease: No Hx Renal Disease: No Hx Cirrhosis: No Hx Alcoholism: Yes Hx HIV/AIDS: No Hx Splenectomy or Spleen Trauma: No Other PMH: PMHx: chronic pain, hypothyroid, depression, anxiety, degenerative disc disease, COPD, sleep apnea, angina, bipolar, stage 4 non hodgkins lymphoma , L humerus surgical neck fracture,. PSHx: L femur fx repair - Social History Smoking Status: Former smoker Additional Social History: Lives with a friend. Left [facility] 06/06/16 after undergoing rehab for pathologic fracture. Quit smoking 3 years ago. - Physical Exam Exam: General Appearance: Alert. Vital signs reviewed. temperature 36.8. Heart rate 104 at triage. Blood pressure 108/68. Eyes: Pupils equal and round, no conjunctival injection, no discharge. Anicteric. ENT, Mouth: Mucous membranes are moist, no oropharyngeal erythema or edema. Neck: No lymphadenopathy, supple. No meningismus. Respiratory: Lungs are clear to auscultation; no wheezes, rales, or rhonchi. Cardiovascular: Tachycardic, regular rhythm; no murmur, rub, or gallop. Gastrointestinal: Abdomen is soft and nontender, no masses or organomegaly, bowel sounds normal. Skin: Warm and dry, no rashes on exposed skin, normal color. Back: Nontender to palpation over the thoracolumbar spine. No CVAT. Extremities: Trace peripheral edema. Neurological: Alert and oriented. Moving all four extremities easily and equally. Psychiatric: Normal affect. Constitutional: Initial Vital Signs Temperature (C) 36.8 C 06/24/16 17:25 Heart Rate 104 H 06/24/16 17:25 Respiratory Rate 20 06/24/16 17:25 Blood Pressure 108/68 06/24/16 17:25 O2 Sat (%) 97 06/24/16 17:25 O2 Delivery Mode Room Air Allergies/Adverse Reactions: melatonin Allergy (Mild, Verified 06/24/16 17:22) Other-Enter Comments gabapentin [Gabapentin] Allergy (Unknown, Verified 06/24/16 17:22) TREMORS pregabalin [Pregabalin] Allergy (Unknown, Verified 06/24/16 17:22) Rash solifenacin succinate [From Vesicare] Allergy (Unknown, Verified 06/24/16 17:22) topiramate [Topiramate] Allergy (Unknown, Verified 06/24/16 17:22) POORLY TOLERATED ziprasidone [Ziprasidone] Allergy (Unknown, Verified 06/24/16 17:22) ABNORMAL THINKING ziprasidone HCl [From Geodon] Allergy (Unknown, Verified 06/24/16 17:22) ziprasidone mesylate [From Geodon] Allergy (Unknown, Verified 06/24/16 17:22) zolpidem [Zolpidem] Allergy (Unknown, Verified 06/24/16 17:22) levofloxacin [From Levaquin] Allergy (Verified 06/24/16 17:22) Home Medications: Medication Instructions Recorded Levothyroxine [Synthroid 125 mcg 125 mcg PO DAILY06 03/27/14 (*)] Doxepin HCl [Sinequan 50 MG (*)] 100 mg PO HS 07/17/15 Ferrous Sulfate [Ferrous Sulf 325 325 mg PO DAILY 07/17/15 MG (*)] Acyclovir [Zovirax 400 mg (*)] 400 mg PO BID 02/08/16 Ibuprofen [Motrin (*)] 600 mg PO Q6 PRN 02/08/16 Multivitamins [Multivitamin (*)] 1 each PO DAILY 02/08/16 OLANZapine DISINTEGR [ZyPREXA 10 mg PO TID@05,12,17 02/08/16 ZYDIS (*)] OLANZapine DISINTEGR [ZyPREXA 20 mg PO HS 02/08/16 ZYDIS (*)] [place]-3 Fatty Acids [Fish Oil 1000 1,000 mg PO BID 02/08/16 mg (*)] Prochlorperazine Maleate 10 mg PO TID PRN 02/08/16 [Compazine 10mg (*)] Ranitidine HCl [Zantac] 300 mg PO DAILY 02/08/16 rOPINIRole HCL [Requip 0.25mg (RX)] 0.25 mg PO HS 02/08/16 tiZANidine HCL [Zanaflex 2MG (*)] 2 mg PO DAILY PRN 02/08/16 traMADol [Ultram 50 mg (*)] 50 mg PO Q4 PRN 02/08/16 Tiotropium Inhaler [Spiriva 18 mcg IH DAILY 02/27/16 Handihaler] Venlafaxine HCl [Venlafaxine HCl 225 mg PO DAILY 02/27/16 ER] LORazepam [Ativan (*)] 1 mg PO 0500,0900,1300,1700 #0 tab 03/15/16 Polyethylene Glycol 3350 [Miralax 17 gm PO DAILY PRN #0 pkt 03/15/16 17 gm (*)] oxyCODONE CR [Oxycontin] 20 mg PO BID #0 tab 03/15/16 predniSONE 10 mg PO DAILY #0 tab 03/15/16 Heparin Sodium,Porcine/Pf [Heparin 30 unit IV Q8 03/28/16 100 Unit/10 ml (10/ml)] Nystatin Susp [Mycostatin Oral 4 ml PO Q6 03/28/16 Liquid] fentaNYL [Duragesic 25 MCG Patch 25 mcg TD Q72H 03/28/16 (*)] oxyCODONE HCL [Oxycodone HCl] 20 mg PO Q4 PRN 03/28/16 traMADol [Ultram 50 mg (*)] 100 mg PO Q6 PRN 03/28/16 Nicotine [Nicoderm Cq 14 mg (*)] 14 mg TD DAILY patch 04/05/16 ceFAZolin 2 GM/DEXTROSE [Ancef 2 100 ml IV Q8HRS #108 dose 04/05/16 gm (Premix)] Medical Decision Making ED Course/Re-evaluation: The patient is a 65-year-old female with stage 4 lymphoma with mets to her bone marrow who was sent here because of fever noted at PCPs office today. The patient went for routine check-up and had fever of 101. Patient is afebrile here. She is slightly tachycardic. No hypoxia or hypertension. The patient's only complaint is sore throat. On exam she has no pharyngeal erythema or exudates. She had a negative strep culture at [facility] today. Plan to check lactic acid, labs, blood cultures, chest x-ray, and urinalysis. An x-ray of chest was obtained. I viewed the images myself on the PACS system. No pneumonia. See the full radiology report in the imaging section. Lactic acid is normal. WBC shows neutropenia, as expected. No urine obtained. She has no urinary complaints. Patient states that she feels well and she is well-appearing at the time of my exam. She is not febrile. Her temperature was rechecked prior to her discharge from the emergency department. I cannot explain her elevated temperature earlier. She did not receive antipyretics. She is not interested in additional treatment or hospitalization and I do not see the need for either. 7:25 p.m.: I consulted Dr. Jennings, Oncology who agrees with discharging the patient home with return precautions. Differential Diagnosis: Fever in adults including but not limited to pneumonia, urinary tract infection , viral syndrome, and influenza. - Data Points Laboratory Results: Laboratory Results 06/24/16 18:10 06/24/16 18:10 Microbiology Results: MICROBIOLOGY 06/24/16 18:10 Blood Blood Culture - Preliminary Departure - Departure Disposition: Home, Routine, Self-Care Clinical Impression: Neutropenia Qualifiers: Neutropenia type: secondary to cancer chemotherapy Qualified Code(s): D70.1 - Agranulocytosis secondary to cancer chemotherapy Condition: Good Instructions: Neutropenia (ED) Additional Instructions: 1. Please buy a thermometer. 2. Return to the emergency department if you develop a fever of 100.4 or higher. If you develop rigors, chills, or feel poorly please return immediately. 3. Followup with your primary care physician for a recheck. Referrals: Sarah William MD [Primary Care Provider] - As per Instructions Report Scribed for: Beth Riddle Report Scribed by: Nadja Castano Date of Report: 06/24/16 Time of Report: 18:05 Physician Review and Approval Statement: 06/24/16 17:43 Portions of this note were transcribed by the medical care manager. I, Dr. Beth Riddle, personally performed the history, physical exam, and medical decision- making; and confirmed the accuracy of the information in the transcribed note.
[2016-06-24 18:29] LABS: ADD DIFF? YES; ADD MORPH? NO; ATYPICAL LYMPHOCYTE FLAG 0 (0-99); FRAGMENT RBC FLAG 20 (0-99); HEMATOCRIT 25.2 % (38.0-47.0); HEMOGLOBIN 8.4 g/dL (12.6-16.3); LEFT SHIFT FLG 30 (0-99); LIPEMIA HEMOLYSIS FLAG 80 (0-99); MEAN CELL HEMOGLOBIN 27.5 pg (27.9-34.1); MEAN CELL HEMOGLOBIN CONCENTR. 33.3 g/dL (32.4-36.7); MEAN CELL VOLUME 82.4 fL (81.5-99.8); MEAN PLATELET VOLUME 9.7 fL (8.7-11.7); PLATELET CLUMPS FLAG 10 (0-99); PLATELET COUNT 131 10^3/uL (150-400); RED BLOOD CELL COUNT 3.06 10^6/uL (4.18-5.33); RED CELL DISTRIBUTION WIDTH 19.3 % (11.5-15.2)
[2016-06-24 18:35] LABS: ADD SCAN? YES
[2016-06-24 18:42] LABS: INR 0.98 (0.83-1.16); PROTIME(PATIENT) 12.9 SEC (12.0-15.0)
[2016-06-24 18:43] LABS: APTT 25.9 SEC (23.0-38.0)
[2016-06-24 18:53] LABS: ANION GAP 9 mEq/L (8-16); BILIRUBIN,TOTAL 0.8 mg/dL (0.1-1.4); CALCIUM 8.7 mg/dL (8.5-10.4); CARBON DIOXIDE 23 mEq/l (22-31); CHLORIDE 100 mEq/L (97-110); CREATININE 0.4 mg/dL (0.6-1.0); GLOMERULAR FILTRATION RATE > 60; GLUCOSE 94 mg/dL (70-100); SODIUM 132 mEq/L (134-144)
[2016-06-24 19:02] VITALS: TEMP 98.6
[2016-06-24 20:02] VITALS: BP 106/68; PULSE 100; O2SAT 92
[2016-06-24 20:21] LABS: HYPOCHROMIA 2+; MICROCYTES 2+; PLATELET ESTIMATE ADEQUATE (ADEQ)
[2016-06-24 22:49] LABS: SCAN POSITIVE
== END 2016-06-24 20:02 | disposition home or self-care (01) ==
DX: D70.1 Agranulocytosis secondary to cancer chemotherapy (principal); T45.1X5A Adverse effect of antineoplastic and immunosuppressive drugs, initial encounter; C85.90 Non-Hodgkin lymphoma, unspecified, unspecified site; J44.9 Chronic obstructive pulmonary disease, unspecified; Z87.891 Personal history of nicotine dependence

== ENCOUNTER → 2016-07-10 | Day surgery (SDC) | payer OTHER, MEDICAID ==
[~2016-07-10] MED LIST: ACETAMINOPHEN 325 MG TAB PO ONE; diphenhydrAMINE 25 MG CAP PO ONE
[2016-07-10 12:41] VITALS: BP 119/70; PULSE 80; RESP 18; TEMP 100; O2SAT 93
== END | disposition home or self-care (01) ==
LOC: FOBOP 11:38
PROVIDERS: ATTEND Internal Medicine Hematology & Oncology
PROC: 30233N1 Transfusion of Nonautologous Red Blood Cells into Peripheral Vein, Percutaneous Approach (ICD-10-PCS; principal; 2016-07-10)
DX: D64.81 Anemia due to antineoplastic chemotherapy (principal); C85.90 Non-Hodgkin lymphoma, unspecified, unspecified site; F10.21 Alcohol dependence, in remission; J44.9 Chronic obstructive pulmonary disease, unspecified; E03.9 Hypothyroidism, unspecified
CPT/HCPCS: 36430; P9016; J1642

== ENCOUNTER → 2016-07-28 | Outpatient (CLI) | payer OTHER, MEDICAID | LOC: FIMAGING 15:13 | PROVIDERS: ATTEND Internal Medicine Infectious Disease | DX: L02.91 Cutaneous abscess, unspecified (principal); R78.81 Bacteremia; L53.9 Erythematous condition, unspecified; M86.9 Osteomyelitis, unspecified; Z79.2 Long term (current) use of antibiotics ==

== ENCOUNTER 2016-08-21 13:14 | Emergency (ER) | payer OTHER, MEDICAID ==
[2016-08-21 13:20] VITALS: TEMP 98.2
[2016-08-21 14:13] LABS: ADD DIFF? YES; ADD MORPH? NO; ADD SCAN? NO; ATYPICAL LYMPHOCYTE FLAG 50 (0-99); FRAGMENT RBC FLAG 0 (0-99); HEMATOCRIT 26.1 % (38.0-47.0); HEMOGLOBIN 8.4 g/dL (12.6-16.3); LEFT SHIFT FLG 0 (0-99); LIPEMIA HEMOLYSIS FLAG 80 (0-99); MEAN CELL HEMOGLOBIN 29.1 pg (27.9-34.1); MEAN CELL HEMOGLOBIN CONCENTR. 32.2 g/dL (32.4-36.7); MEAN CELL VOLUME 90.3 fL (81.5-99.8); PLATELET CLUMPS FLAG 10 (0-99); PLATELET COUNT 193 10^3/uL (150-400); RED BLOOD CELL COUNT 2.89 10^6/uL (4.18-5.33); RED CELL DISTRIBUTION WIDTH 16.4 % (11.5-15.2)
--- NOTE | 2016-08-21 14:14 | EDPHY ---
H & P Time Seen by Provider: 08/21/16 13:39 HPI/ROS: CHIEF COMPLAINT: Right arm pain and redness HPI: The patient is a 66-year-old female with a complicated past medical history significant for chronic left upper extremity cellulitis. The patient is followed by Dr. Peña at Infectious Disease. She reports worsening pain and redness over the last week in her left upper extremity beyond baseline. She called the nurse at the infectious disease clinic who recommended that she present to the emergency department. The patient denies any fever or new symptoms other than increasing redness. She denies chest pain or shortness of breath. REVIEW OF SYSTEMS: Aside from elements discussed in the HPI, a comprehensive 10-point review of systems was reviewed and is negative. PMH: Complex, includes: Lymphoma, Bipolar, substance abuse. SOCIAL HISTORY Denies current drug abuse. Seen by Dr. Peña. PHYSICAL EXAM: General:Patient is alert, in no acute distress. ENT:Eyes are normal to inspection. ENT inspection normal. Neck: Normal inspection. Full range of motion. Respiratory:No respiratory distress. Breath sounds normal bilaterally. Port in place. Cardiovascular: Regular rate and rhythm. Strong peripheral pulses. Normal cap refill. Abdomen:The abdomen is nontender to palpation. There are no peritoneal signs. There are normal bowel sounds. Back: Normal to inspection. No tenderness to palpation. Skin: Normal color. No rash. Warm and dry. Extremities: LUE: band of erythema is present, approximately 15cm wide, across LUE/bicep region. Neuro: Oriented x3. Normal motor function. Normal sensory function. Smoking Status: Former smoker Constitutional: Initial Vital Signs Temperature (C) 36.8 C 08/21/16 13:17 Heart Rate 92 08/21/16 13:17 Respiratory Rate 18 08/21/16 13:17 Blood Pressure 114/76 08/21/16 13:17 O2 Sat (%) 96 08/21/16 13:17 O2 Delivery Mode Room Air Allergies/Adverse Reactions: melatonin Allergy (Mild, Verified 08/21/16 13:16) Other-Enter Comments gabapentin [Gabapentin] Allergy (Unknown, Verified 08/21/16 13:16) TREMORS pregabalin [Pregabalin] Allergy (Unknown, Verified 08/21/16 13:16) Rash solifenacin succinate [From Vesicare] Allergy (Unknown, Verified 08/21/16 13:16) topiramate [Topiramate] Allergy (Unknown, Verified 08/21/16 13:16) POORLY TOLERATED ziprasidone [Ziprasidone] Allergy (Unknown, Verified 08/21/16 13:16) ABNORMAL THINKING ziprasidone HCl [From Geodon] Allergy (Unknown, Verified 08/21/16 13:16) ziprasidone mesylate [From Geodon] Allergy (Unknown, Verified 08/21/16 13:16) zolpidem [Zolpidem] Allergy (Unknown, Verified 08/21/16 13:16) levofloxacin [From Levaquin] Allergy (Verified 08/21/16 13:16) Home Medications: Medication Instructions Recorded Levothyroxine [Synthroid 125 mcg 125 mcg PO DAILY06 03/27/14 (*)] Doxepin HCl [Sinequan 50 MG (*)] 100 mg PO HS 07/17/15 Ferrous Sulfate [Ferrous Sulf 325 325 mg PO DAILY 07/17/15 MG (*)] Acyclovir [Zovirax 400 mg (*)] 400 mg PO BID 02/08/16 Ibuprofen [Motrin (*)] 600 mg PO Q6 PRN 02/08/16 Multivitamins [Multivitamin (*)] 1 each PO DAILY 02/08/16 OLANZapine DISINTEGR [ZyPREXA 10 mg PO TID@,,02/08/16 ZYDIS (*)] OLANZapine DISINTEGR [ZyPREXA 20 mg PO HS 02/08/16 ZYDIS (*)] [place]-3 Fatty Acids [Fish Oil 1000 1,000 mg PO BID 02/08/16 mg (*)] Prochlorperazine Maleate 10 mg PO TID PRN 02/08/16 [Compazine 10mg (*)] Ranitidine HCl [Zantac] 300 mg PO DAILY 02/08/16 rOPINIRole HCL [Requip 0.25mg (RX)] 0.25 mg PO HS 02/08/16 tiZANidine HCL [Zanaflex 2MG (*)] 2 mg PO DAILY PRN 02/08/16 traMADol [Ultram 50 mg (*)] 50 mg PO Q4 PRN 02/08/16 Tiotropium Inhaler [Spiriva 18 mcg IH DAILY 02/27/16 Handihaler] Venlafaxine HCl [Venlafaxine HCl 225 mg PO DAILY 02/27/16 ER] LORazepam [Ativan (*)] 1 mg PO 0500,0900,1300,1700 #0 tab 03/15/16 Polyethylene Glycol 3350 [Miralax 17 gm PO DAILY PRN #0 pkt 03/15/16 17 gm (*)] oxyCODONE CR [Oxycontin] 20 mg PO BID #0 tab 03/15/16 predniSONE 10 mg PO DAILY #0 tab 03/15/16 Heparin Sodium,Porcine/Pf [Heparin 30 unit IV Q8 03/28/16 100 Unit/10 ml (10/ml)] Nystatin Susp [Mycostatin Oral 4 ml PO Q6 03/28/16 Liquid] fentaNYL [Duragesic 25 MCG Patch 25 mcg TD Q72H 03/28/16 (*)] oxyCODONE HCL [Oxycodone HCl] 20 mg PO Q4 PRN 03/28/16 traMADol [Ultram 50 mg (*)] 100 mg PO Q6 PRN 03/28/16 Nicotine [Nicoderm Cq 14 mg (*)] 14 mg TD DAILY patch 04/05/16 ceFAZolin 2 GM/DEXTROSE [Ancef 2 100 ml IV Q8HRS #108 dose 04/05/16 gm (Premix)] MDM/Departure - MDM ED Course/Re-evaluation: The patient was evaluated by Dr. Yvonne Hernandez at 4:20 p.m.. She has ordered IV ceftriaxone an MRI and will arrange for home IV therapy. She recommends discharge unless MRI shows something dramatic. 2030: I was informed by Dr. Hernandez that MRI does not show anything concerning and that patient can be discharged home. - Depart Disposition: Home, Routine, Self-Care Clinical Impression: Cellulitis, Lymphoma Condition: Good Instructions: Cellulitis (ED) Additional Instructions: Follow-up with your Infectious Disease physician as scheduled. You have been set up to receive daily IV antibiotics. Return to the ED for worsening redness , pain, fever or other concerns. Referrals: Sarah William MD [Primary Care Provider] - As per Instructions Kota Peña MD [Medical Doctor] - 08/25/16 11:30 am
[2016-08-21 14:45] LABS: ANION GAP 7 mEq/L (8-16); CALCIUM 8.3 mg/dL (8.5-10.4); CARBON DIOXIDE 23 mEq/l (22-31); CHLORIDE 100 mEq/L (97-110); CREATININE 0.5 mg/dL (0.6-1.0); GLOMERULAR FILTRATION RATE > 60; GLUCOSE 96 mg/dL (70-100); SODIUM 130 mEq/L (134-144)
[2016-08-21 14:58] LABS: ELLIPTOCYTES 1+; HYPOCHROMIA 1+; PLATELET ESTIMATE ADEQUATE (ADEQ); POLYCHROMASIA 1+
[2016-08-21] MEDS ORDERED: CEFTRIAXONE 1 GM/DEXTROSE/50 ML BAG IV ONE (16:03)
[2016-08-21 17:31] VITALS: RESP 16
--- NOTE | 2016-08-21 18:54 | GCON ---
[f rep st] CONSULTATION INFECTIOUS DISEASE CONSULTATION FOR THE ER REFERRING PHYSICIAN: Giuseppe Alcaraz MD REASON FOR CONSULTATION: Left upper extremity redness and pain. HISTORY OF PRESENT ILLNESS: 66-year-old woman, well known to the Infectious Disease service, with a history of MSSA bacteremia associated with left humeral osteomyelitis and abscess following a fract ure and placement of hardware for the fracture. Since completing IV antibiotics early May of 2016 , the patient has remained on suppressive Keflex varying doses. The patient notes over the last cou ple days increasing pain with less ability to raise, to abduct her arm and 10% increase in redness. She denies any fevers, chills, night sweats. She denies any specific injuries. She has been takin g her Keflex 3 times daily, but earlier in July had been increased to 4 times daily. PAST MEDICAL HISTORY: 1. Schizophrenia. 2. 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 3. Hypothyroidism. 4. Hypertension. PAST SURGICAL HISTORY: 1. Ankle repair. 2. Cataract surgery. 3. Right hip replacement. 4. Open reduction internal fixation of her left ankle. 5. Open reduction internal fixation of her left humerus. ALLERGIES: Many and include primarily psychiatric medicines including gabapentin, Geodon, topiramat e and Ambien. She is also allergic to VESIcare, pregabalin, melatonin and Levaquin for which she de guzman d mental status changes. FAMILY HISTORY: Reviewed and noncontributory. SOCIAL HISTORY: Former tobacco. No alcohol. REVIEW OF SYSTEMS: A complete 10-point review of systems was performed and is negative except as me ntioned in the HPI. PHYSICAL EXAMINATION: VITAL SIGNS: Blood pressure 114/76, heart rate 92, respiratory rate 18, satu ration 96% on room air, temperature 36.8. GENERAL: This is a nontoxic-appearing woman sitting up i n bed. No acute distress. HEENT: Extensive prior dental work. Moist mucous membranes. NECK: Mauro pple. CARDIOVASCULAR: Regular rate and rhythm with a 2/6 systolic murmur. CHEST: Clear to auscul tation bilaterally. ABDOMEN: Soft, nontender. EXTREMITIES: Her left upper extremity has band-lik e erythema in the mid upper arm with mild tenderness to palpation and mild warmth. Very distinctive borders of the redness were noted. NEUROLOGICAL: She was ambulating with a cane independently. LABORATORY: White count 2, hematocrit 26, platelets of 193, 45% neutrophils, 19%, bands, 18% lympho cytes. Creatinine 0.9. C-reactive protein is 32. IMAGING: Pending. ASSESSMENT: This is a 66-year-old woman with a chronic infection of her left humerus with hardware in place. Patient received initial aggressive IV antibiotic therapy with I and D, and has been plac ed on suppressive oral antibiotics for suppression of therapy. The patient has had chronic band-lik e redness of her arm chronically with intermittent increases in pain of unclear etiology. She came to the ER today because of severe pain. She does have a low white count with a slight bandemia whic h could reflect worsening infection. Also considerations include potential reaction to hardware cau sing this band-like reaction. PLAN: 1. Give a dose of ceftriaxone 1 g in the ER and daily dosing through August 25 at home until re-lg luation by Dr. Peña on that date. 2. Would obtain MRI to better delineate the underlying anatomy knowing there will be some artifact due to hardware. 3. Coordination of care with the ER doctors and nursing for establishing home IV antibio tics. Time was 65 minutes with greater than 50% time spent with coordinating care, evaluating and assessin g risks, explaining risks and benefits of antibiotic therapy to patient as well as obtaining MRI. We will continue to follow the patient as an outpatient. After MRI is complete, patient can be disc harged. /[id number]/MODL
[2016-08-21] MEDS ORDERED: GADOBUTROL 10 ML VIAL IVP ONE (19:15)
[2016-08-21 20:19] VITALS: BP 115/72; PULSE 86; O2SAT 92
[2016-08-21] MEDS ORDERED: LORazepam 1 MG TAB ONE (20:39)
[2016-08-21] MEDS ORDERED: LORazepam 1 MG TAB PO ONE (20:43)
== END 2016-08-21 20:56 | disposition home or self-care (01) ==
DX: L03.113 Cellulitis of right upper limb (principal); C85.90 Non-Hodgkin lymphoma, unspecified, unspecified site; Z87.891 Personal history of nicotine dependence
CPT/HCPCS: 73220; 96365; 96375; 99285; A9585; J0696; J1642

== ENCOUNTER 2016-09-06 18:37 | Inpatient (IN) | payer OTHER, MEDICAID ==
[2016-09-06] MEDS ORDERED: NS 1,600 ML IV ONE (19:03)
--- NOTE | 2016-09-06 19:09 | EDPHY ---
H & P Stated Complaint: l arm cellulitis/stopped ancef thursday recurrent fever Time Seen by Provider: 09/06/16 18:54 HPI/ROS: CHIEF COMPLAINT: Cellulitis HISTORY OF PRESENT ILLNESS: The patient is a 66-year-old female with a history of stage IV non-Hodgkin's lymphoma multiple bony metastases. Patient had a proximal humerus fracture in February of last year and had a surgical repair with plating. Since that time she has had erythema at the surgical site spreading down her arm. She has been on multiple antibiotics and was most recently on Ancef through her port. This did not seem to be helping and she was switched from Ancef to Keflex and acyclovir. She states that her arm has become more erythematous. It is currently limited to the biceps area. It is tender and painful. Her infectious disease doctor is Dr. Peña and she was seen in their office on Thursday. Her oncologist is Dr. Koo. Yesterday and today her home health nurse noticed a fever of 101 degrees. REVIEW OF SYSTEMS: Constitutional: denies: chills, fever, recent illness, recent injury EENTM: denies: blurred vision, double vision, nose congestion Respiratory: denies: cough, shortness of breath Cardiac: denies: chest pain, irregular heart rate, lightheadedness, palpitations Gastrointestinal/Abdominal: denies: abdominal pain, diarrhea, nausea, vomiting, blood streaked stools Genitourinary: denies: dysuria, frequency, hematuria, pain Musculoskeletal: denies: joint pain, muscle pain Skin: See HPI Neurological: denies: headache, numbness, paresthesia, tingling, dizziness, weakness Hematologic/Lymphatic: denies: blood clots, easy bleeding, easy bruising Immunologic/allergic: denies: HIV/AIDS, transplant EXAM: GENERAL: Well-appearing, well-nourished and in no acute distress. HEAD: Atraumatic, normocephalic. EYES: Pupils equal round and reactive to light, extraocular movements intact, sclera anicteric, conjunctiva are normal. ENT: TMs normal, nares patent, oropharynx clear without exudates. Moist mucous membranes. NECK: Normal range of motion, supple without lymphadenopathy or JVD. LUNGS: Breath sounds clear to auscultation bilaterally and equal. No wheezes rales or rhonchi. HEART: Regular rate and rhythm without murmurs, rubs or gallops. ABDOMEN: Soft, nontender, normoactive bowel sounds. No guarding, no rebound. No masses appreciated. BACK: No CVA tenderness, no spinal tenderness, step-offs or deformities EXTREMITIES: Normal range of motion, no pitting or edema. No clubbing or cyanosis. NEUROLOGICAL: Cranial nerves II through XII grossly intact. Normal speech, normal gait. 5/5 strength, normal movement in all extremities, normal sensation PSYCH: Normal mood, normal affect. SKIN: Erythema and warmth starting at the incision site in her left axilla spreading over her anterior biceps and lateral region of her upper arm. Tender and mildly edematous. Normal range of motion limited by pain. Normal pulses distally. Source: Patient Exam Limitations: No limitations - Personal History Current Tetanus/Diphtheria Vaccine: Yes Tetanus Vaccine Date: 2009 - Medical/Surgical History Hx Asthma: No Hx Chronic Respiratory Disease: Yes Hx Diabetes: No Hx Cardiac Disease: No Hx Renal Disease: No Hx Cirrhosis: No Hx Alcoholism: Yes Hx HIV/AIDS: No Hx Splenectomy or Spleen Trauma: No Other PMH: PMHx: chronic pain, hypothyroid, depression, anxiety, degenerative disc disease, COPD, sleep apnea, angina, bipolar, stage 4 non hodgkins lymphoma , L humerus surgical neck fracture,. PSHx: L femur fx repair - Family History Significant Family History: No pertinent family hx - Social History Smoking Status: Former smoker Alcohol Use: Sober Drug Use: None Constitutional: Initial Vital Signs Temperature (C) 37.4 C 09/06/16 18:43 Heart Rate 102 H 09/06/16 18:43 Respiratory Rate 20 09/06/16 18:43 Blood Pressure 129/76 H 09/06/16 18:43 O2 Sat (%) 98 09/06/16 18:43 O2 Delivery Mode Room Air Allergies/Adverse Reactions: melatonin Allergy (Mild, Verified 09/06/16 18:41) Other-Enter Comments gabapentin [Gabapentin] Allergy (Unknown, Verified 09/06/16 18:41) TREMORS pregabalin [Pregabalin] Allergy (Unknown, Verified 09/06/16 18:41) Rash solifenacin succinate [From Vesicare] Allergy (Unknown, Verified 09/06/16 18:41) topiramate [Topiramate] Allergy (Unknown, Verified 09/06/16 18:41) POORLY TOLERATED ziprasidone [Ziprasidone] Allergy (Unknown, Verified 09/06/16 18:41) ABNORMAL THINKING ziprasidone HCl [From Geodon] Allergy (Unknown, Verified 09/06/16 18:41) ziprasidone mesylate [From Geodon] Allergy (Unknown, Verified 09/06/16 18:41) zolpidem [Zolpidem] Allergy (Unknown, Verified 09/06/16 18:41) levofloxacin [From Levaquin] Allergy (Verified 09/06/16 18:41) Home Medications: Medication Instructions Recorded Levothyroxine [Synthroid 125 mcg 125 mcg PO DAILY06 03/27/14 (*)] Doxepin HCl [Sinequan 50 MG (*)] 100 mg PO HS 07/17/15 Ferrous Sulfate [Ferrous Sulf 325 325 mg PO DAILY 07/17/15 MG (*)] Ibuprofen [Motrin (*)] 600 mg PO Q6 PRN 02/08/16 Multivitamins [Multivitamin (*)] 1 each PO DAILY 02/08/16 OLANZapine DISINTEGR [ZyPREXA 10 mg PO TID@,,02/08/16 ZYDIS (*)] OLANZapine DISINTEGR [ZyPREXA 20 mg PO HS 02/08/16 ZYDIS (*)] Breaks-3 Fatty Acids [Fish Oil 1000 1,000 mg PO BID 02/08/16 mg (*)] rOPINIRole HCL [Requip 0.25mg (RX)] 0.25 mg PO HS 02/08/16 Venlafaxine HCl [Venlafaxine HCl 225 mg PO DAILY 02/27/16 ER] LORazepam [Ativan (*)] 1 mg PO 0500,0900,1300,1700 #0 tab 03/15/16 oxyCODONE HCL [Oxycodone HCl] 20 mg PO Q4 PRN 03/28/16 Cephalexin [Keflex (*)] 500 mg PO TID 09/06/16 Levothyroxine Sodium 125 mcg PO DAILY 09/06/16 [Levothyroxine Sodium] Sennosides/Docusate Sodium 2 each PO DAILY 09/06/16 [Senna-Docusate Sodium Tablet] morphINE SR [MS Contin/Oramorph 60 60 mg PO BID 09/06/16 mg (*)] morphINE SR [MS Contin/Oramorph SR 30 mg PO BID 09/06/16 30 mg (*)] valACYclovir [Valtrex (*)] 1,000 mg PO BID 09/06/16 Medical Decision Making ED Course/Re-evaluation: According to the medical record the patient has a history of osteomyelitis with MSSA after her the fracture repair. She had been on IV antibiotics until May and then remained on suppressive Keflex. She was seen here a 2 weeks ago and at that time he started on Rocephin IV daily at home. She also has a history of schizophrenia and hypertension. The patient is currently hypotensive. She is receiving IV fluids. We will continue to observe. 8:25 p.m. I discussed the case with Dr. park from Infectious Disease. She recommends admission and initiation of vancomycin and cefepime. We will monitor the patient's blood pressure to evaluate necessity for central line and further fluid replacement. She is neutropenic. 8:30 p.m. discussed the case with Dr. Eliot Haider who will admit to medical service. Differential Diagnosis: Partial list of the Differential diagnosis considered include but were not limited to; cellulitis, pneumonia, osteomyelitis, stomatitis, sepsis and although unlikely based on the history and physical exam, I also considered meningitis, abscess. Critical Care Time: Critical care time spent by me, Dr. Joshua exclusive with this patient was 35 minutes, exclusive of the PA time exclusive of procedures. The organ system that was at risk was and I gave IV antibiotics, consultation to prevent worsening of the patient's condition - Data Points Laboratory Results: Laboratory Results 09/06/16 19:20 09/06/16 19:20 09/06/16 19:20 Smear Review By Brandyn MACIAS MD Medications Given: Discontinued Medications Fentanyl (Sublimaze) 50 mcg IVP EDNOW ONE Stop: 09/06/16 21:47 Last Admin: 09/06/16 21:35 Dose: 50 mcg Sodium Chloride (Ns) 1,600 mls @ 3,200 mls/hr 30 ml/kg infuse over 30 min ( 1600 ml) IV EDNOW ONE PRN Reason: Protocol Stop: 09/06/16 19:32 Last Admin: 09/06/16 19:35 Dose: 1,600 mls Cefepime HCl 1 gm/ Dextrose 50 mls @ 100 mls/hr IV EDNOW ONE PRN Reason: Protocol Stop: 09/06/16 20:53 Last Admin: 09/06/16 21:56 Dose: 50 mls Vancomycin/Sodium Chloride (Vancomycin 1 Gm (Premix)) 250 mls @ 250 mls/hr IV EDNOW ONE PRN Reason: Protocol Stop: 09/06/16 21:23 Last Admin: 09/06/16 20:24 Dose: 250 mls Departure - Departure Disposition: [facility] Acute Clinical Impression: Cellulitis Qualifiers: Site of cellulitis: extremity Site of cellulitis of extremity: upper extremity Laterality: left Qualified Code(s): L03.114 - Cellulitis of left upper limb Sepsis Qualifiers: Sepsis type: sepsis due to unspecified organism Qualified Code(s): A41.9 - Sepsis, unspecified organism Condition: Critical
[2016-09-06 19:34] LABS: ADD DIFF? YES; ADD MORPH? NO; ADD SCAN? NO; ATYPICAL LYMPHOCYTE FLAG 0 (0-99); FRAGMENT RBC FLAG 0 (0-99); HEMATOCRIT 28.8 % (38.0-47.0); HEMOGLOBIN 9.2 g/dL (12.6-16.3); LEFT SHIFT FLG 0 (0-99); LIPEMIA HEMOLYSIS FLAG 80 (0-99); MEAN CELL HEMOGLOBIN 28.1 pg (27.9-34.1); MEAN CELL HEMOGLOBIN CONCENTR. 31.9 g/dL (32.4-36.7); MEAN CELL VOLUME 88.1 fL (81.5-99.8); MEAN PLATELET VOLUME 8.7 fL (8.7-11.7); PLATELET CLUMPS FLAG 30 (0-99); PLATELET COUNT 217 10^3/uL (150-400); RED BLOOD CELL COUNT 3.27 10^6/uL (4.18-5.33); RED CELL DISTRIBUTION WIDTH 15.3 % (11.5-15.2)
[2016-09-06 19:42] LABS: APTT 35.1 SEC (23.0-38.0); INR 1.06 (0.83-1.16); PROTIME(PATIENT) 13.7 SEC (12.0-15.0)
[2016-09-06 19:50] LABS: ANION GAP 10 mEq/L (8-16); BILIRUBIN,TOTAL 0.7 mg/dL (0.1-1.4); CALCIUM 8.9 mg/dL (8.5-10.4); CARBON DIOXIDE 23 mEq/l (22-31); CHLORIDE 103 mEq/L (97-110); CREATININE 0.6 mg/dL (0.6-1.0); GLOMERULAR FILTRATION RATE > 60; GLUCOSE 82 mg/dL (70-100); POTASSIUM 4.4 mEq/L (3.5-5.2); SODIUM 136 mEq/L (134-144)
[2016-09-06 19:58] LABS: COLOR YELLOW; LEUKOCYTE ESTERASE,URINE NEGATIVE (NEGATIVE); NITRITE,URINE NEGATIVE (NEGATIVE)
[2016-09-06 20:13] LABS: PLATELET ESTIMATE ADEQUATE (ADEQ)
[2016-09-06] MEDS ORDERED: VANCOMYCIN HCL/NORMAL SALINE 250 ML IV ONE (20:24)
[2016-09-06] MEDS ORDERED: CEFEPIME HCL 1 GM in D5W 50 ML IV ONE (20:24)
[2016-09-06] MEDS ORDERED: fentaNYL 100 MCG/2 ML INJ ONE (21:10)
[2016-09-06] MEDS ORDERED: ONDANSETRON 4 MG/2 ML VIAL IVP PRN (21:41)
[2016-09-06] MEDS ORDERED: ACETAMINOPHEN 325 MG TAB PO PRN (21:41)
[2016-09-06] MEDS ORDERED: ONDANSETRON DISINTEGRATING 4 MG TAB PO PRN (21:41)
[2016-09-06] MEDS ORDERED: IBUPROFEN 600 MG TAB PO PRN (21:43)
[2016-09-06] MEDS ORDERED: fentaNYL 100 MCG/2 ML INJ IVP ONE (21:46)
--- NOTE | 2016-09-06 22:36 | GHP ---
[f rep st] HISTORY AND PHYSICAL DATE OF ADMISSION: 09/06/2016 HISTORY OF PRESENT ILLNESS: The patient is a 66-year-old female with history of schizophrenia, non- Hodgkin's lymphoma, who recently completed a round of chemotherapy, as well as a left upper extremit y chronic cellulitis with hardware, who presents to the ER largely complaining of worsening mouth pa in from mucositis. She does take acyclovir. She is finding it hard to eat. On laboratory evaluati on, she was found to be neutropenic, and then subsequently became febrile. It sounds like her home health aide noticed that she had been febrile to 101 at home. She has had maybe some rigors. There has been no drainage from her wound on her left upper extremity. She takes suppressive Keflex, and she says the redness is about the same as it has been. She does not have cough or shortness of vimal ath. She does note some urinary symptoms such as urgency and frequency. When I see her, she is largely complaining about her mucositis. Her emergency department course was complicated by declining blood pressures, and concern for severe sepsis. She did have a normal [place]. REVIEW OF SYSTEMS: Complete 10-point review of systems conducted and negative, except as noted in t he HPI. PAST MEDICAL HISTORY: 1. Non-Hodgkin's lymphoma. A recent PET scan performed in July showed dramatic improvement in her b urden of disease. She appears to have completed chemotherapy. 2. Left upper extremity wound. It sounded like she had a pathologic fracture, with hardware placem ent and subsequent infection. She has been on numerous antibiotics, and takes suppressive Keflex. 3. MSSA bacteremia in February of 2016. 4. Stage IV follicular lymphoma. 5. Chronic pain, with continuous opiate dependence. 6. Bipolar, type 1. 7. COPD. SOCIAL HISTORY: Nonsmoker. No alcohol. ALLERGIES: Melatonin, gabapentin, pregabalin, VESIcare, levofloxacin, topiramate, ziprasidone, zolp idem. HOME MEDICATIONS: Senna, docusate, olanzapine, [place] fish oil, multivitamin, levothyroxine, lorazep am, ibuprofen, iron, doxepin, oxycodone 24 q.4, MS Contin 90 twice daily, Keflex, venlafaxine, ropin irole, valacyclovir. SOCIAL HISTORY: No tobacco. No alcohol. FAMILY HISTORY: Parents . PHYSICAL EXAM: VITAL SIGNS: Temperature 37.4, blood pressure 129/76, now 111/69, pulse 102, now in the 80s, breathing 20 times a minute, 98% on room air. GENERAL: No acute distress. Sclerae anict flores. Oropharynx shows she had a lot of lipstick on, but she does have some erythema, and evidence of mucositis. NECK: Supple, without lymphadenopathy or JVD. LUNGS: Clear to auscultation bilater ally. HEART: S1, S2. Borderline tachycardic. ABDOMEN: Soft, nontender, nondistended. LOWER EXT REMITIES: Without edema. Her left upper extremity has a collar of erythema, without lymphangitic s treaking. It is woody, consistent with chronic inflammation, but there is no fluctuance. NEUROLOGI C: Exam is nonfocal. SKIN: Otherwise without rash. LABS: Her white count is 1.1. Had a white count below 2 for the last 2 weeks. Hemoglobin 9.2, whi ch is stable, platelets 217,000. INR 1. Venous lactate 0.4. Sodium 136, potassium 4.4, chloride 1 02, bicarbonate 22, BUN 8, creatinine 0.6. UA is negative. Mouth ulcers have been HSV negative on 09/01/2016. Chest x-ray, interpreted by me, shows no acute cardiopulmonary disease. I discussed the case with Bonny Joshua. ASSESSMENT AND PLAN: This is a 66-year-old female who presents with mucositis, found to have concer n for neutropenia, concern for infection of her arm. 1. Arm infection. ID was consulted, who recommended vancomycin and cefepime. I think this is a re asonable choice. She has had MSSA in the past. Blood cultures have been drawn. We will follow. S he does not have fluctuance or evidence it is an abscess. Her urine is clear, her chest x-ray is cl ear, she has a soft belly, so the source is likely either her mouth or her arm. 2. Non-Hodgkin's lymphoma, appears to be doing well. Her neutropenia is secondary to chemotherapy she received last week. I would anticipate it will be rebounding soon. I am uncertain of the exact agents. 3. Prophylaxis. Pharmacologic prophylaxis is indicated. Start enoxaparin. 4. Schizophrenia. We will continue her medicines. 5. Chronic pain. Continue her medicines. 6. Disposition. Inpatient status. /[id number]/MODL
[2016-09-06] MEDS: DOXEPIN HCL 50 MG CAP PO SCH (23:04)
[2016-09-06] MEDS: NS 1,000 ML IV SCH (23:05)
[2016-09-06] MEDS: MBX SOLN 30 ML BOTTLE PO PRN (23:32)
[2016-09-07] MEDS: oxyCODONE IR 5 MG TAB PO PRN ×5 (03:18→21:42)
[2016-09-07] MEDS: MBX SOLN 30 ML BOTTLE PO PRN ×4 (03:19→18:44)
[2016-09-07] MEDS: LEVOTHYROXINE 125 MCG TAB PO SCH (05:00)
[2016-09-07] MEDS: OLANZapine DISINTEGR 10 MG TAB PO SCH ×3 (05:00→16:50)
[2016-09-07] MEDS: LORazepam 1 MG TAB PO SCH ×4 (05:00→16:50)
[2016-09-07] MEDS: NS 1,000 ML IV SCH ×2 (05:01→12:11)
[2016-09-07 05:22] LABS: ADD DIFF? YES; ADD MORPH? NO; ADD SCAN? NO; ATYPICAL LYMPHOCYTE FLAG 0 (0-99); FRAGMENT RBC FLAG 0 (0-99); HEMATOCRIT 24.8 % (38.0-47.0); HEMOGLOBIN 7.9 g/dL (12.6-16.3); LEFT SHIFT FLG 0 (0-99); LIPEMIA HEMOLYSIS FLAG 80 (0-99); MEAN CELL HEMOGLOBIN 28.2 pg (27.9-34.1); MEAN CELL HEMOGLOBIN CONCENTR. 31.9 g/dL (32.4-36.7); MEAN CELL VOLUME 88.6 fL (81.5-99.8); MEAN PLATELET VOLUME 8.3 fL (8.7-11.7); PLATELET CLUMPS FLAG 10 (0-99); PLATELET COUNT 164 10^3/uL (150-400); RED CELL DISTRIBUTION WIDTH 15.3 % (11.5-15.2)
[2016-09-07 05:41] LABS: ANION GAP 7 mEq/L (8-16); CALCIUM 7.9 mg/dL (8.5-10.4); CARBON DIOXIDE 21 mEq/l (22-31); CHLORIDE 111 mEq/L (97-110); CREATININE 0.5 mg/dL (0.6-1.0); GLOMERULAR FILTRATION RATE > 60; GLUCOSE 85 mg/dL (70-100); POTASSIUM 3.7 mEq/L (3.5-5.2); SODIUM 139 mEq/L (134-144)
[2016-09-07 06:16] LABS: INR 1.11 (0.83-1.16); PROTIME(PATIENT) 14.2 SEC (12.0-15.0)
[2016-09-07 06:17] LABS: APTT 35.4 SEC (23.0-38.0)
[2016-09-07 06:26] LABS: PLATELET ESTIMATE ADEQUATE (ADEQ)
[2016-09-07] MEDS: HYDROmorphONE/DILAUDID 1 MG/ML SYR IVP PRN ×3 (07:32→16:52)
[2016-09-07] MEDS: morphINE SR 30 MG TAB PO SCH ×2 (08:03→20:49)
[2016-09-07] MEDS: SENNOSIDES/DOCUSATE SODIUM TAB PO SCH (08:39)
[2016-09-07] MEDS: morphINE SR 60 MG TAB PO SCH ×2 (08:40→20:49)
[2016-09-07] MEDS: MULTIVITAMINS 1 EACH TAB PO SCH (08:41)
[2016-09-07] MEDS: FERROUS SULFATE 325 MG TAB PO SCH (08:44)
[2016-09-07] MEDS: OMEGA-3 FATTY ACIDS 1,000 MG CAP PO SCH ×2 (08:44→20:49)
[2016-09-07] MEDS: VENLAFAXINE XR 150 MG CAP PO SCH (08:45)
[2016-09-07] MEDS: ENOXAPARIN 40 MG/0.4 ML SYR SC SCH (08:49)
[2016-09-07] MEDS ORDERED: valACYclovir 500 MG TAB PO SCH (09:00)
--- NOTE | 2016-09-07 13:14 | PCMIDPN ---
Assessment/Plan: Assessment/Plan: 1. Febrile neutrapenia: - She states she has had fevers ranging from 99-101 since this past . -Blood cx pending -Will send CMV PCR. -Continue with vanco, merem for now while cx are in progress. Duration will be dependent on cx and clinical course -patient had recent PET scan, results are pending. 2 Mucositis: - HSV swabs negative. will dc valtrex. She had about 7 days of therapy. -check CMV PCR -add fluconzole IV in the event this is more of erythamatous presentation of oral candidiasis. -conitnue with atbx as above, espp vanco and this will help cover for oral bacteria -may need EGD if stable, counts improve to further evaluate for esophageal ulcers etc. 3. Erythema of LUE: - ? allergic reaction to underlying HW vs other - Will see if Allergy/immunology consult can be done while in hospital given her difficulty in getting a ride to OP appt - 4. Hx MSSa bacteremia/LUE ABscess/osteomyelitis with underlying HW -s/p prolonged IV antibiotics, on oral suppressive antibiotics with Keflex. Hold keflex while on iv antibiotics. meds given vanco and cefepime x 1 in Er. will restart atbx while cx are in progress. Subjective: Pt well known to ID service. 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 She had a pathologic fracture involving left humerus with and abscess econdary to MSSA along with concomitant bacteremia. she underwent ORIF at the time the absscess was present. she is s/p prolonged course of IV antibiotics and has been on chronic suppressive keflex since June. OVer past two week she has had more persistant erythema over LUE. She underwent MRI which did not show obvious abscess collection. She was briefly on ceftriaxone for 10 days which complete last week and was back on oral keflex. She was seen in office last week and noted to have a tongue ulcer which was swabbed. She was empiricallly placed on valtrex while awaiting swab studies. Swab was negative for HSV/VZV. She has had about 7 days of therapy. She had had neutrapenia for 10 -14 days now. We awaiting Allergy/immunology eval to see if she could be having allergic reaction to her undelrying hardware. Per patient, had fever to 101 yesterday and thus came to ER. low grade temp at present. c/o mouth pain and LUE pain. painful swallowing. lower dentures have been hurting her. floyd sob, abd pain, or diarrhea. denies applying on top of her LUE. Objective: Vital Signs Temp Pulse Resp BP Pulse Ox 37.6 C 84 16 111/69 93 09/07/16 11:56 09/07/16 11:56 09/07/16 11:56 09/07/16 11:56 09/07/16 11:56 Laboratory Results 09/07/16 05:00 09/07/16 05:00 09/06/16 09/07/16 09/08/16 05:59 05:59 05:59 Intake Total 1600 Balance 1600 - Physical Exam General Appearance: alert, no apparent distress EENT: other (mouth is erythematous, possible small ulcers. tongue ulcer from last week is improved. upper dentures. no thrush today.) Respiratory: lungs clear Cardiac/Chest: regular rate, rhythm, systolic murmur, other (port; nontender) Extremities: swelling (LUE. erythmea almost brusing like appearance. no acute cellulitis noted. the erythema has a demarcated look to it. skin is warm to touch. no drainage. inciiosn site is intact.) Abdomen: normal bowel sounds, non-tender, soft, No distended Skin: erythema ICD10 Worksheet Patient Problems: Problems Problem Status Onset Cellulitis Acute Sepsis Acute Altered mental status Acute Arm fracture Acute Bipolar 1 disorder with moderate isaura Acute Chest pain Acute Lymphoma Acute Marijuana abuse Acute Neutropenia Acute Withdrawal from sedative drug Acute Bipolar disorder Chronic
--- NOTE | 2016-09-07 13:46 | HOSPPROG ---
Hospitalist Progress Note Assessment/Plan: Assessment/Plan: 66y female with c/o arm pain. This is my first encounter, chart reviewed. D/W Dr Peña and Jasbir. # Febrile neutropenia: states she has had fevers, none here Blood cx pending CMV PCR pending Continue vanco/cefepime for now while cx are in progress consulted Oncology #Hx Schizo at baseline # Mucositis: fluconzole IV may need EGD if stable # Erythema of LUE: reviewed with Dr Peña etiol unclear possible allergic reaction to underlying HW vs other #Hx Non-Hodgkins per onc await consult # Hx MSSa bacteremia s/p prolonged IV antibiotics, on oral suppressive antibiotics with Keflex #Dispo unclear, will return home when workup done Subjective: Up to bathroom. No specific issues. No complaints. Objective: Vital Signs Temp Pulse Resp BP Pulse Ox 37.6 C 84 16 111/69 93 09/07/16 11:56 09/07/16 11:56 09/07/16 11:56 09/07/16 11:56 09/07/16 11:56 Laboratory Results 09/07/16 05:00 09/07/16 05:00 09/06/16 09/07/16 09/08/16 05:59 05:59 05:59 Intake Total 1600 Balance 1600 PT 14.2 SEC (12.0-15.0) 09/07/16 06:00 INR 1.11 (0.83-1.16) 09/07/16 06:00 - Physical Exam Constitutional: no apparent distress, appears nourished, not in pain Eyes: PERRL, anicteric sclera, EOMI Ears, Nose, Mouth, Throat: moist mucous membranes, hearing normal, oral ulcer Cardiovascular: regular rate and rhythym, No JVD, No edema Respiratory: no respiratory distress, no rales or rhonchi, reduced air movement Gastrointestinal: normoactive bowel sounds, No tenderness, No ascites Skin: warm, no induration, erythema Musculoskeletal: full muscle strength, normal joint ROM, no joint effusions Neurologic: AAOx3 Psychiatric: interacting appropriately, not anxious, not encephalopathic ICD10 Worksheet Patient Problems: Problems Problem Status Onset Cellulitis Acute Sepsis Acute Altered mental status Acute Arm fracture Acute Bipolar 1 disorder with moderate isaura Acute Chest pain Acute Lymphoma Acute Marijuana abuse Acute Neutropenia Acute Withdrawal from sedative drug Acute Bipolar disorder Chronic
--- NOTE | 2016-09-07 16:02 | GHP ---
[f rep st] HISTORY AND PHYSICAL DATE OF ADMISSION: 09/06/2016 RECOMMENDATIONS: 1. Assess whether or not there is active infection in the left humeral head. If there is any question consider an FNA for cultures. 2. Rebiopsy subcu met to establish diffuse large B cell histology and send for double double-hit. 3. Consider a bone marrow aspiration and biopsy for neutropenia to look for myelophthisis due to lymphoma. 4. Make an assessment as to whether to give an attempt at a potentially curative or even palliative chemotherapy. 5. If decision is made not to treat her actively then look for a supportive care approach and perhaps a senior care facility for pain management with home hospice type care. EXECUTIVE SUMMARY: This patient is a 66-year-old woman who unfortunately suffers from what in her records is described as bipolar disorder and schizophrenia. She apparently is living independently but has been dealing with an advanced and complicated lymphoma. In September 2015 she was diagnosed with a Stage SADIE follicular lymphoma that caused her right hip fracture which was treated surgically. She then had bendamustine Rituxan between September and January of 2016, but unfortunately developed transformed progressive disease to Stage IVB diffuse large B-cell lymphoma March 25, and was treated with R- CHOP and had a complete remission by July of 2016. The patient has had problems with her left proximal humerus which apparently is a complicated pathologic fracture with secondary infection. She is in chronic pain and came into the emergency room with worsening pain in her left arm. She had just had a PET scan performed at [facility] on September 03, 2016, which shows that she has evidence of progressive disease. First of all, she has uptake in the left shoulder, in the left humeral area. She also has new uptake in the left 5th and 6th ribs. She also has evidence of a mass in the soft tissues overlying the right iliac bone. The patient has had fever up to 101 at home. She also has problems with aphthous stomatitis and sore throat. She has lost 9 pounds in the last week. She presents with a white count of 1.02, with an ANC of 0.16, and a hemoglobin of 7.9, and platelet count of 164. SOCIAL HISTORY: Reveals that she lives alone. She says she is a . She has no children and has what appears to be a tenuous support system. She has a history of heavy use of drugs and heavy use of alcohol in the past but not recently. FAMILY HISTORY: She has a negative family history. Her mother apparently is 88 and her father is 90. She has 1 brother age 61. I am not sure where they are or how involved they are. PAST MEDICAL HISTORY: Remarkable for bipolar disorder, alopecia predating chemotherapy, chronic anxiety and panic attacks. History of COPD and sleep apnea. Hypothyroidism, and as I mentioned alcoholism. She has had right hip surgical repair, a right ankle repair in 1971, and left shoulder surgery. The patient has a 50 pack-year history of smoking. REVIEW OF SYSTEMS: She denies any night sweats. Otherwise see HPI. The patient has tenderness underneath her tongue and it is difficult for her to swallow. She has no headaches. She does not have any masses in her neck. She denies any cough or shortness of breath. She denies any significant chest pain. She denies any breast masses. She denies any nausea or vomiting. She denies hematochezia or melena or diarrhea. She denies any hematuria or dysuria. She has pain in her bones, primarily though in the left shoulder. CLINICAL EXAMINATION: Reveals a woman who looks older than her stated age of 66. 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 She has an aphthous stomatitis with ulcers under the tongue. She has no evidence for cervical or supraclavicular axillary lymphadenopathy. LUNGS: Clear to percussion and auscultation. CV: Regular. S1 is normal. S2 is normally split. There is no S3, S4, or murmur. ABDOMEN: Soft, obese, and nontender. There is no hepatosplenomegaly or masses. I do not detect any inguinal adenopathy, and there is no extremity edema or calf tenderness. NEUROLOGICAL: She is grossly intact. PSYCHOLOGICAL: She seems to be appropriate and understands the concerns about what is going on today. LABORATORY: The laboratory database reveals the above-noted abnormal CBC. ASSESSMENT: 1. Relapsing diffuse large B-cell lymphoma. 2. Possible left proximal humerus infection with osteomyelitis. 3. Pain control. 4. History of bipolar/schizophrenia. 5. Inadequate support system. I think the patient should be admitted and worked up because of her social situation in the hospital. I will repeat the biopsy although I am sure it is still diffuse large B-cell lymphoma, but I did not see any record that it was ever sent for any biomarkers like BCL6 or BCL2 or CMAC. Also, I am unclear whether she has active ongoing infection, but due to the erythema over the proximal humerus I think that is an ongoing concern because it precludes intervention with a malignancy. I think a marrow is reasonable to consider if she has myelophthisis. The low blood counts could be due to the ongoing infection and some sort of abscopal effect of the cancer as opposed to direct marrow invasion. If a curative intent were to be offered it would be a rather aggressive approach of R-DHAP or R-ICE chemotherapy followed by peripheral stem cell transplant. I am not sure she would be in a position to be a candidate for that treatment but these are considerations and need to be undertaken. Treatment plan and approach for her care should be delineated prior to discharge so that all the providers are on the same page. /[id number]/MODL MTDD
[2016-09-07] MEDS: MEROPENEM 1 GM in NS 100 ML IV SCH ×2 (16:24→20:50)
[2016-09-07] MEDS: FLUCONAZOLE/NaCl 100 MG in BAG 0 ML IV SCH (16:55)
[2016-09-07 18:14] LABS: ALANINE AMINOTRANSFERASE 28 IU/L (9-52); ALKALINE PHOSPHATASE 59 IU/L (38-126); ANION GAP 5 mEq/L (8-16); ASPARTATE AMINOTRANSFERASE 16 IU/L (14-46); BILIRUBIN,TOTAL 0.5 mg/dL (0.1-1.4); CARBON DIOXIDE 21 mEq/l (22-31); CHLORIDE 109 mEq/L (97-110); CREATININE 0.5 mg/dL (0.6-1.0); GLOMERULAR FILTRATION RATE > 60; GLUCOSE 77 mg/dL (70-100); LACTATE DEHYDROGENASE 451 IU/L (313-618); POTASSIUM 4.1 mEq/L (3.5-5.2); SODIUM 135 mEq/L (134-144); TOTAL PROTEIN 5.2 g/dL (6.3-8.2)
[2016-09-07] MEDS: VANCOMYCIN 750 MG in D5W 150 ML IV SCH (18:41)
[2016-09-07 19:48] VITALS: RESP 16
[2016-09-07] MEDS: DOXEPIN HCL 50 MG CAP PO SCH (20:51)
[2016-09-07] MEDS ORDERED: DOXEPIN HCL 50 MG CAP PO SCH (21:00)
[2016-09-07] MEDS ORDERED: OLANZapine DISINTEGR 10 MG TAB PO SCH (21:00)
[2016-09-08] MEDS: VANCOMYCIN 750 MG in D5W 150 ML IV SCH (02:13)
[2016-09-08] MEDS: LEVOTHYROXINE 125 MCG TAB PO SCH (05:01)
[2016-09-08] MEDS: oxyCODONE IR 5 MG TAB PO PRN ×2 (05:02→13:37)
[2016-09-08] MEDS: LORazepam 1 MG TAB PO SCH ×3 (05:02→13:31)
[2016-09-08] MEDS: OLANZapine DISINTEGR 10 MG TAB PO SCH ×2 (05:02→12:23)
[2016-09-08] MEDS: MEROPENEM 1 GM in NS 100 ML IV SCH ×2 (05:04→13:31)
[2016-09-08] MEDS: NS 1,000 ML IV SCH (05:04)
[2016-09-08 05:30] LABS: INR 1.13 (0.83-1.16); PROTIME(PATIENT) 14.4 SEC (12.0-15.0)
[2016-09-08] MEDS: SENNOSIDES/DOCUSATE SODIUM TAB PO SCH (08:21)
[2016-09-08] MEDS: VENLAFAXINE XR 150 MG CAP PO SCH (08:22)
[2016-09-08] MEDS: MULTIVITAMINS 1 EACH TAB PO SCH (08:23)
[2016-09-08] MEDS: FERROUS SULFATE 325 MG TAB PO SCH (08:23)
[2016-09-08] MEDS: OMEGA-3 FATTY ACIDS 1,000 MG CAP PO SCH (08:23)
[2016-09-08] MEDS: FLUCONAZOLE/NaCl 100 MG in BAG 0 ML IV SCH (08:27)
[2016-09-08 08:37] VITALS: TEMP 98; O2SAT 95
[2016-09-08] MEDS: morphINE SR 30 MG TAB PO SCH (08:59)
[2016-09-08] MEDS: morphINE SR 60 MG TAB PO SCH (08:59)
[2016-09-08] MEDS ORDERED: VENLAFAXINE XR 150 MG CAP PO SCH (09:00)
[2016-09-08] MEDS ORDERED: VENLAFAXINE XR 75 MG CAP PO SCH (09:00)
[2016-09-08] MEDS: MBX SOLN 30 ML BOTTLE PO PRN ×3 (09:51→13:37)
[2016-09-08] MEDS: ENOXAPARIN 40 MG/0.4 ML SYR SC SCH (11:21)
--- NOTE | 2016-09-08 11:32 | SOAPPROG ---
SOAP Progress Note Assessment/Plan: Assessment: 1. Transformed follicular lymphoma - bone only 2. Neutropenia. May be due to direct involvement of the lymphoma or more likely delayed onset neutropenia from rituximab 3. L humerus pain. Suspect lymphoma involvement 4. Mucositis PET-CT shows progressive disease in the bone, including increased uptake at the L humerus. I discussed her case at length with Dr. Koo, her primarly oncologist. No need for a bone biopsy because the diagnosis is unlikely to be different. BMBx also not likely to be useful in terms of decision-making. overall prognosis for refractory transformed lymphoma is poor - 20-30% response rate to salvage regimens. She is not a candidate for clinical trials right now because of her neutropenia, though that could change if her counts improve. Allogeneic stem cell transplant is probably not a good option given her limited social support and high procedure-related morbidity Plan: - ok to d/c from my perspective on PO abx. Will defer to ID as to what to use , though I would prefer something with broader coverage than Keflex given her neutropenia. A quinolone would be optimal but she is allergic - will arrange for urgent RT consult to consider palliative RT to the humerus - will defer decision re; additional chemo to the outpatient setting with Dr. Koo. 45 min spent w/ pt and in coordination of care. 09/08/16 11:27 Subjective: still c/o pain in her L arm. also pain from mucositis. Objective: exam: moderate mucositis Lungs CTAB CV RRR no MGR ABd: +BS NT ND Ext: faded erythema L upper arm. Vital Signs Temp Pulse Resp BP Pulse Ox 36.7 C 84 16 107/74 95 09/08/16 08:36 09/08/16 08:36 09/08/16 08:36 09/08/16 08:36 09/08/16 08:36 Laboratory Results 09/07/16 05:00 09/07/16 17:30 09/07/16 09/08/16 09/09/16 05:59 05:59 05:59 Intake Total 1600 3367 Output Total 300 2000 Balance 1600 3067 -2000 PT 14.4 SEC (12.0-15.0) 09/08/16 05:00 INR 1.13 (0.83-1.16) 09/08/16 05:00 ICD10 Worksheet Patient Problems: Problems Problem Status Onset Cellulitis Acute Sepsis Acute Altered mental status Acute Arm fracture Acute Bipolar 1 disorder with moderate isaura Acute Chest pain Acute Lymphoma Acute Marijuana abuse Acute Neutropenia Acute Withdrawal from sedative drug Acute Bipolar disorder Chronic
[2016-09-08 11:48] VITALS: BP 125/78; PULSE 86
--- NOTE | 2016-09-08 12:44 | PDIAF ---
- Diagnosis Diagnosis: Lymphoma Code Status: Full Code - Medication Management Discharge Medications: Medications to Continue on Transfer Levothyroxine [Synthroid 125 mcg (*)] 125 mcg PO DAILY06 03/27/14 [Last Taken ] Doxepin HCl [Sinequan 50 MG (*)] 100 mg PO HS 07/17/15 [Last Taken 09/05/16] Ferrous Sulfate [Ferrous Sulf 325 MG (*)] 325 mg PO DAILY 07/17/15 [Last Taken 09/06/16] Ibuprofen [Motrin (*)] 600 mg PO Q6 PRN 02/08/16 [Last Taken 09/03/16] Multivitamins [Multivitamin (*)] 1 each PO DAILY 02/08/16 [Last Taken 09/06/16] OLANZapine DISINTEGR [ZyPREXA ZYDIS (*)] 10 mg PO TID@,,02/08/16 [Last Taken 09/06/16 17:00] OLANZapine DISINTEGR [ZyPREXA ZYDIS (*)] 20 mg PO HS 02/08/16 [Last Taken ] [place]-3 Fatty Acids [Fish Oil 1000 mg (*)] 1,000 mg PO BID 02/08/16 [Last Taken 09/06/16] rOPINIRole HCL [Requip 0.25mg (RX)] 0.25 mg PO HS 02/08/16 [Last Taken 09/05/16] Venlafaxine HCl [Venlafaxine HCl ER] 225 mg PO DAILY 02/27/16 [Last Taken ] LORazepam [Ativan (*)] 1 mg PO 0500,0900,1300,1700 #0 tab 03/15/16 [Last Taken 09/06/16 18:00] oxyCODONE HCL [Oxycodone HCl] 20 mg PO Q4 PRN 03/28/16 [Last Taken 09/06/16 18: 00] Levothyroxine Sodium 125 mcg PO DAILY 09/06/16 [Last Taken 09/06/16] Sennosides/Docusate Sodium [Senna-Docusate Sodium Tablet] 2 each PO DAILY [Last Taken 09/06/16] morphINE SR [MS Contin/Oramorph 60 mg (*)] 60 mg PO BID 09/06/16 [Last Taken 03/25 18:00] morphINE SR [MS Contin/Oramorph SR 30 mg (*)] 30 mg PO BID 09/06/16 [Last Taken 09/06/16 18:00] valACYclovir [Valtrex (*)] 1,000 mg PO BID 09/06/16 [Last Taken 09/06/16 08:00] Acetaminophen [Tylenol 325mg (*)] 650 mg PO Q4HRS PRN #0 tab 09/08/16 [Last Taken Unknown] Amoxicillin/Clavulanate Pot [Augmentin 875 MG TAB (*)] 875 mg PO DAILY #30 tab 09/08/16 [Last Taken Unknown] Venlafaxine Xr [Effexor Xr 75MG (*)] 75 mg PO DAILY cap 09/08/16 [Last Taken Unknown] Discharge Medications: Refer to the Discharge Home Medication list for PRN reason. PICC Care - Routine: N/A - Orders Services needed: Home Care, Registered Nurse, Certified Cloth Shrinking Machine Operator, Master Truck Shop Mechanic, Physical Therapy, Occupational Therapy Home Care Face to Face: I certify that this patient was under my care and that I had the required epof-un-yvum encounter meeting the encounter requirements on the discharge day. My findings support the fact that the patient is homebound as defined in CMS Chapter 7 Medicare Benefits Manual 30.1.1, The condition of the patient is such that there exists a normal inability to leave home and consequently, leaving home would require a considerable and taxing effort. Diet Recommendation: no restrictions on diet - Follow Up Care Current Providers and Referrals: Sarah William MD [Primary Care Provider] - As per Instructions
[2016-09-08] MEDS ORDERED: MBX SOLN 30 ML BOTTLE PO PRN (14:31)
--- NOTE | 2016-09-08 15:04 | GDS ---
[f rep st] DISCHARGE SUMMARY DISCHARGE DIAGNOSES: 1. Neutropenia. 2. Transformed follicular lymphoma. 3. Left humerus pain. 4. Mucositis. 5. History of schizophrenia. 6. History of non-Hodgkin's lymphoma. 7. History of methicillin-sensitive Staphylococcus aureus bacteremia. CONSULTATIONS: 1. Infectious Disease. 2. Oncology. PHYSICAL EXAMINATION: GENERAL: The patient is alert. VITAL SIGNS: Afebrile at 36.7, pulse is 86, respiratory rate 16, blood pressure is 125/78, she is saturating 95% on room air. HOSPITAL COURSE: The patient is a 66-year-old female, who has a known history of non-Hodgkin's lymp gonzalo with previous treatment with chemotherapy. She was presented to the emergency room with left u pper arm pain and evaluated and diagnosed with: 1. Left humeral pain. This is significantly complicated in nature. PET scan shows metastatic proc ess. The patient has hardware placed in this area secondary to a pathological fracture and she also has a history of abscess formation. She is on Keflex for prophylactic infection and has now been t ransitioned to Augmentin for prophylactic infection coverage. She will receive outpatient radiation to that left humerus for comfort secondary to metastatic pain. 2. Neutropenia. This has been deferred to Oncology. She will follow up in the outpatient setting with Dr. Koo. 3. History of schizophrenia. She is stable and at baseline. 4. Mucositis. She will continue supportive management in the outpatient setting. 5. Follicular lymphoma. The patient will follow up with Dr. Koo and determine further treatment options in the outpatient setting. 6. Disposition. I have talked to the patient at length as well as with Dr. Macario. She will be discharged home with multiple home health care services. Her prognosis is poor and she is aware of this. She will follow up with Dr. Koo in the outpatient setting for radiation of her left upper e xtremity as well as consideration for further chemotherapy treatment. There are no pending studies. DISCHARGE MEDICATIONS: Include Augmentin. Please refer to EMR form. I have not adjusted the patie nt's previously prescribed home medications; however, I have discontinued her Keflex. I have review ed her antibiotic therapy regimen with Dr. Saturnino Sagastume of Infectious Disease, who is in agreement wi th this plan. Followup will be with Dr. Koo, as well as Dr. Peña of Infectious Disease. I spent greater than 35 minutes in the care, coordination, and management of this patient's disposit ion. /[id number]/MODL
[2016-09-08] MEDS ORDERED: LIDOCAINE 1% 300 MG/30 ML SDV ONE (15:06)
[2016-09-10 20:21] LABS: CMVRU RESULT Negative (Negative); CMVRU SPECIMEN SOURCE NASAL
== END 2016-09-08 15:47 | disposition home health service (06) | DRG 841 ==
LOC: OBSVTOIN 21:41 → F3E 22:09
PROVIDERS: ADMIT Internal Medicine; ATTEND Internal Medicine
DX: C82.80 Other types of follicular lymphoma, unspecified site (principal); K12.30 Oral mucositis (ulcerative), unspecified; D70.9 Neutropenia, unspecified; G89.29 Other chronic pain; F11.20 Opioid dependence, uncomplicated; F20.9 Schizophrenia, unspecified; F31.9 Bipolar disorder, unspecified; E03.9 Hypothyroidism, unspecified; J44.9 Chronic obstructive pulmonary disease, unspecified; G47.30 Sleep apnea, unspecified; I10 Essential (primary) hypertension; Z87.891 Personal history of nicotine dependence; Z86.19 Personal history of other infectious and parasitic diseases
CPT/HCPCS: 87496-90; 96365; 97162-GP; 97166-GO; 97535-GO; G8978-GP-CJ; G8979-GP-CI; G8987-GO-CI; G8988-GO-CH; G8989-GO-CI; J0692; J1170; J1450; J1642; J1650; J2185; J3010; J3370

== ENCOUNTER 2016-09-30 14:01 | Emergency (ER) | payer OTHER, MEDICAID ==
[2016-09-30 14:29] VITALS: BP 108/74; O2SAT 98
--- NOTE | 2016-09-30 16:32 | EDPHY ---
H & P Stated Complaint: Left Leg/Hip Pain Time Seen by Provider: 09/30/16 15:48 HPI/ROS: CHIEF COMPLAINT: Left leg pain HISTORY OF PRESENT ILLNESS: The patient presents to the ED with atraumatic left leg pain. The patient describes pain primarily in her posterior left hamstring. The symptoms began last night. The patient does report pain along the medial aspect of the thigh. She denies any history of fall or trauma. 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 The patient denies any pleuritic chest pain. She is currently receiving chemotherapy at [facility]. REVIEW OF SYSTEMS: A comprehensive 10 point review of systems is otherwise negative aside from elements mentioned in the history of present illness. Source: Patient Exam Limitations: No limitations - Personal History Current Tetanus Diphtheria and Acellular Pertussis (TDAP): Yes Tetanus Vaccine Date: 2009 - Medical/Surgical History Hx Asthma: No Hx Chronic Respiratory Disease: Yes Hx Diabetes: No Hx Cardiac Disease: No Hx Renal Disease: No Hx Cirrhosis: No Hx Alcoholism: Yes Hx HIV/AIDS: No Hx Splenectomy or Spleen Trauma: No Other PMH: PMHx: chronic pain, hypothyroid, depression, anxiety, degenerative disc disease, COPD, sleep apnea, angina, bipolar, stage 4 non hodgkins lymphoma , L humerus surgical neck fracture,. PSHx: L femur fx repair - Social History Smoking Status: Former smoker - Physical Exam Exam: General Appearance: Alert, no distress Eyes: Pupils equal and round no pallor or injection ENT, Mouth: Mucous membranes moist Respiratory: There are no retractions, lungs are clear to auscultation Cardiovascular: Regular rate and rhythm Gastrointestinal: Abdomen is soft and nontender, no masses, bowel sounds normal Neurological: A&O, normal motor function, normal sensory exam, normal cranial nerves Skin: Warm and dry, no rashes Musculoskeletal: Tenderness to palpation along the left medial thigh, tenderness to palpation over the left greater trochanter and pubic rami Extremities: symmetrical, full range of motion Psychiatric: Patient is oriented X 3, there is no agitation Constitutional: Initial Vital Signs Temperature (C) 36.8 C 09/30/16 14:27 Heart Rate 92 09/30/16 14:27 Respiratory Rate 18 09/30/16 14:27 Blood Pressure 108/74 09/30/16 14:27 O2 Sat (%) 98 09/30/16 14:27 O2 Delivery Mode Room Air Allergies/Adverse Reactions: melatonin Allergy (Mild, Verified 09/06/16 18:41) Other-Enter Comments gabapentin [Gabapentin] Allergy (Unknown, Verified 09/06/16 18:41) TREMORS pregabalin [Pregabalin] Allergy (Unknown, Verified 09/06/16 18:41) Rash solifenacin succinate [From Vesicare] Allergy (Unknown, Verified 09/06/16 18:41) topiramate [Topiramate] Allergy (Unknown, Verified 09/06/16 18:41) POORLY TOLERATED ziprasidone [Ziprasidone] Allergy (Unknown, Verified 09/06/16 18:41) ABNORMAL THINKING ziprasidone HCl [From Geodon] Allergy (Unknown, Verified 09/06/16 18:41) ziprasidone mesylate [From Geodon] Allergy (Unknown, Verified 09/06/16 18:41) zolpidem [Zolpidem] Allergy (Unknown, Verified 09/06/16 18:41) levofloxacin [From Levaquin] Allergy (Verified 09/06/16 18:41) Home Medications: Medication Instructions Recorded Levothyroxine [Synthroid 125 mcg 125 mcg PO DAILY06 03/27/14 (*)] Doxepin HCl [Sinequan 50 MG (*)] 100 mg PO HS 07/17/15 Ferrous Sulfate [Ferrous Sulf 325 325 mg PO DAILY 07/17/15 MG (*)] Ibuprofen [Motrin (*)] 600 mg PO Q6 PRN 02/08/16 Multivitamins [Multivitamin (*)] 1 each PO DAILY 02/08/16 OLANZapine DISINTEGR [ZyPREXA 10 mg PO TID@05,,17 02/08/16 ZYDIS (*)] OLANZapine DISINTEGR [ZyPREXA 20 mg PO HS 02/08/16 ZYDIS (*)] [place]-3 Fatty Acids [Fish Oil 1000 1,000 mg PO BID 02/08/16 mg (*)] rOPINIRole HCL [Requip 0.25mg (RX)] 0.25 mg PO HS 02/08/16 Venlafaxine HCl [Venlafaxine HCl 225 mg PO DAILY 02/27/16 ER] LORazepam [Ativan (*)] 1 mg PO 0500,0900,1300,1700 #0 tab 03/15/16 oxyCODONE HCL [Oxycodone HCl] 20 mg PO Q4 PRN 03/28/16 Levothyroxine Sodium 125 mcg PO DAILY 09/06/16 Sennosides/Docusate Sodium 2 each PO DAILY 09/06/16 [Senna-Docusate Sodium Tablet] morphINE SR [MS Contin/Oramorph 60 60 mg PO BID 09/06/16 mg (*)] morphINE SR [MS Contin/Oramorph SR 30 mg PO BID 09/06/16 30 mg (*)] valACYclovir [Valtrex (*)] 1,000 mg PO BID 09/06/16 Acetaminophen [Tylenol 325mg (*)] 650 mg PO Q4HRS PRN #0 tab 09/08/16 Amoxicillin/Clavulanate Pot 875 mg PO DAILY #30 tab 09/08/16 [Augmentin 875 MG TAB (*)] Venlafaxine Xr [Effexor Xr 75MG 75 mg PO DAILY cap 09/08/16 (*)] Medical Decision Making - Diagnostics Imaging Results: Imaging Impressions Hip X-Ray 09/30/16 15:49 Impression: 1. Limited assessment of extensive metastases better visualized on MRI, with no acute osseous findings. 2. Additional findings as above. Extremity Venous Study 09/30/16 16:28 Impression: No evidence of deep vein thrombosis in the right or left lower extremity. Message was left for Juan José Dowling, at 09/30/2016 17:32 ED Course/Re-evaluation: The patient presents to the emergency department with complaints of atraumatic left hip and leg pain. The patient did have some tenderness in her proximal thigh. A stat ultrasound was ordered which demonstrates no evidence of a DVT. Additionally, the patient has no evidence of an acute fracture noted on her x- ray. The patient is neurologically intact on my examination. I believe she is likely having a myofascial strain. At this point time I do feel she can manage her symptoms with her regular medications. She has been instructed to follow up with her regular physicians as scheduled. She should certainly return to the emergency department should she develops any worsening pain, fever, acute neurologic symptoms or other complaints. Differential Diagnosis: Differential diagnosis considered includes occult fracture, DVT, myofascial strain - Data Points Medications Given: Discontinued Medications Ibuprofen (Motrin) 600 mg PO EDNOW ONE Stop: 09/30/16 17:38 Last Admin: 09/30/16 17:49 Dose: 600 mg Departure - Departure Disposition: Home, Routine, Self-Care Clinical Impression: Left leg pain Condition: Good Instructions: Musculoskeletal Pain (ED) Additional Instructions: 1. Your x-ray shows no evidence of an acute fracture. Your ultrasound shows no evidence of a blood clot. 2. I believe you have a muscle strain which is causing her symptoms. I recommend ice pack 30 minutes at a time 4 to 5 times a day for the next several days. 3. Tylenol as needed for pain. 4. Please follow-up with your primary care provider as needed. Referrals: Sarah William MD [Primary Care Provider] - As per Instructions
[2016-09-30] MEDS ORDERED: OLANZapine DISINTEGR 10 MG TAB ONE (17:32)
[2016-09-30] MEDS ORDERED: IBUPROFEN 600 MG TAB PO ONE (17:37)
[2016-09-30 18:35] VITALS: PULSE 81; RESP 16; TEMP 97.9
== END 2016-09-30 18:35 | disposition home or self-care (01) ==
DX: M79.605 Pain in left leg (principal); Z87.891 Personal history of nicotine dependence

== ENCOUNTER → 2016-10-15 | Outpatient (CLI) | payer OTHER, MEDICAID ==
[~2016-10-15] MED LIST changes: -ACETAMINOPHEN 325 MG TAB PO ONE; +GADOBUTROL 10 ML VIAL IVP ONE; -diphenhydrAMINE 25 MG CAP PO ONE
== END ==
LOC: FIMAGING 08:15
PROVIDERS: ATTEND Nurse Practitioner
DX: C79.89 Secondary malignant neoplasm of other specified sites (principal); C79.51 Secondary malignant neoplasm of bone; C85.90 Non-Hodgkin lymphoma, unspecified, unspecified site
CPT/HCPCS: 72158; 72197; A9585; J1642

== ENCOUNTER 2016-10-22 11:57 | Emergency (ER) | payer OTHER, MEDICAID ==
[2016-10-22 12:19] VITALS: BP 103/66; PULSE 90; RESP 18; TEMP 98.1; O2SAT 96
== END 2016-10-22 12:56 | disposition left against medical advice (07) ==
DX: Z53.21 Procedure and treatment not carried out due to patient leaving prior to being seen by health care provider (principal)

== ENCOUNTER 2016-10-23 12:38 | Emergency (ER) | payer OTHER, MEDICAID ==
[2016-10-23 12:43] VITALS: BP 119/73; PULSE 88; RESP 18; TEMP 98.4; O2SAT 95
--- NOTE | 2016-10-23 13:28 | EDPHY ---
H & P Stated Complaint: Rectal pain Time Seen by Provider: 10/23/16 13:26 HPI/ROS: CHIEF COMPLAINT: Rectal pain HISTORY OF PRESENT ILLNESS: Patient presents to the ED with a 2 day history of rectal pain. The patient denies hematochezia or diarrhea. The patient is currently being treated for lymphoma. She completed radiation therapy at the end of September. She is currently receiving chemotherapy. Patient did have an MRI of her pelvis performed 8 days ago which did demonstrate fairly significant metastatic disease in the pelvis. The patient denies fever. She denies additional complaints. The patient reports her rectal pain is currently an 10/16. REVIEW OF SYSTEMS: A comprehensive 10 point review of systems is otherwise negative aside from elements mentioned in the history of present illness. Source: Patient Exam Limitations: No limitations - Personal History Tetanus Vaccine Date: 2009 - Medical/Surgical History Hx Asthma: No Hx Chronic Respiratory Disease: Yes Hx Diabetes: No Hx Cardiac Disease: No Hx Renal Disease: No Hx Cirrhosis: No Hx Alcoholism: Yes Hx HIV/AIDS: No Hx Splenectomy or Spleen Trauma: No Other PMH: PMHx: chronic pain, hypothyroid, depression, anxiety, degenerative disc disease, COPD, sleep apnea, angina, bipolar, stage 4 non hodgkins lymphoma , L humerus surgical neck fracture,. PSHx: L femur fx repair - Social History Smoking Status: Former smoker - Physical Exam Exam: General Appearance: Thin female, no acute distress Eyes: Pupils equal and round no pallor or injection ENT, Mouth: Mucous membranes moist Respiratory: There are no retractions, lungs are clear to auscultation Cardiovascular: Regular rate and rhythm Gastrointestinal: Abdomen is soft and nontender, no masses, bowel sounds normal Rectal examination: No hemorrhoid, no palpable abscess, digital rectal examination demonstrates only mild discomfort Neurological: A&O, normal motor function, normal sensory exam, normal cranial nerves Skin: Warm and dry, no rashes Musculoskeletal: Neck is supple nontender Extremities: symmetrical, full range of motion Constitutional: Initial Vital Signs Temperature (C) 36.9 C 10/23/16 12:42 Heart Rate 88 10/23/16 12:42 Respiratory Rate 18 10/23/16 12:42 Blood Pressure 119/73 10/23/16 12:42 O2 Sat (%) 95 10/23/16 12:42 O2 Delivery Mode Nasal Cannula O2 (L/minute) 2 Allergies/Adverse Reactions: melatonin Allergy (Mild, Verified 10/22/16 12:16) Other-Enter Comments gabapentin [Gabapentin] Allergy (Unknown, Verified 10/22/16 12:16) TREMORS pregabalin [Pregabalin] Allergy (Unknown, Verified 10/22/16 12:16) Rash solifenacin succinate [From Vesicare] Allergy (Unknown, Verified 10/22/16 12:16) topiramate [Topiramate] Allergy (Unknown, Verified 10/22/16 12:16) POORLY TOLERATED ziprasidone [Ziprasidone] Allergy (Unknown, Verified 10/22/16 12:16) ABNORMAL THINKING ziprasidone HCl [From Geodon] Allergy (Unknown, Verified 10/22/16 12:16) ziprasidone mesylate [From Geodon] Allergy (Unknown, Verified 10/22/16 12:16) zolpidem [Zolpidem] Allergy (Unknown, Verified 10/22/16 12:16) levofloxacin [From Levaquin] Allergy (Verified 10/22/16 12:16) Home Medications: Medication Instructions Recorded Levothyroxine [Synthroid 125 mcg 125 mcg PO DAILY06 03/27/14 (*)] Doxepin HCl [Sinequan 50 MG (*)] 100 mg PO HS 07/17/15 Ferrous Sulfate [Ferrous Sulf 325 325 mg PO DAILY 07/17/15 MG (*)] Ibuprofen [Motrin (*)] 600 mg PO Q6 PRN 02/08/16 Multivitamins [Multivitamin (*)] 1 each PO DAILY 02/08/16 OLANZapine DISINTEGR [ZyPREXA 10 mg PO TID@05,12,17 02/08/16 ZYDIS (*)] OLANZapine DISINTEGR [ZyPREXA 20 mg PO HS 02/08/16 ZYDIS (*)] [place]-3 Fatty Acids [Fish Oil 1000 1,000 mg PO BID 02/08/16 mg (*)] rOPINIRole HCL [Requip 0.25mg (RX)] 0.25 mg PO HS 02/08/16 Venlafaxine HCl [Venlafaxine HCl 225 mg PO DAILY 02/27/16 ER] LORazepam [Ativan (*)] 1 mg PO 0500,0900,1300,1700 #0 tab 03/15/16 oxyCODONE HCL [Oxycodone HCl] 20 mg PO Q4 PRN 03/28/16 Levothyroxine Sodium 125 mcg PO DAILY 09/06/16 Sennosides/Docusate Sodium 2 each PO DAILY 09/06/16 [Senna-Docusate Sodium Tablet] morphINE SR [MS Contin/Oramorph 60 60 mg PO BID 09/06/16 mg (*)] morphINE SR [MS Contin/Oramorph SR 30 mg PO BID 09/06/16 30 mg (*)] valACYclovir [Valtrex (*)] 1,000 mg PO BID 09/06/16 Acetaminophen [Tylenol 325mg (*)] 650 mg PO Q4HRS PRN #0 tab 09/08/16 Amoxicillin/Clavulanate Pot 875 mg PO DAILY #30 tab 09/08/16 [Augmentin 875 MG TAB (*)] Venlafaxine Xr [Effexor Xr 75MG 75 mg PO DAILY cap 09/08/16 (*)] Medical Decision Making ED Course/Re-evaluation: The patient presents to the ED with rectal pain in the setting of recent radiation/chemotherapy as well as pelvic metastatic disease. Her digital examination demonstrates no evidence of a hemorrhoid, abscess or cellulitis. It is certainly possible she is having some proctitis or symptomatic malignancy. At this point time the patient has been encouraged to continue her regular pain medications. She should return to the ED for severe diarrhea, hematochezia, fever or other concerns. Differential Diagnosis: Differential diagnosis considered includes proctitis, abscess, external hemorrhoid, internal hemorrhoid Departure - Departure Disposition: Home, Routine, Self-Care Clinical Impression: Proctitis Condition: Good Instructions: Proctitis (ED) Additional Instructions: 1. Please return to the emergency department for fever, rectal bleeding, severe pain or other concerns. 2. Please follow up with Dr. Koo as scheduled. 3. I do believe your rectal pain is either secondary to your underlying lymphoma or potentially a side effect of the radiation therapy you have received your sacrum. Referrals: Carissa Koo MD [Primary Care Provider] - As per Instructions
== END 2016-10-23 14:22 | disposition home or self-care (01) ==
LOC: EDUNIT#
DX: K62.89 Other specified diseases of anus and rectum (principal); J44.9 Chronic obstructive pulmonary disease, unspecified; Z87.891 Personal history of nicotine dependence

== ENCOUNTER 2016-11-23 11:25 | Emergency (ER) | payer OTHER, MEDICAID ==
[2016-11-23 11:31] VITALS: BP 126/73; PULSE 75; RESP 18; TEMP 98.6; O2SAT 97
--- NOTE | 2016-11-23 12:45 | EDPHY ---
H & P Smoking Status: Former smoker Time Seen by Provider: 11/23/16 12:07 HPI/ROS: CHIEF COMPLAINT: Sore throat HISTORY OF PRESENT ILLNESS: 66-year-old female presents to the emergency department complaining of sore throat. She has a history of cancer and recently had chemo infusion on Thursday, 5 days ago. She states that it is difficult to swallow. She has had this in the past. She states that it took several weeks to resolve. She thinks that this is a reaction to her chemotherapy. She was sent here to rule out strep throat. ROS: Denies fevers, chills, rash (Vee Novoa) Past Medical/Surgical History: Chronic pain, hypothyroidism, depression, anxiety, degenerative disc disease, COPD, sleep apnea, angina, bipolar, stage IV non-Hodgkin's lymphoma, orthopedic injuries, orthopedic surgery (Vee Novoa) Social History: and lives in [place] (Vee Novoa) Physical Exam: On examination mucous membranes appear dry. Her tongue is pink. Not obviously swollen. No ulcerative lesions noted. Mild posterior pharyngeal injection noted. Neck is supple without lymphadenopathy. (Vee Novoa) Constitutional: Initial Vital Signs Temperature (C) 37 C 11/23/16 11:29 Heart Rate 75 11/23/16 11:29 Respiratory Rate 18 11/23/16 11:29 Blood Pressure 126/73 H 11/23/16 11:29 O2 Sat (%) 97 11/23/16 11:29 O2 Delivery Mode Room Air Allergies/Adverse Reactions: melatonin Allergy (Mild, Verified 11/23/16 11:27) Other-Enter Comments gabapentin [Gabapentin] Allergy (Unknown, Verified 11/23/16 11:27) TREMORS pregabalin [Pregabalin] Allergy (Unknown, Verified 11/23/16 11:27) Rash solifenacin succinate [From Vesicare] Allergy (Unknown, Verified 11/23/16 11:27) topiramate [Topiramate] Allergy (Unknown, Verified 11/23/16 11:27) POORLY TOLERATED ziprasidone [Ziprasidone] Allergy (Unknown, Verified 11/23/16 11:27) ABNORMAL THINKING ziprasidone HCl [From Geodon] Allergy (Unknown, Verified 11/23/16 11:27) ziprasidone mesylate [From Geodon] Allergy (Unknown, Verified 11/23/16 11:27) zolpidem [Zolpidem] Allergy (Unknown, Verified 11/23/16 11:27) levofloxacin [From Levaquin] Allergy (Verified 11/23/16 11:27) Home Medications: Medication Instructions Recorded Levothyroxine [Synthroid 125 mcg 125 mcg PO DAILY06 03/27/14 (*)] Doxepin HCl [Sinequan 50 MG (*)] 100 mg PO HS 07/17/15 Ferrous Sulfate [Ferrous Sulf 325 325 mg PO DAILY 07/17/15 MG (*)] Ibuprofen [Motrin (*)] 600 mg PO Q6 PRN 02/08/16 Multivitamins [Multivitamin (*)] 1 each PO DAILY 02/08/16 OLANZapine DISINTEGR [ZyPREXA 10 mg PO TID@,,02/08/16 ZYDIS (*)] OLANZapine DISINTEGR [ZyPREXA 20 mg PO HS 02/08/16 ZYDIS (*)] [place]-3 Fatty Acids [Fish Oil 1000 1,000 mg PO BID 02/08/16 mg (*)] rOPINIRole HCL [Requip 0.25mg (RX)] 0.25 mg PO HS 02/08/16 Venlafaxine HCl [Venlafaxine HCl 225 mg PO DAILY 02/27/16 ER] LORazepam [Ativan (*)] 1 mg PO 0500,0900,1300,1700 #0 tab 03/15/16 oxyCODONE HCL [Oxycodone HCl] 20 mg PO Q4 PRN 03/28/16 Levothyroxine Sodium 125 mcg PO DAILY 09/06/16 Sennosides/Docusate Sodium 2 each PO DAILY 09/06/16 [Senna-Docusate Sodium Tablet] morphINE SR [MS Contin/Oramorph 60 60 mg PO BID 09/06/16 mg (*)] morphINE SR [MS Contin/Oramorph SR 30 mg PO BID 09/06/16 30 mg (*)] valACYclovir [Valtrex (*)] 1,000 mg PO BID 09/06/16 Acetaminophen [Tylenol 325mg (*)] 650 mg PO Q4HRS PRN #0 tab 09/08/16 Amoxicillin/Clavulanate Pot 875 mg PO DAILY #30 tab 09/08/16 [Augmentin 875 MG TAB (*)] Venlafaxine Xr [Effexor Xr 75MG 75 mg PO DAILY cap 09/08/16 (*)] MDM/Departure - MDM ED Course/Re-evaluation: Rapid strep test was negative. The patient states that she has a history of stomatitis and she feels that this is exactly the same like last time. She was given a prescription for Miracle mouthwash which contained and antacid, nystatin , lidocaine, and Benadryl. I encouraged her to continue this medication for comfort. I encouraged her to return if she developed difficulty breathing, difficulty swallowing, fever, or any other concerns. (Vee Novoa) The patient was evaluated and managed by the Physician Sole Tacker/ Nurse Practitioner. My co-signature indicates that I have reviewed this chart and I agree with the findings and plan of care as documented. I am the secondary supervising physician. (Kaylee Cole) - Depart Disposition: Home, Routine, Self-Care Clinical Impression: Acute pharyngitis, Stomatitis Condition: Good Instructions: Pharyngitis (ED) Additional Instructions: Continue [place] mouthwash as prescribed. Return if you developed worsening pain or if you feel worse in any way. Referrals: Giuseppe Humphries MD [Medical Doctor] - 2-3 days, if not improved (ENT on-call)
== END 2016-11-23 12:52 | disposition home or self-care (01) ==
DX: J02.9 Acute pharyngitis, unspecified (principal); K12.1 Other forms of stomatitis; J44.9 Chronic obstructive pulmonary disease, unspecified; Z87.891 Personal history of nicotine dependence